=== PATIENT | female | born 1940 | race Caucasian/White ===

== ENCOUNTER → 2017-06-18 11:10 | Outpatient (CLI) | payer MEDICARE, OTHER, SELFPAY ==
[2017-06-18 11:58] LABS: Alanine Aminotransferase 50 IU/L (9-52); Albumin 4.2 g/dL (3.5-5.0); Albumin Globulin Ratio 1.4 (1.0-2.8); Alkaline Phosphatase 84 U/L (38-126); Aspartate Aminotransferase 34 IU/L (14-36); BUN Creatinine Ratio 28.6 (6-22); Bilirubin Total 0.4 mg/dL (0.2-1.3); Calcium 9.3 mg/dL (8.4-10.2); Estimated Glomerular Filt Rate > 60.0 mL/min (>60); Globulin 3.1 g/dL (1.7-4.1); Glucose 107 mg/dL (80-110); HEMOLYSIS < 15 (0-50); Potassium 4.1 mmol/L (3.4-5.1); Sodium 142 mmol/L (137-145); Total Protein 7.3 g/dL (6.3-8.2)
[2017-06-18 12:28] LABS: Carcinoembryonic Antigen 2.9 ng/mL (0.1-3.0)
[2017-06-19 15:55] LABS: Cancer Antigen 27.29 13
== END ==
PROVIDERS: Family Provider Physician Assistant Medical; PCP Physician Assistant Medical; Visit Provider Nurse Practitioner Gerontology
DX: C50.412 Malignant neoplasm of upper-outer quadrant of left female breast (principal)
CPT/HCPCS: 36415; 80053; 82378; 86300

== ENCOUNTER → 2017-07-15 10:28 | Outpatient (CLI) | payer MEDICARE, OTHER, SELFPAY ==
--- NOTE | 2017-07-15 14:24 | DIET.PN ---
Met for initial nutrition consultation Pt here for education on how to eat healthy to prevent cancer recurrance and be as healthy as possible. Had surgery to remove small malignant tumor in breast approx 2 yr ago. Opted not to have any further tx and is confident that all the cancer was removed. Usual Diet: 3 meals and 0-1 snack per day. Dines out regularly - often choosing entree salads. Does love bread and states her keeps things around that tempt her (ice cream and pastries). Activity Level: Low. Was doing pilates 2-3 times/week at her daughter's studio. Unfortunately for her, the daughter's business is taking off and she often gets bumped from her appointment. Has a stationary bike at home, but has little motivation to ride. Doesn't like to walk much, unless it's warm and calvin outside. Has a bum knee that gives her problems and feels so weight loss may help with this. Nutrition Dx: Obesity Ht 5'4 Wt: 175# (pt scale) BMI: 30 Wt goal: ~140# Assessment: Per typical day recall, pt chooses many healthful foods - salads, stir aragon vegs, berries, whole grains - but also has several high carb; sometimes high sugar foods. Physical activity is very low and would benefit from increasing Intervention: Provided education on healthy plate model for choosing balanced diet w/abundant immune boosting nutrients and portioning to facilitate wt loss. Emphasized importance of increasing physical activity to lose wt and maintain muscle mass. Encouraged to significantly decrease starchy foods Plan/Goals: Keep food and activity record Implement Healthy plate model in food choices/portioning Increase exercise - pt plans to discuss w/daughter to try to schedule regular pilates again. May consider checking pool classes F/U 2 weeks
== END ==
PROVIDERS: Family Provider Physician Assistant Medical; PCP Physician Assistant Medical; Visit Provider Internal Medicine Hematology & Oncology
DX: E66.9 Obesity, unspecified (principal); Z68.30 Body mass index [BMI] 30.0-30.9, adult
CPT/HCPCS: 97802

== ENCOUNTER → 2017-08-14 10:30 | Outpatient (CLI) | payer MEDICARE, OTHER, SELFPAY ==
--- NOTE | 2017-08-14 12:08 | DIET.PN ---
Met for first f/u Ana Luisa brought in 2 weeks of food and activity records. States tracking helped to realize how many poor food choices and how low exercise level is, but didn't think she needed to continue records after couple weeks. Did get in some walking approx 2-3X/week. Patient is very talkative; difficult to keep to task. WEIGHT: forgot to weigh at home, but states she doesn't think it has changed. DX: post breast Ca w/ surgery; no rad or chemo BMI: 30 ASSESSMENT: Per food act record, eating a lot of sugared foods and realizes this is a problem. Did increase vegetable intake and tried to model portions after healthy plate model. Spouse continues to buy or requests to purchase foods that are a temptation. Dining out continues to be a challenge INTERVENTION: Provided feedback on food record; alternate ideas/choices. Strongly encouraged to increase physical activity - suggest scheduling time. Discussed alternates for sweets GOAL: Keep food records intermittedly to help keep on track Schedule exercise. When daughter cancels pilates session, pt to have a specific alternate in mind, such as walk [place] [address]. F/U in 1 month
== END ==
PROVIDERS: PCP Family Medicine; Visit Provider Family Medicine Addiction Medicine
DX: C50.919 Malignant neoplasm of unspecified site of unspecified female breast (principal)
CPT/HCPCS: 97803

== ENCOUNTER 2017-10-16 17:43 | Emergency (ER) | payer MEDICARE, OTHER, SELFPAY ==
[2017-10-16 17:51] VITALS: BP 160/85; PULSE 80; RESP 20; TEMP 36.9; O2SAT 95
== END 2017-10-16 19:14 | disposition left against medical advice (07) ==
PROVIDERS: Emergency Provider Emergency Medicine; PCP Family Medicine
DX: M79.641 Pain in right hand (principal)
CPT/HCPCS: 99281; 99282

== ENCOUNTER → 2017-11-03 09:49 | Outpatient (CLI) | payer MEDICARE, OTHER, SELFPAY ==
--- NOTE | 2017-11-03 09:52 | DI.MRI.S_ITS ---
PROCEDURE: MR LUMBAR SPINE WO CON INDICATIONS: pain TECHNIQUE: Noncontrast sagittal T1 spin echo and T2 fast echo, coronal T2, sagittal STIR, axial T1 and T2 fast spin echo through the lumbar spine. COMPARISON: [facility], , MRI L-SPINE W/O CONTRAST, 11/25/2005, 8:51. [facility], CR, SPINE LUMB 2 OR 3VW, 11/29/2014, 11:34. FINDINGS: Image quality: Excellent. Alignment and Curvature: 5 lumbar type vertebral bodies are present by plain film. There is mild rightward curvature of the mid lumbar spine mild leftward curvature of the lower lumbar spine. There is loss of normal lumbar lordosis. There is mild grade 1 retrolisthesis of L2 on L3, L3 on L4, and L4 on L5. Bone Marrow: Marrow is of normal overall signal. No acute vertebral body compression fractures. There is increased mild reactive signal within the endplates adjacent to the L2-L3, L3-L4, L4-L5, and L5-S1 intervertebral discs. Spinal Cord: Conus medullaris terminates at the mid L2 level. Visualized cord demonstrates normal signal and size. Paraspinous Soft Tissues: No paravertebral masses. L1-L2: Mild facet hypertrophy. No canal, nor foraminal stenosis. L2-L3: Mild disc velocity desiccation. Mild diffuse disc bulge with superimposed broad-based left posterolateral and far lateral protrusion. Moderate facet and ligamentum flavum hypertrophy. Mild epidural lipomatosis. There is increased, moderate canal stenosis. There is increased, mild left greater than right foraminal stenosis. L3-L4: Moderate disc height loss and desiccation. Mild diffuse disc bulge with superimposed broad-based left posterolateral and far lateral protrusion. Moderate facet and ligamentum flavum hypertrophy. Mild epidural lipomatosis. Increased, moderate canal stenosis. Increased, mild left greater than right foraminal stenosis. L4-L5: Moderate disc height loss and desiccation. Moderate diffuse disc bulge with superimposed broad-based left for lateral protrusion. Moderate facet and ligamentum flavum hypertrophy. There is increased, moderate to severe canal stenosis. There is increased, moderate right and mild left foraminal stenosis. There is posterior deviation of the right L5 nerve root within the right lateral recess, new since the prior examination. L5-S1: Mild disc height loss and desiccation. Mild diffuse disc bulge with superimposed small broad-based right far lateral protrusion. Moderate facet hypertrophy bilaterally. Right facet joint effusion. There is increased, mild canal stenosis. There is increased, moderate to severe right foraminal stenosis with possible mild flattening deformity of the right L5 nerve root within the neural foramen. No left foraminal stenosis. IMPRESSION: 1. Multilevel degenerative disc and facet disease, as well ligamentum flavum hypertrophy and epidural lipomatosis. 2. Increased canal stenoses throughout the mid and lower lumbar spine, worst at L4-L5, where there is moderate to severe canal stenosis. 3. Increased multilevel foraminal stenoses, worst at L5-S1 on the right, where there is possible mild flattening deformity of the right L5 nerve root within the neural foramen. 4. Posterior deviation of the right L5 nerve root within the right lateral recess at the L4-L5 disc space level, new compared to the prior examination. 5. Recommend correlation with clinical symptoms to ascertain relevance of these findings. Dictated by: Minna Roberson M.D. on 11/03/2017 at 11:19 Approved by: Minna Roberson M.D. on 11/03/2017 at 11:26
[2017-11-03 12:01] LABS: Add Manual Diff / Slide Review NO; Basophils Percent Auto 1.2 % (0-2); Eosinophils Percent Auto 4.5 % (2-4); Hematocrit 41.5 % (36-46); Hemoglobin 13.8 g/dL (12.0-16.0); Lymphocytes Percent Auto 34.8 % (25-40); Mean Corpuscular HGB Conc 33.3 % (30-36); Mean Corpuscular Volume 89.9 fL (80-100); Monocytes Percent Auto 9.6 % (3-14); Neutrophils Absolute Auto 3800 /uL (3000-5900); Neutrophils Percent Auto 49.9 % (50-75); Platelet Count 310 X10^3/uL (150-400); Red Blood Cell Count 4.61 X10^6/uL (4.0-5.2); Red Cell Distribution Width 14.7 % (11.6-14.8); White Blood Cell Count 7.7 X10^3/uL (4.5-11.0)
[2017-11-03 12:22] LABS: Alanine Aminotransferase 48 IU/L (9-52); Albumin 4.3 g/dL (3.5-5.0); Albumin Globulin Ratio 1.4 (1.0-2.8); Alkaline Phosphatase 85 U/L (38-126); Aspartate Aminotransferase 30 IU/L (14-36); BUN Creatinine Ratio 28.6 (6-22); Bilirubin Total 0.4 mg/dL (0.2-1.3); Blood Urea Nitrogen 20 mg/dL (7-17); C-Reactive Protein Quant 0.7 mg/dL (<1.0); Calcium 9.9 mg/dL (8.4-10.2); Carbon Dioxide 32 mmol/L (22-32); Chloride 106 mmol/L (98-107); Estimated Glomerular Filt Rate > 60.0 mL/min (>60); Glucose 93 mg/dL (80-110); HEMOLYSIS < 15 (0-50); Potassium 4.5 mmol/L (3.4-5.1); Sodium 145 mmol/L (137-145); Total Protein 7.3 g/dL (6.3-8.2)
[2017-11-03 12:37] LABS: Vitamin D 25 Hydroxy (D3) 40.2 ng/mL (30.0-100.0)
[2017-11-03 12:50] LABS: Thyroid Stimulating Hormone 2.34 uIU/mL (0.47-4.68)
[2017-11-03 13:08] LABS: Vitamin B12 623 pg/mL (239-931)
== END ==
PROVIDERS: PCP Family Medicine; Visit Provider Family Medicine
DX: M51.36 Other intervertebral disc degeneration, lumbar region (principal); M51.37 Other intervertebral disc degeneration, lumbosacral region; M48.061 Spinal stenosis, lumbar region without neurogenic claudication; M48.07 Spinal stenosis, lumbosacral region; M54.5 Low back pain; R53.83 Other fatigue; E55.9 Vitamin D deficiency, unspecified
CPT/HCPCS: 36415; 72148; 80053; 82306; 82607; 84443; 85025; 86140

== ENCOUNTER → 2018-07-17 11:48 | Outpatient (CLI) | payer MEDICARE, OTHER, SELFPAY ==
[2018-07-17 12:31] LABS: Add Manual Diff / Slide Review NO; Basophils Absolute Auto 100 /uL (0-100); Eosinophils Absolute Auto 400 /uL (0-450); Eosinophils Percent Auto 4.4 % (2-4); Hematocrit 39.4 % (36-46); Hemoglobin 13.4 g/dL (12.0-16.0); Lymphocytes Absolute Auto 2800 /uL (1100-4500); Lymphocytes Percent Auto 30.8 % (25-40); Mean Corpuscular HGB Conc 33.9 % (30-36); Mean Corpuscular Hemoglobin 30.6 PG (26-34); Mean Corpuscular Volume 90.2 fL (80-100); Monocytes Absolute Auto 900 /uL (0-900); Monocytes Percent Auto 9.5 % (3-14); Neutrophils Absolute Auto 5000 /uL (1500-7000); Neutrophils Percent Auto 54.3 % (50-75); Platelet Count 309 X10^3/uL (150-400); Red Blood Cell Count 4.37 X10^6/uL (4.0-5.2); Red Cell Distribution Width 14.3 % (11.6-14.8); White Blood Cell Count 9.2 X10^3/uL (4.5-11.0)
[2018-07-17 12:38] LABS: Alanine Aminotransferase 37 IU/L (9-52); Albumin 4.1 g/dL (3.5-5.0); Albumin Globulin Ratio 1.3 (1.0-2.8); Alkaline Phosphatase 89 U/L (38-126); Aspartate Aminotransferase 31 IU/L (14-36); BUN Creatinine Ratio 37.1 (6-22); Bilirubin Total 0.5 mg/dL (0.2-1.3); Blood Urea Nitrogen 26 mg/dL (7-17); Calcium 9.7 mg/dL (8.4-10.2); Carbon Dioxide 31 mmol/L (22-32); Chloride 103 mmol/L (98-107); Cholesterol 219 mg/dL (140-199); Estimated Glomerular Filt Rate > 60.0 mL/min (>60); Globulin 3.2 g/dL (1.7-4.1); Glucose 104 mg/dL (80-110); HDL Cholesterol 70 mg/dL (40-60); HEMOLYSIS < 15 (0-50); LDL Cholesterol Calculated 122 mg/dL (<100); Potassium 4.3 mmol/L (3.4-5.1); Sodium 141 mmol/L (137-145); Total Protein 7.3 g/dL (6.3-8.2); Triglycerides 136 mg/dL (35-150)
[2018-07-17 13:40] LABS: Thyroid Stimulating Hormone 1.94 uIU/mL (0.47-4.68)
[2018-07-22 14:28] LABS: Estrogen 126.6 pg/mL
== END ==
PROVIDERS: Family Provider Family Medicine; PCP Family Medicine; Visit Provider Internal Medicine Hematology & Oncology
DX: C50.919 Malignant neoplasm of unspecified site of unspecified female breast (principal); R63.5 Abnormal weight gain; Z00.00 Encounter for general adult medical examination without abnormal findings; Z78.0 Asymptomatic menopausal state
CPT/HCPCS: 36415; 80053; 80061; 82672; 83001; 83002; 84443; 85025

== ENCOUNTER 2018-08-21 23:09 | Emergency (ER) | payer MEDICARE, OTHER, SELFPAY ==
[2018-08-21 23:13] VITALS: BP 141/64; PULSE 96; RESP 10; O2SAT 96; BMI 26.6
[2018-08-21 23:17] VITALS: TEMP 38
--- NOTE | 2018-08-21 23:26 | DI.RAD.S_ITS ---
PROCEDURE: XR CHEST 1V INDICATIONS: cough, fever, shortness of breath TECHNIQUE: One view of the chest was acquired. COMPARISON: , , CHEST 2 VIEW, 02/12/2017, 19:08. FINDINGS: Surgical changes and devices: None. Lungs and pleura: There is a new density identified within the right upper lobe, which was not evident on the prior study. Otherwise, no in additional areas of consolidation, effusion, or pneumothorax is evident. There may be minimal scarring versus atelectasis at the left lung base. Mediastinum: Mediastinal contours appear normal. Heart size is normal. There is aortic atherosclerosis. Bones and chest wall: No suspicious bony lesions. Overlying soft tissues appear unremarkable. IMPRESSION: 1. Small nodular right upper lobe density is new. Please consider CT of the chest for further evaluation to exclude a lung mass/nodule. Please correlate clinically to exclude atypical pneumonia. 2. No acute cardiopulmonary process is radiographically suspected. Dictated by: Archie Izquierdo M.D. on 08/21/2018 at 23:35 Approved by: Archie Izquierdo M.D. on 08/21/2018 at 23:36
[2018-08-21 23:40] LABS: Add Manual Diff / Slide Review NO; Basophils Absolute Auto 100 /uL (0-100); Basophils Percent Auto 0.7 % (0-2); Eosinophils Absolute Auto 300 /uL (0-450); Eosinophils Percent Auto 2.3 % (2-4); Hemoglobin 13.7 g/dL (12.0-16.0); Lymphocytes Absolute Auto 3300 /uL (1100-4500); Lymphocytes Percent Auto 25.9 % (25-40); Mean Corpuscular HGB Conc 33.3 % (30-36); Mean Corpuscular Hemoglobin 30.3 PG (26-34); Mean Corpuscular Volume 90.7 fL (80-100); Monocytes Absolute Auto 1700 /uL (0-900); Monocytes Percent Auto 13.2 % (3-14); Neutrophils Absolute Auto 7400 /uL (1500-7000); Neutrophils Percent Auto 57.9 % (50-75); Platelet Count 316 X10^3/uL (150-400); Red Blood Cell Count 4.52 X10^6/uL (4.0-5.2); Red Cell Distribution Width 14.5 % (11.6-14.8); White Blood Cell Count 12.9 X10^3/uL (4.5-11.0)
--- NOTE | 2018-08-21 23:40 | ED_ITS ---
HPI - URI/Sore Throat General Chief Complaint: Upper Respiratory Symptoms Stated Complaint: SOB Time Seen by Provider: 08/21/18 23:10 Source: patient and EMS Mode of arrival: EMS Limitations: no limitations History of Present Illness HPI Narrative: 77-year-old female nonsmoker presents by EMS for evaluation of generally feeling unwell for about the past week. She has had subjective fever and chills as well as some sore throat, runny nose and nasal congestion as well as a dry hacking cough. She denies nausea, vomiting but has had some diarrhea. She denies dysuria, frequency or urgency. About a week ago she had a dental procedure which she thinks has gone well. She has had a poor appetite and has been declining over the week MD Complaint: fever, cough, sore throat, rhinorrhea and nasal congestion Onset (ago): day(s) Duration: constant Severity: moderate Relieving factors: nothing Exacerbating factors: nothing Able to tolerate fluids by mouth: Yes Associated symptoms: fever, chills and myalgias Treatments prior to arrival: none Related Data Home Medications Medication Instructions Recorded Confirmed multivitamin [Multiple Vitamins] 1 tab PO QDAY #0 12/29/15 07/22/18 ibuprofen 200 mg tablet 400 mg PO BID PRN tab 09/23/17 07/22/18 beclomethasone dipropionate 80 mcg INHALATION BID 10/14/17 07/22/18 mcg/actuation aerosol inhaler Previous Rx's Medication Instructions Recorded hydrocodone 2.5 mg-acetaminophen 1 tab PO Q4-6H PRN #20 tab 11/24/17 325 mg tablet albuterol sulfate HFA 90 2 puff INHALATION Q4-6H PRN #8.5 07/22/18 mcg/actuation aerosol inhaler gram alprazolam 0.5 mg tablet 0.5 mg PO BID #60 tab 07/22/18 azithromycin 250 mg tablet See Rx Instructions PO .COMPLEX #6 07/22/18 tab lisinopril 30 mg tablet 30 mg PO DAILY #90 tab 07/22/18 doxycycline monohydrate 100 mg PO BID 10 Days #20 cap 08/22/18 Allergies Allergy/AdvReac Type Severity Reaction Status Date / Time meperidine Allergy Severe COULDN'T Verified 08/21/18 23:17 BREATHE OR TALK, EXTREME DIAPHORESIS fluoxetine Allergy Intermediate BROKE OUT Verified 08/21/18 23:17 INTO RASH levofloxacin Allergy Intermediate TENDON Verified 08/21/18 23:17 SORENESS penicillin G Allergy Intermediate RASH Verified 08/21/18 23:17 Sulfa (Sulfonamide Allergy Intermediate HIVES Verified 08/21/18 23:17 Antibiotics) nitrofurantoin Allergy Unknown Verified 08/21/18 23:17 [From MACROBID] Review of Systems Constitutional Reports chills, Reports fatigue, Reports fever(s), Denies lethargy, Reports poor appetite and Denies weakness Eyes Denies change in vision, Denies eye discharge, Denies irritation and Denies loss of vision ENT Ears, Nose, Mouth, and Throat: Denies change in voice, Reports nasal congestion, Reports nasal discharge, Denies neck pain and Reports sore throat Cardiovascular Denies chest pain, Denies irregular heart rhythm, Denies lightheadedness, Denies palpitations, Denies dyspnea, Denies dyspnea on exertion and Denies orthopnea Respiratory Reports cough, Denies dyspnea, Denies dyspnea on exertion and Denies wheezing Gastrointestinal Gastrointestinal: Denies abdominal pain, Denies change in bowel habits, Denies diarrhea, Denies nausea and Denies vomiting Genitourinary Denies hematuria, Denies flank pain, Denies urinary incontinence and Denies urinary urgency Musculoskeletal Denies neck pain Integumentary/Breasts Denies pruritus, Denies erythema, Denies rash and Denies wounds Neurologic Denies confusion, Denies loss of vision and Denies weakness Psychiatric Denies anxiety, Denies confusion, Denies depression, Denies homicidal ideation and Denies suicidal ideation Endocrine Reports fatigue and Denies palpitations Hematologic/Lymphatic Denies easy bruising Allergic/Immunologic Denies wheezing [facility] Medical History Abnormal chest x-ray (Chronic) Asthma (Chronic ~194) Breast cancer (Chronic ~2015) Hay fever (Chronic) Hearing loss (Chronic ~2016) Kidney stones (Chronic ~2005) Knee meniscus pain (Chronic ~2014) Sciatica (Chronic ~2017) Tinnitus (Chronic ~2016) Chicken pox (Resolved ~1949) Measles (Resolved ~1949) Mononucleosis (Resolved ~1960) Surgical History Anesthesia (Resolved) Branchial cleft cyst (Resolved ~1960) History of appendectomy (Resolved ~1953) History of arthroscopic knee surgery (Resolved ~2014) History of cataract surgery (Resolved) History of section (Resolved ~1975) History of section (Resolved ~1982) History of lumpectomy (Resolved ~01/2016) History of tonsillectomy (Resolved ~1944) Family History (Updated 08/08/17 @ 22:19 by Rosamaria No) Father Hypertension Heart disease Mother No problems noted. Brother No problems noted. Sister No problems noted. Grandfather No problems noted. Grandmother No problems noted. Grandfather No problems noted. Grandmother No problems noted. Social History Smoking Status: Never smoker Family History Father Hypertension Heart disease Mother No problems noted. Brother No problems noted. Sister No problems noted. Grandfather No problems noted. Grandmother No problems noted. Grandfather No problems noted. Grandmother No problems noted. Social History Smoking Status: Never smoker Exam Narrative Exam Narrative: GENERAL: 77-year-old female appears stated age, bit anxious but in no obvious or significant distress HEAD: Atraumatic. Normocephalic. No temporal or scalp tenderness. EYES: Pupils equal round and reactive. Extraocular motions intact. No scleral icterus. No injection or drainage. ENT: Dry mucous membranes Nose without bleeding, purulent drainage or septal hematoma. Throat without erythema, tonsillar hypertrophy or exudate. Uvula midline. Airway patent. NECK: Trachea midline. No JVD or lymphadenopathy. Supple, nontender, no meningeal signs. CARDIOVASCULAR: Regular rate and rhythm without murmurs, gallops, or rubs. RESPIRATORY: Clear to auscultation. Breath sounds equal bilaterally. No wheezes, rales, or rhonchi. GASTROINTESTINAL: Abdomen soft, non-tender, nondistended. No hepato- splenomegaly, or palpable masses. No guarding. EXTREMITIES: No clubbing, cyanosis, or edema. No joint tenderness, effusion, or edema noted. BACK: Nontender without deformity or crepitance. No flank tenderness. NEURO: AOx3. SKIN: No rash or erythema. Initial Vital Signs Initial Vital Signs: Vital Signs Pulse Rate 96 H 08/21/18 23:13 Respiratory Rate 10 L 08/21/18 23:13 Blood Pressure 141/64 H 08/21/18 23:13 Pulse Oximetry 96 08/21/18 23:13 Course Orders Ordered: ED Orders 08/21/18 22:18 Basic Metabolic Panel Stat Complete Blood Count AUTO DIFF Stat Lactate (Lactic Acid) Stat Procalcitonin Stat 08/21/18 23:26 XR chest 1V Stat 08/21/18 23:59 Blood Culture Stat 08/22/18 00:51 Ictotest Urine Stat Urine Microscopic Stat 08/22/18 23:47 Troponin & CK Cardiac Panel Stat Discontinued Medications Diphenhydramine HCl (Benadryl) 25 mg IV NOW ONE Stop: 08/22/18 01:37 Last Admin: 08/22/18 01:40 Dose: 25 mg Doxycycline Hyclate (Vibramycin) 100 mg PO NOW ONE Stop: 08/22/18 01:46 Last Admin: 08/22/18 01:51 Dose: 100 mg Sodium Chloride (Normal Saline 0.9%) 1,000 mls @ 1,000 mls/hr IV BOLUS ONE Stop: 08/22/18 00:24 Last Infusion: 08/22/18 01:00 Dose: 0 mls/hr Admin: 08/22/18 00:00 Dose: 1,000 mls/hr Ceftriaxone Sodium/Dextrose (Rocephin) 1 gm in 50 mls @ 100 mls/hr IV NOW ONE Stop: 08/22/18 01:32 Last Infusion: 08/22/18 01:25 Dose: 100 mls/hr Admin: 08/22/18 01:10 Dose: 100 mls/hr Famotidine (Pepcid) 20 mg in 50 mls @ 200 mls/hr IV NOW ONE Stop: 08/22/18 01:51 Last Infusion: 08/22/18 02:03 Dose: 200 mls/hr Admin: 08/22/18 01:40 Dose: 200 mls/hr Methylprednisolone (Solu-Medrol 125 Mg Vial) 125 mg IV NOW ONE Stop: 08/22/18 01:37 Last Admin: 08/22/18 01:40 Dose: 125 mg Reevaluation(s) Reevaluation #1: About 10 minutes into the administration of the Rocephin patient develops some itching a small rash on her anterior chest. Rocephin immediately stop, Benadryl, Solu-Medrol an Pepcid administered and patient demonstrates rapid improvement of symptoms. She is observed for another hour and does quite well. Vital Signs - 8 hr 08/21/18 23:13 08/21/18 23:17 08/21/18 23:45 Temperature 100.4 F H Pulse Rate 96 H 85 Respiratory Rate 10 L 14 Blood Pressure 141/64 H Blood Pressure [Right Arm] 124/96 H Pulse Oximetry 96 96 MDM - URI/Sore Throat Lab Data Result diagrams: 08/21/18 22:18 08/21/18 22:18 Lab Results 08/21/18 08/21/18 08/21/18 Range/Units 22:18 22:18 22:18 WBC 12.9 H (4.5-11.0) X10^3/uL RBC 4.52 (4.0-5.2) X10^6/uL Hgb 13.7 (12.0-16.0) g/dL Hct 41.0 (36-46) % MCV 90.7 (80-100) fL MCH 30.3 (26-34) PG MCHC 33.3 (30-36) % RDW 14.5 (11.6-14.8) % Plt Count 316 (150-400) X10^3/uL Neut % (Auto) 57.9 (50-75) % Lymph % (Auto) 25.9 (25-40) % [place] % (Auto) 13.2 (3-14) % Eos % (Auto) 2.3 (2-4) % Baso % (Auto) 0.7 (0-2) % Neut # (Auto) 7400 H (8103-8094) /uL Lymph # (Auto) 3300 (6014-5054) /uL [place] # (Auto) 1700 H (0-900) /uL Eos # (Auto) 300 (0-450) /uL Baso # (Auto) 100 (0-100) /uL Sodium 141 (137-145) mmol/L Potassium 3.9 (3.4-5.1) mmol/L Chloride 103 (98-107) mmol/L Carbon Dioxide 29 (22-32) mmol/L BUN 21 H (7-17) mg/dL Creatinine 0.70 (0.52-1.04) mg/dL Estimated GFR > 60.0 (>60) mL/min BUN/Creatinine Ratio 30.0 H (6-22) Glucose 131 H (80-110) mg/dL Lactate (0.7-2.1) mmol/L Calcium 9.6 (8.4-10.2) mg/dL Total Creatine Kinase (30-135) U/L CK-MB (CK-2) CK-MB (CK-2) Rel Index Troponin I (0.01-0.034) ng/mL Procalcitonin < 0.05 (<0.5) ng/mL Urine Ictotest (Negative) Urine RBC (0-5/HPF) Urine WBC (0-5/HPF) Ur Squamous Epith Cells (0-5/HPF) Calcium Oxalate Crystal Urine Bacteria (None) Ur Culture Indicated? 08/21/18 08/21/18 08/22/18 Range/Units 22:18 23:47 00:51 WBC (4.5-11.0) X10^3/uL RBC (4.0-5.2) X10^6/uL Hgb (12.0-16.0) g/dL Hct (36-46) % MCV (80-100) fL MCH (26-34) PG MCHC (30-36) % RDW (11.6-14.8) % Plt Count (150-400) X10^3/uL Neut % (Auto) (50-75) % Lymph % (Auto) (25-40) % [place] % (Auto) (3-14) % Eos % (Auto) (2-4) % Baso % (Auto) (0-2) % Neut # (Auto) (7917-5551) /uL Lymph # (Auto) (4593-0490) /uL [place] # (Auto) (0-900) /uL Eos # (Auto) (0-450) /uL Baso # (Auto) (0-100) /uL Sodium (137-145) mmol/L Potassium (3.4-5.1) mmol/L Chloride (98-107) mmol/L Carbon Dioxide (22-32) mmol/L BUN (7-17) mg/dL Creatinine (0.52-1.04) mg/dL Estimated GFR (>60) mL/min BUN/Creatinine Ratio (6-22) Glucose (80-110) mg/dL Lactate 1.2 (0.7-2.1) mmol/L Calcium (8.4-10.2) mg/dL Total Creatine Kinase 29 L (30-135) U/L CK-MB (CK-2) TNP CK-MB (CK-2) Rel Index TNP Troponin I < 0.012 (0.01-0.034) ng/mL Procalcitonin (<0.5) ng/mL Urine Ictotest (Negative) Urine RBC 0-1/hpf (0-5/HPF) Urine WBC 10-30/hpf H (0-5/HPF) Ur Squamous Epith Cells 5-10 /hpf H (0-5/HPF) Calcium Oxalate Crystal Many H Urine Bacteria Few (2-10) H (None) Ur Culture Indicated? Cult not indicated 08/22/18 Range/Units 00:51 WBC (4.5-11.0) X10^3/uL RBC (4.0-5.2) X10^6/uL Hgb (12.0-16.0) g/dL Hct (36-46) % MCV (80-100) fL MCH (26-34) PG MCHC (30-36) % RDW (11.6-14.8) % Plt Count (150-400) X10^3/uL Neut % (Auto) (50-75) % Lymph % (Auto) (25-40) % [place] % (Auto) (3-14) % Eos % (Auto) (2-4) % Baso % (Auto) (0-2) % Neut # (Auto) (0412-7603) /uL Lymph # (Auto) (6877-3663) /uL [place] # (Auto) (0-900) /uL Eos # (Auto) (0-450) /uL Baso # (Auto) (0-100) /uL Sodium (137-145) mmol/L Potassium (3.4-5.1) mmol/L Chloride (98-107) mmol/L Carbon Dioxide (22-32) mmol/L BUN (7-17) mg/dL Creatinine (0.52-1.04) mg/dL Estimated GFR (>60) mL/min BUN/Creatinine Ratio (6-22) Glucose (80-110) mg/dL Lactate (0.7-2.1) mmol/L Calcium (8.4-10.2) mg/dL Total Creatine Kinase (30-135) U/L CK-MB (CK-2) CK-MB (CK-2) Rel Index Troponin I (0.01-0.034) ng/mL Procalcitonin (<0.5) ng/mL Urine Ictotest Negative (Negative) Urine RBC (0-5/HPF) Urine WBC (0-5/HPF) Ur Squamous Epith Cells (0-5/HPF) Calcium Oxalate Crystal Urine Bacteria (None) Ur Culture Indicated? Urine Dip Bedside Urine Glucose Negative Bedside Urine Bilirubin + 1 Bedside Urine Ketone +/- 5 Urine Specific [place] 1.030 Bedside Urine Occult Blood +/- Bedside Urine pH 5.0 Bedside Urine Protein +/- 15 Bedside Urine Urobilinogen +/- 1mg Bedside Urine Leukocytes +++ 500 Esterase Imaging Data Chest x-ray: My impression: NAP Discharge Plan Departure Patient Disposition: Home Clinical Impression: Acute UTI, Atypical pneumonia Instructions: DI for Urinary Tract Infection (UTI), DI for Atypical Pneumonia Activity Restrictions/Additional Instructions: *You have been diagnosed with [ atypical pneumonia, UTI, weakness ] *What to do: *Take medications as directed: *Follow up with your primary care provider in 2-3 days, call for an appointment. Let them know you were seen in the Emergency Department and that we ask that you be seen in follow up *Return to ER if you should have any new, worsening or concerning symptoms Prescriptions: New doxycycline monohydrate 100 mg capsule 100 mg PO BID 10 Days Qty: 20 RF: 0 No Action multivitamin [Multiple Vitamins] 1 EACH tablet 1 tab PO QDAY Qty: 0 RF: 0 beclomethasone dipropionate 80 mcg/actuation aerosol INHALATION BID RF: 0 hydrocodone-acetaminophen 2.5-325 mg tablet 1 tab PO Q4-6H PRN (Reason: pain) Qty: 20 RF: 0 ibuprofen [Advil] 200 mg tablet 400 mg PO BID PRN (Reason: Pain (Scale Score 1-3)) RF: 0 alprazolam 0.5 mg tablet 0.5 mg PO BID Qty: 60 RF: 1 albuterol sulfate [Ventolin HFA] 90 mcg/actuation HFA aerosol inhaler 2 puff INHALATION Q4-6H PRN (Reason: asthma) Qty: 8.5 RF: 5 lisinopril 30 mg tablet 30 mg PO DAILY Qty: 90 RF: 3 azithromycin 250 mg tablet See Rx Instructions PO .COMPLEX Qty: 6 RF: 0 Referrals: Jose Manuel Wilson MD [Primary Care Provider] -
[2018-08-21 23:45] VITALS: BP 124/96; PULSE 85; RESP 14; O2SAT 96
[2018-08-21 23:45] LABS: Lactate (Lactic Acid) 1.2 mmol/L (0.7-2.1)
[2018-08-21 23:48] LABS: Blood Urea Nitrogen 21 mg/dL (7-17); Calcium 9.6 mg/dL (8.4-10.2); Carbon Dioxide 29 mmol/L (22-32); Chloride 103 mmol/L (98-107); Estimated Glomerular Filt Rate > 60.0 mL/min (>60); Glucose 131 mg/dL (80-110); HEMOLYSIS < 15 (0-50); Potassium 3.9 mmol/L (3.4-5.1); Sodium 141 mmol/L (137-145)
[2018-08-22] MEDS: SODIUM CHLORIDE 0.9% 1,000 ML 1000 ML IV
[2018-08-22 00:06] LABS: Procalcitonin < 0.05 ng/mL (<0.5)
[2018-08-22 01:05] LABS: Creatine Kinase 29 U/L (30-135)
[2018-08-22] MEDS: CEFTRIAXONE 1 GM/50 ML FROZ.PIGGY IV (01:10)
[2018-08-22 01:18] LABS: Troponin I < 0.012 ng/mL (0.01-0.034)
--- NOTE | 2018-08-22 01:30 | PC.NURSE ---
Pt states throat is itching and thinks she is having a reaction to the IV ceftriaxone being administered, IV infusion stopped and Dr. Whalen notified. PT given benadryl, solu-medrol and pepcid ordered.
[2018-08-22] MEDS: diphenhydrAMINE 50 MG/ML VIAL 25 MG IV (01:40)
[2018-08-22] MEDS: methylPREDNISolone 125 MG/2 ML VIAL IV (01:40)
[2018-08-22] MEDS: FAMOTIDINE 20 MG/50 ML PIGGYBACK 200 MG IV (01:40)
[2018-08-22 01:47] LABS: Calcium Oxalate Crystals Urine Many; RBC Urine 0-1/HPF (0-5/HPF); Squamous Epithelial Cell Urine 5-10 /HPF (0-5/HPF); WBC Urine 10-30/HPF (0-5/HPF)
[2018-08-22 01:48] LABS: Bacteria Urine Few (2-10); Culture Indicated Urine Cult Not Indicated
[2018-08-22 01:51] LABS: Ictotest Urine Negative (Negative)
[2018-08-22] MEDS: DOXYCYCLINE HYCLATE 100 MG TABLET PO (01:51)
[2018-08-22 02:30] VITALS: BP 149/64; PULSE 88; RESP 17; O2SAT 95
== END 2018-08-22 02:30 | disposition home or self-care (01) ==
PROVIDERS: Emergency Provider Emergency Medicine; Family Provider Family Medicine; PCP Family Medicine
DX: N39.0 Urinary tract infection, site not specified (principal); J18.9 Pneumonia, unspecified organism
CPT/HCPCS: 36415; 36591; 71045; 80048; 81003; 81015; 82550; 83605; 84145; 84484; 85025; 87040; 96361; 96365; 96375; 99283; 99284; J1200; J2930

== ENCOUNTER → 2018-08-25 12:46 | Outpatient (CLI) | payer MEDICARE, OTHER, SELFPAY ==
--- NOTE | 2018-08-25 12:52 | DI.CT.S_ITS ---
PROCEDURE: CT CHEST W CON INDICATIONS: mass TECHNIQUE: After the administration of intravenous contrast, 5 mm thick sections acquired from the pulmonary apices to the posterior costophrenic angles. 7 mm thick coronal and sagittal MIP reformats were acquired. For radiation dose reduction, the following was used: automated exposure control, adjustment of mA and/or kV according to patient size. COMPARISON: [facility], CR, XR CHEST 1V, 08/21/2018, 23:30. FINDINGS: Image quality: Excellent. Lungs and pleura: Focal area of nodular density measures 1.7 x 0.6 x 1.2 cm in size is seen adjacent to posterior pleura of right apex with ill-defined surrounding groundglass opacities and mildly spiculated margin. This accounts for the chest radiograph finding. Ill-defined subtle patchy groundglass opacities also seen scattered in posterior and lateral aspect of right upper lobe as well as posterior aspect of left lower lobe superior segment. Ill-defined slightly lobulated nodular density in posterior lateral aspect of right upper lobe is also seen and measures 1.3 x 1.8 x 0.8 cm in size. Scarring/atelectasis in the anterior medial aspect of bilateral lung bases are seen. No pleural effusions or pneumothorax. Central and peripheral airways are patent and normal in caliber. Mediastinum: Heart size is normal. No pericardial effusion. No mediastinal or hilar adenopathy by size criteria. Subcentimeter lymph nodes are seen scattered in mediastinum and right hilar region measures up to 7 mm in short axis diameter. Thoracic aorta and central pulmonary arteries are normal in size. Esophagus is normal in caliber. There is a small to moderate-sized hiatal hernia. Bones and chest wall: No suspicious bony lesions. No vertebral body compression fractures. No axillary or supraclavicular adenopathy by size criteria. Thyroid gland is within normal limits. Abdomen: Visualized upper abdominal solid organs appear normal. Upper abdominal bowel loops are normal in caliber. Hepatic steatosis is seen. IMPRESSION: 1. Ill-defined lobulated air space opacity measures 1.7 x 0.6 x 1.2 cm in size in posterior aspect of right apex extending to posterior pleura with surrounding ill-defined groundglass opacities. Additional nodular opacity in the posterior lateral aspect of right upper lobe measures 1.3 x 1.8 x 0.8 cm in size with ill-defined surrounding groundglass opacities. Patchy groundglass opacities also seen scattered in posterior and lateral aspect of right upper lobe and superior segment of left lower lobe. Findings are present patchy bronchopneumonia given patient's history of fever and cough. Underlying neoplastic process cannot be entirely excluded. Followup until resolution is recommended. 2. No pleural effusion or pneumothorax. Airway is patent. 3. No significant mediastinal or hilar lymphadenopathy by size criteria. 4. Small to moderate size hiatal hernia. Hepatic steatosis. Dictated by: Kevin Turk M.D. on 08/25/2018 at 16:58 Approved by: Kevin Turk M.D. on 08/25/2018 at 17:24
== END ==
PROVIDERS: Family Provider Family Medicine; PCP Family Medicine; Visit Provider Family Medicine
DX: R91.8 Other nonspecific abnormal finding of lung field (principal); J18.0 Bronchopneumonia, unspecified organism; K44.9 Diaphragmatic hernia without obstruction or gangrene; R05 Cough; R50.9 Fever, unspecified; K76.0 Fatty (change of) liver, not elsewhere classified
CPT/HCPCS: 71260; Q9967

== ENCOUNTER → 2018-09-16 11:41 | Outpatient (CLI) | payer MEDICARE, OTHER, SELFPAY ==
--- NOTE | 2018-09-16 11:45 | DI.CT.S_ITS ---
PROCEDURE: CT CHEST W CON INDICATIONS: F/U prior ct TECHNIQUE: After the administration of intravenous contrast, 5 mm thick sections acquired from the pulmonary apices to the posterior costophrenic angles. 1 mm axial lung, 5 mm thick coronal and sagittal reformats and 7 mm axial MIP were acquired. For radiation dose reduction, the following was used: automated exposure control, adjustment of mA and/or kV according to patient size. COMPARISON: [facility], CT, ABDOMEN/PELVIS WITH CONTRAST, 11/04/2014, 17:02. [facility], CT, CT CHEST W CON, 08/25/2018, 12:58. FINDINGS: Image quality: Excellent. Lungs and pleura: No acute consolidation. Multiple subcentimeter pulmonary nodules again noted within the left lung base, which appear unchanged dating back to our study from . The previously described posterior subpleural nodule involving the right apex on recent study from 08/25/18 has resolved, and there is minimal residual scarring. No pleural effusions or pneumothorax. Central and peripheral airways are patent and normal in caliber. Mediastinum: Heart size is normal. No pericardial effusion. No mediastinal or hilar adenopathy by size criteria. Thoracic aorta and central pulmonary arteries are normal in size. Esophagus is normal in caliber. No hiatal hernia. Bones and chest wall: No suspicious bony lesions. No vertebral body compression fractures. No axillary or supraclavicular adenopathy by size criteria. Thyroid gland negative. Abdomen: Small hiatal hernia. Hepatic steatosis. Hypodense lesion seen in the dome liver is unchanged. Additional sub-5 mm hyperdensities in the right lobe grossly unchanged. Sub-5 mm cholelithiasis incidentally noted IMPRESSION: Interval resolution of posterior right apical subpleural nodule since 08/25/18. Additional chronic and incidental findings as above. Dictated by: Michi Hernandez M.D. on 09/16/2018 at 14:17 Approved by: Michi Hernandez M.D. on 09/16/2018 at 14:37
[2018-09-16 12:43] LABS: BUN Creatinine Ratio 36.7 (6-22); Blood Urea Nitrogen 22 mg/dL (7-17); Estimated Glomerular Filt Rate > 60.0 mL/min (>60)
== END ==
PROVIDERS: PCP Family Medicine; Visit Provider Family Medicine
DX: Z01.812 Encounter for preprocedural laboratory examination (principal); R91.8 Other nonspecific abnormal finding of lung field; K44.9 Diaphragmatic hernia without obstruction or gangrene; K76.0 Fatty (change of) liver, not elsewhere classified; K76.9 Liver disease, unspecified; K80.20 Calculus of gallbladder without cholecystitis without obstruction
CPT/HCPCS: 71260; 82565; 84520

== ENCOUNTER → 2018-11-13 08:52 | Outpatient (CLI) | payer MEDICARE, OTHER, SELFPAY ==
--- NOTE | 2018-11-13 08:59 | DI.RAD.S_ITS ---
PROCEDURE: XR CHEST 2V INDICATIONS: Fatigue, SOB wit exertion, history of pnuemonia more that o TECHNIQUE: 2 views of the chest were acquired. COMPARISON: [facility], CR, XR CHEST 1V, 08/21/2018, 23:30. FINDINGS: Surgical changes and devices: None. Lungs and pleura: Lungs are clear. No pleural effusions or pneumothorax. Mediastinum: Mediastinal contours are normal. Heart size is normal. Bones and chest wall: No suspicious bony abnormalities. Soft tissues appear unremarkable. IMPRESSION: No acute disease Dictated by: Michi Hernandez M.D. on 11/13/2018 at 9:55 Approved by: Michi Hernandez M.D. on 11/13/2018 at 9:58
[2018-11-13 10:03] LABS: Add Manual Diff / Slide Review NO; Basophils Absolute Auto 100 /uL (0-100); Basophils Percent Auto 0.8 % (0-2); Eosinophils Absolute Auto 500 /uL (0-450); Hematocrit 40.2 % (36-46); Hemoglobin 13.4 g/dL (12.0-16.0); Lymphocytes Absolute Auto 2600 /uL (1100-4500); Lymphocytes Percent Auto 32.5 % (25-40); Mean Corpuscular HGB Conc 33.3 % (30-36); Mean Corpuscular Hemoglobin 30.4 PG (26-34); Mean Corpuscular Volume 91.3 fL (80-100); Monocytes Absolute Auto 700 /uL (0-900); Monocytes Percent Auto 8.9 % (3-14); Neutrophils Absolute Auto 4200 /uL (1500-7000); Neutrophils Percent Auto 51.8 % (50-75); Platelet Count 299 X10^3/uL (150-400); Red Cell Distribution Width 14.6 % (11.6-14.8)
[2018-11-13 10:13] LABS: Alanine Aminotransferase 39 IU/L (9-52); Albumin 4.1 g/dL (3.5-5.0); Albumin Globulin Ratio 1.5 (1.0-2.8); Alkaline Phosphatase 91 U/L (38-126); Aspartate Aminotransferase 29 IU/L (14-36); BUN Creatinine Ratio 36.7 (6-22); Bilirubin Total 0.6 mg/dL (0.2-1.3); Blood Urea Nitrogen 22 mg/dL (7-17); Calcium 9.3 mg/dL (8.4-10.2); Carbon Dioxide 30 mmol/L (22-32); Chloride 105 mmol/L (98-107); Estimated Glomerular Filt Rate > 60.0 mL/min (>60); Globulin 2.8 g/dL (1.7-4.1); Glucose 95 mg/dL (80-110); HEMOLYSIS 19 (0-50); Potassium 4.6 mmol/L (3.4-5.1); Sodium 143 mmol/L (137-145); Total Protein 6.9 g/dL (6.3-8.2)
== END ==
PROVIDERS: PCP Family Medicine; Visit Provider Family Medicine
DX: R06.02 Shortness of breath (principal); R53.83 Other fatigue; Z86.19 Personal history of other infectious and parasitic diseases
CPT/HCPCS: 36415; 71046; 80053; 85025

== ENCOUNTER → 2018-12-03 15:56 | Outpatient (CLI) | payer MEDICARE, OTHER, SELFPAY | PROVIDERS: PCP Family Medicine; Visit Provider Family Medicine ==

== ENCOUNTER → 2019-01-28 10:48 | Outpatient (CLI) | payer MEDICARE, OTHER, SELFPAY ==
[2019-01-28 12:07] LABS: Add Manual Diff / Slide Review NO; Basophils Absolute Auto 100 /uL (0-100); Basophils Percent Auto 1.1 % (0-2); Eosinophils Absolute Auto 300 /uL (0-450); Eosinophils Percent Auto 4.1 % (2-4); Hematocrit 40.3 % (36-46); Hemoglobin 13.7 g/dL (12.0-16.0); Lymphocytes Absolute Auto 2800 /uL (1100-4500); Lymphocytes Percent Auto 37.6 % (25-40); Mean Corpuscular HGB Conc 33.9 % (30-36); Mean Corpuscular Hemoglobin 30.8 PG (26-34); Mean Corpuscular Volume 90.7 fL (80-100); Monocytes Absolute Auto 600 /uL (0-900); Monocytes Percent Auto 8.3 % (3-14); Neutrophils Absolute Auto 3700 /uL (1500-7000); Neutrophils Percent Auto 48.9 % (50-75); Platelet Count 291 X10^3/uL (150-400); Red Blood Cell Count 4.44 X10^6/uL (4.0-5.2); Red Cell Distribution Width 14.7 % (11.6-14.8); White Blood Cell Count 7.5 X10^3/uL (4.5-11.0)
[2019-01-28 12:17] LABS: Alanine Aminotransferase 30 IU/L (<35); Albumin 4.1 g/dL (3.5-5.0); Albumin Globulin Ratio 1.4 (1.0-2.8); Alkaline Phosphatase 97 U/L (38-126); Aspartate Aminotransferase 33 IU/L (14-36); BUN Creatinine Ratio 24.3 (6-22); Bilirubin Total 0.8 mg/dL (0.2-1.3); Blood Urea Nitrogen 17 mg/dL (7-17); Calcium 9.5 mg/dL (8.4-10.2); Carbon Dioxide 31 mmol/L (22-32); Chloride 102 mmol/L (98-107); Cholesterol 226 mg/dL (140-199); Estimated Glomerular Filt Rate > 60.0 mL/min (>60); Globulin 2.9 g/dL (1.7-4.1); Glucose 92 mg/dL (80-110); HDL Cholesterol 64 mg/dL (40-60); HEMOLYSIS < 15 (0-50); LDL Cholesterol Calculated 142 mg/dL (<100); Potassium 4.1 mmol/L (3.4-5.1); Sodium 139 mmol/L (137-145); Triglycerides 98 mg/dL (35-150)
[2019-01-28 13:00] LABS: Thyroid Stimulating Hormone 2.53 uIU/mL (0.47-4.68)
[2019-01-31 20:15] LABS: (tTG) Ab, IgA < 1 U/mL
[2019-02-02 17:14] LABS: Anti Gliadin IgG Ab 4 Units (<20); Gliadin Gluten IgA 9 Units (<20)
== END ==
PROVIDERS: PCP Family Medicine; Visit Provider Family Medicine
DX: R53.83 Other fatigue (principal)
CPT/HCPCS: 36415; 80053; 80061; 82784; 83516; 84443; 85025; 86255

== ENCOUNTER 2019-07-27 09:32 | Emergency (ER) | payer MEDICARE, OTHER, SELFPAY ==
[2019-07-27 09:35] VITALS: BP 219/108; PULSE 83; RESP 20; TEMP 36.8; O2SAT 99
--- NOTE | 2019-07-27 09:43 | ED_ITS ---
HPI - General Adult General Chief complaint: Dizziness Stated complaint: dizzy/ nausea Time Seen by Provider: 07/27/19 09:39 Source: patient and EMS Mode of arrival: EMS Limitations: no limitations History of Present Illness HPI narrative: Patient is a 78-year-old female who came into the emergency department by EMS for evaluation of 2 days of a headache and also vertigo. Patient states that she has had headaches in the past but has never been diagnosed with migraines. She states that on Friday evening after having a argument with her she developed a headache. She describes it as behind her left eye which is normal for her but she also states that this headache is also on the entire left side of her head which is a little unusual for her. It was not a sudden onset. Has been off and on since Friday evening. Has no vision changes. She states that Friday night she did not sleep very well. And woke up on Friday morning, which was yesterday, and had which she describes as a room spinning sensation. She is unsure as to how long the symptom lasted but it did resolve on its own. She did sleep that afternoon. She states that yesterday afternoon and into the evening she had no headache. She did take a Xanax during the day. Last evening she took another Xanax to help her sleep. Woke up this morning again with the room spinning sensation. She states that that has since resolved. Again unsure exactly how long the symptoms lasted. Had no other associated symptoms. She states she has a slight headache now but is not as bad as it was a couple days ago. Related Data Home Medications Medication Instructions Recorded Confirmed multivitamin [Multiple Vitamins] 1 tab PO QDAY #0 12/29/15 03/25/19 ibuprofen 200 mg tablet 400 mg PO BID PRN tab 09/23/17 03/25/19 Previous Rx's Medication Instructions Recorded hydrocodone 2.5 mg-acetaminophen 1 tab PO Q4-6H PRN #20 tab 11/24/17 325 mg tablet albuterol sulfate 90 mcg/actuation 2 puff INHALATION Q4-6H PRN #8.5 07/22/18 aerosol inhaler gram beclomethasone dipropionate 80 1 puff INHALATION Q12H #10.6 gram 08/31/18 mcg/actuation HFA breath activated aerosol lisinopril 30 mg tablet See Rx Instructions .ROUTE 04/22/19 .COMPLEX #90 tablet chloroquine phosphate 500 mg tablet 500 mg PO BID #20 tab 05/06/19 alprazolam 0.5 mg tablet See Rx Instructions .ROUTE 06/29/19 .COMPLEX #60 tablet meclizine 25 mg PO TID PRN #14 tab 07/27/19 Allergies Allergy/AdvReac Type Severity Reaction Status Date / Time meperidine Allergy Severe COULDN'T Verified 07/27/19 09:44 BREATHE OR TALK, EXTREME DIAPHORESIS fluoxetine Allergy Intermediate BROKE OUT Verified 07/27/19 09:44 INTO RASH levofloxacin Allergy Intermediate TENDON Verified 07/27/19 09:44 SORENESS penicillin G Allergy Intermediate RASH Verified 07/27/19 09:44 Sulfa (Sulfonamide Allergy Intermediate HIVES Verified 07/27/19 09:44 Antibiotics) nitrofurantoin Allergy Unknown Verified 07/27/19 09:44 [From MACROBID] Review of Systems Constitutional Constitutional: Denies fatigue, Denies fever(s), Reports frequent falls and Reports headache(s) Eyes Eyes: Denies exophthalmos Comments: Photophobia ENT Ears, Nose, Mouth, and Throat: Reports vertigo, Denies dizziness, Denies facial pain, Reports headache(s), Denies sinus pain and Denies sinus pressure Cardiovascular Cardiovascular: Denies chest pain, Denies syncope, Denies rapid heart rate, Denies lightheadedness and Denies dyspnea Respiratory Respiratory: Denies cough and Denies dyspnea Gastrointestinal Gastrointestinal: Denies abdominal pain and Denies change in bowel habits Musculoskeletal Musculoskeletal: Denies myalgias and Denies numbness Integumentary/Breasts Skin/Breast: Denies pruritus and Denies rash Neurologic Neurologic: Denies abnormal speech, Denies behavioral changes, Denies confusion, Reports vertigo, Denies dizziness, Denies syncope, Reports frequent falls, Reports headache(s), Denies localized weakness, Denies numbness and Denies radicular pain Psychiatric Psychiatric: Reports anxiety, Denies behavioral changes and Denies confusion Endocrine Endocrine: Denies fatigue Hematologic/Lymphatic Hematologic/Lymphatic: Denies easy bleeding and Denies easy bruising Patient History Medical History Abnormal chest x-ray (Chronic) Asthma (Chronic ~1945) Breast cancer (Chronic ~2016) Chicken pox (Resolved ~1949) Hay fever (Chronic) Hearing loss (Chronic ~2017) Kidney stones (Chronic ~2005) Knee meniscus pain (Chronic ~2014) Measles (Resolved ~1949) Mononucleosis (Resolved ~1960) Sciatica (Chronic ~2017) Tinnitus (Chronic ~2016) Surgical History (Updated 09/21/18 @ 10:46 by Judy Light MD) Anesthesia (Resolved) Branchial cleft cyst (Resolved ~1960) History of appendectomy (Resolved ~1953) History of arthroscopic knee surgery (Resolved ~2014) History of cataract surgery (Resolved) History of section (Resolved ~1975) History of section (Resolved ~1982) History of lumpectomy (Resolved ~01/2016) History of tonsillectomy (Resolved ~1944) Family History Father Hypertension Heart disease Mother No problems noted. Brother No problems noted. Sister No problems noted. Grandfather No problems noted. Grandmother No problems noted. Grandfather No problems noted. Grandmother No problems noted. Social History Smoking Status: Never smoker Smoking Status: Never smoker alcohol intake frequency: holidays/special occasions only Substance Use Type: does not use Exam Initial Vital Signs Initial Vital Signs: Vital Signs Temperature 98.2 F 07/27/19 09:35 Pulse Rate 83 07/27/19 09:35 Respiratory Rate 20 07/27/19 09:35 Blood Pressure 219/108 H 07/27/19 09:35 Pulse Oximetry 99 07/27/19 09:35 Const General: cooperative, comfortable, well developed and well groomed Limitations: mental status not altered HENMT Head: normal to inspection and normocephalic Ears: TM's normal bilaterally Nose: external nose normal Mouth: oral mucosae normal Eyes Pupils: PERRL EOM: EOM intact bilaterally Resp Effort & Inspection: normal respiratory effort Auscultation: clear to auscultation bilaterally Cardio Rate: regular rate Rhythm: regular rhythm GI Inspection: non-distended Palpation: soft Skin Lesions: no lesions Rashes: no rashes Neuro General: patient alert, patient awake and patient oriented x3 Cranial Nerves: CN's II-XI intact bilaterally Cognition: normal cognition Speech: speech normal Sensory Exam: no sensory deficits noted Extrem General: normal to inspection, capillary refill normal and No edema Psych Appearance: grossly normal and well kempt Scores GCS [place] coma scale eye opening: Spontaneous Aga coma scale verbal response: Orientated [place] coma scale motor response: Obey commands [place] coma scale total score: 15 Course Orders Ordered: ED Orders 07/27/19 10:04 CT head/brain wo con Stat 07/27/19 10:20 Urine Microscopic Stat 07/27/19 10:37 Complete Blood Count AUTO DIFF Stat Comprehensive Metabolic Panel Stat Lipase Stat Vital Signs Vital signs: Vital Signs - 8 hr 07/27/19 09:35 07/27/19 09:45 07/27/19 09:56 Temperature 98.2 F Pulse Rate 83 73 69 Respiratory Rate 20 18 16 Blood Pressure 219/108 H Blood Pressure [Left Arm] 214/99 H 190/89 H Pulse Oximetry 99 99 99 07/27/19 10:23 07/27/19 11:19 Temperature Pulse Rate 73 66 Respiratory Rate 16 22 Blood Pressure Blood Pressure [Left Arm] 179/81 H 167/76 H Pulse Oximetry 98 99 Medical Decision Making Lab Data Lab results reviewed: Yes I reviewed the patient's lab results. Result diagrams: 07/27/19 10:37 07/27/19 10:37 Labs: Lab Results 07/27/19 07/27/19 07/27/19 Range/Units 10:20 10:37 10:37 WBC 7.7 (4.5-11.0) X10^3/uL RBC 4.34 (4.0-5.2) X10^6/uL Hgb 13.2 (12.0-16.0) g/dL Hct 39.8 (36-46) % MCV 91.8 (80-100) fL MCH 30.6 (26-34) PG MCHC 33.3 (30-36) % RDW 14.6 (11.6-14.8) % Plt Count 310 (150-400) X10^3/uL Neut % (Auto) 53.1 (50-75) % Lymph % (Auto) 35.2 (25-40) % [place] % (Auto) 7.7 (3-14) % Eos % (Auto) 2.7 (2-4) % Baso % (Auto) 1.3 (0-2) % Neut # (Auto) 4100 (7108-9509) /uL Lymph # (Auto) 2700 (1628-6482) /uL [place] # (Auto) 600 (0-900) /uL Eos # (Auto) 200 (0-450) /uL Baso # (Auto) 100 (0-100) /uL Sodium 140 (137-145) mmol/L Potassium 4.1 (3.4-5.1) mmol/L Chloride 107 (98-107) mmol/L Carbon Dioxide 30 (22-32) mmol/L BUN 19 H (7-17) mg/dL Creatinine 0.65 (0.52-1.04) mg/dL Estimated GFR > 60.0 (>60) mL/min BUN/Creatinine Ratio 29.2 H (6-22) Glucose 101 (80-110) mg/dL Calcium 9.3 (8.4-10.2) mg/dL Total Bilirubin 0.5 (0.2-1.3) mg/dL AST 34 (14-36) IU/L ALT 35 H (<35) IU/L Alkaline Phosphatase 82 (38-126) U/L Total Protein 7.2 (6.3-8.2) g/dL Albumin 4.1 (3.5-5.0) g/dL Globulin 3.1 (1.7-4.1) g/dL Albumin/Globulin Ratio 1.3 (1.0-2.8) Lipase 142 (23-300) U/L Urine RBC None seen (0-5/HPF) Urine WBC 5-10/hpf H (0-5/HPF) Ur Squamous Epith Cells 5-10 /hpf H (0-5/HPF) Urine Bacteria None seen (None) Ur Culture Indicated? Cult not indicated Urine Dip Bedside Urine Glucose Negative Bedside Urine Bilirubin - Negative Bedside Urine Ketone - Negative Urine Specific [place] 1.015 Bedside Urine Occult Blood - Negative Bedside Urine pH 7.5 Bedside Urine Protein - Negative Bedside Urine Urobilinogen - Negative Bedside Urine Nitrite - Negative Bedside Urine Leukocytes + 70 Esterase Point of care testing: Urine Dip Bedside Urine Glucose Negative Bedside Urine Bilirubin - Negative Bedside Urine Ketone - Negative Urine Specific [employer] [place] 1.015 Bedside Urine Occult Blood - Negative Bedside Urine pH 7.5 Bedside Urine Protein - Negative Bedside Urine Urobilinogen - Negative Bedside Urine Nitrite - Negative Bedside Urine Leukocytes + [address] scan - head: Radiologist's Impression: [address] [id number] [address] Scan Report Signed Patient: Ana Luisa Saez [facility]#: [id number] : 1940Acct:[id number] Age/Sex: 78 / FDate of Service: 07/27/19 Loc: ED Accession Number: [id number] Procedure: CT head/brain wo con Ordering Provider: Joe Pretty D.O. PROCEDURE: CT HEAD/BRAIN WO CON INDICATIONS: Vertigo and headache TECHNIQUE: Noncontrast 4.5 mm thick angled axial sections acquired from the foramen magnum to the vertex, with coronal and sagittal reformats. For radiation dose reduction, the following was used: automated exposure control, adjustment of mA and/or kV according to patient size. COMPARISON: None. FINDINGS: Image quality: Excellent. CSF spaces: Basal cisterns are patent. No extra-axial fluid collections. The ventricles are symmetric in size and shape. Brain: No intracranial bleeds or masses. There is cerebral volume loss for age, with resultant ventricular and sulcal prominence. There are periventricular and deep white matter chronic small vessel ischemic changes. There is intracranial internal carotid artery atherosclerosis. Skull and face: Calvarium and visualized facial bones appear intact, without suspicious lesions. Sinuses: Visualized sinuses and mastoids are clear. IMPRESSION: No acute intracranial disease process. Dictated by: Demetria Jimenez MD, PhD on 07/27/2019 at 10:13 Approved by: Demetria Jimenez MD, PhD on 07/27/2019 at 10:15 ECG Data Attestation: I personally reviewed and interpreted this ECG as follows: Prior ECG tracings: not available for review Interpretation: Sinus rhythm Ventricular rate is 69 Normal axis Normal QRS No ST T wave changes MDM Narrative Medical decision making narrative: Patient reports that much of her symptoms have completely resolved. She ambulated to the bathroom without problems. She has a nonfocal neurologic exam. Head CT is unremarkable. Labs are unremarkable. Her headache today does appear to be 1 of her typical headaches. Despite saying that she had headache the entire left side of her head upon further questioning she states that she has had a headache like this in the [facility]. I have low suspicion for subarachnoid hemorrhage. The dizziness symptoms she describes as fairly consistent with vertigo. It did seem to be positional. It did wake her up from sleep. This points towards a peripheral vertigo. She has had issues with tinnitus and hearing loss in the past. She has seen he your nose and throat in the past. Informed her that she should contact the Ear Nose and Throat provider again for follow-up. I feel patient can be safely discharged home. Will hold on further workup for now. Patient was given return precautions and follow-up instructions. She expressed understanding and agreement. Discharge Plan Departure Patient Disposition: Home Clinical Impression: Vertigo Headache Qualifiers: Headache type: unspecified Headache chronicity pattern: unspecified pattern Int ractability: not intractable Qualified Code(s): R51 - Headache Instructions: DI for Vertigo Activity Restrictions/Additional Instructions: Recommend that you contact your primary provider for follow-up. Continue all of your medications as directed. Also recommend you contact the [facility] at . A prescription for meclizine was electronically transmitted to [facility]. Return to the emergency department for any new or worsening symptoms Prescriptions: New meclizine 25 mg tablet 25 mg PO TID PRN (Reason: dizziness) Qty: 14 RF: 0 No Action multivitamin [Multiple Vitamins] 1 EACH tablet 1 tab PO QDAY Qty: 0 RF: 0 Qvar RediHaler 80 mcg/actuation HFA aerosol breath activated 1 puff INHALATION Q12H Qty: 10.6 RF: 2 lisinopril 30 mg tablet See Rx Instructions .ROUTE .COMPLEX Qty: 90 RF: 3 chloroquine phosphate 500 mg tablet 500 mg PO BID Qty: 20 RF: 0 alprazolam 0.5 mg tablet See Rx Instructions .ROUTE .COMPLEX Qty: 60 RF: 0 hydrocodone-acetaminophen 2.5-325 mg tablet 1 tab PO Q4-6H PRN (Reason: pain) Qty: 20 RF: 0 ibuprofen [Advil] 200 mg tablet 400 mg PO BID PRN (Reason: Pain (Scale Score 1-3)) RF: 0 albuterol sulfate [Ventolin HFA] 90 mcg/actuation HFA aerosol inhaler 2 puff INHALATION Q4-6H PRN (Reason: asthma) Qty: 8.5 RF: 5 Referrals: Jose Manuel Wilson MD [Primary Care Provider] -
[2019-07-27 09:45] VITALS: BP 214/99; PULSE 73; RESP 18; O2SAT 99
[2019-07-27 09:56] VITALS: BP 190/89; PULSE 69; RESP 16; O2SAT 99
--- NOTE | 2019-07-27 10:04 | DI.CT.S_ITS ---
PROCEDURE: CT HEAD/BRAIN WO CON INDICATIONS: Vertigo and headache TECHNIQUE: Noncontrast 4.5 mm thick angled axial sections acquired from the foramen magnum to the vertex, with coronal and sagittal reformats. For radiation dose reduction, the following was used: automated exposure control, adjustment of mA and/or kV according to patient size. COMPARISON: None. FINDINGS: Image quality: Excellent. CSF spaces: Basal cisterns are patent. No extra-axial fluid collections. The ventricles are symmetric in size and shape. Brain: No intracranial bleeds or masses. There is cerebral volume loss for age, with resultant ventricular and sulcal prominence. There are periventricular and deep white matter chronic small vessel ischemic changes. There is intracranial internal carotid artery atherosclerosis. Skull and face: Calvarium and visualized facial bones appear intact, without suspicious lesions. Sinuses: Visualized sinuses and mastoids are clear. IMPRESSION: No acute intracranial disease process. Dictated by: Demetria Jimenez MD, PhD on 07/27/2019 at 10:13 Approved by: Demetria Jimenez MD, PhD on 07/27/2019 at 10:15
[2019-07-27 10:23] VITALS: BP 179/81; PULSE 73; RESP 16; O2SAT 98
[2019-07-27 10:32] LABS: Bacteria Urine None Seen; RBC Urine None Seen (0-5/HPF)
[2019-07-27 10:37] LABS: Culture Indicated Urine Cult Not Indicated; Squamous Epithelial Cell Urine 5-10 /HPF (0-5/HPF); WBC Urine 5-10/HPF (0-5/HPF)
[2019-07-27 10:46] LABS: Add Manual Diff / Slide Review NO; Basophils Absolute Auto 100 /uL (0-100); Basophils Percent Auto 1.3 % (0-2); Eosinophils Absolute Auto 200 /uL (0-450); Eosinophils Percent Auto 2.7 % (2-4); Hematocrit 39.8 % (36-46); Hemoglobin 13.2 g/dL (12.0-16.0); Lymphocytes Absolute Auto 2700 /uL (1100-4500); Lymphocytes Percent Auto 35.2 % (25-40); Mean Corpuscular HGB Conc 33.3 % (30-36); Mean Corpuscular Hemoglobin 30.6 PG (26-34); Mean Corpuscular Volume 91.8 fL (80-100); Monocytes Absolute Auto 600 /uL (0-900); Monocytes Percent Auto 7.7 % (3-14); Neutrophils Absolute Auto 4100 /uL (1500-7000); Neutrophils Percent Auto 53.1 % (50-75); Platelet Count 310 X10^3/uL (150-400); Red Blood Cell Count 4.34 X10^6/uL (4.0-5.2); Red Cell Distribution Width 14.6 % (11.6-14.8); White Blood Cell Count 7.7 X10^3/uL (4.5-11.0)
[2019-07-27 10:56] LABS: Alanine Aminotransferase 35 IU/L (<35); Albumin 4.1 g/dL (3.5-5.0); Albumin Globulin Ratio 1.3 (1.0-2.8); Alkaline Phosphatase 82 U/L (38-126); Aspartate Aminotransferase 34 IU/L (14-36); BUN Creatinine Ratio 29.2 (6-22); Bilirubin Total 0.5 mg/dL (0.2-1.3); Blood Urea Nitrogen 19 mg/dL (7-17); Calcium 9.3 mg/dL (8.4-10.2); Carbon Dioxide 30 mmol/L (22-32); Chloride 107 mmol/L (98-107); Estimated Glomerular Filt Rate > 60.0 mL/min (>60); Globulin 3.1 g/dL (1.7-4.1); Glucose 101 mg/dL (80-110); HEMOLYSIS < 15 (0-50); Lipase 142 U/L (23-300); Potassium 4.1 mmol/L (3.4-5.1); Sodium 140 mmol/L (137-145); Total Protein 7.2 g/dL (6.3-8.2)
[2019-07-27 11:19] VITALS: BP 167/76; PULSE 66; RESP 22; O2SAT 99
== END 2019-07-27 11:47 | disposition home or self-care (01) ==
PROVIDERS: Emergency Provider Emergency Medicine; PCP Family Medicine
DX: R42 Dizziness and giddiness (principal); R51 Headache; R29.6 Repeated falls; F41.9 Anxiety disorder, unspecified
CPT/HCPCS: 36415; 70450; 80053; 81003; 81015; 83690; 85025; 93005; 99284

== ENCOUNTER 2019-07-29 14:22 | Emergency (ER) | payer MEDICARE, OTHER, SELFPAY ==
[2019-07-29 14:39] VITALS: BP 191/88; PULSE 76; RESP 20; TEMP 36.3; O2SAT 97; BMI 27.4
--- NOTE | 2019-07-29 14:41 | DI.RAD.S_ITS ---
PROCEDURE: XR CHEST 1V INDICATIONS: chest pain TECHNIQUE: One view of the chest was acquired. COMPARISON: [facility], CR, XR CHEST 2V, 11/13/2018, 9:18. FINDINGS: Surgical changes and devices: None. Lungs and pleura: Lungs are clear. No pleural effusions or pneumothorax. Mediastinum: Mediastinal contours appear normal. Heart size is normal. Bones and chest wall: No suspicious bony lesions. Overlying soft tissues appear unremarkable. IMPRESSION: No acute cardiopulmonary pathology. Dictated by: Kevin Turk M.D. on 07/29/2019 at 15:07 Approved by: Kevin Turk M.D. on 07/29/2019 at 15:12
[2019-07-29 16:08] LABS: Add Manual Diff / Slide Review NO; Basophils Absolute Auto 100 /uL (0-100); Basophils Percent Auto 1.4 % (0-2); Eosinophils Absolute Auto 200 /uL (0-450); Eosinophils Percent Auto 2.8 % (2-4); Lymphocytes Absolute Auto 2700 /uL (1100-4500); Lymphocytes Percent Auto 31.5 % (25-40); Mean Corpuscular Hemoglobin 31.7 PG (26-34); Mean Corpuscular Volume 90.4 fL (80-100); Monocytes Absolute Auto 800 /uL (0-900); Monocytes Percent Auto 9.5 % (3-14); Neutrophils Absolute Auto 4800 /uL (1500-7000); Neutrophils Percent Auto 54.8 % (50-75); Platelet Count 315 X10^3/uL (150-400); Red Blood Cell Count 4.43 X10^6/uL (4.0-5.2); Red Cell Distribution Width 14.5 % (11.6-14.8); White Blood Cell Count 8.7 X10^3/uL (4.5-11.0)
[2019-07-29 16:12] LABS: PTT Partial Thromboplastin Tim 32 SECONDS (26.4-36.2)
[2019-07-29 16:13] LABS: Alanine Aminotransferase 37 IU/L (<35); Albumin 4.3 g/dL (3.5-5.0); Albumin Globulin Ratio 1.3 (1.0-2.8); Alkaline Phosphatase 86 U/L (38-126); Aspartate Aminotransferase 34 IU/L (14-36); BUN Creatinine Ratio 30.2 (6-22); Bilirubin Total 0.4 mg/dL (0.2-1.3); Blood Urea Nitrogen 19 mg/dL (7-17); Calcium 10.1 mg/dL (8.4-10.2); Carbon Dioxide 27 mmol/L (22-32); Chloride 106 mmol/L (98-107); Creatine Kinase 34 U/L (30-135); Estimated Glomerular Filt Rate > 60.0 mL/min (>60); Globulin 3.3 g/dL (1.7-4.1); Glucose 102 mg/dL (80-110); HEMOLYSIS < 15 (0-50); Lipase 157 U/L (23-300); Potassium 4.4 mmol/L (3.4-5.1); Sodium 140 mmol/L (137-145); Total Protein 7.6 g/dL (6.3-8.2)
[2019-07-29 16:25] LABS: Troponin I < 0.012 ng/mL (0.01-0.034)
[2019-07-29 17:16] VITALS: BP 196/89; PULSE 72; RESP 16; O2SAT 99
--- NOTE | 2019-07-29 17:19 | PC.NURSE ---
requesting to leave [facility] and unsure of decision. VS taken. BP remains high 196/89. states she is no longer dizzy at this time, denies CP. advised of labs and normal CXR. Decided to wait MD assessment.
--- NOTE | 2019-07-29 17:45 | PC.NURSE ---
Pt decided to leave [facility]. Paperwork completed. made aware of risks of leaving and advised to come back if needed. pt states she has a doctors appt friday where she will follow up
--- NOTE | 2019-07-30 09:18 | PC.NURSE ---
called to check up on pt after she left [facility] on 07/28/19. no response on cell phone or home phone. invited her back to the ER to been seen anytime, asked how she was feeling and if she got treatment elsewhere. left our er number for her to call back at anytime. left 2 messages.
== END 2019-07-29 17:44 | disposition left against medical advice (07) ==
PROVIDERS: Emergency Provider Emergency Medicine; PCP Family Medicine
DX: R00.2 Palpitations (principal)
CPT/HCPCS: 36415; 71045; 80053; 82550; 83690; 84484; 85025; 85610; 85730; 93005; 99283

== ENCOUNTER → 2019-08-27 14:03 | Outpatient (CLI) | payer MEDICARE, OTHER, SELFPAY ==
[2019-08-27 16:02] LABS: BUN Creatinine Ratio 38.1 (6-22); Blood Urea Nitrogen 24 mg/dL (7-17); Calcium 9.9 mg/dL (8.4-10.2); Carbon Dioxide 29 mmol/L (22-32); Chloride 105 mmol/L (98-107); Estimated Glomerular Filt Rate > 60.0 mL/min (>60); Glucose 91 mg/dL (80-110); HEMOLYSIS < 15 (0-50); Potassium 4.9 mmol/L (3.4-5.1); Sodium 140 mmol/L (137-145)
== END ==
PROVIDERS: PCP Family Medicine; Referring Provider Family Medicine; Visit Provider Family Medicine
DX: Z01.83 Encounter for blood typing (principal); I10 Essential (primary) hypertension
CPT/HCPCS: 36415; 80048; 86900; 86901

== ENCOUNTER 2019-10-30 19:07 | Emergency (ER) | payer MEDICARE, OTHER, SELFPAY ==
[2019-10-30] VITALS (8 sets, daily range): BP systolic 141–194; BP diastolic 70–84; PULSE 81–104; RESP 14–20; TEMP 37; O2SAT 94–100; BMI 25.7
--- NOTE | 2019-10-30 19:28 | DI.RAD.S_ITS ---
PROCEDURE: XR CHEST 1V INDICATIONS: chest pain TECHNIQUE: One view of the chest was acquired. COMPARISON: [facility], CR, XR CHEST 1V, 07/29/2019, 13:53. FINDINGS: Surgical changes and devices: None. Lungs and pleura: Lungs are clear. No pleural effusions or pneumothorax. Mediastinum: Mediastinal contours appear normal. Heart size is mildly prominent. Bones and chest wall: No suspicious bony lesions. Overlying soft tissues appear unremarkable. IMPRESSION: No acute pulmonary process. Dictated by: Sophia Retana M.D. on 10/30/2019 at 20:04 Approved by: Sophia Retana M.D. on 10/30/2019 at 20:04
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
[2019-10-30 19:39] LABS: Add Manual Diff / Slide Review NO; Basophils Absolute Auto 100 /uL (0-100); Eosinophils Absolute Auto 200 /uL (0-450); Eosinophils Percent Auto 2.6 % (2-4); Hematocrit 40.1 % (36-46); Hemoglobin 13.4 g/dL (12.0-16.0); Lymphocytes Absolute Auto 3500 /uL (1100-4500); Lymphocytes Percent Auto 39.9 % (25-40); Mean Corpuscular HGB Conc 33.4 % (30-36); Mean Corpuscular Hemoglobin 30.6 PG (26-34); Mean Corpuscular Volume 91.4 fL (80-100); Monocytes Absolute Auto 900 /uL (0-900); Monocytes Percent Auto 10.6 % (3-14); Neutrophils Absolute Auto 4000 /uL (1500-7000); Neutrophils Percent Auto 45.9 % (50-75); Platelet Count 274 X10^3/uL (150-400); Red Blood Cell Count 4.39 X10^6/uL (4.0-5.2); Red Cell Distribution Width 13.9 % (11.6-14.8); White Blood Cell Count 8.8 X10^3/uL (4.5-11.0)
[2019-10-30] MEDS: ALBUTEROL HFA 200 PUFF/18 GM INH (COVID POS/VENT PTS) 8 PUFF INH (19:39)
[2019-10-30 19:45] LABS: INR 0.9 (0.9-1.3); Prothrombin Time 10.1 SECONDS (10.1-12.7)
[2019-10-30 19:48] LABS: PTT Partial Thromboplastin Tim 29 SECONDS (26.4-36.2)
[2019-10-30 19:53] LABS: Alanine Aminotransferase 32 IU/L (<35); Albumin 4.2 g/dL (3.5-5.0); Albumin Globulin Ratio 1.3 (1.0-2.8); Alkaline Phosphatase 95 U/L (38-126); Aspartate Aminotransferase 32 IU/L (14-36); BUN Creatinine Ratio 36.4 (6-22); Bilirubin Total 0.3 mg/dL (0.2-1.3); Blood Urea Nitrogen 24 mg/dL (7-17); Calcium 9.6 mg/dL (8.4-10.2); Carbon Dioxide 31 mmol/L (22-32); Chloride 105 mmol/L (98-107); Creatine Kinase 63 U/L (30-135); Estimated Glomerular Filt Rate > 60.0 mL/min (>60); Globulin 3.2 g/dL (1.7-4.1); Glucose 117 mg/dL (80-110); HEMOLYSIS < 15 (0-50); Lipase 193 U/L (23-300); Potassium 3.9 mmol/L (3.4-5.1); Sodium 142 mmol/L (137-145); Total Protein 7.4 g/dL (6.3-8.2)
[2019-10-30 19:57] LABS: D Dimer 273 ng/mL (<230)
[2019-10-30 20:04] LABS: Troponin I < 0.012 ng/mL (0.01-0.034)
== END 2019-10-30 21:40 | disposition home or self-care (01) ==
PROVIDERS: Emergency Provider Emergency Medicine; PCP Family Medicine
DX: J45.31 Mild persistent asthma with (acute) exacerbation (principal); I10 Essential (primary) hypertension; R07.9 Chest pain, unspecified
CPT/HCPCS: 36415; 71045; 80053; 82550; 83690; 84484; 85025; 85379; 85610; 85730; 93005; 94640; 99284; A9270

== ENCOUNTER → 2019-12-02 16:00 | Outpatient (CLI) | payer MEDICARE, OTHER, SELFPAY ==
[2019-12-02 17:12] LABS: Add Manual Diff / Slide Review NO; Basophils Absolute Auto 100 /uL (0-100); Basophils Percent Auto 1.2 % (0-2); Eosinophils Absolute Auto 200 /uL (0-450); Hematocrit 41.6 % (36-46); Hemoglobin 14.1 g/dL (12.0-16.0); Lymphocytes Absolute Auto 2900 /uL (1100-4500); Lymphocytes Percent Auto 38.3 % (25-40); Mean Corpuscular HGB Conc 33.8 % (30-36); Mean Corpuscular Hemoglobin 30.9 PG (26-34); Mean Corpuscular Volume 91.2 fL (80-100); Monocytes Absolute Auto 700 /uL (0-900); Neutrophils Absolute Auto 3600 /uL (1500-7000); Neutrophils Percent Auto 48.5 % (50-75); Platelet Count 306 X10^3/uL (150-400); Red Blood Cell Count 4.56 X10^6/uL (4.0-5.2); Red Cell Distribution Width 14.5 % (11.6-14.8); White Blood Cell Count 7.5 X10^3/uL (4.5-11.0)
[2019-12-02 17:48] LABS: Alanine Aminotransferase 36 IU/L (<35); Albumin 4.2 g/dL (3.5-5.0); Albumin Globulin Ratio 1.4 (1.0-2.8); Alkaline Phosphatase 96 U/L (38-126); Aspartate Aminotransferase 32 IU/L (14-36); BUN Creatinine Ratio 26.3 (6-22); Bilirubin Total 0.4 mg/dL (0.2-1.3); Blood Urea Nitrogen 20 mg/dL (7-17); Calcium 9.7 mg/dL (8.4-10.2); Carbon Dioxide 30 mmol/L (22-32); Chloride 107 mmol/L (98-107); Estimated Glomerular Filt Rate > 60.0 mL/min (>60); Globulin 3.1 g/dL (1.7-4.1); Glucose 95 mg/dL (80-110); HEMOLYSIS < 15 (0-50); Potassium 4.4 mmol/L (3.4-5.1); Sodium 142 mmol/L (137-145); Total Protein 7.3 g/dL (6.3-8.2)
[2019-12-02 18:12] LABS: Thyroid Stimulating Hormone 1.43 uIU/mL (0.47-4.68)
== END ==
PROVIDERS: PCP Family Medicine; Referring Provider Family Medicine; Visit Provider Family Medicine
DX: I10 Essential (primary) hypertension (principal)
CPT/HCPCS: 36415; 80053; 84443; 85025

== ENCOUNTER 2020-06-13 09:43 | Emergency (ER) | payer MEDICARE, OTHER, SELFPAY ==
[2020-06-13] VITALS (9 sets, daily range): BP systolic 172–200; BP diastolic 74–91; PULSE 60–85; RESP 12–21; TEMP 37.3; O2SAT 95–100
--- NOTE | 2020-06-13 09:57 | ED_ITS ---
HPI - General Adult General Chief complaint: Hypertension Stated complaint: headache and neasua Time Seen by Provider: 06/13/20 09:45 Source: patient Mode of arrival: Ambulatory Limitations: no limitations History of Present Illness HPI narrative: Patient is an 79-year-old female. She is here for evaluation of a headache and high blood pressure. She states that she has had a headache for the past couple days. She does have a history of headaches and history of migraines. She states that her current headache ?isn't that bad ?she has not taken anything for it. She states that she takes is Xanax at night and she took this last evening. She took 30 mg of her lisinopril last night. Several months ago her lisinopril was increased to 60 mg but her blood pressure improved so she dropped back down to 30 mg on her own. This morning she took her blood pressure because she was not feeling very well. Initially it was 130 use over 90s. When she looked this up on the Internet a told her that she should be seen by her doctor. She retook her blood pressure and on this repeat it was 180s over 100s. She states that her headache was not any worse at the time. Was not having chest pain or shortness of breath. She contacted her primary doctor who told her to come to the emergency department for evaluation. Related Data Home Medications Medication Instructions Recorded Confirmed multivitamin [Multiple Vitamins] 1 tab PO QDAY #0 12/29/15 04/04/20 ibuprofen 200 mg tablet 400 mg PO BID PRN tab 09/23/17 04/04/20 cholecalciferol (vitamin D3) 50 mcg DAILY 02/03/20 04/04/20 [Vitamin D3] Previous Rx's Medication Instructions Recorded inhalational spacing device #1 each 11/11/19 Ventolin HFA 90 mcg/actuation 2 puff INHALATION Q4-6H PRN #8 g NS 02/08/20 aerosol inhaler hydrocodone 5 mg-acetaminophen 325 1 tab PO BID PRN #10 tab 02/08/20 mg tablet lisinopril 30 mg tablet 30 mg .ROUTE BID #180 tab 02/08/20 cefuroxime axetil 500 mg tablet 500 mg PO Q12H #14 tab 04/04/20 alprazolam 0.5 mg tablet See Rx Instructions .ROUTE 05/01/20 .COMPLEX #60 tab Allergies Allergy/AdvReac Type Severity Reaction Status Date / Time meperidine Allergy Severe COULDN'T Verified 06/13/20 10:02 BREATHE OR TALK, EXTREME DIAPHORESIS fluoxetine Allergy Intermediate BROKE OUT Verified 06/13/20 10:02 INTO RASH levofloxacin Allergy Intermediate TENDON Verified 06/13/20 10:02 SORENESS penicillin G Allergy Intermediate RASH Verified 06/13/20 10:02 Sulfa (Sulfonamide Allergy Intermediate HIVES Verified 06/13/20 10:02 Antibiotics) nitrofurantoin Allergy Unknown Verified 06/13/20 10:02 [From MACROBID] Review of Systems Constitutional Constitutional: Denies fatigue, Denies fever(s) and Reports headache(s) Eyes Eyes: Denies change in vision ENT Ears, Nose, Mouth, and Throat: Denies vertigo, Denies dizziness, Reports headache(s) and Denies sore throat Cardiovascular Cardiovascular: Denies chest pain, Denies rapid heart rate and Denies dyspnea Respiratory Respiratory: Denies cough and Denies dyspnea Gastrointestinal Gastrointestinal: Denies abdominal pain, Denies change in bowel habits, Denies nausea and Denies vomiting Genitourinary Genitourinary: Denies dysuria Genitourinary: Denies dysuria Musculoskeletal Musculoskeletal: Denies arthralgias and Denies myalgias Integumentary/Breasts Skin/Breast: Denies rash Neurologic Neurologic: Denies behavioral changes, Denies vertigo, Denies dizziness and Reports headache(s) Psychiatric Psychiatric: Denies behavioral changes Endocrine Endocrine: Denies fatigue Hematologic/Lymphatic On Anticoagulants: No Allergic/Immunologic Allergic/Immunologic: Denies urticaria Patient History Medical History (Updated 06/13/20 @ 12:05 by Joe Pretty DO) Abnormal chest x-ray Asthma (~194) Breast cancer (~2015) Chicken pox (~1949) Essential hypertension Hay fever Hearing loss (~2016) Kidney stones (~2005) Knee meniscus pain (~2014) Measles (~1949) Mononucleosis (~1960) Sciatica (~2017) Tinnitus (~2016) Surgical History Anesthesia Branchial cleft cyst (~1960) History of appendectomy (~1953) History of arthroscopic knee surgery (~2014) History of cataract surgery History of section (~1975) History of section (~1982) History of lumpectomy (~01/2016) History of tonsillectomy (~194) Family History Father Hypertension Heart disease Mother No problems noted. Brother No problems noted. Sister No problems noted. Grandfather No problems noted. Grandmother No problems noted. Grandfather No problems noted. Grandmother No problems noted. Social History Smoking Status: Never smoker Smoking Status: Never smoker alcohol intake frequency: holidays/special occasions only Substance Use Type: does not use Exam Initial Vital Signs Initial Vital Signs: Vital Signs Temperature 99.2 F 06/13/20 09:45 Pulse Rate 85 06/13/20 09:45 Respiratory Rate 14 06/13/20 09:45 Blood Pressure 200/91 H 06/13/20 09:45 Pulse Oximetry 99 06/13/20 09:45 Const General: cooperative and comfortable Limitations: mental status not altered HENMT Head: normal to inspection and normocephalic Ears: hearing grossly normal bilaterally Eyes General: appearance normal, both eyes and all related structures Resp Effort & Inspection: normal respiratory effort Auscultation: clear to auscultation bilaterally Cardio Rate: regular rate Rhythm: regular rhythm GI Inspection: non-distended Palpation: soft Skin Lesions: no lesions Rashes: no rashes Neuro General: patient alert, patient awake and patient oriented x3 Cognition: normal cognition Speech: speech normal Extrem General: normal to inspection and capillary refill normal Psych Appearance: grossly normal and well kempt Scores GCS [place] coma scale eye opening: Spontaneous Aga coma scale verbal response: Orientated Aga coma scale motor response: Obey commands Aga coma scale total score: 15 Course Orders Ordered: ED Orders 06/13/20 09:58 EKG-12 Lead Stat 06/13/20 10:46 Urine Microscopic Stat 06/13/20 10:57 Basic Metabolic Panel Stat Complete Blood Count AUTO DIFF Stat Discontinued Medications Acetaminophen (Acetaminophen 325 Mg Tablet) 650 mg PO NOW ONE Stop: 06/13/20 10:05 Last Admin: 06/13/20 10:33 Dose: 650 mg Documented by: TONIE Sodium Chloride (Normal Saline 0.9%) 1,000 mls @ 1,000 mls/hr IV BOLUS ONE Stop: 06/13/20 11:03 Last Admin: 06/13/20 10:33 Dose: 1,000 mls/hr Documented by: TONIE Vital Signs Vital signs: Vital Signs - 8 hr 06/13/20 09:45 06/13/20 10:15 06/13/20 10:30 Temperature 99.2 F Pulse Rate 85 75 68 Respiratory Rate 14 16 13 Blood Pressure 200/91 H Pulse Oximetry 99 96 95 06/13/20 11:27 06/13/20 11:29 06/13/20 11:30 Temperature Pulse Rate 63 63 62 Respiratory Rate 21 18 Blood Pressure 197/84 H Pulse Oximetry 96 98 99 06/13/20 11:31 06/13/20 12:00 06/13/20 12:01 Temperature Pulse Rate 60 60 Respiratory Rate 21 12 Blood Pressure 188/83 H 172/74 H Pulse Oximetry 98 100 Medical Decision Making Medical Records Medical records reviewed: Yes I reviewed the patient's medical records. Lab Data Lab results reviewed: Yes I reviewed the patient's lab results. Result diagrams: 06/13/20 10:57 06/13/20 10:57 Labs: Lab Results 06/13/20 06/13/20 Range/Units 10:57 10:57 WBC 7.9 (4.5-11.0) X10^3/uL RBC 4.42 (4.0-5.2) X10^6/uL Hgb 13.4 (12.0-16.0) g/dL Hct 40.3 (36-46) % MCV 91.2 (80-100) fL MCH 30.4 (26-34) PG MCHC 33.3 (30-36) % RDW 14.8 (11.6-14.8) % Plt Count 288 (150-400) X10^3/uL Neut % (Auto) 48.6 L (50-75) % Lymph % (Auto) 38.9 (25-40) % Weber % (Auto) 8.9 (3-14) % Eos % (Auto) 2.3 (2-4) % Baso % (Auto) 1.3 (0-2) % Neut # (Auto) 3800 (8464-0113) /uL Lymph # (Auto) 3100 (6002-9993) /uL Weber # (Auto) 700 (0-900) /uL Eos # (Auto) 200 (0-450) /uL Baso # (Auto) 100 (0-100) /uL Sodium 143 (137-145) mmol/L Potassium 3.9 (3.4-5.1) mmol/L Chloride 104 (98-107) mmol/L Carbon Dioxide 33 H (22-32) mmol/L BUN 19 H (7-17) mg/dL Creatinine 0.62 (0.52-1.04) mg/dL Estimated GFR > 60.0 (>60) mL/min BUN/Creatinine Ratio 30.6 H (6-22) Glucose 82 (80-110) mg/dL Calcium 9.8 (8.4-10.2) mg/dL Urine Dip Bedside Urine Glucose Negative Bedside Urine Bilirubin - Negative Bedside Urine Ketone - Negative Urine Specific Britton 1.020 Bedside Urine Occult Blood - Negative Bedside Urine pH 6 Bedside Urine Protein - Negative Bedside Urine Urobilinogen - Negative Bedside Urine Nitrite - Negative Bedside Urine Leukocytes + 70 Esterase Point of care testing: Urine Dip Bedside Urine Glucose Negative Bedside Urine Bilirubin - Negative Bedside Urine Ketone - Negative Urine Specific Britton 1.020 Bedside Urine Occult Blood - Negative Bedside Urine pH 6 Bedside Urine Protein - Negative Bedside Urine Urobilinogen - Negative Bedside Urine Nitrite - Negative Bedside Urine Leukocytes + 70 Esterase ECG Data Attestation: I personally reviewed and interpreted this ECG as follows: Prior ECG tracings: not available for review Interpretation: Sinus rhythm Ventricular rate is 73 Normal axis Normal QRS Normal QTC No ST T wave changes MDM Narrative Medical decision making narrative: Patient's labs are unremarkable. She states that her headache improved after the medication given here. Her blood pressure also improved with time in after taking her home blood pressure medicine. I advised her that she should go back to the higher dose of the blood pressure medication prescribed by her primary doctor. Informed her to take her blood pressure at home and record it into contact her primary doctor for follow-up. I have low suspicion for ACS, CVA or TIA. I feel we can hold on further workup for now. She was given return precautions. She expressed understanding and agreement Discharge Plan Departure Patient Disposition: Home Clinical Impression: Essential hypertension, Hypertension Instructions: DI for High Blood Pressure Activity Restrictions/Additional Instructions: I recommend that you take all of your medications as directed to include the higher dose of lisinopril that you were previously taking. Take your blood pressure at home like we discussed. Contact your primary provider for follow- up. Return to the emergency department for any new or worsening symptoms Prescriptions: No Action multivitamin [Multiple Vitamins] 1 EACH tablet 1 tab PO QDAY Qty: 0 RF: 0 (DME) ProChamber Spacer See Rx Instructions .ROUTE .MEDSUPPLY Qty: 1 RF: 0 alprazolam 0.5 mg tablet See Rx Instructions .ROUTE .COMPLEX Qty: 60 RF: 0 ibuprofen [Advil] 200 mg tablet 400 mg PO BID PRN (Reason: Pain (Scale Score 1-3)) RF: 0 lisinopril 30 mg tablet 30 mg .ROUTE BID Qty: 180 RF: 3 albuterol sulfate [Ventolin HFA] 90 mcg/actuation HFA aerosol inhaler 2 puff INHALATION Q4-6H PRN (Reason: asthma) Qty: 8 RF: 5 hydrocodone-acetaminophen 5-325 mg tablet 1 tab PO BID PRN (Reason: pain) Qty: 10 RF: 0 cefuroxime axetil 500 mg tablet 500 mg PO Q12H Qty: 14 RF: 0 cholecalciferol (vitamin D3) [Vitamin D3] 50 mcg (2,000 unit) Capsule 50 mcg DAILY RF: 0 Referrals: Nikhil Ballard MD [Primary Care Provider] -
[2020-06-13] MEDS: SODIUM CHLORIDE 0.9% 1,000 ML 1000 ML IV (10:33)
[2020-06-13 11:06] LABS: Add Manual Diff / Slide Review NO; Basophils Absolute Auto 100 /uL (0-100); Basophils Percent Auto 1.3 % (0-2); Eosinophils Absolute Auto 200 /uL (0-450); Eosinophils Percent Auto 2.3 % (2-4); Hematocrit 40.3 % (36-46); Hemoglobin 13.4 g/dL (12.0-16.0); Lymphocytes Absolute Auto 3100 /uL (1100-4500); Lymphocytes Percent Auto 38.9 % (25-40); Mean Corpuscular HGB Conc 33.3 % (30-36); Mean Corpuscular Hemoglobin 30.4 PG (26-34); Mean Corpuscular Volume 91.2 fL (80-100); Monocytes Absolute Auto 700 /uL (0-900); Monocytes Percent Auto 8.9 % (3-14); Neutrophils Absolute Auto 3800 /uL (1500-7000); Neutrophils Percent Auto 48.6 % (50-75); Platelet Count 288 X10^3/uL (150-400); Red Blood Cell Count 4.42 X10^6/uL (4.0-5.2); Red Cell Distribution Width 14.8 % (11.6-14.8); White Blood Cell Count 7.9 X10^3/uL (4.5-11.0)
[2020-06-13 11:17] LABS: BUN Creatinine Ratio 30.6 (6-22); Blood Urea Nitrogen 19 mg/dL (7-17); Calcium 9.8 mg/dL (8.4-10.2); Carbon Dioxide 33 mmol/L (22-32); Chloride 104 mmol/L (98-107); Estimated Glomerular Filt Rate > 60.0 mL/min (>60); Glucose 82 mg/dL (80-110); HEMOLYSIS < 15 (0-50); Potassium 3.9 mmol/L (3.4-5.1); Sodium 143 mmol/L (137-145)
[2020-06-13 12:11] LABS: Bacteria Urine Few (2-10); RBC Urine 1-5/HPF (0-5/HPF); Renal Epithelial Cells Urine 1-5/HPF (0-1/HPF); Squamous Epithelial Cell Urine 10-30 /HPF (0-5/HPF); Transitional Epi Cells Urine 1-5/HPF (0-5/HPF); WBC Urine 5-10/HPF (0-5/HPF)
[2020-06-13 12:12] LABS: Culture Indicated Urine Cult Not Indicated
== END 2020-06-13 12:13 | disposition home or self-care (01) ==
PROVIDERS: Emergency Provider Emergency Medicine; PCP Family Medicine
DX: I10 Essential (primary) hypertension (principal)
CPT/HCPCS: 36415; 80048; 81003; 81015; 85025; 93005; 96360; 96361; 99283; 99284

== ENCOUNTER → 2020-06-19 08:02 | Outpatient (CLI) | payer MEDICARE, OTHER, SELFPAY ==
--- NOTE | 2020-06-19 08:03 | DI.ECHO.S_ITS ---
[facility] +---------+ : : [address] [place] : : : : [id number] : : : : Phone: [phone] Echocardiogram Report + + :Name: DORI PASCAL Study Date: 06/19/2020 Height: 63 in : :[facility] ReadingLocation: Weight: 150 lb : : Gender: Female BSA: 1.7 m2 : :: 1940 Age: 79 yrs BP: 170/96 mmHg: :Reason For Study: Hypertension : :Ordering Physician: SANDRO, : :POLI Performed By: Geovanni Fragoso : :Referring: POLI JO : + + Interpretation Summary Normal both left and right ventricle size and function. The ejection fraction is 60-65%. No valvular abnormality. Procedure: A two-dimensional transthoracic echocardiogram with color flow and Doppler was performed. The study quality was technically adequate. There is no prior echocardiogram noted for this patient. The patient was in sinus rhythm with heart rates between 64-80 bpm during the exam. Left Ventricle: The left ventricle is normal in size and wall thickness. The ejection fraction is estimated to be 60-65%. There are no focal wall motion abnormalities. Diastolic function could not be accurately assessed due to unobtainable data. Right Ventricle: The right ventricle is normal in size and function. Atria: Both atria are normal in size. There is no Doppler evidence for an interatrial shunt. Mitral Valve: The mitral valve is normal in structure and function. There is trace mitral regurgitation. Aortic Valve: The aortic valve is normal in structure and function. No aortic regurgitation is present. Tricuspid Valve: The tricuspid valve is normal in structure and function. There is a trace or physiologic amount of tricuspid regurgitation. Pulmonary artery pressures cannot be estimated because of the lack of a measurable TR jet velocity but the IVC suggests a CVP of around 8 mmHg. Pulmonic Valve: The pulmonic valve is not well seen, but is grossly normal. There is no pulmonic valvular regurgitation. Great Vessels: The aortic root is normal size. The dimensions of the ascending aorta are normal. The IVC is of normal diameter and collapses less than 50% with a sniff. This suggests a right atrial pressure of 8 mm Hg. Pericardium/ Pleura There is no pericardial effusion. There is no pleural effusion. MMode/2D Measurements & Calculations LVIDd: 4.4 cm LVOT diam: 2.0 cm LVIDs: 3.0 cm Ao root diam: 2.5 cm FS: 33.4 % asc Aorta Diam: 2.7 cm IVSd: 0.96 cm LVPWd: 0.71 cm LV dupree. diameter/BSA (cm/m^2): 2.6 LV sys. diameter/BSA (cm/m^2): 1.7 LA A2 area: 15.1 cm2 RA area: 12.9 cm2 LA A4 area: 14.4 cm2 IVC diam: 1.9 cm LA length (vol): 4.6 cm LA vol: 40.4 ml LA vol index: 23.6 ml/m2 RVD1 (basal): 3.0 cm TAPSE: 2.5 cm Doppler Measurements & Calculations Ao V2 max: 160.6 cm/sec LVOT Max Aj: 111.2 cm/sec Ao V2 mean: 109.4 cm/sec LV V1 max P.9 mmHg Ao max P.3 mmHg LV V1 VTI: 24.4 cm Ao mean P.4 mmHg ARLINE(I,D): 2.3 cm2 Ao V2 VTI: 35.1 cm ARLINE(V,D): 2.3 cm2 sev ratio: 0.69 ARLINE indexed to BSA (cm^2/m^2): 1.3 MV E max aj: 74.5 cm/sec PA V2 max: 103.8 cm/sec MV A max aj: 90.7 cm/sec PA V2 mean: 76.4 cm/sec MV E/A: 0.82 PA mean P.5 mmHg Med Peak E' Aj: 8.2 cm/sec PA pr(Accel): 51.0 mmHg E/E' med: 9.1 Lat Peak E' Aj: 9.2 cm/sec E/E' lat: 8.1 E/e' average: 8.6 MV dec time: 0.17 sec SV(LVOT): 79.4 ml Electronically signed by: Hortencia Mccullough on Reading Physician:06/19/2020 01:01 PM
== END ==
PROVIDERS: PCP Family Medicine; Referring Provider Family Medicine; Visit Provider Family Medicine
DX: I10 Essential (primary) hypertension (principal); C50.919 Malignant neoplasm of unspecified site of unspecified female breast; R11.0 Nausea
CPT/HCPCS: 93306

== ENCOUNTER 2020-09-04 12:44 | Emergency (ER) | payer MEDICARE, OTHER, SELFPAY ==
[2020-09-04 12:46] VITALS: BP 175/84; PULSE 85; RESP 14; TEMP 36.7; O2SAT 99
--- NOTE | 2020-09-04 13:55 | ED.DENTAL ---
HPI - Dental/Oral General Chief complaint: Dental/Oral Stated complaint: intermittent pain in jaw Time Seen by Provider: 09/04/20 13:35 Source: patient Mode of arrival: Ambulatory Limitations: no limitations History of Present Illness HPI Narrative: Patient is an 79-year-old female who presents with right-sided jaw and lip pain. She describes as a burning sensation, it comes and goes in his quite painful and sharp. She denies any fever chills redness or swelling. She actually had quite a bit of dental work done last week. She had a root canal on her left upper side last week. She then went for a cleaning. He denies any neck swelling neck pain chest pain palpitation shortness of breath no prior history of coronary artery disease. Related Data Home Medications Medication Instructions Recorded Confirmed multivitamin (Multiple Vitamins) 1 tab PO QDAY #0 12/29/15 07/21/20 ibuprofen 200 mg tablet (Advil) 400 mg PO BID PRN tab 09/23/17 07/21/20 cholecalciferol (vitamin D3) 50 50 mcg DAILY 02/03/20 07/21/20 mcg (2,000 unit) capsule (Vitamin D3) Previous Rx's Medication Instructions Recorded inhalational spacing device #1 each 11/11/19 (ProChamber) Ventolin HFA 90 mcg/actuation 2 puff INHALATION Q4-6H PRN #8 g NS 02/08/20 aerosol inhaler (albuterol sulfate) hydrocodone 5 mg-acetaminophen 325 1 tab PO BID PRN #10 tab 02/08/20 mg tablet cefuroxime axetil 500 mg tablet 500 mg PO Q12H #14 tab 04/04/20 alprazolam 0.5 mg tablet See Rx Instructions .ROUTE 08/31/20 .COMPLEX #60 tab amlodipine 2.5 mg tablet 2.5 mg PO DAILY #90 tab 08/31/20 lisinopril 30 mg tablet 30 mg .ROUTE BID #180 tab 08/31/20 hydrocodone 5 mg-acetaminophen 325 1 tab PO Q6H PRN #10 tab 09/04/20 mg tablet Allergies Allergy/AdvReac Type Severity Reaction Status Date / Time meperidine Allergy Severe COULDN'T Verified 07/21/20 14:40 BREATHE OR TALK, EXTREME DIAPHORESIS fluoxetine Allergy Intermediate BROKE OUT Verified 07/21/20 14:40 INTO RASH levofloxacin Allergy Intermediate TENDON Verified 07/21/20 14:40 SORENESS penicillin G Allergy Intermediate RASH Verified 07/21/20 14:40 Sulfa (Sulfonamide Allergy Intermediate HIVES Verified 07/21/20 14:40 Antibiotics) nitrofurantoin Allergy Unknown Verified 07/21/20 14:40 [From MACROBID] Review of Systems Review of Systems Narrative: GENERAL: Denies chills,fever HEENT: + dental pain, right-sided jaw and lip pain RESPIRATORY: Denies dyspnea, cough, wheezing CARDIOVASCULAR: Denies chest pain, palpitations GASTROINTESTINAL: Denies nausea, vomiting MUSCULOSKELETAL: Denies extremity pain, injury SKIN: No rash, no laceration, no pruritus NEUROLOGIC: Denies weakness, dizziness, headache, numbness 8 point review of systems is negative except for those stated above and HPI Patient History Medical History Abnormal chest x-ray Anxiety Asthma (~1944) Breast cancer (~2015) Chicken pox (~1949) Essential hypertension Hay fever Hearing loss (~2016) Kidney stones (~2005) Knee meniscus pain (~2014) Lumbar spinal stenosis Measles (~1949) Migraine Mononucleosis (~1960) Sciatica (~2017) Spondylosis of lumbar spine Tinnitus (~2016) Surgical History Anesthesia Branchial cleft cyst (~1960) History of appendectomy (~1953) History of arthroscopic knee surgery (~2014) History of cataract surgery History of section (~1975) History of section (~1982) History of lumpectomy (~01/2016) History of tonsillectomy (~1944) Family History Father Hypertension Heart disease Mother No problems noted. Brother No problems noted. Sister No problems noted. Grandfather No problems noted. Grandmother No problems noted. Grandfather No problems noted. Grandmother No problems noted. Social History Smoking Status: Never smoker Smoking Status: Never smoker alcohol intake frequency: holidays/special occasions only Substance Use Type: does not use Exam Initial Vital Signs Initial Vital Signs: Vital Signs Temperature 98.1 F 09/04/20 12:46 Pulse Rate 85 09/04/20 12:46 Respiratory Rate 14 09/04/20 12:46 Blood Pressure 175/84 H 09/04/20 12:46 Pulse Oximetry 99 09/04/20 12:46 GENERAL: 79-year-old female in no acute distress MOUTH: No dental abscess no facial swelling CARDIOVASCULAR: peripheral pulses in tact, cap refill <2 sec RESPIRATORY: No respiratory distress, speaks in full sentences without difficulty EXTREMITIES: Normal range of motion, no clubbing or edema. Neurovascularly intact NEUROLOGICAL: Cranial nerves II through XII grossly intact. Normal gait and speech. SKIN: Warm, dry, no petechiae, no rashes or lesions. Procedures Nerve Block Nerve Block 1: Time of procedure: 14:22 Local Anesthetic: bupivacaine 0.25% and with epi Amount of anesthesia used (mL): 2 Side: right Intraoral Nerve Block: supraperiosteal Procedure Successful: Yes Patient Tolerated Procedure: Well Complications: none Course Orders Ordered: Discontinued Medications Bupivacaine HCl/Epinephrine Bitart (Bupivacaine 0.25% W/ Epi (Pf) 10 Ml Vial) 5 ml SUBCUT NOW ONE Stop: 09/04/20 13:57 Last Admin: 09/04/20 14:12 Dose: Not Given Documented by: GIAN Vital Signs Vital signs: Vital Signs - 8 hr 09/04/20 12:46 Temperature 98.1 F Pulse Rate 85 Respiratory Rate 14 Blood Pressure 175/84 H Pulse Oximetry 99 MDM - Dental/Oral MDM Narrative Medical decision making narrative: Patient's pain improved with bupivacaine. I really do not see any abscess or infection. She described as burning pain possibly nerve pain. At this time I do not see any need for antibiotics she really is not having dental pain it seems to be more is all lip pain. She was previously taking Keflex I told her to stop taking Keflex. She is not having pain where her root canal was. I do not think abscess and that area. At this time I recommend pain control and follow-up with both dentist and PCP. Discharge Plan Departure Patient Disposition: Home Clinical Impression: Neuropathy Instructions: DI for Dental Pain, DI for Peripheral Neuropathy Activity Restrictions/Additional Instructions: *You have been diagnosed with dental pain/neuropathy *What to do: Think the pain you are experiencing is nerve pain. This can be very difficult to control. At this time I see no indication for you to be on antibiotics. Please stop the Keflex that he started on yourself. *Continue to take medications as directed-->SENT TO [facility] 1 tablet every 6 hours if needed for severe pain *Follow up with your primary care provider in 2-3 days *Return to ER if you should have increasing pain, facial swelling, redness, fever or any new, worsening or concerning symptoms CONTROLLED SUBSTANCE DISCHARGE (Narcotoic/benzodiazepine/Flexeril/Phenergan) 1. You have been prescribed narcotic medications, it does have acetaminophen/Tylenol/paracetamol in it, DO NOT TAKE MORE THAN 4,00mg in 24 hours of Tylenol. TRAMADOL DOES NOT CONTAIN TYLENOL 2. Please understand that we cannot provide further refills of narcotics, benzodiazepines or controlled substances through the ED and her pain management will need to be through your provider. 3. While on these medications you cannot drive or operate heavy machinery. 4. You cannot sign legal documents or perform any duties such as this. 5. As long as you're taking opiate pain medications he should also be taking a stool softener such as Colace, Dulcolax, MiraLAX or prune juice, to help avoid constipation. Prescriptions: New hydrocodone-acetaminophen 5-325 mg tablet 1 tab PO Q6H PRN (Reason: pain) Qty: 10 RF: 0 No Action multivitamin [Multiple Vitamins] 1 EACH tablet 1 tab PO QDAY Qty: 0 RF: 0 (DME) ProChamber Spacer See Rx Instructions .ROUTE .MEDSUPPLY Qty: 1 RF: 0 lisinopril 30 mg tablet 30 mg .ROUTE BID Qty: 180 RF: 3 amlodipine 2.5 mg tablet 2.5 mg PO DAILY Qty: 90 RF: 3 alprazolam 0.5 mg tablet See Rx Instructions .ROUTE .COMPLEX Qty: 60 RF: 0 ibuprofen [Advil] 200 mg tablet 400 mg PO BID PRN (Reason: Pain (Scale Score 1-3)) RF: 0 albuterol sulfate [Ventolin HFA] 90 mcg/actuation HFA aerosol inhaler 2 puff INHALATION Q4-6H PRN (Reason: asthma) Qty: 8 RF: 5 hydrocodone-acetaminophen 5-325 mg tablet 1 tab PO BID PRN (Reason: pain) Qty: 10 RF: 0 cefuroxime axetil 500 mg tablet 500 mg PO Q12H Qty: 14 RF: 0 cholecalciferol (vitamin D3) [Vitamin D3] 50 mcg (2,000 unit) Capsule 50 mcg DAILY RF: 0 Referrals: Nikhil Ballard MD [Primary Care Provider] -
[2020-09-04] MEDS: BUPIVACAINE 0.5% W/ EPI (PF) 30 ML VIAL (14:13)
--- NOTE | 2020-09-04 14:16 | PC.NURSE ---
Provider at bedside numbing right lower gum line for pain control. Patient tolerating well
== END 2020-09-04 14:50 | disposition home or self-care (01) ==
PROVIDERS: Emergency Provider Emergency Medicine; PCP Family Medicine
DX: G62.9 Polyneuropathy, unspecified (principal); R07.9 Chest pain, unspecified
CPT/HCPCS: 64450; 93005; 93010; 99282; 99283

== ENCOUNTER → 2020-10-30 11:14 | Outpatient (CLI) | payer MEDICARE, OTHER, SELFPAY ==
[2020-10-30 12:41] LABS: Add Manual Diff / Slide Review NO; Basophils Absolute Auto 100 /uL (0-100); Basophils Percent Auto 0.7 % (0-2); Eosinophils Absolute Auto 200 /uL (0-450); Eosinophils Percent Auto 2.1 % (2-4); Hematocrit 40.1 % (36-46); Hemoglobin 13.3 g/dL (12.0-16.0); Lymphocytes Absolute Auto 2800 /uL (1100-4500); Lymphocytes Percent Auto 38.2 % (25-40); Mean Corpuscular HGB Conc 33.1 % (30-36); Mean Corpuscular Hemoglobin 30.6 PG (26-34); Mean Corpuscular Volume 92.4 fL (80-100); Monocytes Absolute Auto 500 /uL (0-900); Monocytes Percent Auto 7.1 % (3-14); Neutrophils Absolute Auto 3800 /uL (1500-7000); Neutrophils Percent Auto 51.9 % (50-75); Platelet Count 302 X10^3/uL (150-400); Red Blood Cell Count 4.33 X10^6/uL (4.0-5.2); Red Cell Distribution Width 14.3 % (11.6-14.8); White Blood Cell Count 7.3 X10^3/uL (4.5-11.0)
[2020-10-30 12:58] LABS: Alanine Aminotransferase 29 IU/L (<35); Albumin 4.1 g/dL (3.5-5.0); Albumin Globulin Ratio 1.5 (1.0-2.8); Alkaline Phosphatase 77 U/L (38-126); Aspartate Aminotransferase 30 IU/L (14-36); BUN Creatinine Ratio 36.4 (6-22); Bilirubin Total 0.3 mg/dL (0.2-1.3); Blood Urea Nitrogen 24 mg/dL (7-17); Calcium 9.7 mg/dL (8.4-10.2); Carbon Dioxide 30 mmol/L (22-32); Chloride 106 mmol/L (98-107); Estimated Glomerular Filt Rate > 60.0 mL/min (>60); Globulin 2.7 g/dL (1.7-4.1); Glucose 111 mg/dL (80-110); HEMOLYSIS < 15 (0-50); Potassium 4.3 mmol/L (3.4-5.1); Sodium 142 mmol/L (137-145); Total Protein 6.8 g/dL (6.3-8.2)
== END ==
PROVIDERS: PCP Family Medicine; Referring Provider Family Medicine; Visit Provider Family Medicine
DX: R17 Unspecified jaundice (principal)
CPT/HCPCS: 36415; 80053; 82248; 85025

== ENCOUNTER → 2020-11-23 11:22 | Outpatient (CLI) | payer MEDICARE, OTHER, SELFPAY ==
[2020-11-23 12:16] LABS: COVID19 -Nasal RAPID Negative (Negative)
== END ==
PROVIDERS: PCP Family Medicine; Visit Provider Nurse Practitioner
DX: Z20.822 Contact with and (suspected) exposure to COVID-19 (principal)
CPT/HCPCS: 87635

== ENCOUNTER → 2020-12-14 10:39 | Outpatient (CLI) | payer MEDICARE, OTHER, SELFPAY ==
--- NOTE | 2020-12-14 10:40 | DI.RAD.S_ITS ---
PROCEDURE: XR CHEST 2V INDICATIONS: bronchitis, left lateral chest wall pain TECHNIQUE: 2 views of the chest were acquired. COMPARISON: [facility], CR, XR CHEST 1V, 10/30/2019, 19:37. FINDINGS: Surgical changes and devices: None. Lungs and pleura: Lungs are clear. No pleural effusions or pneumothorax. Mediastinum: Mediastinal contours are normal. Heart size is normal. Bones and chest wall: No suspicious bony abnormalities. Soft tissues appear unremarkable. IMPRESSION: No acute cardiopulmonary disease. Dictated by: Gregg Traylor RR Interpreted: Kevin Turk MD on 12/14/2020 at 11:23 Transcribed by: ALLYSSA on 12/14/2020 at 11:24 Approved by: Kevin Turk M.D. on 12/14/2020 at 11:50
== END ==
PROVIDERS: PCP Family Medicine; Referring Provider Family Medicine; Visit Provider Family Medicine
DX: R07.89 Other chest pain (principal); J40 Bronchitis, not specified as acute or chronic
CPT/HCPCS: 71046

== ENCOUNTER 2020-12-22 19:24 | Emergency (ER) | payer MEDICARE, OTHER, SELFPAY ==
[2020-12-22] VITALS (10 sets, daily range): BP systolic 116–171; BP diastolic 57–80; PULSE 56–86; RESP 12–24; TEMP 36.7; O2SAT 92–98; BMI 29.2
--- NOTE | 2020-12-22 19:40 | DI.RAD.S_ITS ---
PROCEDURE: XR CHEST 1V INDICATIONS: chest pain TECHNIQUE: One view of the chest was acquired. COMPARISON: [facility], CR, XR CHEST 2V, 12/14/2020, 10:34. FINDINGS: Surgical changes and devices: None. Lungs and pleura: Lungs are clear. No pleural effusions or pneumothorax. Mediastinum: Mediastinal contours appear unchanged. Heart size is normal. Bones and chest wall: No suspicious bony lesions. Overlying soft tissues appear unremarkable. IMPRESSION: 1. No acute cardiopulmonary disease. Dictated by: Robby Matos M.D. on 12/22/2020 at 20:55 Approved by: Robby Matos M.D. on 12/22/2020 at 20:56
[2020-12-22 20:24] LABS: COVID19 -Nasal RAPID Negative (Negative)
[2020-12-22 20:45] LABS: Add Manual Diff / Slide Review NO; Basophils Absolute Auto 100 /uL (0-100); Basophils Percent Auto 1.3 % (0-2); Eosinophils Absolute Auto 200 /uL (0-450); Eosinophils Percent Auto 2.2 % (2-4); Hematocrit 39.9 % (36-46); Hemoglobin 13.5 g/dL (12.0-16.0); Lymphocytes Absolute Auto 3200 /uL (1100-4500); Lymphocytes Percent Auto 36.8 % (25-40); Mean Corpuscular HGB Conc 33.8 % (30-36); Mean Corpuscular Hemoglobin 30.3 PG (26-34); Mean Corpuscular Volume 89.7 fL (80-100); Monocytes Absolute Auto 900 /uL (0-900); Monocytes Percent Auto 10.7 % (3-14); Neutrophils Absolute Auto 4200 /uL (1500-7000); Platelet Count 289 X10^3/uL (150-400); Red Blood Cell Count 4.45 X10^6/uL (4.0-5.2); Red Cell Distribution Width 14.5 % (11.6-14.8); White Blood Cell Count 8.6 X10^3/uL (4.5-11.0)
[2020-12-22] MEDS: ONDANSETRON 4 MG/2 ML INJ IV (20:58)
[2020-12-22 21:17] LABS: Alanine Aminotransferase 28 IU/L (<35); Albumin 4.4 g/dL (3.5-5.0); Albumin Globulin Ratio 1.5 (1.0-2.8); Alkaline Phosphatase 69 U/L (38-126); Aspartate Aminotransferase 36 IU/L (14-36); BUN Creatinine Ratio 31.3 (6-22); Bilirubin Total 0.4 mg/dL (0.2-1.3); Blood Urea Nitrogen 21 mg/dL (7-17); Calcium 10.5 mg/dL (8.4-10.2); Carbon Dioxide 31 mmol/L (22-32); Chloride 106 mmol/L (98-107); Creatine Kinase 73 U/L (30-135); Estimated Glomerular Filt Rate > 60.0 mL/min (>60); Globulin 2.9 g/dL (1.7-4.1); Glucose 106 mg/dL (80-110); HEMOLYSIS 35 (0-50); Lipase 172 U/L (23-300); Potassium 4.1 mmol/L (3.4-5.1); Sodium 144 mmol/L (137-145); Total Protein 7.3 g/dL (6.3-8.2)
--- NOTE | 2020-12-22 21:19 | ED_ITS ---
HPI - Chest Pain General Chief Complaint: Chest Pain Stated Complaint: CHEST PAIN PAIN IN THE BACK Time Seen by Provider: 12/22/20 19:46 Source: patient Mode of arrival: Ambulatory Limitations: no limitations History of Present Illness HPI narrative: This is an 80-year-old female who comes emergency department with complaint of body aches. Recently increased stress, nausea and feeling generally unwell. She does describe some left chest discomfort but also describes it as increased with movement and palpation. Patient states she has not been sleeping much lately she was preparing to leave for a trip, there ride head showed up and she canceled at the last minute. 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 Patient denies fevers she has felt chilled. She thinks she may have be dehydrated she has not been drinking fluids regularly. Patient describes some chest discomfort particularly on the left Um but she states worse when she presses on her chest or moves her body. She does not have any new shortness of breath. No cough, cold or congestion. No vomiting but she has had some nausea intermittently. She has had some suprapubic discomfort and noticed that she has had a slight decrease in her urine output and maybe some sense of urgency but no frequency or dysuria. Had she alternates between diarrhea and constipation but did take some Colace and had a normal bowel movement recently. She has not had any new swelling in her lower extremities. She is on medication for hypertension including 60 mg total of lisinopril daily, amlodipine q.h.s. and 0.5 mg Xanax q.h.s.. No anticoagulants, no diabetes or dyslipidemia. 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 Patient has prior x2, lumpectomy without any chemo or radiation. She was supposed to be on anti hormonal medication but stopped it secondary to side effects, append ectomy, brachial cyst and tonsillectomy. No prior cardiac stents or interventions. Blanca Ballard is her primary care physician. Related Data Home Medications Medication Instructions Recorded Confirmed multivitamin (Multiple Vitamins) 1 tab PO QDAY #0 12/29/15 12/14/20 ibuprofen 200 mg tablet (Advil) 400 mg PO BID PRN tab 09/23/17 12/14/20 cholecalciferol (vitamin D3) 50 50 mcg DAILY 02/03/20 12/14/20 mcg (2,000 unit) capsule (Vitamin D3) Previous Rx's Medication Instructions Recorded inhalational spacing device #1 each 11/11/19 (ProChamber) Ventolin HFA 90 mcg/actuation 2 puff INHALATION Q4-6H PRN #8 g NS 02/08/20 aerosol inhaler (albuterol sulfate) alprazolam 0.5 mg tablet See Rx Instructions .ROUTE 11/13/20 .COMPLEX #60 tab amlodipine 2.5 mg tablet 2.5 mg PO DAILY #90 tab 11/13/20 lisinopril 30 mg tablet 30 mg .ROUTE BID #180 tab 11/13/20 azithromycin 250 mg tablet See Rx Instructions PO .COMPLEX #6 11/23/20 tab azithromycin 250 mg tablet See Rx Instructions PO .COMPLEX #6 12/14/20 tab cephalexin 500 mg capsule 500 mg PO BID 3 Days #6 cap 12/22/20 Allergies Allergy/AdvReac Type Severity Reaction Status Date / Time meperidine Allergy Severe COULDN'T Verified 10/06/20 15:28 BREATHE OR TALK, EXTREME DIAPHORESIS fluoxetine Allergy Intermediate BROKE OUT Verified 10/06/20 15:28 INTO RASH levofloxacin Allergy Intermediate TENDON Verified 10/06/20 15:28 SORENESS penicillin G Allergy Intermediate RASH Verified 10/06/20 15:28 Sulfa (Sulfonamide Allergy Intermediate HIVES Verified 10/06/20 15:28 Antibiotics) nitrofurantoin Allergy Unknown Verified 10/06/20 15:28 [From MACROBID] Review of Systems Review of Systems ROS Unobtainable: All systems reviewed & are unremarkable except as noted in HPI and below Patient History Medical History Abnormal chest x-ray Anxiety Asthma (~1945) Breast cancer (~2015) Chicken pox (~1949) Essential hypertension Hay fever Hearing loss (~2016) Kidney stones (~2005) Knee meniscus pain (~2014) Lumbar spinal stenosis Measles (~1949) Migraine Mononucleosis (~1960) Sciatica (~2017) Scleral icterus Spondylosis of lumbar spine Tinnitus (~2016) Surgical History Anesthesia Branchial cleft cyst (~1960) History of appendectomy (~1953) History of arthroscopic knee surgery (~2014) History of cataract surgery History of section (~1975) History of section (~1982) History of lumpectomy (~01/2016) History of tonsillectomy (~1944) Family History Father Hypertension Heart disease Mother No problems noted. Brother No problems noted. Sister No problems noted. Grandfather No problems noted. Grandmother No problems noted. Grandfather No problems noted. Grandmother No problems noted. Social History Smoking Status: Smoker, status unknown Smoking Status: Smoker, status unknown alcohol intake frequency: holidays/special occasions only Substance Use Type: does not use Exam Narrative Exam Narrative: GENERAL: Alert and oriented x three, elderly female in mild distress. HEENT: Head normocephalic, atraumatic, EOMI, pupils reactive, face symmetric, moist mucous membranes NECK: Supple, full range of motion CARDIOVASCULAR: Regular rate and rhythm without murmurs, rubs or gallops. Patient has increased pain with palpation of her left anterior chest. No rash, erythema, ecchymosis or other skin changes noted. RESPIRATORY: Breath sounds equal bilaterally, no wheezes rales or rhonchi. ABDOMEN: Soft, nontender. Normoactive bowel sounds all 4 quadrants. No guarding or rebound, rigidity, no mass : No CVA tenderness EXTREMITIES: Normal range of motion, no clubbing or edema. Neurovascularly intact NEUROLOGICAL: Cranial nerves II through XII grossly intact. Moving all extremities SKIN: Warm, dry, no petechiae, no rashes or lesions. Initial Vital Signs Initial Vital Signs: Vital Signs Temperature 98.0 F 12/22/20 19:33 Pulse Rate 86 12/22/20 19:33 Respiratory Rate 12 12/22/20 19:33 Blood Pressure 171/80 H 12/22/20 19:33 Pulse Oximetry 98 12/22/20 19:33 Scores HEART Score Heart Score history: Slightly Suspicious Heart Score EKG: Normal Heart Score Age: > or = 65 years old Heart Score risk factors: 1-2 risk factors Heart Score troponin: < or = to normal limit Heart Score Total: 3 Course Orders Ordered: ED Orders 12/22/20 19:40 XR chest 1V Stat COVID19 -Nasal swab/Pre-Proc Stat EKG-12 Lead Stat 12/22/20 20:20 Complete Blood Count AUTO DIFF Stat Comprehensive Metabolic Panel Stat Lipase Stat NT-proBNP (BNP-Adult 18+) Stat Troponin & CK Cardiac Panel Stat 12/22/20 21:55 Urine Culture Stat Urine Microscopic Stat 12/22/20 22:20 EKG-12 Lead Stat 12/22/20 22:37 Troponin I Stat Discontinued Medications Cephalexin HCl (Cephalexin 250 Mg Capsule) 500 mg PO NOW ONE Stop: 12/22/20 23:21 Last Admin: 12/22/20 23:23 Dose: 500 mg Documented by: EMMA Ondansetron HCl (Ondansetron 4 Mg/2 Ml Inj) 4 mg IV NOW ONE Stop: 12/22/20 20:51 Last Admin: 12/22/20 20:58 Dose: 4 mg Documented by: EMMA Reevaluation(s) Reevaluation #1: Patient feels much better after fluids and zofran. Vital Signs Vital signs: Vital Signs - 8 hr 12/22/20 20:48 12/22/20 21:00 12/22/20 21:30 Pulse Rate 66 60 63 Respiratory Rate 20 18 18 Blood Pressure 161/71 H Pulse Oximetry 92 96 94 12/22/20 22:13 12/22/20 22:15 12/22/20 22:30 Pulse Rate 56 L 57 L 58 L Respiratory Rate 21 24 Blood Pressure 137/63 Pulse Oximetry 94 94 96 12/22/20 22:31 12/22/20 23:00 12/22/20 23:27 Pulse Rate 58 L 59 L 59 L Respiratory Rate 22 24 17 Blood Pressure 116/57 L 137/63 Pulse Oximetry 92 94 97 MDM - Chest Pain Lab Data Result diagrams: 12/22/20 20:20 12/22/20 20:20 Labs: Lab Results 12/22/20 12/22/20 12/22/20 Range/Units 19:40 20:20 20:20 WBC 8.6 (4.5-11.0) X10^3/uL RBC 4.45 (4.0-5.2) X10^6/uL Hgb 13.5 (12.0-16.0) g/dL Hct 39.9 (36-46) % MCV 89.7 (80-100) fL MCH 30.3 (26-34) PG MCHC 33.8 (30-36) % RDW 14.5 (11.6-14.8) % Plt Count 289 (150-400) X10^3/uL Neut % (Auto) 49.0 L (50-75) % Lymph % (Auto) 36.8 (25-40) % [place] % (Auto) 10.7 (3-14) % Eos % (Auto) 2.2 (2-4) % Baso % (Auto) 1.3 (0-2) % Neut # (Auto) 4200 (1484-2569) /uL Lymph # (Auto) 3200 (7282-3719) /uL [place] # (Auto) 900 (0-900) /uL Eos # (Auto) 200 (0-450) /uL Baso # (Auto) 100 (0-100) /uL Sodium 144 (137-145) mmol/L Potassium 4.1 (3.4-5.1) mmol/L Chloride 106 (98-107) mmol/L Carbon Dioxide 31 (22-32) mmol/L BUN 21 H (7-17) mg/dL Creatinine 0.67 (0.52-1.04) mg/dL Estimated GFR > 60.0 (>60) mL/min BUN/Creatinine Ratio 31.3 H (6-22) Glucose 106 (80-110) mg/dL Calcium 10.5 H (8.4-10.2) mg/dL Total Bilirubin 0.4 (0.2-1.3) mg/dL AST 36 (14-36) IU/L ALT 28 (<35) IU/L Alkaline Phosphatase 69 (38-126) U/L Total Creatine Kinase 73 (30-135) U/L CK-MB (CK-2) TNP CK-MB (CK-2) Rel Index TNP Troponin I < 0.012 (0.01-0.034) ng/mL NT-Pro-B Natriuret Pep (<450) pg/mL Total Protein 7.3 (6.3-8.2) g/dL Albumin 4.4 (3.5-5.0) g/dL Globulin 2.9 (1.7-4.1) g/dL Albumin/Globulin Ratio 1.5 (1.0-2.8) Lipase 172 (23-300) U/L Urine RBC (0-5/HPF) Urine WBC (0-5/HPF) Ur Squamous Epith Cells (0-5/HPF) Urine Bacteria (None) Ur Culture Indicated? SARS-CoV-2 (PCR) Negative (Negative) 12/22/20 12/22/20 12/22/20 Range/Units 20:20 21:55 22:37 WBC (4.5-11.0) X10^3/uL RBC (4.0-5.2) X10^6/uL Hgb (12.0-16.0) g/dL Hct (36-46) % MCV (80-100) fL MCH (26-34) PG MCHC (30-36) % RDW (11.6-14.8) % Plt Count (150-400) X10^3/uL Neut % (Auto) (50-75) % Lymph % (Auto) (25-40) % [place] % (Auto) (3-14) % Eos % (Auto) (2-4) % Baso % (Auto) (0-2) % Neut # (Auto) (3907-1990) /uL Lymph # (Auto) (3145-5071) /uL [place]vert # (Auto) (0-900) /uL Eos # (Auto) (0-450) /uL Baso # (Auto) (0-100) /uL Sodium (137-145) mmol/L Potassium (3.4-5.1) mmol/L Chloride (98-107) mmol/L Carbon Dioxide (22-32) mmol/L BUN (7-17) mg/dL Creatinine (0.52-1.04) mg/dL Estimated GFR (>60) mL/min BUN/Creatinine Ratio (6-22) Glucose (80-110) mg/dL Calcium (8.4-10.2) mg/dL Total Bilirubin (0.2-1.3) mg/dL AST (14-36) IU/L ALT (<35) IU/L Alkaline Phosphatase (38-126) U/L Total Creatine Kinase (30-135) U/L CK-MB (CK-2) CK-MB (CK-2) Rel Index Troponin I < 0.012 (0.01-0.034) ng/mL NT-Pro-B Natriuret Pep 71 (<450) pg/mL Total Protein (6.3-8.2) g/dL Albumin (3.5-5.0) g/dL Globulin (1.7-4.1) g/dL Albumin/Globulin Ratio (1.0-2.8) Lipase (23-300) U/L Urine RBC 0-1/hpf (0-5/HPF) Urine WBC 1-5/hpf (0-5/HPF) Ur Squamous Epith Cells 0-1 /hpf D (0-5/HPF) Urine Bacteria Occasional (0-1) (None) Ur Culture Indicated? Specimen cultured SARS-CoV-2 (PCR) (Negative) Urine Dip Bedside Urine Glucose Negative Bedside Urine Bilirubin - Negative Bedside Urine Ketone - Negative Urine Specific [place] 1.025 Bedside Urine Occult Blood - Negative Bedside Urine pH 6 Bedside Urine Protein - Negative Bedside Urine Urobilinogen - Negative Bedside Urine Nitrite - Negative Bedside Urine Leukocytes + 70 Esterase Imaging Data Chest x-ray: Radiologist's Impression: [address] [address] XRay Report Signed Patient: Ana Luisa Saez MR#: [id number] : 1940 Acct:[id number] Age/Sex: 80 / F Date of Service: 12/22/20 Loc: ED Accession Number: [id number] ?? Procedure: XR chest 1V Ordering Provider: Bev Layne D.O. PROCEDURE:? XR CHEST 1V ? INDICATIONS:? chest pain ? TECHNIQUE:? One view of the chest was acquired.? ? COMPARISON:? [facility], CR, XR CHEST 2V, 12/14/2020, 10:34. ? FINDINGS:? ? Surgical changes and devices:? None.? ? Lungs and pleura:? Lungs are clear.? No pleural effusions or pneumothorax.? ? Mediastinum:? Mediastinal contours appear unchanged.? Heart size is normal.? ? Bones and chest wall:? No suspicious bony lesions.? Overlying soft tissues appear unremarkable.? ? IMPRESSION:? ? 1.? No acute cardiopulmonary disease. ? ? ? Dictated by: Robby Matos M.D. on 12/22/2020 at 20:55 ? ? Approved by: Robby Matos M.D. on 12/22/2020 at 20:56?? ECG Data Attestation: I personally reviewed and interpreted this ECG as follows: Prior ECG tracings: available for review Interpretation: NSR, rqte of 70, pr 188, qrs of 82, qtc 406. No acute ST changes. Q waves, no depression. No acute changed from 09/04/20. EKG2. Sinus bradycardia rate of 56 CO 194 QRS is 78 QTC of 401. No acute ST elevation or depression noted. MDM Narrative Medical decision making narrative: Patient states she has take cephalexin without issue in the past. She does have multiple antibiotic allergies. Urine shows possible infection she has had some symptoms that may be consistent with this and with her nausea probably treat. Patient is okay with treating rather than deferring for urine culture. Patient has had some chest discomfort but it is reproducible with negative EKG and troponin x2 making cardiac cause less likely. Chest x-ray is negative. All questions answered. Discharge Plan Departure Patient Disposition: Home Clinical Impression: Acute UTI, Nausea Instructions: DI for Urinary Tract Infection (UTI) Activity Restrictions/Additional Instructions: Your calcium level was mildly elevated. Talk with your physician about having this rechecked. Your labs and findings today otherwise were reassuring. Your urine shows a possible infection. Take antibiotics until completely gone. Prescription for Keflex was sent to [facility] in [place]. I suspect he may have some sleep apnea, when you fall asleep your oxygen level drops. Talked to her physician about getting a sleep study to evaluate for a CPAP machine. Please return for fevers, new chest pain or shortness of breath, lightheadedness or passing out, persistent vomiting, black or bloody stools, difficulty or inability urinate or other new or concerning symptoms. Prescriptions: New cephalexin 500 mg capsule 500 mg PO BID 3 Days Qty: 6 RF: 0 No Action multivitamin [Multiple Vitamins] 1 EACH tablet 1 tab PO QDAY Qty: 0 RF: 0 (DME) ProChamber Spacer See Rx Instructions .ROUTE .MEDSUPPLY Qty: 1 RF: 0 azithromycin 250 mg tablet See Rx Instructions PO .COMPLEX Qty: 6 RF: 0 ibuprofen [Advil] 200 mg tablet 400 mg PO BID PRN (Reason: Pain (Scale Score 1-3)) RF: 0 albuterol sulfate [Ventolin HFA] 90 mcg/actuation HFA aerosol inhaler 2 puff INHALATION Q4-6H PRN (Reason: asthma) Qty: 8 RF: 5 alprazolam 0.5 mg tablet See Rx Instructions .ROUTE .COMPLEX Qty: 60 RF: 0 amlodipine 2.5 mg tablet 2.5 mg PO DAILY Qty: 90 RF: 3 lisinopril 30 mg tablet 30 mg .ROUTE BID Qty: 180 RF: 3 azithromycin 250 mg tablet See Rx Instructions PO .COMPLEX Qty: 6 RF: 0 cholecalciferol (vitamin D3) [Vitamin D3] 50 mcg (2,000 unit) Capsule 50 mcg DAILY RF: 0 Referrals: Nikhil Ballard MD [Primary Care Provider] -
[2020-12-22 21:26] LABS: NT-proBNP (BNP-Adult 18+) 71 pg/mL (<450)
[2020-12-22 21:28] LABS: Troponin I < 0.012 ng/mL (0.01-0.034)
[2020-12-22 22:47] LABS: RBC Urine 0-1/HPF (0-5/HPF); Squamous Epithelial Cell Urine 0-1 /HPF (0-5/HPF); WBC Urine 1-5/HPF (0-5/HPF)
[2020-12-22 22:48] LABS: Bacteria Urine Occasional (0-1); Culture Indicated Urine Specimen Cultured
[2020-12-22 23:09] LABS: Troponin I < 0.012 ng/mL (0.01-0.034)
[2020-12-22] MEDS: cephALEXin 250 MG CAPSULE 500 MG PO (23:23)
== END 2020-12-22 23:34 | disposition home or self-care (01) ==
PROVIDERS: Emergency Provider Emergency Medicine; PCP Family Medicine
DX: N39.0 Urinary tract infection, site not specified (principal); R07.9 Chest pain, unspecified; R11.0 Nausea; Z20.822 Contact with and (suspected) exposure to COVID-19
CPT/HCPCS: 36415; 71045; 80053; 81003; 81015; 82550; 83690; 83880; 84484; 85025; 87086; 87635; 93005; 93010; 96374; 99284; C9803; J2405

== ENCOUNTER 2021-02-09 09:39 | Emergency (ER) | payer MEDICARE, OTHER, SELFPAY ==
[2021-02-09 09:42] VITALS: BP 158/78; PULSE 85; RESP 15; TEMP 37; O2SAT 99; BMI 30.1
--- NOTE | 2021-02-09 09:46 | DI.RAD.S_ITS ---
PROCEDURE: XR CHEST 1V INDICATIONS: chest pain TECHNIQUE: One view of the chest was acquired. COMPARISON: [facility], CR, XR CHEST 1V, 12/22/2020, 20:03. FINDINGS: Surgical changes and devices: None. Lungs and pleura: Lungs are clear. No pleural effusions or pneumothorax. Mediastinum: Mediastinal contours appear normal. Heart size is normal. Bones and chest wall: No suspicious bony lesions. Overlying soft tissues appear unremarkable. IMPRESSION: No acute cardiopulmonary abnormality. Dictated by: Raji Ayala M.D. on 02/09/2021 at 9:30 Approved by: Raji Ayala M.D. on 02/09/2021 at 9:30
--- NOTE | 2021-02-09 09:56 | ED_ITS ---
HPI - General Adult General Chief complaint: Chest Pain Stated complaint: Fatigue Time Seen by Provider: 02/09/21 09:40 Source: patient Mode of arrival: EMS Limitations: no limitations History of Present Illness HPI narrative: This is an 80-year-old female comes in with complaint of feeling fatigued and concern for dehydration. Patient states over the past week she felt like she was having some asthma flares. She has just felt generally unwell the past week. She has been using her inhalers which have been mildly helpful but not resolved her symptoms. She denies fevers but has had some chills. She has not had any cold, cough or congestion. She occasionally has some chest discomfort but nothing in the last 24 hours. She has felt a little short of breath but also she states this is not atypical but thought her inhalers to be more helpful. She has had nausea particularly today, no vomiting. She had 2 episodes of diarrhea last night which she states were quite extensive. She denies any bright red blood or melena. She has had some abdominal discomfort on the right flank. She states that has resolved. She denies any dysuria, urgency or frequency but feels like her urine output has dropped off. She has felt lightheaded but had no syncope. She does have a history of hypertension but does on lisinopril 30 mg b.i.d., amlodipine 2.5 mg q.day, Xanax 0.5 mg q.h.s. as needed. She has had tonsillectomy, appendectomy, brachial plexus surgery, C- section arthroscopic knee surgery. She is allergic to penicillin, sulfa carbamazepine. She does states she has a lot of anxiety about her who had which she describes as a accidental overdose about a year ago and that he was quite upset with her today for coming to the emergency department. Related Data Home Medications Medication Instructions Recorded Confirmed multivitamin (Multiple Vitamins) 1 tab PO QDAY #0 12/29/15 02/01/21 ibuprofen 200 mg tablet (Advil) 400 mg PO BID PRN tab 09/23/17 02/01/21 cholecalciferol (vitamin D3) 50 50 mcg DAILY 02/03/20 02/01/21 mcg (2,000 unit) capsule (Vitamin D3) Previous Rx's Medication Instructions Recorded inhalational spacing device #1 each 11/11/19 (ProChamber) Ventolin HFA 90 mcg/actuation 2 puff INHALATION Q4-6H PRN #8 g NS 02/08/20 aerosol inhaler (albuterol sulfate) amlodipine 2.5 mg tablet 2.5 mg PO DAILY #90 tab 11/13/20 lisinopril 30 mg tablet 30 mg .ROUTE BID #180 tab 11/13/20 azithromycin 250 mg tablet See Rx Instructions PO .COMPLEX #6 11/23/20 tab azithromycin 250 mg tablet See Rx Instructions PO .COMPLEX #6 12/14/20 tab alprazolam 0.5 mg tablet See Rx Instructions .ROUTE 02/05/21 .COMPLEX #60 tab Allergies Allergy/AdvReac Type Severity Reaction Status Date / Time meperidine Allergy Severe COULDN'T Verified 02/09/21 09:46 BREATHE OR TALK, EXTREME DIAPHORESIS fluoxetine Allergy Intermediate BROKE OUT Verified 02/09/21 09:46 INTO RASH levofloxacin Allergy Intermediate TENDON Verified 02/09/21 09:46 SORENESS penicillin G Allergy Intermediate RASH Verified 02/09/21 09:46 Sulfa (Sulfonamide Allergy Intermediate HIVES Verified 02/09/21 09:46 Antibiotics) isosulfan blue Allergy Unknown Verified 02/09/21 09:46 nitrofurantoin Allergy Unknown Verified 02/09/21 09:46 [From MACROBID] Review of Systems Review of Systems ROS Unobtainable: All systems reviewed & are unremarkable except as noted in HPI and below Patient History Medical History Abnormal chest x-ray Anxiety Asthma (~1944) Breast cancer (~2015) Chicken pox (~1949) Essential hypertension Hay fever Hearing loss (~2016) Kidney stones (~2005) Knee meniscus pain (~2014) Lumbar spinal stenosis Measles (~1949) Migraine Mononucleosis (~1960) Sciatica (~2018) Scleral icterus Spondylosis of lumbar spine Tinnitus (~2016) Surgical History Anesthesia Branchial cleft cyst (~1960) History of appendectomy (~1953) History of arthroscopic knee surgery (~2014) History of cataract surgery History of section (~1975) History of section (~1982) History of lumpectomy (~01/2016) History of tonsillectomy (~1945) Family History Father Hypertension Heart disease Mother No problems noted. Brother No problems noted. Sister No problems noted. Grandfather No problems noted. Grandmother No problems noted. Grandfather No problems noted. Grandmother No problems noted. Social History Smoking Status: Smoker, status unknown Smoking Status: Smoker, status unknown alcohol intake frequency: holidays/special occasions only Substance Use Type: does not use Exam Narrative Exam Narrative: GENERAL: Alert and oriented x three, elderly female in mild distress. HEENT: Head normocephalic, atraumatic, EOMI, pupils reactive, face symmetric, moist mucous membranes NECK: Supple, full range of motion CARDIOVASCULAR: Regular rate and rhythm without murmurs, rubs or gallops. RESPIRATORY: Breath sounds equal bilaterally, no wheezes rales or rhonchi. ABDOMEN: Soft, nontender. Normoactive bowel sounds all 4 quadrants. No guarding or rebound, rigidity, no mass : No CVA tenderness EXTREMITIES: Normal range of motion, no clubbing or edema. Neurovascularly intact NEUROLOGICAL: Cranial nerves II through XII grossly intact. Moving all extremities SKIN: Warm, dry, no petechiae, no rashes or lesions. Initial Vital Signs Initial Vital Signs: Vital Signs Temperature 98.6 F 02/09/21 09:42 Pulse Rate 85 02/09/21 09:42 Respiratory Rate 15 02/09/21 09:42 Blood Pressure 158/78 H 02/09/21 09:42 Pulse Oximetry 99 02/09/21 09:42 Course Orders Ordered: ED Orders 02/09/21 09:46 XR chest 1V Stat EKG-12 Lead Stat 02/09/21 10:22 Consult to LAYDOWN MACHINE OPERATOR - [employer] Library Clerk Stat 02/09/21 10:40 BNP [NT-proBNP (BNP-Adult 18+)] Stat COVID19 -Nasal swab/Pre-Proc Stat Complete Blood Count AUTO DIFF Stat Comprehensive Metabolic Panel Stat Lipase Stat Magnesium Stat Troponin & CK Cardiac Panel Stat 02/09/21 11:31 Urine Culture Stat Urine Microscopic Stat Discontinued Medications Sodium Chloride (Normal Saline 0.9%) 1,000 mls @ 1,000 mls/hr IV BOLUS ONE Stop: 02/09/21 11:17 Last Infusion: 02/09/21 11:45 Dose: 0 mls/hr Documented by: Admin: 02/09/21 10:40 Dose: 1,000 mls/hr Documented by: NOEL Ondansetron HCl (Ondansetron 4 Mg/2 Ml Inj) 4 mg IV NOW ONE Stop: 02/09/21 10:19 Last Admin: 02/09/21 10:30 Dose: 4 mg Documented by: NOEL Reevaluation(s) Reevaluation #1: Patient feels much better. She does not wish to chat with social work. She feels like she has used her resources appropriately. We discussed she may have a UTI she does not wish to start antibiotics and would rather wait for the culture. Time: 13:01 Reevaluation #2: Patient did later changed her mind and did wish to talk with social Work. They had long discussion with resources given. Vital Signs Vital signs: Vital Signs - 8 hr 02/09/21 12:00 02/09/21 13:37 02/09/21 14:52 Pulse Rate 63 68 72 Respiratory Rate 20 18 Blood Pressure 176/82 H 185/91 H 199/83 H Pulse Oximetry 98 98 97 Medical Decision Making Lab Data Result diagrams: 02/09/21 10:40 02/09/21 10:40 Labs: Lab Results 02/09/21 02/09/21 02/09/21 Range/Units 10:40 10:40 10:40 WBC 7.1 (4.5-11.0) X10^3/uL RBC 4.23 (4.0-5.2) X10^6/uL Hgb 12.8 (12.0-16.0) g/dL Hct 38.0 (36-46) % MCV 89.7 (80-100) fL MCH 30.2 (26-34) PG MCHC 33.6 (30-36) % RDW 14.6 (11.6-14.8) % Plt Count 304 (150-400) X10^3/uL Neut % (Auto) 45.9 L (50-75) % Lymph % (Auto) 41.1 H (25-40) % [place] % (Auto) 8.8 (3-14) % Eos % (Auto) 3.1 (2-4) % Baso % (Auto) 1.1 (0-2) % Neut # (Auto) 3300 (7046-9839) /uL Lymph # (Auto) 2900 (4245-9671) /uL [place] # (Auto) 600 (0-900) /uL Eos # (Auto) 200 (0-450) /uL Baso # (Auto) 100 (0-100) /uL Sodium 142 (137-145) mmol/L Potassium 4.0 (3.4-5.1) mmol/L Chloride 109 H (98-107) mmol/L Carbon Dioxide 28 (22-32) mmol/L BUN 22 H (7-17) mg/dL Creatinine 0.70 (0.52-1.04) mg/dL Estimated GFR > 60.0 (>60) mL/min BUN/Creatinine Ratio 31.4 H (6-22) Glucose 96 (80-110) mg/dL Calcium 9.8 (8.4-10.2) mg/dL Magnesium 2.2 (1.6-2.3) mg/dL Total Bilirubin 0.5 (0.2-1.3) mg/dL AST 31 (14-36) IU/L ALT 26 (<35) IU/L Alkaline Phosphatase 73 (38-126) U/L Total Creatine Kinase 55 (30-135) U/L CK-MB (CK-2) TNP CK-MB (CK-2) Rel Index TNP Troponin I < 0.012 (0.01-0.034) ng/mL NT-Pro-B Natriuret Pep 43 (<450) pg/mL Total Protein 7.1 (6.3-8.2) g/dL Albumin 4.2 (3.5-5.0) g/dL Globulin 2.9 (1.7-4.1) g/dL Albumin/Globulin Ratio 1.4 (1.0-2.8) Lipase 156 (23-300) U/L Urine RBC (0-5/HPF) Urine WBC (0-5/HPF) Ur Squamous Epith Cells (0-5/HPF) Ur Transition Epith Cell (0-5/HPF) Urine Bacteria (None) Ur Culture Indicated? SARS-CoV-2 (PCR) (Negative) 12/24/21 12/24/21 Range/Units 10:40 11:31 WBC (4.5-11.0) X10^3/uL RBC (4.0-5.2) X10^6/uL Hgb (12.0-16.0) g/dL Hct (36-46) % MCV (80-100) fL MCH (26-34) PG MCHC (30-36) % RDW (11.6-14.8) % Plt Count (150-400) X10^3/uL Neut % (Auto) (50-75) % Lymph % (Auto) (25-40) % [place] % (Auto) (3-14) % Eos % (Auto) (2-4) % Baso % (Auto) (0-2) % Neut # (Auto) (3900-8284) /uL Lymph # (Auto) (4105-3102) /uL [place] # (Auto) (0-900) /uL Eos # (Auto) (0-450) /uL Baso # (Auto) (0-100) /uL Sodium (137-145) mmol/L Potassium (3.4-5.1) mmol/L Chloride (98-107) mmol/L Carbon Dioxide (22-32) mmol/L BUN (7-17) mg/dL Creatinine (0.52-1.04) mg/dL Estimated GFR (>60) mL/min BUN/Creatinine Ratio (6-22) Glucose (80-110) mg/dL Calcium (8.4-10.2) mg/dL Magnesium (1.6-2.3) mg/dL Total Bilirubin (0.2-1.3) mg/dL AST (14-36) IU/L ALT (<35) IU/L Alkaline Phosphatase (38-126) U/L Total Creatine Kinase (30-135) U/L CK-MB (CK-2) CK-MB (CK-2) Rel Index Troponin I (0.01-0.034) ng/mL NT-Pro-B Natriuret Pep (<450) pg/mL Total Protein (6.3-8.2) g/dL Albumin (3.5-5.0) g/dL Globulin (1.7-4.1) g/dL Albumin/Globulin Ratio (1.0-2.8) Lipase (23-300) U/L Urine RBC None seen (0-5/HPF) Urine WBC 1-5/hpf (0-5/HPF) Ur Squamous Epith Cells 1-5 /hpf (0-5/HPF) Ur Transition Epith Cell 0-1/hpf (0-5/HPF) Urine Bacteria Few (2-10) H (None) Ur Culture Indicated? Specimen cultured SARS-CoV-2 (PCR) Negative (Negative) Urine Dip Bedside Urine Glucose Negative Bedside Urine Bilirubin - Negative Bedside Urine Ketone - Negative Urine Specific [place] 1.020 Bedside Urine Occult Blood - Negative Bedside Urine Protein - Negative Bedside Urine Urobilinogen - Negative Bedside Urine Nitrite - Negative Bedside Urine Leukocytes + 70 Esterase Point of care testing: Urine Dip Bedside Urine Glucose Negative Bedside Urine Bilirubin - Negative Bedside Urine Ketone - Negative Urine Specific [place] 1.020 Bedside Urine Occult Blood - Negative Bedside Urine Protein - Negative Bedside Urine Urobilinogen - Negative Bedside Urine Nitrite - Negative Bedside Urine Leukocytes + 70 Esterase Imaging Data Chest x-ray: Radiologist's Impression: [address] [id number] ReportSigned Patient: Ana Luisa Saez [facility]#: [id number]: 1940Acct:[id number]/Sex: 80 / FDate of Service: 02/09/21Loc: EDAccession Number: [id number]? ? Procedure: XR chest 1V Ordering Provider: Bev Layne D.O. PROCEDURE:? XR CHEST 1V ? INDICATIONS:? chest pain ? TECHNIQUE:? One view of the chest was acquired.? ? COMPARISON:? [facility], , XR CHEST 1V, 12/22/2020, 20:03. ? FINDINGS:? ? Surgical changes and devices:? None.? ? Lungs and pleura:? Lungs are clear.? No pleural effusions or pneumothorax.? ? Mediastinum:? Mediastinal contours appear normal.? Heart size is normal.? ? Bones and chest wall:? No suspicious bony lesions.? Overlying soft tissues appear unremarkable.? ? IMPRESSION:? No acute cardiopulmonary abnormality. ? ? Dictated by: Raji Ayala M.D. on 02/09/2021 at 9:30? ?? Approved by: Raji Ayala M.D. on 02/09/2021 at 9:30?? ECG Data Attestation: I personally reviewed and interpreted this ECG as follows: Prior ECG tracings: not available for review Interpretation: Sinus rhythm rate of 69 WA 180 QRS is 78 QTC of 424. No acute ST elevation or depression noted. MDM Narrative Medical decision making narrative: This is an 80-year-old female comes in with complaint of fatigue, multiple concerns but also diarrhea and some nausea. Patient was found have bacteria. She has not had urinary symptoms and was elected to start antibiotics we discussed urine culture is pending and if positive can be contacted to start oral antibiotics. Patient is more agreeable to this. She has been in the department for several hours and has not had her antihypertensive and blood pressure was elevated prior to discharge. Her EKG, chest x-ray and other labs are negative. She has not had any vomiting in the department. She has not had any additional diarrhea in the department. Her labs are otherwise reassuring. COVID swab was included as she had low neutrophil count. Patient does not have any other cold cough congestive type symptoms. She did speak with LAYDOWN MACHINE OPERATOR eventually although she was reluctant at 1st as she has had multiple issues provoking psi 80 at home concerning her in her own personal health care. Resources were given. Patient discharged home to take her home blood pressure medications. With return precautions discussed. Discharge Plan Departure Patient Disposition: Home Clinical Impression: Diarrhea, Bacteriuria Instructions: Diarrhea Activity Restrictions/Additional Instructions: Follow-up with your physician for recheck. Your urine does show bacteria today, urine culture is pending and has discussed if positive you will be contacted to start antibiotics. Please return for fevers, new or worsening abdominal pain, chest pain or shortness of breath, persistent vomiting, black or bloody stools, lightheadedness or passing out or other new or concerning symptoms. Prescriptions: No Action multivitamin [Multiple Vitamins] 1 EACH tablet 1 tab PO QDAY Qty: 0 0RF (DME) ProChamber Spacer See Rx Instructions .ROUTE .MEDSUPPLY Qty: 1 0RF Rx Instructions: As directed azithromycin 250 mg tablet See Rx Instructions PO .COMPLEX Qty: 6 0RF Rx Instructions: take 500 mg today (day 1), then 250 mg for 4 days (days 2-5) PO alprazolam 0.5 mg tablet See Rx Instructions .ROUTE .COMPLEX Qty: 60 0RF Dose Instruction: TAKE 1 TABLET BY MOUTH TWICE DAILY NEEDED FOR ANXIETY Rx Instructions: TAKE 1 TABLET BY MOUTH TWICE DAILY NEEDED FOR ANXIETY ibuprofen [Advil] 200 mg tablet 400 mg PO BID PRN (Reason: Pain (Scale Score 1-3)) 0RF albuterol sulfate [Ventolin HFA] 90 mcg/actuation HFA aerosol inhaler 2 puff INHALATION Q4-6H PRN (Reason: asthma) Qty: 8 5RF Rx Instructions: with spacer amlodipine 2.5 mg tablet 2.5 mg PO DAILY Qty: 90 3RF lisinopril 30 mg tablet 30 mg .ROUTE BID Qty: 180 3RF Rx Instructions: 30 mg twice a day; azithromycin 250 mg tablet See Rx Instructions PO .COMPLEX Qty: 6 0RF Rx Instructions: take 500 mg today (day 1), then 250 mg for 4 days (days 2-5) PO cholecalciferol (vitamin D3) [Vitamin D3] 50 mcg (2,000 unit) Capsule 50 mcg DAILY 0RF Referrals: Nikhil Ballard MD [Primary Care Provider] -
[2021-02-09 10:25] VITALS: BP 152/71; PULSE 70; O2SAT 95
[2021-02-09] MEDS: ONDANSETRON 4 MG/2 ML INJ IV (10:30)
[2021-02-09] MEDS: SODIUM CHLORIDE 0.9% 1,000 ML 1000 ML IV (10:40)
[2021-02-09 10:49] LABS: Add Manual Diff / Slide Review NO; Basophils Absolute Auto 100 /uL (0-100); Basophils Percent Auto 1.1 % (0-2); Eosinophils Absolute Auto 200 /uL (0-450); Eosinophils Percent Auto 3.1 % (2-4); Hemoglobin 12.8 g/dL (12.0-16.0); Lymphocytes Absolute Auto 2900 /uL (1100-4500); Lymphocytes Percent Auto 41.1 % (25-40); Mean Corpuscular HGB Conc 33.6 % (30-36); Mean Corpuscular Hemoglobin 30.2 PG (26-34); Mean Corpuscular Volume 89.7 fL (80-100); Monocytes Absolute Auto 600 /uL (0-900); Monocytes Percent Auto 8.8 % (3-14); Neutrophils Absolute Auto 3300 /uL (1500-7000); Neutrophils Percent Auto 45.9 % (50-75); Platelet Count 304 X10^3/uL (150-400); Red Blood Cell Count 4.23 X10^6/uL (4.0-5.2); Red Cell Distribution Width 14.6 % (11.6-14.8); White Blood Cell Count 7.1 X10^3/uL (4.5-11.0)
[2021-02-09 11:47] LABS: COVID19 -Nasal RAPID Negative (Negative)
[2021-02-09 12:00] VITALS: BP 176/82; PULSE 63; RESP 20; O2SAT 98
[2021-02-09 12:17] LABS: Alanine Aminotransferase 26 IU/L (<35); Albumin 4.2 g/dL (3.5-5.0); Albumin Globulin Ratio 1.4 (1.0-2.8); Alkaline Phosphatase 73 U/L (38-126); Aspartate Aminotransferase 31 IU/L (14-36); BUN Creatinine Ratio 31.4 (6-22); Bilirubin Total 0.5 mg/dL (0.2-1.3); Blood Urea Nitrogen 22 mg/dL (7-17); Calcium 9.8 mg/dL (8.4-10.2); Carbon Dioxide 28 mmol/L (22-32); Chloride 109 mmol/L (98-107); Creatine Kinase 55 U/L (30-135); Estimated Glomerular Filt Rate > 60.0 mL/min (>60); Globulin 2.9 g/dL (1.7-4.1); Glucose 96 mg/dL (80-110); HEMOLYSIS < 15 (0-50); Lipase 156 U/L (23-300); Magnesium 2.2 mg/dL (1.6-2.3); Sodium 142 mmol/L (137-145); Total Protein 7.1 g/dL (6.3-8.2)
[2021-02-09 12:26] LABS: NT-proBNP (BNP-Adult 18+) 43 pg/mL (<450)
[2021-02-09 12:29] LABS: Troponin I < 0.012 ng/mL (0.01-0.034)
[2021-02-09 12:45] LABS: Bacteria Urine Few (2-10); Culture Indicated Urine Specimen Cultured; RBC Urine None Seen (0-5/HPF); Squamous Epithelial Cell Urine 1-5 /HPF (0-5/HPF); Transitional Epi Cells Urine 0-1/HPF (0-5/HPF); WBC Urine 1-5/HPF (0-5/HPF)
[2021-02-09 13:37] VITALS: BP 185/91; PULSE 68; O2SAT 98
--- NOTE | 2021-02-09 14:50 | CM.SWNOTE ---
Patient is 80yo female who came to ED with physical complaints; physician requested social work consult due to patient's reports of concern in her home with spouse. harm reduction worker met with patient at bedside. Patient is A/O x4. Patient reported her spouse is beginning to have short term memory concerns which has increased her need to be in caretaking role; this is a novel role for patient who has typically been cared for and by her spouse. Patient also reported the pandemic has been particularly tough for her due to limited social contacts, not travelling (which patient indicated has been her coping mechanism for life stressors), familial frustrations regarding vax status, and inability to have in-home caregiving/greensman due to covid concerns. Patient reported she has been experiencing increasing stress and anxiety since her spouse overdosed on medications approximately 1 year ago; patient was not certain if this was an intentional overdose or just him continuing to take the pills until he managed to get to sleep. Patient reported having some friends in similar situations to whom she could but has not yet reached out for advice. Patient reported some willingness to consider getting into mh counseling, resources provided. Patient provided with alternative suggestions to enhance her coping through taking time for her self and own healing process. Patient reported she felt safe going home and did not have concerns for her safety in the home. Patient has good insight into her stressors and triggers, ways she used to manage them that have not been available to her during pandemic closures/restrictions, and steps to move forward with. Social work consult did not include mh assessment; resource provision consult. Patient discharging home with spouse providing transportation. Patricio JACOB
[2021-02-09 14:52] VITALS: BP 199/83; PULSE 72; RESP 18; O2SAT 97
== END 2021-02-09 14:53 | disposition home or self-care (01) ==
PROVIDERS: Emergency Provider Emergency Medicine; PCP Family Medicine
DX: R19.7 Diarrhea, unspecified (principal); R82.71 Bacteriuria; R07.9 Chest pain, unspecified; Z20.822 Contact with and (suspected) exposure to COVID-19
CPT/HCPCS: 36415; 71045; 80053; 81003; 81015; 82550; 83690; 83735; 83880; 84484; 85025; 87086; 87635; 93005; 96361; 96374; 99284; C9803; J2405

== ENCOUNTER → 2021-06-04 09:48 | Outpatient (CLI) | payer MEDICARE, OTHER, SELFPAY ==
[2021-06-04 11:58] LABS: Add Manual Diff / Slide Review NO; Basophils Absolute Auto 100 /uL (0-100); Basophils Percent Auto 0.9 % (0-2); Eosinophils Absolute Auto 200 /uL (0-450); Eosinophils Percent Auto 2.3 % (2-4); Hematocrit 39.9 % (36-46); Hemoglobin 13.7 g/dL (12.0-16.0); Lymphocytes Absolute Auto 2900 /uL (1100-4500); Lymphocytes Percent Auto 37.6 % (25-40); Mean Corpuscular HGB Conc 34.2 % (30-36); Mean Corpuscular Volume 90.6 fL (80-100); Monocytes Absolute Auto 600 /uL (0-900); Monocytes Percent Auto 8.3 % (3-14); Neutrophils Absolute Auto 3900 /uL (1500-7000); Neutrophils Percent Auto 50.9 % (50-75); Platelet Count 313 X10^3/uL (150-400); Red Blood Cell Count 4.41 X10^6/uL (4.0-5.2); Red Cell Distribution Width 14.3 % (11.6-14.8); White Blood Cell Count 7.7 X10^3/uL (4.5-11.0)
[2021-06-04 12:13] LABS: Alanine Aminotransferase 27 IU/L (<35); Albumin 4.2 g/dL (3.5-5.0); Albumin Globulin Ratio 1.6 (1.0-2.8); Alkaline Phosphatase 74 U/L (38-126); Aspartate Aminotransferase 28 IU/L (14-36); BUN Creatinine Ratio 33.3 (6-22); Bilirubin Total 0.5 mg/dL (0.2-1.3); Blood Urea Nitrogen 25 mg/dL (7-17); Calcium 9.4 mg/dL (8.4-10.2); Carbon Dioxide 29 mmol/L (22-32); Chloride 107 mmol/L (98-107); Estimated Glomerular Filt Rate > 60 mL/min (>60); Globulin 2.7 g/dL (1.7-4.1); Glucose 92 mg/dL (80-110); HEMOLYSIS < 15 (0-50); Potassium 4.2 mmol/L (3.4-5.1); Sodium 142 mmol/L (137-145); Total Protein 6.9 g/dL (6.3-8.2)
[2021-06-05 12:23] LABS: Lipase 168 U/L (23-300)
[2021-06-05 12:53] LABS: TSH w/ Reflex to FT4 1.36 uIU/mL (0.47-4.68)
== END ==
PROVIDERS: PCP Family Medicine; Referring Provider Family Medicine; Visit Provider Family Medicine
DX: R73.9 Hyperglycemia, unspecified (principal); I10 Essential (primary) hypertension; D72.829 Elevated white blood cell count, unspecified; R10.11 Right upper quadrant pain; R19.7 Diarrhea, unspecified
CPT/HCPCS: 36415; 80053; 83690; 84443; 85025

== ENCOUNTER → 2021-06-07 09:06 | Outpatient (CLI) | payer MEDICARE, OTHER, SELFPAY ==
--- NOTE | 2021-06-07 09:08 | DI.CT.S_ITS ---
PROCEDURE: CT ABDOMEN PELVIS W CON INDICATIONS: abdominal pain, epigastrium and RUQ TECHNIQUE: After the administration of oral and intravenous contrast, axial sections were acquired from the lung bases to the pubic symphysis. Coronal and sagittal reformats were performed. For radiation dose reduction, the following was used: automated exposure control, adjustment of mA and/or kV according to patient size. COMPARISON:[facility], CT, ABDOMEN/PELVIS WITH CONTRAST, 11/04/2014, 17:02. FINDINGS: Image quality: Excellent. Lung bases: Multiple 4 mm pulmonary nodules are redemonstrated at the left lung base, all of which are unchanged from November 04, 2014. The lung bases are otherwise clear. Heart: No significant findings. ABDOMEN: Liver: The liver is diffusely hypodense suggesting fatty infiltration. Low-density cystic lesions are present within the liver. Gallbladder: Mildly distended. Radiodense sludge is layered in the fundus. No gallbladder wall thickening. Biliary ducts: Unremarkable. Pancreas: Unremarkable. Spleen: Unremarkable. Adrenal Glands: Unremarkable. Kidneys and Ureters: Unremarkable. Stomach and Bowel: There is a small hiatal hernia. Stomach, small bowel loops, and colon are unremarkable. There are scattered sigmoid diverticula. No evidence for diverticulitis. The appendix is thin walled and contrast filled. Peritoneum: No abnormal intraperitoneal fluid. No free air. Ventral Wall: No hernia. Abdominal Nodes: No retroperitoneal or mesenteric adenopathy by size criteria. Vessels: Aorta and inferior vena cava are normal in size. PELVIS: Pelvic Organs: Unremarkable. Bladder: Unremarkable. Pelvic Nodes: No enlarged lymph nodes. Miscellaneous: No inguinal hernias are seen. Bones: Unremarkable. IMPRESSION: 1. Small hiatal hernia. 2. Diffusely hypodense hepatic parenchyma noted likely related to fatty infiltration of the liver but other sources of hepatocellular disease cannot be excluded. 3. No acute intra-abdominal findings. Diverticulosis. No acute diverticulitis. Normal appendix. Dictated by: Breanne Cervantes M.D. on 06/07/2021 at 15:12 Approved by: Breanne Cervantes M.D. on 06/07/2021 at 15:18
== END ==
PROVIDERS: PCP Family Medicine; Referring Provider Family Medicine; Visit Provider Family Medicine
DX: R19.7 Diarrhea, unspecified (principal); R10.11 Right upper quadrant pain; R11.0 Nausea; K44.9 Diaphragmatic hernia without obstruction or gangrene; K57.30 Diverticulosis of large intestine without perforation or abscess without bleeding
CPT/HCPCS: 74177; Q9967

== ENCOUNTER 2021-06-09 22:44 | Emergency (ER) | payer MEDICARE, OTHER, SELFPAY ==
[2021-06-09 22:54] VITALS: BP 160/87; PULSE 98; RESP 17; TEMP 36.9; O2SAT 98; BMI 28.3
--- NOTE | 2021-06-09 23:05 | DI.US.S_ITS ---
PROCEDURE: US ABDOMEN LIMITED INDICATIONS: RUQ PAIN TECHNIQUE: Real-time focused scanning was performed of the abdomen, with image documentation. COMPARISON: None. FINDINGS: The liver appears diffusely hyperechoic consistent with fatty infiltration. The gallbladder wall is normal in thickness but there are gallstones small in size measuring approximately 4 mm layering dependently within the gallbladder lumen, nonobstructive. The common duct measures up to 5 mm, normal. The pancreas seen also appears normal. IMPRESSION: Small gallstones are present within the gallbladder lumen but there is no sign of biliary obstruction or acute cholecystitis. Generalized fatty infiltration throughout the liver. Dictated by: Carlos Todd M.D. on 06/10/2021 at 0:22 Approved by: Carlos Todd M.D. on 06/10/2021 at 0:24
--- NOTE | 2021-06-09 23:06 | PC.NURSE ---
pt c/o mild upper abd pain states she was told she would need to follow up with a surgeon d/t gallbladder issues but she thinks she needs to be on antibiotics to get rid of the inflammation, pt rambles on about other issues, and has trouble focusing on the topic that is the issue
--- NOTE | 2021-06-09 23:17 | ED_ITS ---
HPI - General Adult General Chief complaint: Abdominal Pain Stated complaint: Gall Bladder attack Time Seen by Provider: 06/09/21 22:57 Source: patient Mode of arrival: Ambulatory History of Present Illness HPI narrative: Patient is a 80-year-old female who is here for evaluation of right upper quadrant abdominal discomfort. It has been going on for couple weeks now. She has seen her primary doctor. Had labs drawn. Sure unremarkable. She also on an outpatient CT scan which is unremarkable except for gallbladder sludge. She has an appointment to see general surgery the end of next week. She states she has had some difficulty eating because of discomfort after eating. Related Data Home Medications Medication Instructions Recorded Confirmed multivitamin (Multiple Vitamins) 1 tab PO QDAY #0 12/29/15 06/05/21 ibuprofen 200 mg tablet (Advil) 400 mg PO BID PRN tab 09/23/17 06/05/21 cholecalciferol (vitamin D3) 50 50 mcg DAILY 02/03/20 06/05/21 mcg (2,000 unit) capsule (Vitamin D3) Previous Rx's Medication Instructions Recorded inhalational spacing device #1 each 11/11/19 (ProChamber) amlodipine 2.5 mg tablet 2.5 mg PO DAILY #90 tab 11/13/20 lisinopril 30 mg tablet 30 mg .ROUTE BID #180 tab 11/13/20 Ventolin HFA 90 mcg/actuation See Rx Instructions .ROUTE 03/02/21 aerosol inhaler (albuterol sulfate) .COMPLEX #18 g NS alprazolam 0.5 mg tablet See Rx Instructions .ROUTE 04/16/21 .COMPLEX #60 tab Allergies Allergy/AdvReac Type Severity Reaction Status Date / Time meperidine Allergy Severe COULDN'T Verified 02/09/21 09:46 BREATHE OR TALK, EXTREME DIAPHORESIS fluoxetine Allergy Intermediate BROKE OUT Verified 02/09/21 09:46 INTO RASH levofloxacin Allergy Intermediate TENDON Verified 02/09/21 09:46 SORENESS penicillin G Allergy Intermediate RASH Verified 02/09/21 09:46 Sulfa (Sulfonamide Allergy Intermediate HIVES Verified 02/09/21 09:46 Antibiotics) isosulfan blue Allergy Unknown Verified 02/09/21 09:46 nitrofurantoin Allergy Unknown Verified 02/09/21 09:46 [From MACROBID] Review of Systems Constitutional Constitutional: Denies fever(s) Gastrointestinal Gastrointestinal: Reports as per HPI and Reports system reviewed and no additional complaints, except as documented Genitourinary Genitourinary: Denies dysuria Integumentary/Breasts Skin/Breast: Denies rash Hematologic/Lymphatic On Anticoagulants: No Patient History Medical History Abnormal chest x-ray Anxiety Asthma (~1945) Breast cancer (~2015) Chicken pox (~1949) Essential hypertension Hay fever Hearing loss (~2016) Kidney stones (~2005) Knee meniscus pain (~2014) Lumbar spinal stenosis Measles (~1949) Migraine Mononucleosis (~1960) Sciatica (~2017) Scleral icterus Spondylosis of lumbar spine Tinnitus (~2016) Surgical History Anesthesia Branchial cleft cyst (~1960) History of appendectomy (~1953) History of arthroscopic knee surgery (~2014) History of cataract surgery History of section (~1975) History of section (~1982) History of lumpectomy (~01/2016) History of tonsillectomy (~1944) Family History Father Hypertension Heart disease Mother No problems noted. Brother No problems noted. Sister No problems noted. Grandfather No problems noted. Grandmother No problems noted. Grandfather No problems noted. Grandmother No problems noted. Social History Smoking Status: Former smoker Smoking Status: Former smoker alcohol intake frequency: holidays/special occasions only Substance Use Type: does not use Exam Initial Vital Signs Initial Vital Signs: Vital Signs Temperature 98.4 F 06/09/21 22:54 Pulse Rate 98 H 06/09/21 22:54 Respiratory Rate 17 06/09/21 22:54 Blood Pressure 160/87 H 06/09/21 22:54 Pulse Oximetry 98 06/09/21 22:54 Const General: cooperative and comfortable HENMT Head: normal to inspection and normocephalic Resp Effort & Inspection: normal respiratory effort Auscultation: clear to auscultation bilaterally Cardio Rate: regular rate Rhythm: regular rhythm GI Inspection: normal to inspection Palpation: soft and No firm Percussion: normal to percussion Back/Spine/Pelvis Back: No CVA tenderness Skin General: no rashes or lesions noted Extrem General: normal to inspection Psych Appearance: grossly normal and well kempt Course Orders Ordered: ED Orders 06/09/21 23:00 Complete Blood Count AUTO DIFF Stat Comprehensive Metabolic Panel Stat Lactate (Lactic Acid) Stat Lipase Stat 06/09/21 23:05 US abdomen limited Stat Vital Signs Vital signs: Vital Signs - 8 hr 06/09/21 22:54 Temperature 98.4 F Pulse Rate 98 H Respiratory Rate 17 Blood Pressure 160/87 H Pulse Oximetry 98 Medical Decision Making Medical Records Medical records reviewed: Yes I reviewed the patient's medical records. Lab Data Lab results reviewed: Yes I reviewed the patient's lab results. Result diagrams: 06/09/21 23:00 06/09/21 23:00 Labs: Lab Results 06/09/21 06/09/21 06/09/21 Range/Units 23:00 23:00 23:00 WBC 11.2 H (4.5-11.0) X10^3/uL RBC 4.48 (4.0-5.2) X10^6/uL Hgb 13.8 (12.0-16.0) g/dL Hct 40.9 (36-46) % MCV 91.1 (80-100) fL MCH 30.7 (26-34) PG MCHC 33.7 (30-36) % RDW 14.2 (11.6-14.8) % Plt Count 335 (150-400) X10^3/uL Neut % (Auto) 52.4 (50-75) % Lymph % (Auto) 34.9 (25-40) % [place] % (Auto) 9.6 (3-14) % Eos % (Auto) 2.0 (2-4) % Baso % (Auto) 1.1 (0-2) % Neut # (Auto) 5900 (6333-3427) /uL Lymph # (Auto) 3900 (0604-4326) /uL [place] # (Auto) 1100 H (0-900) /uL Eos # (Auto) 200 (0-450) /uL Baso # (Auto) 100 (0-100) /uL Sodium 142 (137-145) mmol/L Potassium 4.0 (3.4-5.1) mmol/L Chloride 106 (98-107) mmol/L Carbon Dioxide 28 (22-32) mmol/L BUN 27 H (7-17) mg/dL Creatinine 0.81 (0.52-1.04) mg/dL Estimated GFR > 60 (>60) mL/min BUN/Creatinine Ratio 33.3 H (6-22) Glucose 103 (80-110) mg/dL Lactate 1.2 (0.7-2.1) mmol/L Calcium 9.6 (8.4-10.2) mg/dL Total Bilirubin 0.5 (0.2-1.3) mg/dL AST 30 (14-36) IU/L ALT 27 (<35) IU/L Alkaline Phosphatase 76 (38-126) U/L Total Protein 7.8 (6.3-8.2) g/dL Albumin 4.5 (3.5-5.0) g/dL Globulin 3.3 (1.7-4.1) g/dL Albumin/Globulin Ratio 1.4 (1.0-2.8) Lipase 255 D (23-300) U/L Imaging Data US - abdomen: Radiologist's Impression: [place] [address] Ultrasound Report Signed Patient: Ana Luisa Saez MR#: [id number] : 1940 Acct:[id number] Age/Sex: 80 / F Date of Service: 06/09/21 Loc: ED Accession Number: [id number] ?? Procedure: US abdomen limited Ordering Provider: Joe Pretty D.O. PROCEDURE: US ABDOMEN LIMITED ? INDICATIONS:? RUQ PAIN ? TECHNIQUE:? Real-time focused scanning was performed of the abdomen, with image documentation.? ? COMPARISON:? None. ? FINDINGS:? The liver appears diffusely hyperechoic consistent with fatty infiltration.? The gallbladder wall is normal in thickness but there are gallstones small in size measuring approximately 4 mm layering dependently within the gallbladder lumen, nonobstructive.? The common duct measures up to 5 mm, normal.? The pancreas seen also appears normal. ? IMPRESSION:? Small gallstones are present within the gallbladder lumen but there is no sign of biliary obstruction or acute cholecystitis.? Generalized fatty infiltration throughout the liver. ? ? Dictated by: Carlos Todd M.D. on 06/10/2021 at 0:22 ? ? Approved by: Carlos Todd M.D. on 06/10/2021 at 0:24? MDM Narrative Medical decision making narrative: Patient does have a benign exam. Labs unremarkable. CT scan recently shows no acute surgical pathology but does show potential gallbladder sludge. Right upper quadrant ultrasound shows sludge and stones but no signs of acute cholecystitis. Patient wondering she would benefit from antibiotics and advised her that there is no indication for antibiotics today. She has an appointment General surgery already scheduled. No further workup needed here in the emergency department. She was given return precautions. They expressed understanding and agreement. Discharge Plan Departure Patient Disposition: Home Clinical Impression: Cholelithiasis Instructions: DI for Gallstones Activity Restrictions/Additional Instructions: Recommend that you continue to keep all of your scheduled medical appointments and to discuss with the surgeons whether not you would benefit from a surgery. Return to the emergency department for any new or worsening symptoms Prescriptions: No Action multivitamin [Multiple Vitamins] 1 EACH tablet 1 tab PO QDAY Qty: 0 0RF (DME) ProChamber Spacer See Rx Instructions .ROUTE .MEDSUPPLY Qty: 1 0RF Rx Instructions: As directed albuterol sulfate [Ventolin HFA] 90 mcg/actuation HFA aerosol inhaler See Rx Instructions .ROUTE .COMPLEX Qty: 18 0RF Dose Instruction: INHALE 2 PUFFS INTO THE LUNGS EVERY 4 TO 6 HOURS NEEDED FOR ASTHMA; USE WITH SPACER Rx Instructions: INHALE 2 PUFFS INTO THE LUNGS EVERY 4 TO 6 HOURS NEEDED FOR ASTHMA; USE WITH SPACER alprazolam 0.5 mg tablet See Rx Instructions .ROUTE .COMPLEX Qty: 60 0RF Dose Instruction: TAKE 1 TABLET BY MOUTH TWICE DAILY NEEDED FOR ANXIETY Rx Instructions: TAKE 1 TABLET BY MOUTH TWICE DAILY NEEDED FOR ANXIETY ibuprofen [Advil] 200 mg tablet 400 mg PO BID PRN (Reason: Pain (Scale Score 1-3)) 0RF amlodipine 2.5 mg tablet 2.5 mg PO DAILY Qty: 90 3RF lisinopril 30 mg tablet 30 mg .ROUTE BID Qty: 180 3RF Rx Instructions: 30 mg twice a day; cholecalciferol (vitamin D3) [Vitamin D3] 50 mcg (2,000 unit) Capsule 50 mcg DAILY 0RF Referrals: Nikhil Ballard MD [Primary Care Provider] -
[2021-06-09 23:19] LABS: Add Manual Diff / Slide Review NO; Basophils Absolute Auto 100 /uL (0-100); Basophils Percent Auto 1.1 % (0-2); Eosinophils Absolute Auto 200 /uL (0-450); Hematocrit 40.9 % (36-46); Hemoglobin 13.8 g/dL (12.0-16.0); Lactate (Lactic Acid) 1.2 mmol/L (0.7-2.1); Lymphocytes Absolute Auto 3900 /uL (1100-4500); Lymphocytes Percent Auto 34.9 % (25-40); Mean Corpuscular HGB Conc 33.7 % (30-36); Mean Corpuscular Hemoglobin 30.7 PG (26-34); Mean Corpuscular Volume 91.1 fL (80-100); Monocytes Absolute Auto 1100 /uL (0-900); Monocytes Percent Auto 9.6 % (3-14); Neutrophils Absolute Auto 5900 /uL (1500-7000); Neutrophils Percent Auto 52.4 % (50-75); Platelet Count 335 X10^3/uL (150-400); Red Blood Cell Count 4.48 X10^6/uL (4.0-5.2); Red Cell Distribution Width 14.2 % (11.6-14.8); White Blood Cell Count 11.2 X10^3/uL (4.5-11.0)
[2021-06-09 23:20] LABS: Alanine Aminotransferase 27 IU/L (<35); Albumin 4.5 g/dL (3.5-5.0); Albumin Globulin Ratio 1.4 (1.0-2.8); Alkaline Phosphatase 76 U/L (38-126); Aspartate Aminotransferase 30 IU/L (14-36); BUN Creatinine Ratio 33.3 (6-22); Bilirubin Total 0.5 mg/dL (0.2-1.3); Blood Urea Nitrogen 27 mg/dL (7-17); Calcium 9.6 mg/dL (8.4-10.2); Carbon Dioxide 28 mmol/L (22-32); Chloride 106 mmol/L (98-107); Estimated Glomerular Filt Rate > 60 mL/min (>60); Globulin 3.3 g/dL (1.7-4.1); Glucose 103 mg/dL (80-110); HEMOLYSIS 16 (0-50); Lipase 255 U/L (23-300); Sodium 142 mmol/L (137-145); Total Protein 7.8 g/dL (6.3-8.2)
== END 2021-06-10 00:47 | disposition home or self-care (01) ==
PROVIDERS: Emergency Provider Emergency Medicine; PCP Family Medicine
DX: K80.20 Calculus of gallbladder without cholecystitis without obstruction (principal); Z87.891 Personal history of nicotine dependence
CPT/HCPCS: 36415; 76705; 80053; 83605; 83690; 85025; 99283; 99284

== ENCOUNTER → 2021-06-13 18:43 | Outpatient (CLI) | payer MEDICARE, OTHER, SELFPAY | PROVIDERS: PCP Family Medicine; Visit Provider Nurse Practitioner Family | DX: R10.9 Unspecified abdominal pain (principal) | CPT/HCPCS: 87086 ==

== ENCOUNTER → 2021-08-11 13:16 | Outpatient (CLI) | payer MEDICARE, OTHER, SELFPAY ==
--- NOTE | 2021-08-11 13:17 | DI.RAD.S_ITS ---
PROCEDURE: XR LUMBAR SPINE MIN 4V INDICATIONS: BACK PAIN TECHNIQUE: 5 views of the lumbar spine were acquired, including bilateral oblique views. COMPARISON: [facility], CT, CT ABDOMEN PELVIS W CON, 06/07/2021, 9:51. [facility], CR, L-SPINE 2-3 VIEWS, 08/13/2013, 18:58. FINDINGS: Bones: 5 nonrib-bearing vertebrae are present. Dextroscoliotic curvature is again noted of the lumbar spine with rotation. Minimal anterolisthesis of L5 on S1. This centered at L2-L3. Vertebral body heights are maintained. There is multiple levels of intervertebral disc space loss which is moderate to severe from L2-L3 through the lumbosacral junction. There are endplate degenerative changes and facet arthropathy. Soft tissues: Overlying bowel gas pattern is normal. No suspicious soft tissue calcifications. Oblique images: No pars defects. IMPRESSION: Moderate to severe multilevel lumbar spondylosis with near complete intervertebral disc space loss of L2-L3 inferiorly. Dictated by: Kaiden Wyatt D.O. on 08/11/2021 at 15:48 Approved by: Kaiden Wyatt D.O. on 08/11/2021 at 15:51
== END ==
PROVIDERS: PCP Family Medicine; Referring Provider Physical Medicine & Rehabilitation; Visit Provider Physical Medicine & Rehabilitation
DX: M47.816 Spondylosis without myelopathy or radiculopathy, lumbar region (principal); M54.9 Dorsalgia, unspecified
CPT/HCPCS: 72110

== ENCOUNTER → 2021-09-28 15:04 | Outpatient (CLI) | payer MEDICARE, OTHER, SELFPAY ==
--- NOTE | 2021-09-28 15:06 | DI.RAD.S_ITS ---
PROCEDURE: XR CERVICAL SPINE 2V OR 3V INDICATIONS: chronic neck and mid back pain TECHNIQUE: 3 view(s) of the cervical spine were acquired. COMPARISON: None. FINDINGS: Bones: No fractures or dislocations to the T1 level. The lateral masses of C1 appear intact on the odontoid view. No suspicious bony lesions. Severe cervical spondylitic change with extensive multifocal cervical facet arthropathy. Soft tissues: No prevertebral soft tissue swelling. IMPRESSION: Severe cervical spondylitic change with extensive multifocal cervical facet arthropathy. Dictated by: Kleber Stoddard M.D. on 09/28/2021 at 16:36 Approved by: Kleber Stoddard M.D. on 09/28/2021 at 16:43
--- NOTE | 2021-09-28 15:06 | DI.RAD.S_ITS ---
PROCEDURE: XR THORACIC SPINE 3V INDICATIONS: chronic neck and mid back pain TECHNIQUE: 3 views of the thoracic spine were acquired. COMPARISON: None. FINDINGS: Bones: No fractures or dislocations. No suspicious bony lesions. 12 pairs of ribs are noted, and appear intact where visualized. Mild thoracolumbar rotatory dextrocurvature. Soft tissues: No paravertebral stripe thickening. IMPRESSION: No evidence acute bony abnormality of the thoracic spine. If clinical suspicion and/or symptoms persist, further assessment with repeat plain films, or advanced imaging (e.g., CT, MRI, or bone scan) may be helpful for further assessment. Dictated by: Kleber Stoddard M.D. on 09/28/2021 at 16:43 Approved by: Kleber Stoddard M.D. on 09/28/2021 at 16:44
== END ==
PROVIDERS: PCP Family Medicine; Referring Provider Family Medicine; Visit Provider Family Medicine
DX: M47.812 Spondylosis without myelopathy or radiculopathy, cervical region (principal); M54.9 Dorsalgia, unspecified; M54.2 Cervicalgia; G89.29 Other chronic pain
CPT/HCPCS: 72040; 72072

== ENCOUNTER → 2021-10-01 14:40 | Outpatient (CLI) | payer MEDICARE, OTHER, SELFPAY ==
--- NOTE | 2021-10-01 14:42 | DI.RAD.S_ITS ---
PROCEDURE: XR CHEST 2V INDICATIONS: cough congestion, decreased o2 sats TECHNIQUE: 2 views of the chest were acquired. COMPARISON: [facility], CR, XR CHEST 1V, 02/09/2021, 9:56. [facility], CR, XR CHEST 1V, 12/22/2020, 20:03. FINDINGS: Surgical changes and devices: Left breast clips. Lungs and pleura: Lungs are clear. No pleural effusions or pneumothorax. Mediastinum: Mediastinal contours are normal. Heart size is normal. Bones and chest wall: No suspicious bony abnormalities. Soft tissues appear unremarkable. IMPRESSION: No acute cardiopulmonary abnormality. Dictated by: Bob Pagan M.D. on 10/01/2021 at 15:19 Approved by: Bob Pagan M.D. on 10/01/2021 at 15:20
== END ==
PROVIDERS: PCP Family Medicine; Referring Provider Family Medicine; Visit Provider Family Medicine
DX: J44.9 Chronic obstructive pulmonary disease, unspecified (principal)
CPT/HCPCS: 71046

== ENCOUNTER → 2021-10-12 11:55 | Outpatient (CLI) | payer MEDICARE, OTHER, SELFPAY ==
[2021-10-12 12:33] LABS: Appearance Urine UA CLEAR; Bilirubin Urine UA NEGATIVE (NEGATIVE); Color Urine UA YELLOW; Glucose Urine UA NEGATIVE (Negative); Ketones Urine UA NEGATIVE (NEGATIVE); Leukocyte Esterase Urine UA TRACE (NEGATIVE); Nitrite Urine UA NEGATIVE (Negative); Occult Blood Urine UA NEGATIVE (Negative); Protein Urine UA TRACE (Negative); Specific Gravity Urine UA 1.025 (1.000-1.035); Urobilinogen Urine UA 0.2 E.U./dL (0.2)
[2021-10-12 12:53] LABS: Bacteria Urine Occasional (0-1); Culture Indicated Urine Specimen Cultured; RBC Urine None Seen (0-5/HPF); Renal Epithelial Cells Urine 1-5/HPF (0-1/HPF); WBC Urine 1-5/HPF (0-5/HPF)
== END ==
PROVIDERS: PCP Family Medicine; Referring Provider Family Medicine; Visit Provider Family Medicine
DX: R10.9 Unspecified abdominal pain (principal)
CPT/HCPCS: 81001; 87086

== ENCOUNTER → 2021-11-26 15:31 | Outpatient (CLI) | payer MEDICARE, OTHER, SELFPAY ==
[2021-11-26 16:32] LABS: Alanine Aminotransferase 22 IU/L (<35); Albumin 4.1 g/dL (3.5-5.0); Albumin Globulin Ratio 1.4 (1.0-2.8); Alkaline Phosphatase 75 U/L (38-126); Aspartate Aminotransferase 27 IU/L (14-36); BUN Creatinine Ratio 32.4 (6-22); Bilirubin Total 0.3 mg/dL (0.2-1.3); Blood Urea Nitrogen 23 mg/dL (7-17); Calcium 9.5 mg/dL (8.4-10.2); Carbon Dioxide 32 mmol/L (22-32); Chloride 102 mmol/L (98-107); Estimated Glomerular Filt Rate > 60 mL/min (>60); Glucose 80 mg/dL (80-110); HEMOLYSIS < 15 (0-50); Potassium 4.3 mmol/L (3.4-5.1); Sodium 140 mmol/L (137-145); Total Protein 7.1 g/dL (6.3-8.2)
[2021-11-28 17:49] LABS: Free Kappa Lt Chains, Serum 14.4 mg/L (3.3-19.4); Free Lambda Lt Chains,Serum 11.1 mg/L (5.7-26.3)
[2021-11-29 17:17] LABS: Albumin 3.8 g/dL (2.9-4.4); Alpha 1 Globulin 0.2 g/dL (0.0-0.4); Alpha 2 Globulin 0.8 g/dL (0.4-1.0); Gamma Globulin 0.8 g/dL (0.4-1.8); Protein, Total 6.6 g/dL (6.0-8.5)
== END ==
PROVIDERS: PCP Family Medicine; Referring Provider Psychiatry & Neurology Neurology; Visit Provider Psychiatry & Neurology Neurology
DX: G50.0 Trigeminal neuralgia (principal); Z91.89 Other specified personal risk factors, not elsewhere classified; G62.9 Polyneuropathy, unspecified
CPT/HCPCS: 36415; 80053; 83883; 84155; 84165; 86235

== ENCOUNTER 2022-01-04 10:47 | Emergency (ER) | payer MEDICARE, OTHER, SELFPAY ==
--- NOTE | 2022-01-04 10:58 | DI.RAD.S_ITS ---
PROCEDURE: XR CHEST 1V INDICATIONS: chest pain TECHNIQUE: One view of the chest was acquired. COMPARISON: [facility], CR, XR CHEST 2V, 10/01/2021, 14:48. [facility], CR, XR CHEST 1V, 02/09/2021, 9:56. FINDINGS: Surgical changes and devices: Left breast clips. Lungs and pleura: Lungs are clear. No pleural effusions or pneumothorax. Mediastinum: Mediastinal contours appear normal. Heart size is normal. Bones and chest wall: No suspicious bony lesions. Overlying soft tissues appear unremarkable. IMPRESSION: No acute cardiopulmonary abnormality. Dictated by: Bob Pagan M.D. on 01/04/2022 at 12:55 Approved by: Bob Pagan M.D. on 01/04/2022 at 12:55
[2022-01-04 11:16] VITALS: BP 174/79; PULSE 65; RESP 19; TEMP 37; O2SAT 99; BMI 26.6
[2022-01-04] MEDS: ASPIRIN 81 MG CHEW TAB 324 MG PO (11:38)
[2022-01-04 11:54] LABS: Add Manual Diff / Slide Review NO; Basophils Absolute Auto 100 /uL (0-100); Basophils Percent Auto 0.8 % (0-2); Eosinophils Absolute Auto 100 /uL (0-450); Eosinophils Percent Auto 1.5 % (2-4); Hematocrit 37.7 % (36-46); Hemoglobin 12.4 g/dL (12.0-16.0); Lymphocytes Absolute Auto 2500 /uL (1100-4500); Lymphocytes Percent Auto 32.4 % (25-40); Mean Corpuscular Hemoglobin 30.2 PG (26-34); Mean Corpuscular Volume 91.6 fL (80-100); Monocytes Absolute Auto 600 /uL (0-900); Monocytes Percent Auto 8.1 % (3-14); Neutrophils Absolute Auto 4400 /uL (1500-7000); Neutrophils Percent Auto 57.2 % (50-75); Platelet Count 302 X10^3/uL (150-400); Prothrombin Time 11.3 SECONDS (10.1-12.7); Red Blood Cell Count 4.12 X10^6/uL (4.0-5.2); Red Cell Distribution Width 13.9 % (11.6-14.8); White Blood Cell Count 7.6 X10^3/uL (4.5-11.0)
[2022-01-04 11:56] LABS: PTT Partial Thromboplastin Tim 30 SECONDS (26-36)
[2022-01-04 12:03] LABS: Amorphous Sediment Urine 1+; Bacteria Urine Moderate (10-30); Culture Indicated Urine Specimen Cultured; Mucus Urine 2+ (Negative); RBC Urine 0-1/HPF (0-5/HPF); Renal Epithelial Cells Urine 1-5/HPF (0-1/HPF); Squamous Epithelial Cell Urine 5-10 /HPF (0-5/HPF); Transitional Epi Cells Urine 0-1/HPF (0-5/HPF); WBC Urine 5-10/HPF (0-5/HPF)
[2022-01-04 12:08] LABS: Alanine Aminotransferase 21 IU/L (<35); Albumin 4.1 g/dL (3.5-5.0); Albumin Globulin Ratio 1.4 (1.0-2.8); Alkaline Phosphatase 85 U/L (38-126); Aspartate Aminotransferase 25 IU/L (14-36); BUN Creatinine Ratio 29.3 (6-22); Bilirubin Total 0.4 mg/dL (0.2-1.3); Blood Urea Nitrogen 22 mg/dL (7-17); Calcium 9.8 mg/dL (8.4-10.2); Carbon Dioxide 32 mmol/L (22-32); Chloride 104 mmol/L (98-107); Creatine Kinase 57 U/L (30-135); Estimated Glomerular Filt Rate > 60 mL/min (>60); Glucose 93 mg/dL (80-110); HEMOLYSIS < 15 (0-50); Lipase 140 U/L (23-300); Magnesium 2.2 mg/dL (1.6-2.3); Sodium 141 mmol/L (137-145); Total Protein 7.1 g/dL (6.3-8.2)
[2022-01-04 12:19] LABS: Troponin I < 0.012 ng/mL (0.01-0.034)
[2022-01-04 12:20] VITALS: BP 170/77; PULSE 64
[2022-01-04] MEDS: NITROGLYCERIN 0.4 MG SL TAB SL (12:20)
[2022-01-04 12:25] VITALS: BP 138/80; PULSE 66; RESP 20; O2SAT 96
[2022-01-04 12:30] VITALS: BP 134/62; PULSE 70; RESP 18; O2SAT 96
[2022-01-04 12:31] LABS: Influenza A - CEPHEID Flu A NEGATIVE (NEGATIVE); Influenza B - CEPHEID Flu B NEGATIVE (NEGATIVE); Respiratory Syncytial Virus Negative (Negative)
[2022-01-04 12:35] LABS: COVID-19 CEPHEID 4-PLEX PCR Negative (Negative)
--- NOTE | 2022-01-04 12:40 | PC.NURSE ---
Pt reports feels like the back of my throat is swollen. After being given one dose nitro. Provider informed and IV benadryl given. Pt reports relief.
[2022-01-04] MEDS: diphenhydrAMINE 50 MG/ML VIAL 25 MG IV (12:42)
--- NOTE | 2022-01-04 12:54 | ED_ITS ---
HPI - Chest Pain General Chief Complaint: Chest Pain Stated Complaint: chest tight, SOB, back pain and up into mouth Time Seen by Provider: 01/04/22 12:03 Source: patient Mode of arrival: Ambulatory Limitations: no limitations History of Present Illness HPI narrative: This is an 81-year-old female presents with multiple complaints over a long period of time patient s states tates she has had thoracic back pain for some time, she has had MRIs of her entire spine and been found to have spondylolisthesis, myelopathy and arthritis particularly at C5-6 she was told by a neurosurgeon no surgery but different consultation Dr. bedolla with Orthopedic surgery has states that he would perform. She is set up to have PT starting this month and then is to follow back up with him regarding surgery. She states pain starts in her spine thoracic and wraps around towards the front. There is pinpoint spots in her chest. It comes and goes. Sometimes she feels short of breath sometimes she has nausea but not always. She has not had any new swelling. She states movement seems to help it. Patient was given a presc ription for [place] and sometimes takes it has not today. She is concerned she may have a recurrence of cancer, she had breast cancer in 2015 and did not have radiation and chemotherapy but did have lumpectomy. Patient states she had a cholecystectomy in June and her gallbladder was punctured but she has improved since. She is supposed to go to PT for her back. Related Data Home Medications Medication Instructions Recorded Confirmed cholecalciferol (vitamin D3) 50 50 mcg DAILY 02/03/20 11/26/21 mcg (2,000 unit) capsule (Vitamin D3) carbamazepine 100 mg 50 mg PO PRN PRN Trygenamal Nerve 06/28/21 11/26/21 tablet,extended release,12 hr vitamin B complex 1 cap PO DAILY 06/28/21 11/26/21 beclomethasone dipropionate 40 40 mcg inhalation BID 09/18/21 11/15/21 mcg/actuation aerosol inhaler ibuprofen 125 mg-acetaminophen 250 1 tab PO Q8H PRN Pain (Scale Score 09/18/21 11/26/21 mg tablet (Advil Dual Action) 4-6) vit C 500 uk-fswnvswb-hry-calcium 1 ea PO DAILY 09/18/21 11/26/21 500 mg-D3 1,000 unit powd efferv pkt Previous Rx's Medication Instructions Recorded Ventolin HFA 90 mcg/actuation See Rx Instructions .Route 03/02/21 aerosol inhaler (albuterol sulfate) .COMPLEX #18 grams lisinopril 30 mg tablet 30 mg .Route BID #180 tabs 09/18/21 alprazolam 0.5 mg tablet See Rx Instructions .Route 11/15/21 .COMPLEX #60 tabs hydrocodone 5 mg-acetaminophen 325 1 tab PO BID PRN pain #14 tabs 12/11/21 mg tablet cefuroxime axetil 500 mg tablet 500 mg PO Q12H #14 tabs 01/04/22 Allergies Allergy/AdvReac Type Severity Reaction Status Date / Time meperidine Allergy Severe COULDN'T Verified 11/15/21 09:14 BREATHE OR TALK, EXTREME DIAPHORESIS fluoxetine Allergy Intermediate BROKE OUT Verified 11/15/21 09:14 INTO RASH levofloxacin Allergy Intermediate TENDON Verified 11/15/21 09:14 SORENESS penicillin G Allergy Intermediate RASH Verified 11/15/21 09:14 Sulfa (Sulfonamide Allergy Intermediate HIVES Verified 11/15/21 09:14 Antibiotics) isosulfan blue Allergy Unknown Verified 11/15/21 09:14 nitrofurantoin Allergy Unknown Verified 11/15/21 09:14 [From MACROBID] Review of Systems Review of Systems ROS Unobtainable: All systems reviewed & are unremarkable except as noted in HPI and below Patient History Medical History Abnormal chest x-ray Asthma (~1945) Breast cancer (~2015) Chicken pox (~1949) Essential hypertension Facet arthropathy, lumbar Hay fever Hearing loss (~2016) Kidney stones (~2005) Knee meniscus pain (~2014) Lumbar spinal stenosis Measles (~1949) Migraine Mononucleosis (~1960) Sciatica (~2018) Scleral icterus Scoliosis Spinal stenosis of cervical region Spondylosis of lumbar spine Tinnitus (~2016) Surgical History Anesthesia Branchial cleft cyst (~1960) History of appendectomy (~1953) History of arthroscopic knee surgery (~2014) History of cataract surgery History of section (~1975) History of section (~1982) History of lumpectomy (~01/2016) History of tonsillectomy (~1945) Family History Father Hypertension Heart disease Mother No problems noted. Brother No problems noted. Sister No problems noted. Grandfather No problems noted. Grandmother No problems noted. Grandfather No problems noted. Grandmother No problems noted. Social History Smoking Status: Former smoker Smoking Status: Former smoker alcohol intake frequency: holidays/special occasions only Substance Use Type: does not use Exam Narrative Exam Narrative: GENERAL: Alert and oriented x three, elderly female in mild distress HEENT: Head normocephalic, atraumatic, EOMI, pupils reactive, face symmetric, moist mucous membranes NECK: Supple, full range of motion CARDIOVASCULAR: Regular rate and rhythm without murmurs, rubs or gallops. RESPIRATORY: Breath sounds equal bilaterally, no wheezes rales or rhonchi. ABDOMEN: Soft, nontender. Normoactive bowel sounds all 4 quadrants. No guarding or rebound, rigidity, no mass : No CVA tenderness BACK: No cervical, thoracic or lumbar vertebral point tenderness. Patient has normal range of motion. Patient's gait is [antalgic/normal]. Muscle strength is 5/5 in lower extremities, DTRs are 2/4 and lower extremities. Dorsalis pedis and tibialis pulses are 2+ and lower extremities. Sensation is intact in the lower extremities. EXTREMITIES: Normal range of motion, no clubbing or edema. Neurovascularly intact NEUROLOGICAL: Cranial nerves II through XII grossly intact. Moving all extremities SKIN: Warm, dry, no petechiae, no rashes or lesions, no blisters or erythema back. Initial Vital Signs Initial Vital Signs: Vital Signs Temperature 98.6 F 01/04/22 11:16 Pulse Rate 65 01/04/22 11:16 Respiratory Rate 19 01/04/22 11:16 Blood Pressure 174/79 H 01/04/22 11:16 Pulse Oximetry 99 01/04/22 11:16 Oxygen Delivery Method 01/04/22 11:16 Course Orders Ordered: ED Orders 01/04/22 10:58 XR chest 1V Stat 01/04/22 11:00 Urine Culture Stat Urine Microscopic Stat 01/04/22 11:17 EKG-12 Lead Stat 01/04/22 11:30 Complete Blood Count AUTO DIFF Stat Comprehensive Metabolic Panel Stat Covid-19 + FLU A/B + RSV - PCR Stat Lipase Stat Magnesium Stat Partial Thromboplastin Time Stat Prothrombin Time INR Stat Troponin & CK Cardiac Panel Stat 01/04/22 13:25 Trop I [Troponin I] Stat 01/04/22 13:49 EKG-12 Lead Stat Discontinued Medications Hydrocodone Bitart/Acetaminophen (Hydrocodone/Acet 5/325 Tablet) 1 tab PO NOW ONE Stop: 01/04/22 14:43 Last Admin: 01/04/22 15:40 Dose: Not Given Documented By: KARLA Aspirin (Aspirin 81 Mg Chew Tab) 324 mg PO NOW ONE Stop: 01/04/22 10:59 Last Admin: 01/04/22 11:38 Dose: 324 mg Documented By: VICKY Diphenhydramine HCl (Diphenhydramine 50 Mg/Ml Vial) 25 mg IV NOW ONE Stop: 01/04/22 12:38 Last Admin: 01/04/22 12:42 Dose: 25 mg Documented By: VICKY Nitroglycerin (Nitroglycerin 0.4 Mg Sl Tab) 0.4 mg SL [id number] PRN PRN Reason: Chest Pain Last Admin: 01/04/22 12:20 Dose: 0.4 mg Documented By: VICKY Vital Signs Vital signs: Vital Signs - 8 hr 01/04/22 12:20 01/04/22 12:25 01/04/22 12:30 Temperature Pulse Rate 64 66 70 Respiratory Rate 20 18 Blood Pressure 170/77 H 138/80 134/62 Pulse Oximetry 96 96 Oxygen Delivery Method Room Air 01/04/22 15:56 Temperature 97.9 F Pulse Rate 61 Respiratory Rate 20 Blood Pressure 121/65 Pulse Oximetry 97 Oxygen Delivery Method MDM - Chest Pain Lab Data Result diagrams: 01/04/22 11:30 01/04/22 11:30 Labs: Lab Results 01/04/22 01/04/22 01/04/22 Range/Units 11:00 11:30 11:30 WBC 7.6 (4.5-11.0) X10^3/uL RBC 4.12 (4.0-5.2) X10^6/uL Hgb 12.4 (12.0-16.0) g/dL Hct 37.7 (36-46) % MCV 91.6 (80-100) fL MCH 30.2 (26-34) PG MCHC 33.0 (30-36) % RDW 13.9 (11.6-14.8) % Plt Count 302 (150-400) X10^3/uL Neut % (Auto) 57.2 (50-75) % Lymph % (Auto) 32.4 (25-40) % Morton % (Auto) 8.1 (3-14) % Eos % (Auto) 1.5 L (2-4) % Baso % (Auto) 0.8 (0-2) % Neut # (Auto) 4400 (0222-9624) /uL Lymph # (Auto) 2500 (9067-6719) /uL Morton # (Auto) 600 (0-900) /uL Eos # (Auto) 100 (0-450) /uL Baso # (Auto) 100 (0-100) /uL PT 11.3 (10.1-12.7) SECONDS INR 1.0 (0.9-1.3) APTT 30 (26-36) SECONDS Sodium (137-145) mmol/L Potassium (3.4-5.1) mmol/L Chloride (98-107) mmol/L Carbon Dioxide (22-32) mmol/L BUN (7-17) mg/dL Creatinine (0.52-1.04) mg/dL Estimated GFR (>60) mL/min BUN/Creatinine Ratio (6-22) Glucose (80-110) mg/dL Calcium (8.4-10.2) mg/dL Magnesium (1.6-2.3) mg/dL Total Bilirubin (0.2-1.3) mg/dL AST (14-36) IU/L ALT (<35) IU/L Alkaline Phosphatase (38-126) U/L Total Creatine Kinase (30-135) U/L CK-MB (CK-2) CK-MB (CK-2) Rel Index Troponin I (0.01-0.034) ng/mL Total Protein (6.3-8.2) g/dL Albumin (3.5-5.0) g/dL Globulin (1.7-4.1) g/dL Albumin/Globulin Ratio (1.0-2.8) Lipase (23-300) U/L Urine RBC 0-1/hpf (0-5/HPF) Urine WBC 5-10/hpf H (0-5/HPF) Ur Squamous Epith Cells 5-10 /hpf H (0-5/HPF) Ur Transition Epith Cell 0-1/hpf (0-5/HPF) Ur Renal Epithelial Cell 1-5/hpf H (0-1/HPF) Amorphous Sediment 1+ Urine Bacteria Moderate (10-30) H (None) Urine Mucus 2+ H (Negative) Ur Culture Indicated? Specimen cultured SARS-CoV-2 (PCR) (Negative) Influenza A (RT-PCR) (NEGATIVE) Influenza B (RT-PCR) (NEGATIVE) RSV (PCR) (Negative) 01/04/22 01/04/22 01/04/22 Range/Units 11:30 11:30 13:25 WBC (4.5-11.0) X10^3/uL RBC (4.0-5.2) X10^6/uL Hgb (12.0-16.0) g/dL Hct (36-46) % MCV (80-100) fL MCH (26-34) PG MCHC (30-36) % RDW (11.6-14.8) % Plt Count (150-400) X10^3/uL Neut % (Auto) (50-75) % Lymph % (Auto) (25-40) % Morton % (Auto) (3-14) % Eos % (Auto) (2-4) % Baso % (Auto) (0-2) % Neut # (Auto) (1339-3343) /uL Lymph # (Auto) (8558-3873) /uL Morton # (Auto) (0-900) /uL Eos # (Auto) (0-450) /uL Baso # (Auto) (0-100) /uL PT (10.1-12.7) SECONDS INR (0.9-1.3) APTT (26-36) SECONDS Sodium 141 (137-145) mmol/L Potassium 4.0 (3.4-5.1) mmol/L Chloride 104 (98-107) mmol/L Carbon Dioxide 32 (22-32) mmol/L BUN 22 H (7-17) mg/dL Creatinine 0.75 (0.52-1.04) mg/dL Estimated GFR > 60 (>60) mL/min BUN/Creatinine Ratio 29.3 H (6-22) Glucose 93 (80-110) mg/dL Calcium 9.8 (8.4-10.2) mg/dL Magnesium 2.2 (1.6-2.3) mg/dL Total Bilirubin 0.4 (0.2-1.3) mg/dL AST 25 (14-36) IU/L ALT 21 (<35) IU/L Alkaline Phosphatase 85 (38-126) U/L Total Creatine Kinase 57 (30-135) U/L CK-MB (CK-2) TNP CK-MB (CK-2) Rel Index TNP Troponin I < 0.012 < 0.012 (0.01-0.034) ng/mL Total Protein 7.1 (6.3-8.2) g/dL Albumin 4.1 (3.5-5.0) g/dL Globulin 3.0 (1.7-4.1) g/dL Albumin/Globulin Ratio 1.4 (1.0-2.8) Lipase 140 (23-300) U/L Urine RBC (0-5/HPF) Urine WBC (0-5/HPF) Ur Squamous Epith Cells (0-5/HPF) Ur Transition Epith Cell (0-5/HPF) Ur Renal Epithelial Cell (0-1/HPF) Amorphous Sediment Urine Bacteria (None) Urine Mucus (Negative) Ur Culture Indicated? SARS-CoV-2 (PCR) Negative (Negative) Influenza A (RT-PCR) Flu a negative (NEGATIVE) Influenza B (RT-PCR) Flu b negative (NEGATIVE) RSV (PCR) Negative (Negative) Urine Dip Bedside Urine Glucose Negative Bedside Urine Bilirubin - Negative Bedside Urine Ketone - Negative Urine Specific [place] 1.030 Bedside Urine Occult Blood - Negative Bedside Urine pH 6.0 Bedside Urine Protein - Negative Bedside Urine Urobilinogen - Negative Bedside Urine Nitrite - Negative Bedside Urine Leukocytes ++ 125 Esterase Imaging Data Chest x-ray: Radiologist's Impression: ?blue, nitrofurantoin (More??) Close Chest X-Ray (Signed) Call,Bob - 01/04/22 DI Result 10/23/21 DI Result 10/23/21 Outside DI 10/23/21 Chest X-Ray (Signed) Call,Bob - 10/01/21 Thoracic Spine X-Ray (Signed) Vin Stoddardderic - 09/28/21 Cervical Spine X-Ray (Signed) Kleber Stoddard - 09/28/21 Lumbar Spine X-Ray (Signed) Kaiden Wyatt - 08/11/21 Abdomen Ultrasound (Signed) Carlos Todd - 06/09/21 Abdomen/Pelvis CT (Signed) Breanne Cervantes - 06/07/21 Chest X-Ray (Signed) Raji Ayala - 02/09/21 EKG Rpt. 02/09/21 Mammogram Result 01/26/21 Chest X-Ray (Signed) Robby Matos - 12/22/20 EKG Rpt. 12/22/20 Chest X-Ray (Signed) Kevin Turk - 12/14/20 Echocardiogram Ultrasound (Signed) Hortencia Pedroza - 06/19/20 Outside DI 01/18/20 Outside DI 01/18/20 Chest X-Ray (Signed) Sophia Retana - 10/30/19 Chest X-Ray (Signed) Kevin Turk - 07/29/[address] (Signed) Demetria Jimenez - 07/27/19 Mammogram Result 02/11/19 Chest X-Ray (Signed) Michi Hernandez - 11/13/[address] (Signed) Michi Hernandez - 09/16/[address] (Signed) Kevin Turk - 08/25/18 Chest X-Ray (Signed) Archie Izquierdo - 08/21/18 DI Result 08/06/18 Oncology Outside DI 08/06/18 DI Result 03/06/18 Launch?[address] [address] XRay Report Signed Patient: Ana Luisa Saez MR#: [id number] : 1940 Acct:[id number] Age/Sex: 81 / F Date of Service: 01/04/22 Loc: ED Accession Number: [id number] ?? Procedure: XR chest 1V Ordering Provider: Bev Layne D.O. PROCEDURE:? XR CHEST 1V ? INDICATIONS:? chest pain ? TECHNIQUE:? One view of the chest was acquired.? ? COMPARISON:? [facility], CR, XR CHEST 2V, 10/01/2021, 14:48.? [facility], CR, XR CHEST 1V, 02/09/2021, 9:56. ? FINDINGS:? ? Surgical changes and devices:? Left breast clips. ? Lungs and pleura:? Lungs are clear.? No pleural effusions or pneumothorax.? ? Mediastinum:? Mediastinal contours appear normal.? Heart size is normal.? ? Bones and chest wall:? No suspicious bony lesions.? Overlying soft tissues appear unremarkable.? ? IMPRESSION:? No acute cardiopulmonary abnormality. ? ? ? Dictated by: Bob Pagan M.D. on 01/04/2022 at 12:55 ? ? Approved by: Bob Pagan M.D. on 01/04/2022 at 12:55?? ECG Data Attestation: I personally reviewed and interpreted this ECG as follows: Prior ECG tracings: available for review Interpretation: Sinus rhythm rate of 61 MA 172 QRS [address] QTC [address] No acute ST changes. Patient has prior from 02/09/2021 with no acute changes. EKG 2., rate of 56 MA 176 QRS is 76 and QTC 399. No acute ST changes appreciated. MDM Narrative Medical decision making narrative: This is an 81-year-old female who presents with complaint thoracic back pain radiates to the front. Back pain has been longstanding she has some known cervical issues but has had her entire spine MRI to according to her. I do not have direct access to those. I did appreciate the could potentially be a component of cardiac cause, no acute EKG changes, labs overall or reassuring troponin x2 shows negative. Patient has not taken her normal medications for her pain. Her main concern is that she might have a recurrence of cancer but after discussion my suspicion is low with her prior workups and current workup so far today but encouraged her to follow up with primary care. During discussion patient notes that she thinks she is not articulate but she is very much so, she is concerned about brain cancer, cancer in her chest, pain sore in her neck or back, we discussed that so far on her exam and findings I am not finding anything concerning. We did discuss need for stress testing as an outpatient which she states she would not pursue. Patient does not want to take her [place] anymore for her. We discussed other options. She has felt a little dizzy her urine shows questionable infection although may be contaminated, was sent for culture but patient would like to start an antibiotic. She does have quite a bit of anxiety we discussed addressing this although we also reviewed that she can have medical issues and anxiety at the same time. She was given return precautions. Discharge Plan Departure Patient Disposition: Home Clinical Impression: Atypical chest pain Instructions: DI for Atypical Chest Pain Activity Restrictions/Additional Instructions: Please follow-up with your physician for recheck this week, call to set up an appointment. I cannot address all of your concerns today hope you have some additional answer s by following up with Dr. Ballard. I do recommend you continue with PT and follow up with Dr. Gonzalez regarding your back/neck. You may take your home medications as prescribed. Your urine does show possible infection please take antibiotics until completely gone. Prescription was sent to [facility] in [place]. Please return for new or worsening chest pain, shortness of breath, fevers, passing, new swelling in your extremities or other new or concerning Prescriptions: New cefuroxime axetil 500 mg tablet 500 mg PO Q12H Qty: 14 0RF No Action albuterol sulfate [Ventolin HFA] 90 mcg/actuation HFA aerosol inhaler See Rx Instructions .ROUTE .COMPLEX Qty: 18 0RF Dose Instruction: INHALE 2 PUFFS INTO THE LUNGS EVERY 4 TO 6 HOURS NEEDED FOR ASTHMA; USE WITH SPACER Rx Instructions: INHALE 2 PUFFS INTO THE LUNGS EVERY 4 TO 6 HOURS NEEDED FOR ASTHMA; USE WITH SPACER hydrocodone-acetaminophen 5-325 mg tablet 1 tab PO BID PRN (Reason: pain) Qty: 14 0RF alprazolam 0.5 mg tablet See Rx Instructions .ROUTE .COMPLEX Qty: 60 0RF Dose Instruction: TAKE 1 TABLET BY MOUTH TWICE DAILY NEEDED FOR ANXIETY Rx Instructions: TAKE 1 TABLET BY MOUTH TWICE DAILY NEEDED FOR ANXIETY Advil Dual Action 125-250 mg tablet 1 tab PO Q8H PRN (Reason: Pain (Scale Score 4-6)) vit Q-uebcqeuh-qxx-calcium-D3 500 mg-500 mg -1,000 unit powder effervescent in packet 1 ea PO DAILY beclomethasone dipropionate 40 mcg/actuation aerosol 40 mcg inhalation BID lisinopril 30 mg tablet 30 mg .ROUTE BID Qty: 180 3RF Rx Instructions: 30 mg twice a day; cholecalciferol (vitamin D3) [Vitamin D3] 50 mcg (2,000 unit) Capsule 50 mcg DAILY carbamazepine 100 mg Tablet Extended Release 12 Hr 50 mg PO PRN PRN (Reason: Trygenamal Nerve) vitamin B complex Capsule 1 cap PO DAILY Referrals: Nikhil Ballard MD [Primary Care Provider] - Visit Report Forms: Patient Portal/API
[2022-01-04 14:12] LABS: Troponin I < 0.012 ng/mL (0.01-0.034)
[2022-01-04 15:56] VITALS: BP 121/65; PULSE 61; RESP 20; TEMP 36.6; O2SAT 97
== END 2022-01-04 16:10 | disposition home or self-care (01) ==
PROVIDERS: Emergency Provider Emergency Medicine; PCP Family Medicine
DX: R07.89 Other chest pain (principal); M54.6 Pain in thoracic spine; Z79.899 Other long term (current) drug therapy; Z20.822 Contact with and (suspected) exposure to COVID-19
CPT/HCPCS: 0241U; 36415; 71045; 80053; 81003; 81015; 82550; 83690; 83735; 84484; 85025; 85610; 85730; 87086; 93005; 93010; 96374; 99284; J1200

== ENCOUNTER → 2022-03-01 07:23 | Outpatient (CLI) | payer MEDICARE, OTHER, SELFPAY ==
--- NOTE | 2022-03-01 07:26 | DI.RAD.S_ITS ---
PROCEDURE: XR KNEE RT 3V INDICATIONS: right knee pain after fall TECHNIQUE: 3 views of the knee were acquired. COMPARISON: [facility], , KNEE 3V RIGHT, 06/24/2013, 14:48. FINDINGS: Bones: Moderate medial and lateral compartment joint space loss and moderate medial marginal spurring. Mild patellofemoral compartment spurring. No visible fractures or dislocation. Soft tissues: Small joint effusion. Moderate atherosclerotic arterial calcification. IMPRESSION: 1. No visible fractures 2. Mild to moderate tricompartment osteoarthritis. 3. Moderate-sized joint effusion of uncertain chronicity. Dictated by: Aimee Haider M.D. on 03/01/2022 at 12:13 Approved by: Aimee Haider M.D. on 03/01/2022 at 12:17
== END ==
PROVIDERS: PCP Family Medicine; Referring Provider Family Medicine; Visit Provider Family Medicine
DX: M17.11 Unilateral primary osteoarthritis, right knee (principal); M25.461 Effusion, right knee; M25.561 Pain in right knee
CPT/HCPCS: 73562

== ENCOUNTER 2022-04-02 15:15 | Outpatient (RCR) | payer MEDICARE, OTHER, SELFPAY ==
--- NOTE | 2022-01-08 17:57 | PT.OIE ---
Current Diagnoses Dorsalgia, unspecified (01/08/22) Myalgia, unspecified site (01/08/22) Past Medical History (Last Reviewed 01/04/22 @ 13:21 by Bev Layne DO) Abnormal chest x-ray Asthma (~1945) Breast cancer (~2015) Chicken pox (~1949) Essential hypertension Facet arthropathy, lumbar Hay fever Hearing loss (~2017) Kidney stones (~2005) Knee meniscus pain (~2014) Lumbar spinal stenosis Measles (~1949) Migraine Mononucleosis (~1960) Sciatica (~2017) Scleral icterus Scoliosis Spinal stenosis of cervical region Spondylosis of lumbar spine Tinnitus (~2017) Past Surgical History (Last Reviewed 01/04/22 @ 13:21 by Bev Layne DO) Anesthesia Branchial cleft cyst (~1960) History of appendectomy (~1953) History of arthroscopic knee surgery (~2014) History of cataract surgery History of section (~1975) History of section (~1982) History of lumpectomy (~01/2016) History of tonsillectomy (~1944) Visit Care Team Role Provider Type Nikhil Ballard MD Primary Care Provider Physician Specialty: Family Practice Address: [address] [place] [address], [facility] Email: [email or web address] Lisbeth Liu MD Attending Provider Non-Staff Referring Provider Specialty: Neurology Address: [address] [place] [address], [id number] Email: Physical Therapy Initial Evaluation PT-OP-A Visit Information Start: 01/07/22 18:18 Freq: Status: Active Protocol: Document 01/08/22 09:16 LRN (Rec: 01/08/22 12:22 LRN [id number]) Out-Patient Physical Therapy Visit Information Visit Information Visit Type Initial Evaluation Visit Start Time 09:16 Visit Stop Time 09:12 Total Visit Minutes 56 Visit Number 1 Evaluation Information Evaluation Date 01/08/22 Precautions Precautions Falls x 2, Jaw pain-trigeminal nerve, Breast cancer - lumpectomy 2015, gall bladder removed 2021, controlled HBP, myelopathy - neuropathy. PT-OP-B Current Condition Start: 01/07/22 18:18 Freq: Status: Active Protocol: Document 01/08/22 09:16 LRN (Rec: 01/08/22 12:22 LRN [id number]) Current Condition History of Current Condition Onset Date 09/19/21 Current Complaints Onset of neck and back pain. 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 Pain at neck is chronic, sore and dull. Pain between shoulder blades is intense and was present 1 yr ago (cancer survivor); not due to cancer and not due to gall blader because the pain came back after gall bladder removal. Takes hydrocodone for neck and mid back pain that causes chest pain. ED Records indicate 01/04/22 that she stated she has spondylolisthesis, myelopathy and arthritis particularly at C5-6. Other records indicate pt had MRIs showing spondylosis of cervical spine as well as lumbar spine. There is severe stenosis of her cervical spine. Thoracic spine appears to be unremarkable. Prior Treatments and Tests No pior treatments for midback pain. X-rays: Thoracic Spine (09/28/21): No acute bony abnormality. 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 Future Testing and Treatments Planned Was told candidate for neck surgery at C5-C6 by one physician and a candidate by another. 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 Treatment Goals Patient/Caregiver Goals Pt goals walk a couple blocks without feeling exhausted. Able to go outside of the house for errancs and avoid long times on the sofa > 3x/ week. Able to reach top shelf kitchen cabinet. Prior Functional Status Baseline Function- ADL's Independent Baseline Function- Mobility Independent Baseline Function- Other Sleeps at most 6 hrs, at worst 1.5-2 hrs over 6 hrs. Good sleep 4x/week. Current Functional Impairments (Reported) Functional Limitations- ADL's Not able to get in/out of jacuzzi. Spends most of days on sofa with heating pad, 4-5 days a week. (off sofa 2-3x/week). Pain limits her ability to food prep and cook. 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 Sometimes sleep is disturbed. Sometimes chest pain 1.5-2 hrs over 6 hrs, ~ 4 days. Personal Factors Other Personal Factors That May Effect Has spouse 10 yrs older than Therapy/Recovery her. Pt gall bladder removed . PT-OP-C Subjective Start: 01/07/22 18:18 Freq: Status: Active Protocol: Document 01/08/22 09:16 LRN (Rec: 01/08/22 12:22 LRN [id number]) Patient Questionnaires ABC- Activity Specific Balance Confidence Scale ABC Score 46.25 ABC Functional Impairment 40 to <60% Impaired (Score 41- 60) Neck Disability Index NDI Score 29 Neck Disability Index Impairment 40 to 59% Impaired (Score 20- 29) Quick Dash- Upper Extremity Quick Dash UE Score 54 Quick Dash UE Impairment 40 to 59% Impaired (Score 40- 59) OP-PT Pain Assessment Pain Assessment Grid Paper Pain Assessment Grid Completed Yes Location Back Intensity 8 Scale Used Numeric (0 - 10) Description- Other Neck-Dull, Jaw-Sharp, Midback -sharp Frequency Frequent PT-OP-E Functional Tests Start: 01/07/22 18:18 Freq: Status: Active Protocol: Document 01/08/22 09:16 LRN (Rec: 01/08/22 12:22 LRN [id number]) Functional Tests Apley's Scratch Test Action 1- Left Superomedial angle of scapula Action 1- Right Superomedial angle of scapula Action 2- Left T2 Action 2- Right T2 Action 3- Left T10 Action 3- Right T10 PT-OP-J Posture/Palpation/Skin Start: 01/07/22 18:18 Freq: Status: Active Protocol: Document 01/08/22 09:16 LRN (Rec: 01/08/22 12:22 LRN [id number]) Posture Evaluation Position Standing Head/C-Spine Posture Forward Head T-Spine Posture Increased Kyphosis L-Spine Posture Decreased Lordosis Scapula Posture (L) Protracted,(R) Protracted, (L) Rotated Down,(R) Rotated Down Arm Posture (L) Internally Rotated,(R) Internally Rotated Pelvis Posture Anteriorly Tilted Knee Posture (L) Genu Valgus,(R) Genu Valgus Foot Arch (R) Medium Arch,(L) Low Arch Comments Posture Comments Level shoulders, R knee bent. Palpation Assessment Location Midback Palpation Location L paraspinals Palpation Findings Soft Tissue Tightness Palpation Details Andrew Paraspinals: Tenderness. R anterior chest Palpation Location R Pecs and anterior scalenes. Palpation Findings Soft Tissue Tightness PT-OP-K Range of Motion Start: 01/07/22 18:18 Freq: Status: Active Protocol: Document 01/08/22 09:16 LRN (Rec: 01/08/22 12:22 LRN [id number]) Cervical Spine Range of Motion Cervical Spine Active Degrees Testing Position Sitting Flexion 42 Extension 25 Rotation Left 44 Rotation Right 45 Lateral Flexion Left 10 Lateral Flexion Right 10 ROM Limitations Soft Tissue Tightness,Pain Shoulder Goniometric Range of Motion Shoulder Right Active Testing Position Sitting Flexion 128 Extension 170 Comments Shoulder AB is within the scapular plane. Left Active Testing Position Sitting Flexion 142 Abduction 170 Comments Shoulder AB is within the scapular plane. PT-OP-M Strength Start: 01/07/22 18:18 Freq: Status: Active Protocol: Document 01/08/22 09:16 LRN (Rec: 01/08/22 12:22 LRN [id number]) Cervical Spine Strength Cervical Spine Manual Muscle Testing Lateral Flexion Left (C3) 3 Fair Comments Generally 4/5 except as indicated above. Shoulder Strength Shoulder Manual Muscle Testing Right Internal Rotation 5 Normal Comments Generally 3+/5 except as indicated above. Left Comments Generally 3+/5 except as indicated above. PT-OP-Q Treatments Start: 01/07/22 18:18 Freq: Status: Active Protocol: Document 01/08/22 09:16 LRN (Rec: 01/08/22 12:22 LRN [id number]) Self-Care/Home Management Treatment Education Other Education Discussed results of evaluation, extra discussion on goals, and discussion of plan of care (POC). Pt agreeable to goals and POC. PT-OP-T Assessment and Plan Start: 01/07/22 18:18 Freq: Status: Active Protocol: Document 01/08/22 09:16 LRN (Rec: 01/08/22 12:22 LRN [id number]) Physical Therapy Assessment Rehab Potential Rehabilitation Potential Good Evaluation Complexity Number of Personal Factors/Comorbidities 1-2 Number of Body Systems Impaired 4 or More Clinical Presentation at Evaluation Evolving Impairments Impairments Activity Tolerance,Pain, Posture,ROM,Soft Tissue Mobility,Strength Goals Four Impairment Low endurance Impairment Spends most of days on sofa with heating pad, 4-5 days a week. (Pt is off sofa 2-3x/ week). Short Term Goal (STG) Improve endurance with ability to ex (UBE 10'), with pt able to go outside of the house for errands and avoid long times on the sofa, being off sofa > 3x/week. STG Duration 02/15/22 Alf Goal (LTG) UBE/Recumbant bike - 15' total , with pt able to walk a couple blocks without feeling exhausted. LTG Duration 03/19/22 Three Impairment Decreased shoulder/neck AROM STG Duration 02/15/22 Alf Goal (LTG) Improve shoulder AROM with pt able to reach top shelf of kitchen cabinet. LTG Duration 03/19/22 Two Impairment Neck and Upper back Pain causing general fatigue and weakness. Impairment Neck and intrascapular pain rated 4-8/10. L & R arm pain rated 0-6/10. UE QuickDASH 54.54 (40-59% impaired, score 40-59) Short Term Goal (STG) Improve shoulder strength 1/2 grade to 4-/5 with improved function (per UE QuickDASH). STG Duration 02/15/22 B2B Sales Consultant Goal (LTG) Improve bilateral shoulder strength to 4/5 to reduce feelings of overall exhaustion with pt able to walk a couple blocks without feeling exhausted. LTG Duration 03/19/22 One Impairment Lacks appropropriate HEP Short Term Goal (STG) Pt will be educated in proper posturing for sitting and standing. STG Duration 01/18/22 Alf Goal (LTG) Pt will be educated in a self care HEP of shoulder and thoracic ROM and strengthening ex's to minimize recurrence of pain. LTG Duration 03/19/22 Assessment Summary Assessment Pt present with postural/ mechanical (thoracic kyphosis and severe forward head), soft tissue dysfunction (Thoracic paraspinal tightness L>R and R anterior chest), and weakness of the shoulders bilaterally. The pt will benefit from skilled physical therapy to acheive the above stated goals . Physical Therapy Plan Frequency and Duration Frequency of Treatment 2x/Week Plan of Care Start Date 01/08/22 Plan of Care End Date 03/19/22 Therapeutic Interventions Therapeutic Interventions Home Exercise Program,Joint Mobilizations,Manual Therapy, Patient/Caregiver Education, Self-Care/Home Management,Soft Tissue Mobilization, Therapeutic Activities, Therapeutic Exercises Modalities Cold Pack/Ice Massage Next Visit Focus/Plan Next Note Type Treatment Note Next Visit Plan Pt to complete POLO. Pt education in proper posturing for sitting and standing. Ex's: Stretches to open chest and reposition head on shoulders, correcting kyphosis . Manual: R anterior chest, gentle neck stm with mostly pt respositioning ex's. Modalities: Ice.
--- NOTE | 2022-01-08 17:58 | PT.OPPOC ---
Physical, Occupational & Speech Therapy At [facility] Current Diagnoses Dorsalgia, unspecified (01/08/22) Myalgia, unspecified site (01/08/22) Visit Care Team Role Provider Type Nikhil Ballard MD Primary Care Provider Physician Specialty: Family Practice Address: [address] [place] [address], [id number] Email: [email or web address] Lisbeth Liu MD Attending Provider Non-Staff Referring Provider Specialty: Neurology Address: [address] [place] [address], [id number] Email: Plan Of Care PT-OP-T Assessment and Plan Start: 01/07/22 18:18 Freq: Status: Active Protocol: Document 01/08/22 09:16 LRN (Rec: 01/08/22 12:22 LRN [id number]) Physical Therapy Assessment Rehab Potential Rehabilitation Potential Good Evaluation Complexity Number of Personal Factors/Comorbidities 1-2 Number of Body Systems Impaired 4 or More Clinical Presentation at Evaluation Evolving Impairments Impairments Activity Tolerance,Pain, Posture,ROM,Soft Tissue Mobility,Strength Goals Four Impairment Low endurance Impairment Spends most of days on sofa with heating pad, 4-5 days a week. (Pt is off sofa 2-3x/ week). Short Term Goal (STG) Improve endurance with ability to ex (UBE 10'), with pt able to go outside of the house for errands and avoid long times on the sofa, being off sofa > 3x/week. STG Duration 02/15/22 Educational Administration Teacher Goal (LTG) UBE/Recumbant bike - 15' total , with pt able to walk a couple blocks without feeling exhausted. LTG Duration 03/19/22 Three Impairment Decreased shoulder/neck AROM STG Duration 02/15/22 Educational Administration Teacher Goal (LTG) Improve shoulder AROM with pt able to reach top shelf of kitchen cabinet. LTG Duration 03/19/22 Two Impairment Neck and Upper back Pain causing general fatigue and weakness. Impairment Neck and intrascapular pain rated 4-8/10. L & R arm pain rated 0-6/10. UE QuickDASH 54.54 (40-59% impaired, score 40-59) Short Term Goal (STG) Improve shoulder strength 1/2 grade to 4-/5 with improved function (per UE QuickDASH). STG Duration 02/15/22 Educational Administration Teacher Goal (LTG) Improve bilateral shoulder strength to 4/5 to reduce feelings of overall exhaustion with pt able to walk a couple blocks without feeling exhausted. LTG Duration 03/19/22 One Impairment Lacks appropropriate HEP Short Term Goal (STG) Pt will be educated in proper posturing for sitting and standing. STG Duration 01/18/22 Shelter Goal (LTG) Pt will be educated in a self care HEP of shoulder and thoracic ROM and strengthening ex's to minimize recurrence of pain. LTG Duration 03/19/22 Assessment Summary Assessment Pt present with postural/ mechanical (thoracic kyphosis and severe forward head), soft tissue dysfunction (Thoracic paraspinal tightness L>R and R anterior chest), and weakness of the shoulders bilaterally. The pt will benefit from skilled physical therapy to acheive the above stated goals . Physical Therapy Plan Frequency and Duration Frequency of Treatment 2x/Week Plan of Care Start Date 01/08/22 Plan of Care End Date 03/19/22 Therapeutic Interventions Therapeutic Interventions Home Exercise Program,Joint Mobilizations,Manual Therapy, Patient/Caregiver Education, Self-Care/Home Management,Soft Tissue Mobilization, Therapeutic Activities, Therapeutic Exercises Modalities Cold Pack/Ice Massage Next Visit Focus/Plan Next Note Type Treatment Note Next Visit Plan Pt to complete POLO. Pt education in proper posturing for sitting and standing. Ex's: Stretches to open chest and reposition head on shoulders, correcting kyphosis . Manual: R anterior chest, gentle neck stm with mostly pt respositioning ex's. Modalities: Ice. Plan of Care Dates Plan of Care Start Date 01/08/22 Plan of Care End Date 03/19/22 Electronically Signed by: Breanne Laughlin, PT 01/08/22 1417 If you are in agreement with this Plan of Care, please return a signed and dated copy. I have reviewed this Plan of Care and certify that the skilled therapy services above are required to meet the patient?s needs. Physician Signature Date Printed Name and Credentials Clinical Instructor Signature Printed Name and Credentials
--- NOTE | 2022-01-18 16:28 | PT.OTN ---
Current Diagnoses Dorsalgia, unspecified (01/18/22) Myalgia, unspecified site (01/18/22) Physical Therapy Treatment Note PT-OP-A Visit Information Start: 01/07/22 18:18 Freq: Status: Active Protocol: Document 01/18/22 10:46 LRN (Rec: 01/18/22 11:28 LRN [id number]) Out-Patient Physical Therapy Visit Information Visit Information Visit Type Treatment Note Visit Start Time 10:46 Visit Stop Time 11:24 Total Visit Minutes 38 Visit Number 2 Evaluation Information Evaluation Date 01/08/22 Precautions Precautions Falls x 2, Jaw pain-trigeminal nerve, Breast cancer - lumpectomy 2015, gall bladder removed 2021, controlled HBP, myelopathy - neuropathy. PT-OP-B Current Condition Start: 01/07/22 18:18 Freq: Status: Active Protocol: Document 01/08/22 09:16 LRN (Rec: 01/08/22 12:22 LRN [id number]) Current Condition History of Current Condition Onset Date 09/19/21 Current Complaints Onset of neck and back pain. 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 Pain at neck is chronic, sore and dull. Pain between shoulder blades is intense and was present 1 yr ago (cancer survivor); not due to cancer and not due to gall blader because the pain came back after gall bladder removal. Takes hydrocodone for neck and mid back pain that causes chest pain. ED Records indicate 01/04/22 that she stated she has spondylolisthesis, myelopathy and arthritis particularly at C5-6. Other records indicate pt had MRIs showing spondylosis of cervical spine as well as lumbar spine. There is severe stenosis of her cervical spine. Thoracic spine appears to be unremarkable. Prior Treatments and Tests No pior treatments for midback pain. X-rays: Thoracic Spine (09/28/21): No acute bony abnormality. 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 Future Testing and Treatments Planned Was told candidate for neck surgery at C5-C6 by one physician and a candidate by another. 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 Treatment Goals Patient/Caregiver Goals Pt goals walk a couple blocks without feeling exhausted. Able to go outside of the house for errancs and avoid long times on the sofa > 3x/ week. Able to reach top shelf kitchen cabinet. Prior Functional Status Baseline Function- ADL's Independent Baseline Function- Mobility Independent Baseline Function- Other Sleeps at most 6 hrs, at worst 1.5-2 hrs over 6 hrs. Good sleep 4x/week. Current Functional Impairments (Reported) Functional Limitations- ADL's Not able to get in/out of jacuzzi. Spends most of days on sofa with heating pad, 4-5 days a week. (off sofa 2-3x/week). Pain limits her ability to food prep and cook. 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 Sometimes sleep is disturbed. Sometimes chest pain 1.5-2 hrs over 6 hrs, ~ 4 days. Personal Factors Other Personal Factors That May Effect Has spouse 10 yrs older than Therapy/Recovery her. Pt gall bladder removed . PT-OP-C Subjective Start: 01/07/22 18:18 Freq: Status: Active Protocol: Document 01/18/22 10:46 LRN (Rec: 01/18/22 11:28 LRN [id number]) OP-PT Subjective Patient Comments Patient Comments Saw Dr. Hart 3 days ago and was told ms over Carotid arteries is tight and to be careful with massages. Feeling more hopeful and is going most evenings without pain medications. States her DA's keep on her about her posture. Patient Questionnaires Oswestry Low Back Index Oswestry Score 27 Oswestry Impairment 20 to 39% Impaired (Score 20- 39) PT-OP-E Functional Tests Start: 01/07/22 18:18 Freq: Status: Active Protocol: Document 01/08/22 09:16 LRN (Rec: 01/08/22 12:22 LRN [id number]) Functional Tests Allaey's Scratch Test Action 1- Left Superomedial angle of scapula Action 1- Right Superomedial angle of scapula Action 2- Left T2 Action 2- Right T2 Action 3- Left T10 Action 3- Right T10 PT-OP-J Posture/Palpation/Skin Start: 01/07/22 18:18 Freq: Status: Active Protocol: Document 01/08/22 09:16 LRN (Rec: 01/08/22 12:22 LRN [id number]) Posture Evaluation Position Standing Head/C-Spine Posture Forward Head T-Spine Posture Increased Kyphosis L-Spine Posture Decreased Lordosis Scapula Posture (L) Protracted,(R) Protracted, (L) Rotated Down,(R) Rotated Down Arm Posture (L) Internally Rotated,(R) Internally Rotated Pelvis Posture Anteriorly Tilted Knee Posture (L) Genu Valgus,(R) Genu Valgus Foot Arch (R) Medium Arch,(L) Low Arch Comments Posture Comments Level shoulders, R knee bent. Palpation Assessment Location Midback Palpation Location L paraspinals Palpation Findings Soft Tissue Tightness Palpation Details Andrew Paraspinals: Tenderness. R anterior chest Palpation Location R Pecs and anterior scalenes. Palpation Findings Soft Tissue Tightness PT-OP-K Range of Motion Start: 01/07/22 18:18 Freq: Status: Active Protocol: Document 01/08/22 09:16 LRN (Rec: 01/08/22 12:22 LRN [id number]) Cervical Spine Range of Motion Cervical Spine Active Degrees Testing Position Sitting Flexion 42 Extension 25 Rotation Left 44 Rotation Right 45 Lateral Flexion Left 10 Lateral Flexion Right 10 ROM Limitations Soft Tissue Tightness,Pain Shoulder Goniometric Range of Motion Shoulder Right Active Testing Position Sitting Flexion 128 Extension 170 Comments Shoulder AB is within the scapular plane. Left Active Testing Position Sitting Flexion 142 Abduction 170 Comments Shoulder AB is within the scapular plane. PT-OP-M Strength Start: 01/07/22 18:18 Freq: Status: Active Protocol: Document 01/08/22 09:16 LRN (Rec: 01/08/22 12:22 LRN [id number]) Cervical Spine Strength Cervical Spine Manual Muscle Testing Lateral Flexion Left (C3) 3 Fair Comments Generally 4/5 except as indicated above. Shoulder Strength Shoulder Manual Muscle Testing Right Internal Rotation 5 Normal Comments Generally 3+/5 except as indicated above. Left Comments Generally 3+/5 except as indicated above. PT-OP-Q Treatments Start: 01/07/22 18:18 Freq: Status: Active Protocol: Document 01/18/22 10:46 LRN (Rec: 01/18/22 11:28 LRN [id number]) Therapeutic Exercises Sitting Exercises Scap pinches/Chin tuck Sitting Exercise Name Scap pinches/Chin tuc Reps/Minutes 5 SH x 10 Comments Extra time needed for training to keep chin tucked and not collapse on rest C/S SB stretch Sitting Exercise Name Pulling head sideways for SB stretch. Side bilateral Reps/Minutes 6' Standing Exercises Posture training against wall Standing Exercise Name Standing against wall for posture trainining Comments Much phys cuing for chin tuck and shoulders back. Neg Heel effect Standing Exercise Name Standing on DAYANA-for posture training Comments Cuing for chin tuck and shoulders back. Self-Care/Home Management Treatment Education Other Education Education and discussion of proper posturing for sitting and standing. Discussed effects of neg heel positioning and discussion of shoes that might help. Activities Self-Care/Home Management Activities Discussion of result of pt's visit with Dr. Owen at pt's request. Discussed what pt is supposed to be doing (SB stretch and careful with masseuse). Handouts issued for proper posturing sitting and standing . PT-OP-T Assessment and Plan Start: 01/07/22 18:18 Freq: Status: Active Protocol: Document 01/18/22 10:46 LRN (Rec: 01/18/22 11:28 LRN [id number]) Physical Therapy Assessment Goals Four Impairment Low endurance Impairment Spends most of days on sofa with heating pad, 4-5 days a week. (Pt is off sofa 2-3x/ week). Short Term Goal (STG) Improve endurance with ability to ex (UBE 10'), with pt able to go outside of the house for errands and avoid long times on the sofa, being off sofa > 3x/week. STG Duration 02/15/22 Group Home Goal (LTG) UBE/Recumbant bike - 15' total , with pt able to walk a couple blocks without feeling exhausted. LTG Duration 03/19/22 Three Impairment Decreased shoulder/neck AROM STG Duration 02/15/22 Tunnel Man Goal (LTG) Improve shoulder AROM with pt able to reach top shelf of kitchen cabinet. LTG Duration 03/19/22 Two Impairment Neck and Upper back Pain causing general fatigue and weakness. Impairment Neck and intrascapular pain rated 4-8/10. L & R arm pain rated 0-6/10. UE QuickDASH 54.54 (40-59% impaired, score 40-59) Short Term Goal (STG) Improve shoulder strength 1/2 grade to 4-/5 with improved function (per UE QuickDASH). STG Duration 02/15/22 Tunnel Man Goal (LTG) Improve bilateral shoulder strength to 4/5 to reduce feelings of overall exhaustion with pt able to walk a couple blocks without feeling exhausted. LTG Duration 03/19/22 One Impairment Lacks appropropriate HEP Short Term Goal (STG) Pt will be educated in proper posturing for sitting and standing. STG Duration 01/18/22 (01/18/22: MET GOAL ) Group Home Goal (LTG) Pt will be educated in a self care HEP of shoulder and thoracic ROM and strengthening ex's to minimize recurrence of pain. LTG Duration 03/19/22 Assessment Summary Assessment Pt has postural/mechanical dysfunction (thoracic kyphosis and severe forward head) and soft tissue dysfunction ( Thoracic paraspinal tightness L>R and R anterior chest and weak shoulders). POLO is 27/50 (20-39% impaired) . Posture is poor and very stiff in thoracic region. Physical Therapy Plan Frequency and Duration Frequency of Treatment 2x/Week Plan of Care Start Date 01/08/22 Plan of Care End Date 03/19/22 Next Visit Focus/Plan Next Note Type Treatment Note Next Visit Plan Ex's: Start UBE or recumbent bike (for endurance, Goal #4) & Add to HEP scap pinches, stretches to open chest, repositioning head on shoulders, (correcting head/ shoulder posturing and kyphosis). Manual: R anterior chest, gentle neck STM with mostly pt respositioning ex's. Modalities: Ice.
--- NOTE | 2022-01-22 12:00 | PT.OTN ---
Current Diagnoses Dorsalgia, unspecified (01/22/22) Myalgia, unspecified site (01/22/22) Physical Therapy Treatment Note PT-OP-A Visit Information Start: 01/07/22 18:18 Freq: Status: Active Protocol: Document 01/22/22 10:35 LRN (Rec: 01/22/22 11:20 LRN [id number]) Out-Patient Physical Therapy Visit Information Visit Information Visit Type Treatment Note Visit Start Time 10:35 Visit Stop Time 11:18 Total Visit Minutes 43 Visit Number 3 Evaluation Information Evaluation Date 01/08/22 Precautions Precautions Falls x 2, Jaw pain-trigeminal nerve, Breast cancer - lumpectomy 2015, gall bladder removed 2021, controlled HBP, myelopathy - neuropathy. PT-OP-B Current Condition Start: 01/07/22 18:18 Freq: Status: Active Protocol: Document 01/08/22 09:16 LRN (Rec: 01/08/22 12:22 LRN [id number]) Current Condition History of Current Condition Onset Date 09/19/21 Current Complaints Onset of neck and back pain. 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 Pain at neck is chronic, sore and dull. Pain between shoulder blades is intense and was present 1 yr ago (cancer survivor); not due to cancer and not due to gall blader because the pain came back after gall bladder removal. Takes hydrocodone for neck and mid back pain that causes chest pain. ED Records indicate 01/04/22 that she stated she has spondylolisthesis, myelopathy and arthritis particularly at C5-6. Other records indicate pt had MRIs showing spondylosis of cervical spine as well as lumbar spine. There is severe stenosis of her cervical spine. Thoracic spine appears to be unremarkable. Prior Treatments and Tests No pior treatments for midback pain. X-rays: Thoracic Spine (09/28/21): No acute bony abnormality. 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 Future Testing and Treatments Planned Was told candidate for neck surgery at C5-C6 by one physician and a candidate by another. 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 Treatment Goals Patient/Caregiver Goals Pt goals walk a couple blocks without feeling exhausted. Able to go outside of the house for errancs and avoid long times on the sofa > 3x/ week. Able to reach top shelf kitchen cabinet. Prior Functional Status Baseline Function- ADL's Independent Baseline Function- Mobility Independent Baseline Function- Other Sleeps at most 6 hrs, at worst 1.5-2 hrs over 6 hrs. Good sleep 4x/week. Current Functional Impairments (Reported) Functional Limitations- ADL's Not able to get in/out of jacuzzi. Spends most of days on sofa with heating pad, 4-5 days a week. (off sofa 2-3x/week). Pain limits her ability to food prep and cook. 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 Sometimes sleep is disturbed. Sometimes chest pain 1.5-2 hrs over 6 hrs, ~ 4 days. Personal Factors Other Personal Factors That May Effect Has spouse 10 yrs older than Therapy/Recovery her. Pt gall bladder removed . PT-OP-C Subjective Start: 01/07/22 18:18 Freq: Status: Active Protocol: Document 01/22/22 10:35 LRN (Rec: 01/22/22 11:20 LRN [id number]) OP-PT Subjective Patient Comments Patient Comments States not disciplined to do ex's. Thinks she can turn her head to L better. Feels she can go up stairs sometimes normal, so may have more strength in legs. Pt reports getting neg heel shoes. PT-OP-E Functional Tests Start: 01/07/22 18:18 Freq: Status: Active Protocol: Document 01/08/22 09:16 LRN (Rec: 01/08/22 12:22 LRN [id number]) Functional Tests Apley's Scratch Test Action 1- Left Superomedial angle of scapula Action 1- Right Superomedial angle of scapula Action 2- Left T2 Action 2- Right T2 Action 3- Left T10 Action 3- Right T10 PT-OP-J Posture/Palpation/Skin Start: 01/07/22 18:18 Freq: Status: Active Protocol: Document 01/08/22 09:16 LRN (Rec: 01/08/22 12:22 LRN [id number]) Posture Evaluation Position Standing Head/C-Spine Posture Forward Head T-Spine Posture Increased Kyphosis L-Spine Posture Decreased Lordosis Scapula Posture (L) Protracted,(R) Protracted, (L) Rotated Down,(R) Rotated Down Arm Posture (L) Internally Rotated,(R) Internally Rotated Pelvis Posture Anteriorly Tilted Knee Posture (L) Genu Valgus,(R) Genu Valgus Foot Arch (R) Medium Arch,(L) Low Arch Comments Posture Comments Level shoulders, R knee bent. Palpation Assessment Location Midback Palpation Location L paraspinals Palpation Findings Soft Tissue Tightness Palpation Details Andrew Paraspinals: Tenderness. R anterior chest Palpation Location R Pecs and anterior scalenes. Palpation Findings Soft Tissue Tightness PT-OP-K Range of Motion Start: 01/07/22 18:18 Freq: Status: Active Protocol: Document 01/22/22 10:35 LRN (Rec: 01/22/22 11:20 LRN [id number]) Cervical Spine Range of Motion Cervical Spine Active Degrees Testing Position Sitting Rotation Left 46 Rotation Right 45 PT-OP-M Strength Start: 01/07/22 18:18 Freq: Status: Active Protocol: Document 01/08/22 09:16 LRN (Rec: 01/08/22 12:22 LRN [id number]) Cervical Spine Strength Cervical Spine Manual Muscle Testing Lateral Flexion Left (C3) 3 Fair Comments Generally 4/5 except as indicated above. Shoulder Strength Shoulder Manual Muscle Testing Right Internal Rotation 5 Normal Comments Generally 3+/5 except as indicated above. Left Comments Generally 3+/5 except as indicated above. PT-OP-Q Treatments Start: 01/07/22 18:18 Freq: Status: Active Protocol: Document 01/22/22 10:35 LRN (Rec: 01/22/22 11:20 LRN [id number]) Cardio Equipment Upper Body Ergometer (UBE) Duration (Minutes) 5 RPM 80 Seat Position 10 Height 2.5 Other 4' Fwd/Bkwd/1'rest.Cuing for upright posturing (chin tuck, neck elongation) Therapeutic Exercises Sitting Exercises Thoracic Ext Sitting Exercise Name Thoracic upper ext Reps/Minutes 3 SH x 10 Comments Much cuing for thoracic ext, cues at back, neck, chest, top of head Sitting posturing Sitting Exercise Name Sitting posturing training Reps/Minutes 10 Horiz AB/scap squeeze Sitting Exercise Name Horiz AB/scap squeeze (Arms at 150, 90 and 0 deg's AB) Side bilateral Reps/Minutes 3 SH x 8 each Comments Cuing at back needed. Scap pinches/Chin tuck Sitting Exercise Name Chin Tuck/Scap pinches Reps/Minutes 5 SH x 10 Comments Extra time needed for training to keep chin tucked and not collapse on rest C/S SB stretch Sitting Exercise Name Pulling head sideways for SB stretch. Side bilateral Reps/Minutes 6' Self-Care/Home Management Treatment Education Patient Education Home Exercise Program Other Education Educated pt in proper sitting and standing posture with training (see ex's). Activities Self-Care/Home Management Activities Issued and reviewed HEP: Sitting posturing, Sitting: Thoracic ext, scapular pinches (arms at 90 and 0 deg's AB), Arms in full flexion for scapular pinch and shoulder retraction holding hands. PT-OP-T Assessment and Plan Start: 01/07/22 18:18 Freq: Status: Active Protocol: Document 01/22/22 10:35 LRN (Rec: 01/22/22 11:20 LRN [id number]) Physical Therapy Assessment Goals Four Impairment Low endurance Impairment Spends most of days on sofa with heating pad, 4-5 days a week. (Pt is off sofa 2-3x/ week). Short Term Goal (STG) Improve endurance with ability to ex (UBE 10'), with pt able to go outside of the house for errands and avoid long times on the sofa, being off sofa > 3x/week. 01/22/22: UBE x 4' STG Duration 02/15/22 progressed 01/22/22 Correction Goal (LTG) UBE/Recumbant bike - 15' total , with pt able to walk a couple blocks without feeling exhausted. 01/22/22: UBE x 4' LTG Duration 03/19/22 progressed 01/22/22 Three Impairment Decreased shoulder/neck AROM STG Duration 02/15/22 Correction Goal (LTG) Improve shoulder AROM with pt able to reach top shelf of kitchen cabinet. LTG Duration 03/19/22 Two Impairment Neck and Upper back Pain causing general fatigue and weakness. Impairment Neck and intrascapular pain rated 4-8/10. L & R arm pain rated 0-6/10. UE QuickDASH 54.54 (40-59% impaired, score 40-59) Short Term Goal (STG) Improve shoulder strength 1/2 grade to 4-/5 with improved function (per UE QuickDASH). STG Duration 02/15/22 Shift Commander Goal (LTG) Improve bilateral shoulder strength to 4/5 to reduce feelings of overall exhaustion with pt able to walk a couple blocks without feeling exhausted. LTG Duration 03/19/22 One Impairment Lacks appropropriate HEP Short Term Goal (STG) Pt will be educated in proper posturing for sitting and standing. 01/22/22: Sitting postural ex. STG Duration 01/18/22 (01/18/22: MET GOAL ) Correction Goal (LTG) Pt will be educated in a self care HEP of shoulder and thoracic ROM and strengthening ex's to minimize recurrence of pain. 01/22/22: HEP: Thoracic ext, scap pinches (150, 90 & 0 deg' s AB), Shoulder ext w/scap retract. LTG Duration 03/19/22 progressing 01/22/22 Assessment Summary Assessment As expected, pt takes extra time with all ex's to get proper contraction with exercises, requiring physical and v cuing. Pt sometimes needs direction to stay on task. She is not yet consistent with her home program, but is very receptive to exercises. Physical Therapy Plan Frequency and Duration Frequency of Treatment 2x/Week Plan of Care Start Date 01/08/22 Plan of Care End Date 03/19/22 Next Visit Focus/Plan Next Note Type Treatment Note Next Visit Plan Review scap/UB exercises. Progress UBE or recumbent bike (for endurance, Goal #4). Add to HEP: stretches to open chest, repositioning head on shoulders, (correcting head/ shoulder posturing and kyphosis). Manual: R anterior chest, gentle neck STM with mostly pt respositioning ex's and STM to upper back for pain. Modalities: Ice.
--- NOTE | 2022-02-01 11:45 | PT.OTN ---
Current Diagnoses Dorsalgia, unspecified (02/01/22) Myalgia, unspecified site (02/01/22) Physical Therapy Treatment Note PT-OP-A Visit Information Start: 01/07/22 18:18 Freq: Status: Active Protocol: Document 02/01/22 10:49 LRN (Rec: 02/01/22 11:44 LRN [id number]) Out-Patient Physical Therapy Visit Information Visit Information Visit Type Treatment Note Visit Start Time 10:49 Visit Stop Time 11:34 Total Visit Minutes 45 Visit Number 4 Evaluation Information Evaluation Date 01/08/22 Precautions Precautions Falls x 2, Jaw pain-trigeminal nerve, Breast cancer - lumpectomy 2015, gall bladder removed 2021, controlled HBP, myelopathy - neuropathy. PT-OP-B Current Condition Start: 01/07/22 18:18 Freq: Status: Active Protocol: Document 01/08/22 09:16 LRN (Rec: 01/08/22 12:22 LRN [id number]) Current Condition History of Current Condition Onset Date 09/19/21 Current Complaints Onset of neck and back pain. 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 Pain at neck is chronic, sore and dull. Pain between shoulder blades is intense and was present 1 yr ago (cancer survivor); not due to cancer and not due to gall blader because the pain came back after gall bladder removal. Takes hydrocodone for neck and mid back pain that causes chest pain. ED Records indicate 01/04/22 that she stated she has spondylolisthesis, myelopathy and arthritis particularly at C5-6. Other records indicate pt had MRIs showing spondylosis of cervical spine as well as lumbar spine. There is severe stenosis of her cervical spine. Thoracic spine appears to be unremarkable. Prior Treatments and Tests No pior treatments for midback pain. X-rays: Thoracic Spine (09/28/21): No acute bony abnormality. 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 Future Testing and Treatments Planned Was told candidate for neck surgery at C5-C6 by one physician and a candidate by another. 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 Treatment Goals Patient/Caregiver Goals Pt goals walk a couple blocks without feeling exhausted. Able to go outside of the house for errancs and avoid long times on the sofa > 3x/ week. Able to reach top shelf kitchen cabinet. Prior Functional Status Baseline Function- ADL's Independent Baseline Function- Mobility Independent Baseline Function- Other Sleeps at most 6 hrs, at worst 1.5-2 hrs over 6 hrs. Good sleep 4x/week. Current Functional Impairments (Reported) Functional Limitations- ADL's Not able to get in/out of jacuzzi. Spends most of days on sofa with heating pad, 4-5 days a week. (off sofa 2-3x/week). Pain limits her ability to food prep and cook. 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 Sometimes sleep is disturbed. Sometimes chest pain 1.5-2 hrs over 6 hrs, ~ 4 days. Personal Factors Other Personal Factors That May Effect Has spouse 10 yrs older than Therapy/Recovery her. Pt gall bladder removed . PT-OP-C Subjective Start: 01/07/22 18:18 Freq: Status: Active Protocol: Document 02/01/22 10:49 LRN (Rec: 02/01/22 11:44 LRN [id number]) OP-PT Subjective Patient Comments Patient Comments States she was sick after the last session, felt pressure in the chest. Spinal surgeon states he said chest pain and pressure she felt in Nov in the absence of heart disease indicates she has cervical angina. HAsn't been too much of a problem except 2x since being seen in PT. She feels she is good with gentle ex's but knows stress triggers her to feel aweful. She states she has muscle memory for good posture now and she sits better. Her pain is mostly in the mid-thoracic spine. PT-OP-E Functional Tests Start: 01/07/22 18:18 Freq: Status: Active Protocol: Document 01/08/22 09:16 LRN (Rec: 01/08/22 12:22 LRN [id number]) Functional Tests Apley's Scratch Test Action 1- Left Superomedial angle of scapula Action 1- Right Superomedial angle of scapula Action 2- Left T2 Action 2- Right T2 Action 3- Left T10 Action 3- Right T10 PT-OP-J Posture/Palpation/Skin Start: 01/07/22 18:18 Freq: Status: Active Protocol: Document 01/08/22 09:16 LRN (Rec: 01/08/22 12:22 LRN [id number]) Posture Evaluation Position Standing Head/C-Spine Posture Forward Head T-Spine Posture Increased Kyphosis L-Spine Posture Decreased Lordosis Scapula Posture (L) Protracted,(R) Protracted, (L) Rotated Down,(R) Rotated Down Arm Posture (L) Internally Rotated,(R) Internally Rotated Pelvis Posture Anteriorly Tilted Knee Posture (L) Genu Valgus,(R) Genu Valgus Foot Arch (R) Medium Arch,(L) Low Arch Comments Posture Comments Level shoulders, R knee bent. Palpation Assessment Location Midback Palpation Location L paraspinals Palpation Findings Soft Tissue Tightness Palpation Details Andrew Paraspinals: Tenderness. R anterior chest Palpation Location R Pecs and anterior scalenes. Palpation Findings Soft Tissue Tightness PT-OP-K Range of Motion Start: 01/07/22 18:18 Freq: Status: Active Protocol: Document 01/22/22 10:35 LRN (Rec: 01/22/22 11:20 LRN [id number]) Cervical Spine Range of Motion Cervical Spine Active Degrees Testing Position Sitting Rotation Left 46 Rotation Right 45 PT-OP-M Strength Start: 01/07/22 18:18 Freq: Status: Active Protocol: Document 01/08/22 09:16 LRN (Rec: 01/08/22 12:22 LRN [id number]) Cervical Spine Strength Cervical Spine Manual Muscle Testing Lateral Flexion Left (C3) 3 Fair Comments Generally 4/5 except as indicated above. Shoulder Strength Shoulder Manual Muscle Testing Right Internal Rotation 5 Normal Comments Generally 3+/5 except as indicated above. Left Comments Generally 3+/5 except as indicated above. PT-OP-Q Treatments Start: 01/07/22 18:18 Freq: Status: Active Protocol: Document 02/01/22 10:49 LRN (Rec: 02/01/22 11:44 LRN [id number]) Cardio Equipment Upper Body Ergometer (UBE) Duration (Minutes) 6 RPM 80 Seat Position 10 Height 2.5 Other Fwd/Bkwd. Cuing for upright posturing (chin tuck, neck elongation) Recumbent Elliptical (Biodex) Duration (Minutes) 4 Resistance 3 Seat Position 5 Other Cue neck elongation, Postural strengthening, use of legs only. Therapeutic Exercises Sitting Exercises Thoracic Ext Sitting Exercise Name Thoracic upper ext Reps/Minutes 3 SH x 10 Comments Much cuing for thoracic ext, cues at back, neck, chest, top of head Sitting posturing Sitting Exercise Name Sitting posturing Reps/Minutes 10' Comments Cuing for lumbar ext and Horiz AB/scap squeeze Sitting Exercise Name Horiz AB/scap squeeze (Arms at 120, 80 and 0 deg's AB) Side bilateral Reps/Minutes 31SH x 8 each Comments Cuing at back needed. Scap pinches/Chin tuck Sitting Exercise Name Chin Tuck/Scap pinches Reps/Minutes 5 SH x 10 Comments Extra time needed for training to keep chin tucked and not collapse on rest C/S SB stretch Sitting Exercise Name Pulling head sideways for SB stretch. Side bilateral Reps/Minutes 6' Other Exercises Fwd lean over elevated plinth Other Exercise Name Thoracic ext Reps/Minutes 1 sec hold x 10 Manual Therapy Treatment Manual Techniques Stretch to R Pecs Type Supine: Manual stretchj to R Pecs. Body Location R Pec Body Position Hooklying Reps/Duration 10' Comments Stretch f/b active scapular retraction. PT-OP-T Assessment and Plan Start: 01/07/22 18:18 Freq: Status: Active Protocol: Document 02/01/22 10:49 LRN (Rec: 02/01/22 11:44 LRN [id number]) Physical Therapy Assessment Goals Four Impairment Low endurance Impairment Spends most of days on sofa with heating pad, 4-5 days a week. (Pt is off sofa 2-3x/ week). Short Term Goal (STG) Improve endurance with ability to ex (UBE 10'), with pt able to go outside of the house for errands and avoid long times on the sofa, being off sofa > 3x/week. 01/22/22: UBE x 4' STG Duration 02/15/22 progressed 01/22/22 Rag Willow Operator Goal (LTG) UBE/Recumbant bike - 15' total , with pt able to walk a couple blocks without feeling exhausted. 01/22/22: UBE x 4' LTG Duration 03/19/22 progressed 01/22/22 Three Impairment Decreased shoulder/neck AROM STG Duration 02/15/22 Half-Way Goal (LTG) Improve shoulder AROM with pt able to reach top shelf of kitchen cabinet. LTG Duration 03/19/22 Two Impairment Neck and Upper back Pain causing general fatigue and weakness. Impairment Neck and intrascapular pain rated 4-8/10. L & R arm pain rated 0-6/10. UE QuickDASH 54.54 (40-59% impaired, score 40-59) Short Term Goal (STG) Improve shoulder strength 1/2 grade to 4-/5 with improved function (per UE QuickDASH). STG Duration 02/15/22 Rag Willow Operator Goal (LTG) Improve bilateral shoulder strength to 4/5 to reduce feelings of overall exhaustion with pt able to walk a couple blocks without feeling exhausted. LTG Duration 03/19/22 One Impairment Lacks appropropriate HEP Short Term Goal (STG) Pt will be educated in proper posturing for sitting and standing. 01/22/22: Sitting postural ex. STG Duration 01/18/22 (01/18/22: MET GOAL ) Half-Way Goal (LTG) Pt will be educated in a self care HEP of shoulder and thoracic ROM and strengthening ex's to minimize recurrence of pain. 01/22/22: HEP: Thoracic ext, scap pinches (150, 90 & 0 deg' s AB), Shoulder ext w/scap retract. LTG Duration 03/19/22 progressing 01/22/22 Progress Towards Goals Progress Comments Increase in tolerance to exercise. Assessment Summary Assessment Pt has low tolerance to seated exercise and reported chest pain that surgeon reported was cervical angina, possible with start of scap/UB exercises. Physical Therapy Plan Frequency and Duration Frequency of Treatment 2x/Week Plan of Care Start Date 01/08/22 Plan of Care End Date 03/19/22 Next Visit Focus/Plan Next Note Type Treatment Note Next Visit Plan Progress UBE and/or recumbent bike (for endurance, Goal #4). Add to HEP: stretches to open chest, repositioning head on shoulders, (correcting head/ shoulder posturing and kyphosis). Manual: R anterior chest, gentle neck STM with mostly pt respositioning ex's and STM to upper back for pain. Modalities: Ice.
--- NOTE | 2022-02-19 14:30 | PT.OTN ---
Current Diagnoses Dorsalgia, unspecified (02/19/22) Myalgia, unspecified site (02/19/22) Physical Therapy Treatment Note PT-OP-A Visit Information Start: 01/07/22 18:18 Freq: Status: Active Protocol: Document 02/19/22 13:50 SP (Rec: 02/19/22 14:32 SP [id number]) Out-Patient Physical Therapy Visit Information Visit Information Visit Type Treatment Note Visit Start Time 13:50 Visit Stop Time 14:30 Total Visit Minutes 40 Visit Number 5 Number of INSIDE OUTSIDE SALES REPRESENTATIVE Visits 1 Precautions Precautions Falls x 2, Jaw pain-trigeminal nerve, Breast cancer - lumpectomy 2015, gall bladder removed 2021, controlled HBP, myelopathy - neuropathy. PT-OP-B Current Condition Start: 01/07/22 18:18 Freq: Status: Active Protocol: Document 01/08/22 09:16 LRN (Rec: 01/08/22 12:22 LRN [id number]) Current Condition History of Current Condition Onset Date 09/19/21 Current Complaints Onset of neck and back pain. 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 Pain at neck is chronic, sore and dull. Pain between shoulder blades is intense and was present 1 yr ago (cancer survivor); not due to cancer and not due to gall blader because the pain came back after gall bladder removal. Takes hydrocodone for neck and mid back pain that causes chest pain. ED Records indicate 01/04/22 that she stated she has spondylolisthesis, myelopathy and arthritis particularly at C5-6. Other records indicate pt had MRIs showing spondylosis of cervical spine as well as lumbar spine. There is severe stenosis of her cervical spine. Thoracic spine appears to be unremarkable. Prior Treatments and Tests No pior treatments for midback pain. X-rays: Thoracic Spine (09/28/21): No acute bony abnormality. 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 Future Testing and Treatments Planned Was told candidate for neck surgery at C5-C6 by one physician and a candidate by another. 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 Treatment Goals Patient/Caregiver Goals Pt goals walk a couple blocks without feeling exhausted. Able to go outside of the house for errancs and avoid long times on the sofa > 3x/ week. Able to reach top shelf kitchen cabinet. Prior Functional Status Baseline Function- ADL's Independent Baseline Function- Mobility Independent Baseline Function- Other Sleeps at most 6 hrs, at worst 1.5-2 hrs over 6 hrs. Good sleep 4x/week. Current Functional Impairments (Reported) Functional Limitations- ADL's Not able to get in/out of jacuzzi. Spends most of days on sofa with heating pad, 4-5 days a week. (off sofa 2-3x/week). Pain limits her ability to food prep and cook. 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 Sometimes sleep is disturbed. Sometimes chest pain 1.5-2 hrs over 6 hrs, ~ 4 days. Personal Factors Other Personal Factors That May Effect Has spouse 10 yrs older than Therapy/Recovery her. Pt gall bladder removed . PT-OP-C Subjective Start: 01/07/22 18:18 Freq: Status: Active Protocol: Document 02/19/22 13:50 SP (Rec: 02/19/22 14:32 SP [id number]) OP-PT Subjective Patient Comments Patient Comments Pt reports hasn't really done exercises over holidays and snow bad weather. PT-OP-E Functional Tests Start: 01/07/22 18:18 Freq: Status: Active Protocol: Document 01/08/22 09:16 LRN (Rec: 01/08/22 12:22 LRN [id number]) Functional Tests Apley's Scratch Test Action 1- Left Superomedial angle of scapula Action 1- Right Superomedial angle of scapula Action 2- Left T2 Action 2- Right T2 Action 3- Left T10 Action 3- Right T10 PT-OP-J Posture/Palpation/Skin Start: 01/07/22 18:18 Freq: Status: Active Protocol: Document 01/08/22 09:16 LRN (Rec: 01/08/22 12:22 LRN [id number]) Posture Evaluation Position Standing Head/C-Spine Posture Forward Head T-Spine Posture Increased Kyphosis L-Spine Posture Decreased Lordosis Scapula Posture (L) Protracted,(R) Protracted, (L) Rotated Down,(R) Rotated Down Arm Posture (L) Internally Rotated,(R) Internally Rotated Pelvis Posture Anteriorly Tilted Knee Posture (L) Genu Valgus,(R) Genu Valgus Foot Arch (R) Medium Arch,(L) Low Arch Comments Posture Comments Level shoulders, R knee bent. Palpation Assessment Location Midback Palpation Location L paraspinals Palpation Findings Soft Tissue Tightness Palpation Details Andrew Paraspinals: Tenderness. R anterior chest Palpation Location R Pecs and anterior scalenes. Palpation Findings Soft Tissue Tightness PT-OP-K Range of Motion Start: 01/07/22 18:18 Freq: Status: Active Protocol: Document 01/22/22 10:35 LRN (Rec: 01/22/22 11:20 LRN [id number]) Cervical Spine Range of Motion Cervical Spine Active Degrees Testing Position Sitting Rotation Left 46 Rotation Right 45 PT-OP-M Strength Start: 01/07/22 18:18 Freq: Status: Active Protocol: Document 01/08/22 09:16 LRN (Rec: 01/08/22 12:22 LRN [id number]) Cervical Spine Strength Cervical Spine Manual Muscle Testing Lateral Flexion Left (C3) 3 Fair Comments Generally 4/5 except as indicated above. Shoulder Strength Shoulder Manual Muscle Testing Right Internal Rotation 5 Normal Comments Generally 3+/5 except as indicated above. Left Comments Generally 3+/5 except as indicated above. PT-OP-Q Treatments Start: 01/07/22 18:18 Freq: Status: Active Protocol: Document 02/19/22 13:50 SP (Rec: 02/19/22 14:32 SP [id number]) Therapeutic Exercises Sitting Exercises Thoracic Ext Sitting Exercise Name Thoracic upper ext Reps/Minutes 3 SH x 10 Comments Much cuing for thoracic ext, cues at back, neck, chest, top of head Sitting posturing Sitting Exercise Name Sitting posturing Equipment Used hands on lap Reps/Minutes 10' Comments Cuing for lumbar ext and Horiz AB/scap squeeze Sitting Exercise Name Horiz AB/scap squeeze (Arms at 120, 80 and 0 deg's AB) Side bilateral Reps/Minutes 3SH x 8 each Comments Cuing chest lift at midback needed. Scap pinches/Chin tuck Sitting Exercise Name Chin Tuck/Scap pinches Reps/Minutes 5 SH x 10 Comments Extra time needed for training to keep chin tucked and not collapse on rest Standing Exercises Posture training against wall Standing Exercise Name Standing facing wall for posture trainining Comments Much phys cuing for chin tuck and shoulders back. PT-OP-T Assessment and Plan Start: 01/07/22 18:18 Freq: Status: Active Protocol: Document 02/19/22 13:50 SP (Rec: 02/19/22 14:32 SP [id number]) Physical Therapy Assessment Goals Four Impairment Low endurance Impairment Spends most of days on sofa with heating pad, 4-5 days a week. (Pt is off sofa 2-3x/ week). Short Term Goal (STG) Improve endurance with ability to ex (UBE 10'), with pt able to go outside of the house for errands and avoid long times on the sofa, being off sofa > 3x/week. 01/22/22: UBE x 4' STG Duration 02/15/22 progressed 01/22/22 Pilot Boat Deckhand Goal (LTG) UBE/Recumbant bike - 15' total , with pt able to walk a couple blocks without feeling exhausted. 01/22/22: UBE x 4' LTG Duration 03/19/22 progressed 01/22/22 Three Impairment Decreased shoulder/neck AROM STG Duration 02/15/22 Pilot Boat Deckhand Goal (LTG) Improve shoulder AROM with pt able to reach top shelf of kitchen cabinet. LTG Duration 03/19/22 Two Impairment Neck and Upper back Pain causing general fatigue and weakness. Impairment Neck and intrascapular pain rated 4-8/10. L & R arm pain rated 0-6/10. UE QuickDASH 54.54 (40-59% impaired, score 40-59) Short Term Goal (STG) Improve shoulder strength 1/2 grade to 4-/5 with improved function (per UE QuickDASH). STG Duration 02/15/22 Pilot Boat Deckhand Goal (LTG) Improve bilateral shoulder strength to 4/5 to reduce feelings of overall exhaustion with pt able to walk a couple blocks without feeling exhausted. LTG Duration 03/19/22 One Impairment Lacks appropropriate HEP Short Term Goal (STG) Pt will be educated in proper posturing for sitting and standing. 01/22/22: Sitting postural ex. STG Duration 01/18/22 (01/18/22: MET GOAL ) Intermediate Goal (LTG) Pt will be educated in a self care HEP of shoulder and thoracic ROM and strengthening ex's to minimize recurrence of pain. 01/22/22: HEP: Thoracic ext, scap pinches (150, 90 & 0 deg' s AB), Shoulder ext w/scap retract. LTG Duration 03/19/22 progressing 01/22/22 Assessment Summary Assessment Much of treatment time spent working on seated posture, applying HEP and good feedback Rhomboid engagement felt end tx not pain. Cued neutral LS and elevate, CS ext/ chin nod flexion to allow improvement in posture. INSIDE OUTSIDE SALES REPRESENTATIVE used pt's phone to take self pic of posture relaxed and improved posture that helped pt realize her body positioning. Physical Therapy Plan Frequency and Duration Frequency of Treatment 2x/Week Plan of Care Start Date 01/08/22 Plan of Care End Date 03/19/22 Therapeutic Interventions Therapeutic Interventions Home Exercise Program,Joint Mobilizations,Manual Therapy, Patient/Caregiver Education, Self-Care/Home Management,Soft Tissue Mobilization, Therapeutic Activities, Therapeutic Exercises Modalities Cold Pack/Ice Massage Next Visit Focus/Plan Next Note Type Treatment Note Next Visit Plan Progress UBE and/or recumbent bike (for endurance, Goal #4). Add to HEP: stretches to open chest, repositioning head on shoulders, (correcting head/ shoulder posturing and kyphosis). Manual: R anterior chest, gentle neck STM with mostly pt respositioning ex's and STM to upper back for pain. Modalities: Ice.
--- NOTE | 2022-02-25 14:13 | PT-OP ANOTE ---
Pt DNS for today's appt, SPOT WASHER called her and she appologized for missing appt due to busy with calls to get someone out to fix plumbing and heating issues. She reported felt pretty good after last appt and more self aware of posture and what a difference has made. Pt agreeable to opening on SPOT WASHER schedule 02/27 at 1215 and still has 2 more SPOT WASHER appts (last 03/12/22) but no follow up with PT. SPOT WASHER will send pt message to schedulers for scheduling appt with PT Esther to update POC, expires 03/19. SPOT WASHER will update how progressing with her goals over the next 3 appts.
--- NOTE | 2022-02-27 13:00 | PT.OTN ---
Current Diagnoses Dorsalgia, unspecified (02/27/22) Myalgia, unspecified site (02/27/22) Physical Therapy Treatment Note PT-OP-A Visit Information Start: 01/07/22 18:18 Freq: Status: Active Protocol: Document 02/27/22 12:21 SP (Rec: 02/27/22 13:05 SP [id number]) Out-Patient Physical Therapy Visit Information Visit Information Visit Type Treatment Note Visit Start Time 12:21 Visit Stop Time 13:00 Total Visit Minutes 39 Visit Number 6 Number of DIRECTOR [employer]IGENCE Visits 2 Evaluation Information Evaluation Date 01/08/22 Precautions Precautions Falls x 2, Jaw pain-trigeminal nerve, Breast cancer - lumpectomy 2015, gall bladder removed 2021, controlled HBP, myelopathy - neuropathy. PT-OP-B Current Condition Start: 01/07/22 18:18 Freq: Status: Active Protocol: Document 01/08/22 09:16 LRN (Rec: 01/08/22 12:22 LRN [id number]) Current Condition History of Current Condition Onset Date 09/19/21 Current Complaints Onset of neck and back pain. 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 Pain at neck is chronic, sore and dull. Pain between shoulder blades is intense and was present 1 yr ago (cancer survivor); not due to cancer and not due to gall blader because the pain came back after gall bladder removal. Takes hydrocodone for neck and mid back pain that causes chest pain. ED Records indicate 01/04/22 that she stated she has spondylolisthesis, myelopathy and arthritis particularly at C5-6. Other records indicate pt had MRIs showing spondylosis of cervical spine as well as lumbar spine. There is severe stenosis of her cervical spine. Thoracic spine appears to be unremarkable. Prior Treatments and Tests No pior treatments for midback pain. X-rays: Thoracic Spine (09/28/21): No acute bony abnormality. 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 Future Testing and Treatments Planned Was told candidate for neck surgery at C5-C6 by one physician and a candidate by another. 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 Treatment Goals Patient/Caregiver Goals Pt goals walk a couple blocks without feeling exhausted. Able to go outside of the house for errancs and avoid long times on the sofa > 3x/ week. Able to reach top shelf kitchen cabinet. Prior Functional Status Baseline Function- ADL's Independent Baseline Function- Mobility Independent Baseline Function- Other Sleeps at most 6 hrs, at worst 1.5-2 hrs over 6 hrs. Good sleep 4x/week. Current Functional Impairments (Reported) Functional Limitations- ADL's Not able to get in/out of jacuzzi. Spends most of days on sofa with heating pad, 4-5 days a week. (off sofa 2-3x/week). Pain limits her ability to food prep and cook. 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 Sometimes sleep is disturbed. Sometimes chest pain 1.5-2 hrs over 6 hrs, ~ 4 days. Personal Factors Other Personal Factors That May Effect Has spouse 10 yrs older than Therapy/Recovery her. Pt gall bladder removed . PT-OP-C Subjective Start: 01/07/22 18:18 Freq: Status: Active Protocol: Document 02/27/22 12:21 SP (Rec: 02/27/22 13:05 SP [id number]) OP-PT Subjective Patient Comments Patient Comments Pt reported felt really good after last tx and didn't need take any medication for pain. PT-OP-E Functional Tests Start: 01/07/22 18:18 Freq: Status: Active Protocol: Document 01/08/22 09:16 LRN (Rec: 01/08/22 12:22 LRN [id number]) Functional Tests Apley's Scratch Test Action 1- Left Superomedial angle of scapula Action 1- Right Superomedial angle of scapula Action 2- Left T2 Action 2- Right T2 Action 3- Left T10 Action 3- Right T10 PT-OP-J Posture/Palpation/Skin Start: 01/07/22 18:18 Freq: Status: Active Protocol: Document 01/08/22 09:16 LRN (Rec: 01/08/22 12:22 LRN [id number]) Posture Evaluation Position Standing Head/C-Spine Posture Forward Head T-Spine Posture Increased Kyphosis L-Spine Posture Decreased Lordosis Scapula Posture (L) Protracted,(R) Protracted, (L) Rotated Down,(R) Rotated Down Arm Posture (L) Internally Rotated,(R) Internally Rotated Pelvis Posture Anteriorly Tilted Knee Posture (L) Genu Valgus,(R) Genu Valgus Foot Arch (R) Medium Arch,(L) Low Arch Comments Posture Comments Level shoulders, R knee bent. Palpation Assessment Location Midback Palpation Location L paraspinals Palpation Findings Soft Tissue Tightness Palpation Details Andrew Paraspinals: Tenderness. R anterior chest Palpation Location R Pecs and anterior scalenes. Palpation Findings Soft Tissue Tightness PT-OP-K Range of Motion Start: 01/07/22 18:18 Freq: Status: Active Protocol: Document 01/22/22 10:35 LRN (Rec: 01/22/22 11:20 LRN [id number]) Cervical Spine Range of Motion Cervical Spine Active Degrees Testing Position Sitting Rotation Left 46 Rotation Right 45 PT-OP-M Strength Start: 01/07/22 18:18 Freq: Status: Active Protocol: Document 01/08/22 09:16 LRN (Rec: 01/08/22 12:22 LRN [id number]) Cervical Spine Strength Cervical Spine Manual Muscle Testing Lateral Flexion Left (C3) 3 Fair Comments Generally 4/5 except as indicated above. Shoulder Strength Shoulder Manual Muscle Testing Right Internal Rotation 5 Normal Comments Generally 3+/5 except as indicated above. Left Comments Generally 3+/5 except as indicated above. PT-OP-Q Treatments Start: 01/07/22 18:18 Freq: Status: Active Protocol: Document 02/27/22 12:21 SP (Rec: 02/27/22 13:05 SP [id number]) Therapeutic Exercises Sidelying Exercises open book Sidelying Exercise Name added to HEP Side bilateral Reps/Minutes x8 reps Comments cued head turn with arm, slow controlled painfree motion Sitting Exercises Thoracic Ext Sitting Exercise Name Thoracic upper ext Reps/Minutes 3 SH x 10 Comments Much cuing for thoracic ext, cues at back, neck, chest, top of head Sitting posturing Sitting Exercise Name Sitting posturing: HEP reviewed Equipment Used hands on lap Reps/Minutes 3SH x10 Comments Cuing for TS and lumbar ext facilitation noted Horiz AB/scap squeeze Sitting Exercise Name Horiz AB/scap squeeze (Arms at 120, 80 and 0 deg's AB) Side bilateral Reps/Minutes 3SH x 8 each Comments Cuing chest lift at midback needed. Scap pinches/Chin tuck Sitting Exercise Name Chin Tuck/Scap pinches Reps/Minutes 5 SH x 10 Comments Extra time needed for training to keep chin tucked and not collapse on rest Standing Exercises self STMs Standing Exercise Name added ball on wall: paraspinal , rhomboids Reps/Minutes 2 min total Comments good feedback massage Posture training against wall Standing Exercise Name Standing facing wall for posture trainining Comments Min cuing for TA, head chin tuck CS ext neutral- good feedback response. Manual Therapy Treatment Soft Tissue Mobilization TS, LS Body Location B paraspinals, rhomboids Mobilization Type Strumming Intensity/Depth Moderate Body Position Prone Comments pillows under pelvis Self-Care/Home Management Treatment Education Patient Education Body Mechanics,Home Exercise Program,Posture Other Education TIme spent reviewing use pillows and trunk alignment for sidesleeping to decrease back and shoulder discomfort with good feedback understanding. Added open book. PT-OP-T Assessment and Plan Start: 01/07/22 18:18 Freq: Status: Active Protocol: Document 02/27/22 12:21 SP (Rec: 02/27/22 13:05 SP [id number]) Physical Therapy Assessment Goals Four Impairment Low endurance Impairment Spends most of days on sofa with heating pad, 4-5 days a week. (Pt is off sofa 2-3x/ week). Short Term Goal (STG) Improve endurance with ability to ex (UBE 10'), with pt able to go outside of the house for errands and avoid long times on the sofa, being off sofa > 3x/week. 01/22/22: UBE x 4' STG Duration 02/15/22 progressed 01/22/22 Penitentiary Goal (LTG) UBE/Recumbant bike - 15' total , with pt able to walk a couple blocks without feeling exhausted. 01/22/22: UBE x 4' LTG Duration 03/19/22 progressed 01/22/22 Three Impairment Decreased shoulder/neck AROM STG Duration 02/15/22 Penitentiary Goal (LTG) Improve shoulder AROM with pt able to reach top shelf of kitchen cabinet. LTG Duration 03/19/22 Two Impairment Neck and Upper back Pain causing general fatigue and weakness. Impairment Neck and intrascapular pain rated 4-8/10. L & R arm pain rated 0-6/10. UE QuickDASH 54.54 (40-59% impaired, score 40-59) Short Term Goal (STG) Improve shoulder strength 1/2 grade to 4-/5 with improved function (per UE QuickDASH). STG Duration 02/15/22 Penitentiary Goal (LTG) Improve bilateral shoulder strength to 4/5 to reduce feelings of overall exhaustion with pt able to walk a couple blocks without feeling exhausted. LTG Duration 03/19/22 One Impairment Lacks appropropriate HEP Short Term Goal (STG) Pt will be educated in proper posturing for sitting and standing. 01/22/22: Sitting postural ex. 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 01/22/22: HEP: Thoracic ext, scap pinches (150, 90 & 0 deg' s AB), Shoulder ext w/scap retract. 02/27/22: open book, wall posture, ball wall self STMs. LTG Duration 03/19/22 progressing 02/27/22 Assessment Summary Assessment Pt good response to manual and understanding to self apply with ball on wall and can see her massage therapist if needed. Pt improves posture HEP review improving in more upright positioning and rhomboid fac response to ex. She reports not needing to take meds lately for pain. Physical Therapy Plan Frequency and Duration Frequency of Treatment 2x/Week Plan of Care Start Date 01/08/22 Plan of Care End Date 03/19/22 Therapeutic Interventions Therapeutic Interventions Home Exercise Program,Joint Mobilizations,Manual Therapy, Patient/Caregiver Education, Self-Care/Home Management,Soft Tissue Mobilization, Therapeutic Activities, Therapeutic Exercises Modalities Cold Pack/Ice Massage Next Visit Focus/Plan Next Note Type Treatment Note Next Visit Plan REcheck wall posture. Add Progress UBE and/or recumbent bike (for endurance, Goal #4). Add to HEP: stretches to open chest, repositioning head on shoulders, (correcting head/ shoulder posturing and kyphosis). Manual: R anterior chest, gentle neck STM with mostly pt respositioning ex's and STM to upper back for pain. Modalities: Ice.
--- NOTE | 2022-03-05 18:40 | PT.OTN ---
Current Diagnoses Dorsalgia, unspecified (03/05/22) Myalgia, unspecified site (03/05/22) Physical Therapy Treatment Note PT-OP-A Visit Information Start: 01/07/22 18:18 Freq: Status: Active Protocol: Document 03/05/22 10:01 LRN (Rec: 03/05/22 10:43 LRN [id number]) Out-Patient Physical Therapy Visit Information Visit Information Visit Type Treatment Note Visit Start Time 10:01 Visit Stop Time 10:43 Total Visit Minutes 43 Visit Number 7 Evaluation Information Evaluation Date 01/08/22 Precautions Precautions Falls x 2, Jaw pain-trigeminal nerve, Breast cancer - lumpectomy 2015, gall bladder removed 2021, controlled HBP, myelopathy - neuropathy. PT-OP-B Current Condition Start: 01/07/22 18:18 Freq: Status: Active Protocol: Document 01/08/22 09:16 LRN (Rec: 01/08/22 12:22 LRN [id number]) Current Condition History of Current Condition Onset Date 09/19/21 Current Complaints Onset of neck and back pain. 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 Pain at neck is chronic, sore and dull. Pain between shoulder blades is intense and was present 1 yr ago (cancer survivor); not due to cancer and not due to gall blader because the pain came back after gall bladder removal. Takes hydrocodone for neck and mid back pain that causes chest pain. ED Records indicate 01/04/22 that she stated she has spondylolisthesis, myelopathy and arthritis particularly at C5-6. Other records indicate pt had MRIs showing spondylosis of cervical spine as well as lumbar spine. There is severe stenosis of her cervical spine. Thoracic spine appears to be unremarkable. Prior Treatments and Tests No pior treatments for midback pain. X-rays: Thoracic Spine (09/28/21): No acute bony abnormality. 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 Future Testing and Treatments Planned Was told candidate for neck surgery at C5-C6 by one physician and a candidate by another. 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 Treatment Goals Patient/Caregiver Goals Pt goals walk a couple blocks without feeling exhausted. Able to go outside of the house for errancs and avoid long times on the sofa > 3x/ week. Able to reach top shelf kitchen cabinet. Prior Functional Status Baseline Function- ADL's Independent Baseline Function- Mobility Independent Baseline Function- Other Sleeps at most 6 hrs, at worst 1.5-2 hrs over 6 hrs. Good sleep 4x/week. Current Functional Impairments (Reported) Functional Limitations- ADL's Not able to get in/out of jacuzzi. Spends most of days on sofa with heating pad, 4-5 days a week. (off sofa 2-3x/week). Pain limits her ability to food prep and cook. 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 Sometimes sleep is disturbed. Sometimes chest pain 1.5-2 hrs over 6 hrs, ~ 4 days. Personal Factors Other Personal Factors That May Effect Has spouse 10 yrs older than Therapy/Recovery her. Pt gall bladder removed . PT-OP-C Subjective Start: 01/07/22 18:18 Freq: Status: Active Protocol: Document 03/05/22 10:01 LRN (Rec: 03/05/22 10:43 LRN [id number]) OP-PT Subjective Patient Comments Patient Comments States life has been super stressful and has been able to do much exercise. States she is not sitting on sofa as much, due to much going on, going to bed and getting up earlier and feeling more active. States she is using meds less and didn't have to use pain med for 3 days last week. Patient Questionnaires Quick Dash- Upper Extremity Quick Dash UE Score 47.72 Quick Dash UE Impairment 40 to 59% Impaired (Score 40- 59) PT-OP-E Functional Tests Start: 01/07/22 18:18 Freq: Status: Active Protocol: Document 01/08/22 09:16 LRN (Rec: 01/08/22 12:22 LRN [id number]) Functional Tests Apley's Scratch Test Action 1- Left Superomedial angle of scapula Action 1- Right Superomedial angle of scapula Action 2- Left T2 Action 2- Right T2 Action 3- Left T10 Action 3- Right T10 PT-OP-J Posture/Palpation/Skin Start: 01/07/22 18:18 Freq: Status: Active Protocol: Document 01/08/22 09:16 LRN (Rec: 01/08/22 12:22 LRN [id number]) Posture Evaluation Position Standing Head/C-Spine Posture Forward Head T-Spine Posture Increased Kyphosis L-Spine Posture Decreased Lordosis Scapula Posture (L) Protracted,(R) Protracted, (L) Rotated Down,(R) Rotated Down Arm Posture (L) Internally Rotated,(R) Internally Rotated Pelvis Posture Anteriorly Tilted Knee Posture (L) Genu Valgus,(R) Genu Valgus Foot Arch (R) Medium Arch,(L) Low Arch Comments Posture Comments Level shoulders, R knee bent. Palpation Assessment Location Midback Palpation Location L paraspinals Palpation Findings Soft Tissue Tightness Palpation Details Andrew Paraspinals: Tenderness. R anterior chest Palpation Location R Pecs and anterior scalenes. Palpation Findings Soft Tissue Tightness PT-OP-K Range of Motion Start: 01/07/22 18:18 Freq: Status: Active Protocol: Document 03/05/22 10:01 LRN (Rec: 03/05/22 10:43 LRN [id number]) Cervical Spine Range of Motion Cervical Spine Active Degrees Testing Position Sitting Flexion 30 Extension 27 Rotation Left 45 Rotation Right 39 Lateral Flexion Left 18 Lateral Flexion Right 20 ROM Limitations Soft Tissue Tightness,Pain Comments Pain in neck with flexion. Shoulder Goniometric Range of Motion Shoulder Right Active Testing Position Sitting Flexion 141 Extension 68 Abduction 130 Comments Shoulder AB is within the scapular plane. Left Active Testing Position Sitting Flexion 131 Extension 60 Abduction 130 Comments L neck is achy. Shoulder AB is within the scapular plane. PT-OP-M Strength Start: 01/07/22 18:18 Freq: Status: Active Protocol: Document 03/05/22 10:01 LRN (Rec: 03/05/22 10:43 LRN [id number]) Shoulder Strength Shoulder Manual Muscle Testing Right Flexion 5 Normal Extension 5 Normal Abduction (C5) 5 Normal Adduction 4+ Good+ External Rotation 3+ Fair+ Internal Rotation 3+ Fair+ Left Flexion 3 Fair Extension 5 Normal Abduction (C5) 4+ Good+ Adduction 4+ Good+ External Rotation 3+ Fair+ Internal Rotation 3+ Fair+ PT-OP-Q Treatments Start: 01/07/22 18:18 Freq: Status: Active Protocol: Document 03/05/22 10:01 LRN (Rec: 03/05/22 10:43 N [id number]) Cardio Equipment Upper Body Ergometer (UBE) Duration (Minutes) 6 RPM 80 Seat Position 10 Height 2.5 Other Fwd/Bkwd. Cuing for upright posturing (chin tuck, neck elongation) Therapeutic Exercises Sitting Exercises C. AROM Sitting Exercise Name C. AROM Comments ROM taken Shoulder AROM Sitting Exercise Name Shoulder AROM Side bilateral Comments ROM and MMT taken Thoracic Ext Sitting Exercise Name Thoracic upper ext Reps/Minutes 3 SH x 10 Sitting posturing Sitting Exercise Name Sitting posturing Equipment Used hands on lap Reps/Minutes 3 SH x10 Comments Cuing for TS and lumbar ext facilitation and neck elongation C/S SB stretch Sitting Exercise Name Pulling head sideways for SB stretch. Side bilateral Reps/Minutes 6' Self-Care/Home Management Treatment Education Other Education Educated pt in functional shoulder range and strength with discussion of plan of care and goals for therapy. Discussed pt wanting to add balance to her therapy goals but understands she will need a new referral from her referring physician to add to her program. Discussed other options of completing current therapy, then returning for balance. Pt plans to check with referring physician. PT-OP-T Assessment and Plan Start: 01/07/22 18:18 Freq: Status: Active Protocol: Document 03/05/22 10:01 LRN (Rec: 03/05/22 10:43 [facility] [id number]) Physical Therapy Assessment Rehab Potential Rehabilitation Potential Good Evaluation Complexity Number of Personal Factors/Comorbidities 1-2 Number of Body Systems Impaired 4 or More Clinical Presentation at Evaluation Evolving Impairments Impairments Activity Tolerance,Pain, Posture,ROM,Soft Tissue Mobility,Strength Goals Four Impairment Low endurance Impairment Spends most of days on sofa with heating pad, 4-5 days a week, several hours. (Pt is off sofa 2-3x/week). Short Term Goal (STG) Improve endurance with ability to ex (UBE 10'), with pt able to go outside of the house for errands and avoid long times on the sofa, being off sofa > 3x/week. 01/22/22: UBE x 4' 03/05/22: UBE x 6' 70 rpm, on sofa 4x/week. STG Duration 04/04/22 progressed 03/05/22 Sheep Shearer Goal (LTG) UBE/Recumbant bike - 15' total , with pt able to walk a couple blocks without feeling exhausted. 01/22/22: UBE x 4' 03/05/22: UBE x 6' 70 rpm, has been walking for errands a couple blocks with discomfort. Limited w/walking due to R knee pain. LTG Duration 05/04/22 progressed 03/05/21 Three Impairment Decreased shoulder/neck AROM Impairment Initial Shldr AROM (deg's): Right flex 128, AB 170; Left flex 142, AB 170 (AB is within the scapular plane) Sheep Shearer Goal (LTG) Improve shoulder AROM with pt able to reach above and hang things on top casing runner closet. 03/05/22: Not able to reach cabinet shelves because would need a step stool; so changing the goal is better. Variable improvement in shldr AROM ( deg's): Right flex 141, ext 68, AB 130; Left flex 131, ext 60, AB 130 (AB is within the scapular plane) LTG Duration 05/04/22 Minimal progress Two Impairment Neck and Upper back Pain causing general fatigue and weakness. Impairment Neck and intrascapular pain rated 4-8/10. L & R arm pain rated 0-6/10. UE QuickDASH 54.54 (40-59% impaired, score 40-59) Initial Shldr Strength: Left generally 3+/5; Right 3+/5 except IR 5/5. Short Term Goal (STG) Improve shoulder strength 1/2 grade to 4-/5 with improved function (per UE QuickDASH). 03/05/22: Pain typically 3-4/ 10 to 6-7/10. UE QuickDASH score less at 47 (40-59% impaired, score 40-59), was initially 54. Shldr strength: 4+/5 strength or greater except: Right IR/ER is 3+/5; Left flex 3/5, ER/IR 3+/5. STG Duration 04/04/22 progressing shldr strength 03/05/22 & improved QuickDASH score Sheep Shearer Goal (LTG) Improve bilateral shoulder strength to 4/5 to reduce feelings of overall exhaustion with pt able to walk a couple blocks without feeling exhausted. 03/05/22: Variable improvement in shoulder strength (4+/5 strength or greater except: Right IR/ER is 3+/5; Left flex 3/5, ER/IR 3+/5). Pt has not been able to walk due to events at home. LTG Duration 05/04/22 progressing 03/05/22 One Impairment Lacks appropropriate HEP Short Term Goal (STG) Pt will be educated in proper posturing for sitting and standing. 01/22/22: Sitting postural ex. STG Duration 01/18/22 (01/18/22: MET GOAL ) Sheep Shearer Goal (LTG) Pt will be educated in a self care HEP of shoulder and thoracic ROM and strengthening ex's to minimize recurrence of pain. 01/22/22: HEP: Thoracic ext, scap pinches (150, 90 & 0 deg' s AB), Shoulder ext w/scap retract. 02/27/22: open book, wall posture, ball wall self STMs. LTG Duration 05/04/22 progressing Assessment Summary Assessment Pt rehabilitation for postural /mechanical and soft tissue dysfunction (thoracic kyphosis , forward head, paraspinal tightness L>R and tightness of R anterior chest) and weakness of thoracic core and shoulders bilaterally. She shows some improvement in shoulder strength bilaterally, minmal change with shoulder ROM, except with R shoulder flexion, and variable improvement in neck ROM ( improved SB/ext, worse R Rot, flex). The pt has attended 6 visits in ~2 months with some improvement noted. The pt would like to be more consistent with therapy and continue to work towards achieving her goals. As expected the pt is making slow progress and I feel she would benefit from further skilled physical therapy to work towards achieving the above stated goals. Physical Therapy Plan Frequency and Duration Frequency of Treatment 2x/Week Plan of Care Start Date 03/05/22 Plan of Care End Date 05/04/22 Therapeutic Interventions Therapeutic Interventions Home Exercise Program,Joint Mobilizations,Manual Therapy, Patient/Caregiver Education, Self-Care/Home Management,Soft Tissue Mobilization, Therapeutic Activities, Therapeutic Exercises Modalities Cold Pack/Ice Massage Next Visit Focus/Plan Next Note Type Treatment Note Next Visit Plan Recheck wall posture. Progress UBE for goal #4, and/ or recumbent bike if knee not limited by pain (for endurance , Goal #4). Add to HEP: stretches to open chest, repositioning head on shoulders, (correcting head/ shoulder posturing and kyphosis). Manual: R anterior chest, gentle neck STM with mostly pt respositioning ex's and STM to upper back for pain. Strengthen shoulders and improve shoulder ROM.
--- NOTE | 2022-03-05 18:41 | PT.OPPOC ---
Physical, Occupational & Speech Therapy At [facility] Current Diagnoses Dorsalgia, unspecified (03/05/22) Myalgia, unspecified site (03/05/22) Visit Care Team Role Provider Type Nikhil Ballard MD Primary Care Provider Physician Specialty: Family Practice Address: [address] [place] [address], [id number] Email: [email or web address] Lisbeth Liu MD Attending Provider Non-Staff Referring Provider Specialty: Neurology Address: [address] [place] [address], [id number] Email: Plan Of Care PT-OP-T Assessment and Plan Start: 01/07/22 18:18 Freq: Status: Active Protocol: Document 03/05/22 10:01 LRN (Rec: 03/05/22 10:43 LRN [id number]) Physical Therapy Assessment Rehab Potential Rehabilitation Potential Good Evaluation Complexity Number of Personal Factors/Comorbidities 1-2 Number of Body Systems Impaired 4 or More Clinical Presentation at Evaluation Evolving Impairments Impairments Activity Tolerance,Pain, Posture,ROM,Soft Tissue Mobility,Strength Goals Four Impairment Low endurance Impairment Spends most of days on sofa with heating pad, 4-5 days a week, several hours. (Pt is off sofa 2-3x/week). Short Term Goal (STG) Improve endurance with ability to ex (UBE 10'), with pt able to go outside of the house for errands and avoid long times on the sofa, being off sofa > 3x/week. 01/22/22: UBE x 4' 03/05/22: UBE x 6' 70 rpm, on sofa 4x/week. STG Duration 04/04/22 progressed 03/05/22 Jail Goal (LTG) UBE/Recumbant bike - 15' total , with pt able to walk a couple blocks without feeling exhausted. 01/22/22: UBE x 4' 03/05/22: UBE x 6' 70 rpm, has been walking for errands a couple blocks with discomfort. Limited w/walking due to R knee pain. LTG Duration 05/04/22 progressed 03/05/21 Three Impairment Decreased shoulder/neck AROM Impairment Initial Shldr AROM (deg's): Right flex 128, AB 170; Left flex 142, AB 170 (AB is within the scapular plane) Rubber Goods Inspector Goal (LTG) Improve shoulder AROM with pt able to reach above and hang things on top spring tier closet. 03/05/22: Not able to reach cabinet shelves because would need a step stool; so changing the goal is better. Variable improvement in shldr AROM ( deg's): Right flex 141, ext 68, AB 130; Left flex 131, ext 60, AB 130 (AB is within the scapular plane) LTG Duration 05/04/22 Minimal progress Two Impairment Neck and Upper back Pain causing general fatigue and weakness. Impairment Neck and intrascapular pain rated 4-8/10. L & R arm pain rated 0-6/10. UE QuickDASH 54.54 (40-59% impaired, score 40-59) Initial Shldr Strength: Left generally 3+/5; Right 3+/5 except IR 5/5. Short Term Goal (STG) Improve shoulder strength 1/2 grade to 4-/5 with improved function (per UE QuickDASH). 03/05/22: Pain typically 3-4/ 10 to 6-7/10. UE QuickDASH score less at 47 (40-59% impaired, score 40-59), was initially 54. Shldr strength: 4+/5 strength or greater except: Right IR/ER is 3+/5; Left flex 3/5, ER/IR 3+/5. STG Duration 04/04/22 progressing shldr strength 03/05/22 & improved QuickDASH score Jail Goal (LTG) Improve bilateral shoulder strength to 4/5 to reduce feelings of overall exhaustion with pt able to walk a couple blocks without feeling exhausted. 03/05/22: Variable improvement in shoulder strength (4+/5 strength or greater except: Right IR/ER is 3+/5; Left flex 3/5, ER/IR 3+/5). Pt has not been able to walk due to events at home. LTG Duration 05/04/22 progressing 03/05/22 One Impairment Lacks appropropriate HEP Short Term Goal (STG) Pt will be educated in proper posturing for sitting and standing. 01/22/22: Sitting postural ex. STG Duration 01/18/22 (01/18/22: MET GOAL ) Jail Goal (LTG) Pt will be educated in a self care HEP of shoulder and thoracic ROM and strengthening ex's to minimize recurrence of pain. 01/22/22: HEP: Thoracic ext, scap pinches (150, 90 & 0 deg' s AB), Shoulder ext w/scap retract. 02/27/22: open book, wall posture, ball wall self STMs. LTG Duration 05/04/22 progressing Assessment Summary Assessment Pt rehabilitation for postural /mechanical and soft tissue dysfunction (thoracic kyphosis , forward head, paraspinal tightness L>R and tightness of R anterior chest) and weakness of thoracic core and shoulders bilaterally. She shows some improvement in shoulder strength bilaterally, minmal change with shoulder ROM, except with R shoulder flexion, and variable improvement in neck ROM ( improved SB/ext, worse R Rot, flex). The pt has attended 6 visits in ~2 months with some improvement noted. The pt would like to be more consistent with therapy and continue to work towards achieving her goals. As expected the pt is making slow progress and I feel she would benefit from further skilled physical therapy to work towards achieving the above stated goals. Physical Therapy Plan Frequency and Duration Frequency of Treatment 2x/Week Plan of Care Start Date 03/05/22 Plan of Care End Date 05/04/22 Therapeutic Interventions Therapeutic Interventions Home Exercise Program,Joint Mobilizations,Manual Therapy, Patient/Caregiver Education, Self-Care/Home Management,Soft Tissue Mobilization, Therapeutic Activities, Therapeutic Exercises Modalities Cold Pack/Ice Massage Next Visit Focus/Plan Next Note Type Treatment Note Next Visit Plan Recheck wall posture. Progress UBE for goal #4, and/ or recumbent bike if knee not limited by pain (for endurance , Goal #4). Add to HEP: stretches to open chest, repositioning head on shoulders, (correcting head/ shoulder posturing and kyphosis). Manual: R anterior chest, gentle neck STM with mostly pt respositioning ex's and STM to upper back for pain. Strengthen shoulders and improve shoulder ROM. Plan of Care Dates Plan of Care Start Date 03/05/22 Plan of Care End Date 05/04/22 Electronically Signed by: Breanne Laughlin, PT 03/05/22 1841 If you are in agreement with this Plan of Care, please return a signed and dated copy. I have reviewed this Plan of Care and certify that the skilled therapy services above are required to meet the patient?s needs. Physician Signature Date Printed Name and Credentials Clinical Instructor Signature Printed Name and Credentials
--- NOTE | 2022-03-12 11:20 | PT.OTN ---
Current Diagnoses Dorsalgia, unspecified (03/12/22) Myalgia, unspecified site (03/12/22) Physical Therapy Treatment Note PT-OP-A Visit Information Start: 01/07/22 18:18 Freq: Status: Active Protocol: Document 03/12/22 10:34 SP (Rec: 03/12/22 11:48 SP [id number]) Out-Patient Physical Therapy Visit Information Visit Information Visit Type Treatment Note Visit Note Pt 4 min late for appt. Visit Start Time 10:36 Visit Stop Time 11:20 Total Visit Minutes 44 Visit Number 8 Number of FORESTRY FIRE AID Visits 1 Evaluation Information Evaluation Date 01/08/22 Precautions Precautions Falls x 2, Jaw pain-trigeminal nerve, Breast cancer - lumpectomy 2015, gall bladder removed 2021, controlled HBP, myelopathy - neuropathy. PT-OP-B Current Condition Start: 01/07/22 18:18 Freq: Status: Active Protocol: Document 01/08/22 09:16 LRN (Rec: 01/08/22 12:22 LRN [id number]) Current Condition History of Current Condition Onset Date 09/19/21 Current Complaints Onset of neck and back pain. 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 Pain at neck is chronic, sore and dull. Pain between shoulder blades is intense and was present 1 yr ago (cancer survivor); not due to cancer and not due to gall blader because the pain came back after gall bladder removal. Takes hydrocodone for neck and mid back pain that causes chest pain. ED Records indicate 01/04/22 that she stated she has spondylolisthesis, myelopathy and arthritis particularly at C5-6. Other records indicate pt had MRIs showing spondylosis of cervical spine as well as lumbar spine. There is severe stenosis of her cervical spine. Thoracic spine appears to be unremarkable. Prior Treatments and Tests No pior treatments for midback pain. X-rays: Thoracic Spine (09/28/21): No acute bony abnormality. 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 Future Testing and Treatments Planned Was told candidate for neck surgery at C5-C6 by one physician and a candidate by another. 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 Treatment Goals Patient/Caregiver Goals Pt goals walk a couple blocks without feeling exhausted. Able to go outside of the house for errancs and avoid long times on the sofa > 3x/ week. Able to reach top shelf kitchen cabinet. Prior Functional Status Baseline Function- ADL's Independent Baseline Function- Mobility Independent Baseline Function- Other Sleeps at most 6 hrs, at worst 1.5-2 hrs over 6 hrs. Good sleep 4x/week. Current Functional Impairments (Reported) Functional Limitations- ADL's Not able to get in/out of jacuzzi. Spends most of days on sofa with heating pad, 4-5 days a week. (off sofa 2-3x/week). Pain limits her ability to food prep and cook. 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 Sometimes sleep is disturbed. Sometimes chest pain 1.5-2 hrs over 6 hrs, ~ 4 days. Personal Factors Other Personal Factors That May Effect Has spouse 10 yrs older than Therapy/Recovery her. Pt gall bladder removed . PT-OP-C Subjective Start: 01/07/22 18:18 Freq: Status: Active Protocol: Document 03/12/22 10:34 SP (Rec: 03/12/22 11:48 SP [id number]) OP-PT Subjective Patient Comments Patient Comments Pt reports sometimes mid afternoon mid back sore, neck. not having to take Tylenol now. PT-OP-E Functional Tests Start: 01/07/22 18:18 Freq: Status: Active Protocol: Document 01/08/22 09:16 LRN (Rec: 01/08/22 12:22 LRN [id number]) Functional Tests Apley's Scratch Test Action 1- Left Superomedial angle of scapula Action 1- Right Superomedial angle of scapula Action 2- Left T2 Action 2- Right T2 Action 3- Left T10 Action 3- Right T10 PT-OP-J Posture/Palpation/Skin Start: 01/07/22 18:18 Freq: Status: Active Protocol: Document 01/08/22 09:16 LRN (Rec: 01/08/22 12:22 LRN [id number]) Posture Evaluation Position Standing Head/C-Spine Posture Forward Head T-Spine Posture Increased Kyphosis L-Spine Posture Decreased Lordosis Scapula Posture (L) Protracted,(R) Protracted, (L) Rotated Down,(R) Rotated Down Arm Posture (L) Internally Rotated,(R) Internally Rotated Pelvis Posture Anteriorly Tilted Knee Posture (L) Genu Valgus,(R) Genu Valgus Foot Arch (R) Medium Arch,(L) Low Arch Comments Posture Comments Level shoulders, R knee bent. Palpation Assessment Location Midback Palpation Location L paraspinals Palpation Findings Soft Tissue Tightness Palpation Details Andrew Paraspinals: Tenderness. R anterior chest Palpation Location R Pecs and anterior scalenes. Palpation Findings Soft Tissue Tightness PT-OP-K Range of Motion Start: 01/07/22 18:18 Freq: Status: Active Protocol: Document 03/05/22 10:01 LRN (Rec: 03/05/22 10:43 LRN [id number]) Cervical Spine Range of Motion Cervical Spine Active Degrees Testing Position Sitting Flexion 30 Extension 27 Rotation Left 45 Rotation Right 39 Lateral Flexion Left 18 Lateral Flexion Right 20 ROM Limitations Soft Tissue Tightness,Pain Comments Pain in neck with flexion. Shoulder Goniometric Range of Motion Shoulder Right Active Testing Position Sitting Flexion 141 Extension 68 Abduction 130 Comments Shoulder AB is within the scapular plane. Left Active Testing Position Sitting Flexion 131 Extension 60 Abduction 130 Comments L neck is achy. Shoulder AB is within the scapular plane. PT-OP-M Strength Start: 01/07/22 18:18 Freq: Status: Active Protocol: Document 03/05/22 10:01 LRN (Rec: 03/05/22 10:43 LRN [id number]) Shoulder Strength Shoulder Manual Muscle Testing Right Flexion 5 Normal Extension 5 Normal Abduction (C5) 5 Normal Adduction 4+ Good+ External Rotation 3+ Fair+ Internal Rotation 3+ Fair+ Left Flexion 3 Fair Extension 5 Normal Abduction (C5) 4+ Good+ Adduction 4+ Good+ External Rotation 3+ Fair+ Internal Rotation 3+ Fair+ PT-OP-Q Treatments Start: 01/07/22 18:18 Freq: Status: Active Protocol: Document 03/12/22 10:34 SP (Rec: 03/12/22 11:48 SP [id number]) Cardio Equipment Upper Body Ergometer (UBE) Duration (Minutes) 6 RPM 70 Seat Position 10 Height 2.5 (progress 7 min, 65 RPM next tx) Other Fwd/Bkwd. improved for upright posturing (chin tuck, neck elongation) Therapeutic Exercises Sitting Exercises shld ext, rows Sitting Exercise Name added to HEP Resistance TB #1 ext, #2 rows Reps/Minutes x10 each Comments cued chest lift, scap retraction Horiz AB/scap squeeze Sitting Exercise Name Horiz AB/scap squeeze (Arms at 120, 80, ) deg's AB) Side bilateral Reps/Minutes 3SH x 8 each Comments Cuing chest lift at midback needed. Scap pinches/Chin tuck Sitting Exercise Name Chin Tuck/Scap pinches Reps/Minutes 5 SH x 10 Comments good form Standing Exercises rows Standing Exercise Name initiated in PT- revisit for HEP standing Side bilateral Resistance TB #1 Reps/Minutes x15 reps Comments cued chest lift, neutral LS, TA, ft/knee alignment L>R shld ext Standing Exercise Name initiated in PT- revisit for HEP standing Side bilateral Resistance TB #1 Reps/Minutes x15 reps Comments cued chest lift, neutral LS, TA, ft/knee alignment L>R self STMs Standing Exercise Name 03/12 discussed on wall: paraspinal, rhomboids Equipment Used check next tx Comments good feedback massage Posture training against wall Standing Exercise Name Standing facing wall for posture trainining Comments Min cuing for TA, head chin tuck CS ext neutral- good feedback response. Self-Care/Home Management Treatment Education Patient Education Body Mechanics,Home Exercise Program,Posture Other Education Pt requires cues for refocus on postural effort/form to allow benefits. Added resisted shld ext/rows seated, check if can transition to standing w/out LB recruitment. PT-OP-T Assessment and Plan Start: 01/07/22 18:18 Freq: Status: Active Protocol: Document 03/12/22 10:34 SP (Rec: 03/12/22 11:48 SP [id number]) Physical Therapy Assessment Goals Four Impairment Low endurance Impairment Spends most of days on sofa with heating pad, 4-5 days a week, several hours. (Pt is off sofa 2-3x/week). Short Term Goal (STG) Improve endurance with ability to ex (UBE 10'), with pt able to go outside of the house for errands and avoid long times on the sofa, being off sofa > 3x/week. 01/22/22: UBE x 4' 03/05/22: UBE x 6' 70 rpm, on sofa 4x/week. 03/12/22 UBE 6.5 min 70 RPMs STG Duration 04/04/22 progressed 03/12/22 Snf Goal (LTG) UBE/Recumbant bike - 15' total , with pt able to walk a couple blocks without feeling exhausted. 01/22/22: UBE x 4' 03/05/22: UBE x 6' 70 rpm, has been walking for errands a couple blocks with discomfort. Limited w/walking due to R knee pain. 03/12/22: UBE 6.5 min 65 RPMs LTG Duration 05/04/22 progressed 03/12/21 Three Impairment Decreased shoulder/neck AROM Impairment Initial Shldr AROM (deg's): Right flex 128, AB 170; Left flex 142, AB 170 (AB is within the scapular plane) Snf Goal (LTG) Improve shoulder AROM with pt able to reach above and hang things on top coutierier closet. 03/05/22: Not able to reach cabinet shelves because would need a step stool; so changing the goal is better. Variable improvement in shldr AROM ( deg's): Right flex 141, ext 68, AB 130; Left flex 131, ext 60, AB 130 (AB is within the scapular plane) LTG Duration 05/04/22 Minimal progress Two Impairment Neck and Upper back Pain causing general fatigue and weakness. Impairment Neck and intrascapular pain rated 4-8/10. L & R arm pain rated 0-6/10. UE QuickDASH 54.54 (40-59% impaired, score 40-59) Initial Shldr Strength: Left generally 3+/5; Right 3+/5 except IR 5/5. Short Term Goal (STG) Improve shoulder strength 1/2 grade to 4-/5 with improved function (per UE QuickDASH). 03/05/22: Pain typically 3-4/ 10 to 6-7/10. UE QuickDASH score less at 47 (40-59% impaired, score 40-59), was initially 54. Shldr strength: 4+/5 strength or greater except: Right IR/ER is 3+/5; Left flex 3/5, ER/IR 3+/5. STG Duration 04/04/22 progressing shldr strength 03/05/22 & improved QuickDASH score Twitchell Operator Goal (LTG) Improve bilateral shoulder strength to 4/5 to reduce feelings of overall exhaustion with pt able to walk a couple blocks without feeling exhausted. 03/05/22: Variable improvement in shoulder strength (4+/5 strength or greater except: Right IR/ER is 3+/5; Left flex 3/5, ER/IR 3+/5). Pt has not been able to walk due to events at home. LTG Duration 05/04/22 progressing 03/05/22 One Impairment Lacks appropropriate HEP Short Term Goal (STG) Pt will be educated in proper posturing for sitting and standing. 01/22/22: Sitting postural ex. STG Duration 01/18/22 (01/18/22: MET GOAL ) Snf Goal (LTG) Pt will be educated in a self care HEP of shoulder and thoracic ROM and strengthening ex's to minimize recurrence of pain. 01/22/22: HEP: Thoracic ext, scap pinches (150, 90 & 0 deg' s AB), Shoulder ext w/scap retract. 02/27/22: open book, wall posture, ball wall self STMs. LTG Duration 05/04/22 progressing Assessment Summary Assessment Pt requires frequent redirection cues secondary to verbose conversationing to ther ex for feedback and proper form. Pt report improved core/posterior scapular muscle engagement seated shld ext/rows seated vs standing this tx, challenged maintaining PPT/TA thus experiencing LB recruitment best seated this tx for carryover home. Pt improved self postural corrections chest lift and CS chin tuck at times. Physical Therapy Plan Frequency and Duration Frequency of Treatment 2x/Week Plan of Care Start Date 03/05/22 Plan of Care End Date 05/04/22 Therapeutic Interventions Therapeutic Interventions Home Exercise Program,Joint Mobilizations,Manual Therapy, Patient/Caregiver Education, Self-Care/Home Management,Soft Tissue Mobilization, Therapeutic Activities, Therapeutic Exercises Modalities Cold Pack/Ice Massage Next Visit Focus/Plan Next Note Type Treatment Note Next Visit Plan Recheck wall posture, shld ext /rows sit/stand. Progress UBE for goal #4, and/or recumbent bike if knee not limited by pain (for endurance, Goal #4). Add to HEP: stretches to open chest, repositioning head on shoulders, (correcting head/ shoulder posturing and kyphosis). Manual: R anterior chest, gentle neck STM with mostly pt respositioning ex's and STM to upper back for pain. Strengthen shoulders and improve shoulder ROM.
--- NOTE | 2022-03-20 13:45 | PT.OTN ---
Current Diagnoses Dorsalgia, unspecified (03/20/22) Myalgia, unspecified site (03/20/22) Physical Therapy Treatment Note PT-OP-A Visit Information Start: 01/07/22 18:18 Freq: Status: Active Protocol: Document 03/20/22 13:06 SP (Rec: 03/20/22 13:50 SP [id number]) Out-Patient Physical Therapy Visit Information Visit Information Visit Type Treatment Note Visit Note Pt 8 min late for appt. 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 PT-OP-B Current Condition Start: 01/07/22 18:18 Freq: Status: Active Protocol: Document 01/08/22 09:16 LRN (Rec: 01/08/22 12:22 LRN [id number]) Current Condition History of Current Condition Onset Date 09/19/21 Current Complaints Onset of neck and back pain. 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 Pain at neck is chronic, sore and dull. Pain between shoulder blades is intense and was present 1 yr ago (cancer survivor); not due to cancer and not due to gall blader because the pain came back after gall bladder removal. Takes hydrocodone for neck and mid back pain that causes chest pain. ED Records indicate 01/04/22 that she stated she has spondylolisthesis, myelopathy and arthritis particularly at C5-6. Other records indicate pt had MRIs showing spondylosis of cervical spine as well as lumbar spine. There is severe stenosis of her cervical spine. Thoracic spine appears to be unremarkable. Prior Treatments and Tests No pior treatments for midback pain. X-rays: Thoracic Spine (09/28/21): No acute bony abnormality. 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 Future Testing and Treatments Planned Was told candidate for neck surgery at C5-C6 by one physician and a candidate by another. 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 Treatment Goals Patient/Caregiver Goals Pt goals walk a couple blocks without feeling exhausted. Able to go outside of the house for errancs and avoid long times on the sofa > 3x/ week. Able to reach top shelf kitchen cabinet. Prior Functional Status Baseline Function- ADL's Independent Baseline Function- Mobility Independent Baseline Function- Other Sleeps at most 6 hrs, at worst 1.5-2 hrs over 6 hrs. Good sleep 4x/week. Current Functional Impairments (Reported) Functional Limitations- ADL's Not able to get in/out of jacuzzi. Spends most of days on sofa with heating pad, 4-5 days a week. (off sofa 2-3x/week). Pain limits her ability to food prep and cook. 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 Sometimes sleep is disturbed. Sometimes chest pain 1.5-2 hrs over 6 hrs, ~ 4 days. Personal Factors Other Personal Factors That May Effect Has spouse 10 yrs older than Therapy/Recovery her. Pt gall bladder removed . PT-OP-C Subjective Start: 01/07/22 18:18 Freq: Status: Active Protocol: Document 03/20/22 13:06 SP (Rec: 03/20/22 13:50 SP [id number]) OP-PT Subjective Patient Comments Patient Comments Pt reports is more aware of posture and neck alignment and thinks helps her decrease arthritis pain and taking less Tylenol. She sleeps 6-7 hrs a night now with med support for assistance: kidraudel colby and Alpracalan 0.5 mg. PT-OP-E Functional Tests Start: 01/07/22 18:18 Freq: Status: Active Protocol: Document 01/08/22 09:16 LRN (Rec: 01/08/22 12:22 LRN [id number]) Functional Tests Apley's Scratch Test Action 1- Left Superomedial angle of scapula Action 1- Right Superomedial angle of scapula Action 2- Left T2 Action 2- Right T2 Action 3- Left T10 Action 3- Right T10 PT-OP-J Posture/Palpation/Skin Start: 01/07/22 18:18 Freq: Status: Active Protocol: Document 01/08/22 09:16 LRN (Rec: 01/08/22 12:22 LRN [id number]) Posture Evaluation Position Standing Head/C-Spine Posture Forward Head T-Spine Posture Increased Kyphosis L-Spine Posture Decreased Lordosis Scapula Posture (L) Protracted,(R) Protracted, (L) Rotated Down,(R) Rotated Down Arm Posture (L) Internally Rotated,(R) Internally Rotated Pelvis Posture Anteriorly Tilted Knee Posture (L) Genu Valgus,(R) Genu Valgus Foot Arch (R) Medium Arch,(L) Low Arch Comments Posture Comments Level shoulders, R knee bent. Palpation Assessment Location Midback Palpation Location L paraspinals Palpation Findings Soft Tissue Tightness Palpation Details Andrew Paraspinals: Tenderness. R anterior chest Palpation Location R Pecs and anterior scalenes. Palpation Findings Soft Tissue Tightness PT-OP-K Range of Motion Start: 01/07/22 18:18 Freq: Status: Active Protocol: Document 03/05/22 10:01 LRN (Rec: 03/05/22 10:43 LRN [id number]) Cervical Spine Range of Motion Cervical Spine Active Degrees Testing Position Sitting Flexion 30 Extension 27 Rotation Left 45 Rotation Right 39 Lateral Flexion Left 18 Lateral Flexion Right 20 ROM Limitations Soft Tissue Tightness,Pain Comments Pain in neck with flexion. Shoulder Goniometric Range of Motion Shoulder Right Active Testing Position Sitting Flexion 141 Extension 68 Abduction 130 Comments Shoulder AB is within the scapular plane. Left Active Testing Position Sitting Flexion 131 Extension 60 Abduction 130 Comments L neck is achy. Shoulder AB is within the scapular plane. PT-OP-M Strength Start: 01/07/22 18:18 Freq: Status: Active Protocol: Document 03/05/22 10:01 LRN (Rec: 03/05/22 10:43 LRN [id number]) Shoulder Strength Shoulder Manual Muscle Testing Right Flexion 5 Normal Extension 5 Normal Abduction (C5) 5 Normal Adduction 4+ Good+ External Rotation 3+ Fair+ Internal Rotation 3+ Fair+ Left Flexion 3 Fair Extension 5 Normal Abduction (C5) 4+ Good+ Adduction 4+ Good+ External Rotation 3+ Fair+ Internal Rotation 3+ Fair+ PT-OP-Q Treatments Start: 01/07/22 18:18 Freq: Status: Active Protocol: Document 03/20/22 13:06 SP (Rec: 03/20/22 13:50 SP [id number]) Cardio Equipment Upper Body Ergometer (UBE) Duration (Minutes) 7 RPM 70 Seat Position 10 Height 2.5 (65 resistance, cued 30 RPMs) Other Fwd/Bkwd. improved for upright posturing (chin tuck, neck elongation) Therapeutic Exercises Supine Exercises FF, HABD Supine Exercise Name added to HEP Side bilateral Resistance AROM> 1# DB Equipment Used knees bent Reps/Minutes 2x10 Comments cued TA/ PPT tolerant ROM- good feedback response, no LB recruitment Sitting Exercises shld ext, rows Sitting Exercise Name added to HEP Side bilateral Resistance TB #2 rows, 1# ext Reps/Minutes x10 each Comments cued chest lift, scap retraction con/ecc Scap pinches/Chin tuck Sitting Exercise Name Chin Tuck/Scap pinches Reps/Minutes 5 SH x 10 Comments cued chest lift scap set back for improve sit posture Standing Exercises Posture training against wall Standing Exercise Name back to wall, UE ER at side Reps/Minutes 30 hold x3 Comments Min cuing for TA, head chin tuck CS ext neutral, TA Self-Care/Home Management Treatment Education Patient Education Body Mechanics,Home Exercise Program,Posture,Safety Other Education added supine FF/ ABD 1# DB hooklying. PT-OP-T Assessment and Plan Start: 01/07/22 18:18 Freq: Status: Active Protocol: Document 03/20/22 13:06 SP (Rec: 03/20/22 13:50 SP [id number]) Physical Therapy Assessment Goals Four Impairment Low endurance Impairment Spends most of days on sofa with heating pad, 4-5 days a week, several hours. (Pt is off sofa 2-3x/week). Short Term Goal (STG) Improve endurance with ability to ex (UBE 10'), with pt able to go outside of the house for errands and avoid long times on the sofa, being off sofa > 3x/week. 01/22/22: UBE x 4' 03/05/22: UBE x 6' 70 rpm, on sofa 4x/week. 03/12/22 UBE 6.5 min 70 RPMs 03/20/22: UBE progression 7 min with 70 RPMs, improved focus post education of cycles perminute 30-31. STG Duration 04/04/22 progressed 03/20/22 Retirement Goal (LTG) UBE/Recumbant bike - 15' total , with pt able to walk a couple blocks without feeling exhausted. 01/22/22: UBE x 4' 03/05/22: UBE x 6' 70 rpm, has been walking for errands a couple blocks with discomfort. Limited w/walking due to R knee pain. 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 03/05/22: Not able to reach cabinet shelves because would need a step stool; so changing the goal is better. Variable improvement in shldr AROM ( deg's): Right flex 141, ext 68, AB 130; Left flex 131, ext 60, AB 130 (AB is within the scapular plane) LTG Duration 05/04/22 Minimal progress Two Impairment Neck and Upper back Pain causing general fatigue and weakness. Impairment Neck and intrascapular pain rated 4-8/10. L & R arm pain rated 0-6/10. UE QuickDASH 54.54 (40-59% impaired, score 40-59) Initial Shldr Strength: Left generally 3+/5; Right 3+/5 except IR 5/5. Short Term Goal (STG) Improve shoulder strength 1/2 grade to 4-/5 with improved function (per UE QuickDASH). 03/05/22: Pain typically 3-4/ 10 to 6-7/10. UE QuickDASH score less at 47 (40-59% impaired, score 40-59), was initially 54. Shldr strength: 4+/5 strength or greater except: Right IR/ER is 3+/5; Left flex 3/5, ER/IR 3+/5. STG Duration 04/04/22 progressing shldr strength 03/05/22 & improved QuickDASH score Retirement Goal (LTG) Improve bilateral shoulder strength to 4/5 to reduce feelings of overall exhaustion with pt able to walk a couple blocks without feeling exhausted. 03/05/22: Variable improvement in shoulder strength (4+/5 strength or greater except: Right IR/ER is 3+/5; Left flex 3/5, ER/IR 3+/5). Pt has not been able to walk due to events at home. LTG Duration 05/04/22 progressing 03/05/22 One Impairment Lacks appropropriate HEP Short Term Goal (STG) Pt will be educated in proper posturing for sitting and standing. 01/22/22: Sitting postural ex. STG Duration 01/18/22 (01/18/22: MET GOAL ) School Bus Driver Goal (LTG) Pt will be educated in a self care HEP of shoulder and thoracic ROM and strengthening ex's to minimize recurrence of pain. 01/22/22: HEP: Thoracic ext, scap pinches (150, 90 & 0 deg' s AB), Shoulder ext w/scap retract. 02/27/22: open book, wall posture, ball wall self STMs. 03/20/22: added supine FF, HABD 1# DB. LTG Duration 05/04/22 progressing 03/20/22 Assessment Summary Assessment Pt hyperverbal and requires mod cue redirection to ther ex effort and form during her conversations for PT benefits of progression. Pt improved TA , and TS ext wall posture with tactile cues at LS. But poor carryover once walks away from the wall and further conversations. Good feedback response use light wts FF/ HABD this tx for open chain UEs and scapular/TS mobility. Pt would benefit from adding gait endurance, HTs, TS rotation w/ arm swings to her POC to progress ability to walk blocks, her personal goal at [facility]. Physical Therapy Plan Frequency and Duration Frequency of Treatment 2x/Week Plan of Care Start Date 03/05/22 Plan of Care End Date 05/04/22 Therapeutic Interventions Therapeutic Interventions Home Exercise Program,Joint Mobilizations,Manual Therapy, Patient/Caregiver Education, Self-Care/Home Management,Soft Tissue Mobilization, Therapeutic Activities, Therapeutic Exercises Modalities Cold Pack/Ice Massage Next Visit Focus/Plan Next Note Type Treatment Note Next Visit Plan Recheck wall posture, supine FF/ ABD TB, add walking in POC with postural awareness toward her personal goal at [facility]. Progress UBE for goal # 4, and/or recumbent bike if knee not limited by pain (for endurance, Goal #4). Add to HEP: stretches to open chest, repositioning head on shoulders, (correcting head/ shoulder posturing and kyphosis). Manual: R anterior chest, gentle neck STM with mostly pt respositioning ex's and STM to upper back for pain. Strengthen shoulders and improve shoulder ROM.
--- NOTE | 2022-03-26 13:45 | PT.OTN ---
Current Diagnoses Dorsalgia, unspecified (03/26/22) Myalgia, unspecified site (03/26/22) Physical Therapy Treatment Note PT-OP-A Visit Information Start: 01/07/22 18:18 Freq: Status: Active Protocol: Document 03/26/22 09:04 SP (Rec: 03/26/22 09:50 SP [id number]) Out-Patient Physical Therapy Visit Information Visit Information Visit Type Treatment Note Visit Note Pt 11 min late for appt. Visit Start Time 13:11 Visit Stop Time 13:45 Total Visit Minutes 34 Visit Number 10 Number of CROZER Visits 2 Evaluation Information Evaluation Date 01/08/22 Precautions Precautions Falls x 2, Jaw pain-trigeminal nerve, Breast cancer - lumpectomy 2015, gall bladder removed 2021, controlled HBP, myelopathy - neuropathy. PT-OP-B Current Condition Start: 01/07/22 18:18 Freq: Status: Active Protocol: Document 01/08/22 09:16 LRN (Rec: 01/08/22 12:22 LRN [id number]) Current Condition History of Current Condition Onset Date 09/19/21 Current Complaints Onset of neck and back pain. 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 Pain at neck is chronic, sore and dull. Pain between shoulder blades is intense and was present 1 yr ago (cancer survivor); not due to cancer and not due to gall blader because the pain came back after gall bladder removal. Takes hydrocodone for neck and mid back pain that causes chest pain. ED Records indicate 01/04/22 that she stated she has spondylolisthesis, myelopathy and arthritis particularly at C5-6. Other records indicate pt had MRIs showing spondylosis of cervical spine as well as lumbar spine. There is severe stenosis of her cervical spine. Thoracic spine appears to be unremarkable. Prior Treatments and Tests No pior treatments for midback pain. X-rays: Thoracic Spine (09/28/21): No acute bony abnormality. 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 Future Testing and Treatments Planned Was told candidate for neck surgery at C5-C6 by one physician and a candidate by another. 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 Treatment Goals Patient/Caregiver Goals Pt goals walk a couple blocks without feeling exhausted. Able to go outside of the house for errancs and avoid long times on the sofa > 3x/ week. Able to reach top shelf kitchen cabinet. Prior Functional Status Baseline Function- ADL's Independent Baseline Function- Mobility Independent Baseline Function- Other Sleeps at most 6 hrs, at worst 1.5-2 hrs over 6 hrs. Good sleep 4x/week. Current Functional Impairments (Reported) Functional Limitations- ADL's Not able to get in/out of jacuzzi. Spends most of days on sofa with heating pad, 4-5 days a week. (off sofa 2-3x/week). Pain limits her ability to food prep and cook. 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 Sometimes sleep is disturbed. Sometimes chest pain 1.5-2 hrs over 6 hrs, ~ 4 days. Personal Factors Other Personal Factors That May Effect Has spouse 10 yrs older than Therapy/Recovery her. Pt gall bladder removed . PT-OP-C Subjective Start: 01/07/22 18:18 Freq: Status: Active Protocol: Document 03/26/22 09:04 SP (Rec: 03/26/22 09:50 SP [id number]) OP-PT Subjective Patient Comments Patient Comments Pt reports has been busy with appts in [place], family visiting and booking a trip with spouse. She states does some HEP at [employer] hoping helps her sleep better at night. PT-OP-E Functional Tests Start: 01/07/22 18:18 Freq: Status: Active Protocol: Document 01/08/22 09:16 LRN (Rec: 01/08/22 12:22 LRN [id number]) Functional Tests Apley's Scratch Test Action 1- Left Superomedial angle of scapula Action 1- Right Superomedial angle of scapula Action 2- Left T2 Action 2- Right T2 Action 3- Left T10 Action 3- Right T10 PT-OP-J Posture/Palpation/Skin Start: 01/07/22 18:18 Freq: Status: Active Protocol: Document 01/08/22 09:16 LRN (Rec: 01/08/22 12:22 LRN [id number]) Posture Evaluation Position Standing Head/C-Spine Posture Forward Head T-Spine Posture Increased Kyphosis L-Spine Posture Decreased Lordosis Scapula Posture (L) Protracted,(R) Protracted, (L) Rotated Down,(R) Rotated Down Arm Posture (L) Internally Rotated,(R) Internally Rotated Pelvis Posture Anteriorly Tilted Knee Posture (L) Genu Valgus,(R) Genu Valgus Foot Arch (R) Medium Arch,(L) Low Arch Comments Posture Comments Level shoulders, R knee bent. Palpation Assessment Location Midback Palpation Location L paraspinals Palpation Findings Soft Tissue Tightness Palpation Details Andrew Paraspinals: Tenderness. R anterior chest Palpation Location R Pecs and anterior scalenes. Palpation Findings Soft Tissue Tightness PT-OP-K Range of Motion Start: 01/07/22 18:18 Freq: Status: Active Protocol: Document 03/26/22 09:04 SP (Rec: 03/26/22 09:50 SP [id number]) Shoulder Goniometric Range of Motion Shoulder Right Active Testing Position Sitting Flexion 118 Extension 78 Abduction 112 Comments Shoulder AB is within the scapular plane. AROM: FF less 23 deg ABD less 18 deg Ext gained 10 deg Left Active Testing Position Sitting Flexion 118 Extension 68 Abduction 115 Comments 03/26/22 AROM seated: LUE: FF less 13 deg ABD less 15 deg Extension: gained 8 deg PT-OP-M Strength Start: 01/07/22 18:18 Freq: Status: Active Protocol: Document 03/05/22 10:01 LRN (Rec: 03/05/22 10:43 LRN [id number]) Shoulder Strength Shoulder Manual Muscle Testing Right Flexion 5 Normal Extension 5 Normal Abduction (C5) 5 Normal Adduction 4+ Good+ External Rotation 3+ Fair+ Internal Rotation 3+ Fair+ Left Flexion 3 Fair Extension 5 Normal Abduction (C5) 4+ Good+ Adduction 4+ Good+ External Rotation 3+ Fair+ Internal Rotation 3+ Fair+ PT-OP-Q Treatments Start: 01/07/22 18:18 Freq: Status: Active Protocol: Document 03/26/22 09:04 SP (Rec: 03/26/22 09:50 SP [id number]) Therapeutic Exercises Supine Exercises FF, HABD Supine Exercise Name added to HEP Side bilateral Resistance AROM> 1# DB Equipment Used knees bent Reps/Minutes 2x10 Comments cued TA/ PPT tolerant ROM- good feedback response, no LB recruitment Sidelying Exercises open book Sidelying Exercise Name reviewed HEP Side bilateral Reps/Minutes x8 reps Comments cued head turn with arm, slow controlled painfree motion Self-Care/Home Management Treatment Education Patient Education Body Mechanics,Home Exercise Program,Posture,Safety Other Education ed posture, ex and moving into [place], time spent updating goals . PT-OP-T Assessment and Plan Start: 01/07/22 18:18 Freq: Status: Active Protocol: Document 03/26/22 09:04 SP (Rec: 03/26/22 09:50 SP [id number]) Physical Therapy Assessment Goals Four Impairment Low endurance Impairment Spends most of days on sofa with heating pad, 4-5 days a week, several hours. (Pt is off sofa 2-3x/week). Short Term Goal (STG) Improve endurance with ability to ex (UBE 10'), with pt able to go outside of the house for errands and avoid long times on the sofa, being off sofa > 3x/week. 01/22/22: UBE x 4' 03/05/22: UBE x 6' 70 rpm, on sofa 4x/week. 03/12/22 UBE 6.5 min 70 RPMs 03/20/22: UBE progression 7 min with 70 RPMs, improved focus post education of cycles perminute 30-31. STG Duration 04/04/22 progressed 03/20/22 Snf Goal (LTG) UBE/Recumbant bike - 15' total , with pt able to walk a couple blocks without feeling exhausted. 01/22/22: UBE x 4' 03/05/22: UBE x 6' 70 rpm, has been walking for errands a couple blocks with discomfort. Limited w/walking due to R knee pain. 03/12/22: UBE 6.5 min 65 RPMs LTG Duration 05/04/22 progressed 03/12/21 Three Impairment Decreased shoulder/neck AROM Impairment Initial Shldr AROM (deg's): Right flex 128, AB 170; Left flex 142, AB 170 (AB is within the scapular plane) Snf Goal (LTG) Improve shoulder AROM with pt able to reach above and hang things on top vegetable tier closet. 03/05/22: Not able to reach cabinet shelves because would need a step stool; so changing the goal is better. Variable improvement in shldr AROM ( deg's): Right flex 141, ext 68, AB 130; Left flex 131, ext 60, AB 130 (AB is within the scapular plane), see measurements taken 03/26/22 : pt states usually gets items to vertically challenged but is ableto reach what usually needs to. Is ableto reach to 2nd shelf clinic painfree. LTG Duration 05/04/22 regressed FF, ABD B UE AROM 03/26/22 Two Impairment Neck and Upper back Pain causing general fatigue and weakness. Impairment Neck and intrascapular pain rated 4-8/10. L & R arm pain rated 0-6/10. UE QuickDASH 54.54 (40-59% impaired, score 40-59) Initial Shldr Strength: Left generally 3+/5; Right 3+/5 except IR 5/5. Short Term Goal (STG) Improve shoulder strength 1/2 grade to 4-/5 with improved function (per UE QuickDASH). 03/05/22: Pain typically 3-4/ 10 to 6-7/10. UE QuickDASH score less at 47 (40-59% impaired, score 40-59), was initially 54. Shldr strength: 4+/5 strength or greater except: Right IR/ER is 3+/5; Left flex 3/5, ER/IR 3+/5. STG Duration 04/04/22 progressing shldr strength 03/05/22 & improved QuickDASH score Commercial Title Examiner Goal (LTG) Improve bilateral shoulder strength to 4/5 to reduce feelings of overall exhaustion with pt able to walk a couple blocks without feeling exhausted. 03/05/22: Variable improvement in shoulder strength (4+/5 strength or greater except: Right IR/ER is 3+/5; Left flex 3/5, ER/IR 3+/5). Pt has not been able to walk due to events at home. 03/26/22: states only walking errands around grocery store and arms good use, states usually her back and balance that limits her. LTG Duration 05/04/22 progressing 03/26/22 One Impairment Lacks appropropriate HEP Short Term Goal (STG) Pt will be educated in proper posturing for sitting and standing. 01/22/22: Sitting postural ex. STG Duration 01/18/22 (01/18/22: MET GOAL ) Snf Goal (LTG) Pt will be educated in a self care HEP of shoulder and thoracic ROM and strengthening ex's to minimize recurrence of pain. 01/22/22: HEP: Thoracic ext, scap pinches (150, 90 & 0 deg' s AB), Shoulder ext w/scap retract. 02/27/22: open book, wall posture, ball wall self STMs. 03/20/22: added supine FF, HABD 1# DB, seated rows/ext Tb #1. LTG Duration 05/04/22 progressing 03/20/22 Progress Towards Goals Progress Comments 03/26/22 AROM seated: LUE: FF less 13 deg ABD less 15 deg Extension: gained 8 deg Shoulder AB is within the scapular plane. RUE AROM: FF less 23 deg ABD less 18 deg Ext gained 10 deg Assessment Summary Assessment Pt hyperverbal, requires redirection to tasks at hand ther ex and inquires to goal progression carryover at home. Pt demonstrated decreased B FF, aBD measured since last measured 03/05/22. REviewed importance of HEP at home. She stated and demonstrates can reach into cupboard is tall enough for now without assist. Trying to get up and walk around more and not sit long periods time. Pt consistantly is late for appt so limits time able to spend progress tx. Physical Therapy Plan Frequency and Duration Frequency of Treatment 2x/Week Plan of Care Start Date 03/05/22 Plan of Care End Date 05/04/22 Therapeutic Interventions Therapeutic Interventions Home Exercise Program,Joint Mobilizations,Manual Therapy, Patient/Caregiver Education, Self-Care/Home Management,Soft Tissue Mobilization, Therapeutic Activities, Therapeutic Exercises Modalities Cold Pack/Ice Massage Next Visit Focus/Plan Next Note Type Treatment Note Next Visit Plan Recheck wall posture, supine FF/ ABD TB, add walking in POC with postural awareness toward her personal goal at eval. Progress UBE for goal # 4, and/or recumbent bike if knee not limited by pain (for endurance, Goal #4). Add to HEP: stretches to open chest, repositioning head on shoulders, (correcting head/ shoulder posturing and kyphosis). Manual: R anterior chest, gentle neck STM with mostly pt respositioning ex's and STM to upper back for pain. Strengthen shoulders and improve shoulder ROM.
--- NOTE | 2022-04-01 14:53 | PT-OP ANOTE ---
Pt DNS but called to cancel at ~appt time.
--- NOTE | 2022-04-02 16:12 | PT.OTN ---
Current Diagnoses Dorsalgia, unspecified (04/02/22) Myalgia, unspecified site (04/02/22) Physical Therapy Treatment Note PT-OP-A Visit Information Start: 01/07/22 18:18 Freq: Status: Active Protocol: Document 04/02/22 15:21 LRN (Rec: 04/02/22 16:11 LRN [id number]) Out-Patient Physical Therapy Visit Information Visit Information Visit Type Treatment Note Visit Note 4 after PN Visit Start Time 15:21 Visit Stop Time 16:02 Total Visit Minutes 41 Visit Number 11 Evaluation Information Evaluation Date 01/08/22 Precautions Precautions Falls x 2, Jaw pain-trigeminal nerve, Breast cancer - lumpectomy 2015, gall bladder removed 2021, controlled HBP, myelopathy - neuropathy. PT-OP-B Current Condition Start: 01/07/22 18:18 Freq: Status: Active Protocol: Document 01/08/22 09:16 LRN (Rec: 01/08/22 12:22 LRN [id number]) Current Condition History of Current Condition Onset Date 09/19/21 Current Complaints Onset of neck and back pain. 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 Pain at neck is chronic, sore and dull. Pain between shoulder blades is intense and was present 1 yr ago (cancer survivor); not due to cancer and not due to gall blader because the pain came back after gall bladder removal. Takes hydrocodone for neck and mid back pain that causes chest pain. ED Records indicate 01/04/22 that she stated she has spondylolisthesis, myelopathy and arthritis particularly at C5-6. Other records indicate pt had MRIs showing spondylosis of cervical spine as well as lumbar spine. There is severe stenosis of her cervical spine. Thoracic spine appears to be unremarkable. Prior Treatments and Tests No pior treatments for midback pain. X-rays: Thoracic Spine (09/28/21): No acute bony abnormality. 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 Future Testing and Treatments Planned Was told candidate for neck surgery at C5-C6 by one physician and a candidate by another. 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 Treatment Goals Patient/Caregiver Goals Pt goals walk a couple blocks without feeling exhausted. Able to go outside of the house for errancs and avoid long times on the sofa > 3x/ week. Able to reach top shelf kitchen cabinet. Prior Functional Status Baseline Function- ADL's Independent Baseline Function- Mobility Independent Baseline Function- Other Sleeps at most 6 hrs, at worst 1.5-2 hrs over 6 hrs. Good sleep 4x/week. Current Functional Impairments (Reported) Functional Limitations- ADL's Not able to get in/out of jacuzzi. Spends most of days on sofa with heating pad, 4-5 days a week. (off sofa 2-3x/week). Pain limits her ability to food prep and cook. 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 Sometimes sleep is disturbed. Sometimes chest pain 1.5-2 hrs over 6 hrs, ~ 4 days. Personal Factors Other Personal Factors That May Effect Has spouse 10 yrs older than Therapy/Recovery her. Pt gall bladder removed . PT-OP-C Subjective Start: 01/07/22 18:18 Freq: Status: Active Protocol: Document 04/02/22 15:21 LRN (Rec: 04/02/22 16:11 LRN [id number]) OP-PT Subjective Patient Comments Patient Comments Good days and bad days. [place] bad an hour ago. Able to drive to [facility] without neck hurting more. Was able to drive to [facility] with granddaughter without increased neck pain. PT-OP-E Functional Tests Start: 01/07/22 18:18 Freq: Status: Active Protocol: Document 01/08/22 09:16 LRN (Rec: 01/08/22 12:22 LRN [id number]) Functional Tests Apley's Scratch Test Action 1- Left Superomedial angle of scapula Action 1- Right Superomedial angle of scapula Action 2- Left T2 Action 2- Right T2 Action 3- Left T10 Action 3- Right T10 PT-OP-J Posture/Palpation/Skin Start: 01/07/22 18:18 Freq: Status: Active Protocol: Document 01/08/22 09:16 LRN (Rec: 01/08/22 12:22 LRN [id number]) Posture Evaluation Position Standing Head/C-Spine Posture Forward Head T-Spine Posture Increased Kyphosis L-Spine Posture Decreased Lordosis Scapula Posture (L) Protracted,(R) Protracted, (L) Rotated Down,(R) Rotated Down Arm Posture (L) Internally Rotated,(R) Internally Rotated Pelvis Posture Anteriorly Tilted Knee Posture (L) Genu Valgus,(R) Genu Valgus Foot Arch (R) Medium Arch,(L) Low Arch Comments Posture Comments Level shoulders, R knee bent. Palpation Assessment Location Midback Palpation Location L paraspinals Palpation Findings Soft Tissue Tightness Palpation Details Andrew Paraspinals: Tenderness. R anterior chest Palpation Location R Pecs and anterior scalenes. Palpation Findings Soft Tissue Tightness PT-OP-K Range of Motion Start: 01/07/22 18:18 Freq: Status: Active Protocol: Document 03/26/22 09:04 SP (Rec: 03/26/22 09:50 SP [id number]) Shoulder Goniometric Range of Motion Shoulder Right Active Testing Position Sitting Flexion 118 Extension 78 Abduction 112 Comments Shoulder AB is within the scapular plane. AROM: FF less 23 deg ABD less 18 deg Ext gained 10 deg Left Active Testing Position Sitting Flexion 118 Extension 68 Abduction 115 Comments 03/26/22 AROM seated: LUE: FF less 13 deg ABD less 15 deg Extension: gained 8 deg PT-OP-M Strength Start: 01/07/22 18:18 Freq: Status: Active Protocol: Document 03/05/22 10:01 LRN (Rec: 03/05/22 10:43 LRN [id number]) Shoulder Strength Shoulder Manual Muscle Testing Right Flexion 5 Normal Extension 5 Normal Abduction (C5) 5 Normal Adduction 4+ Good+ External Rotation 3+ Fair+ Internal Rotation 3+ Fair+ Left Flexion 3 Fair Extension 5 Normal Abduction (C5) 4+ Good+ Adduction 4+ Good+ External Rotation 3+ Fair+ Internal Rotation 3+ Fair+ PT-OP-Q Treatments Start: 01/07/22 18:18 Freq: Status: Active Protocol: Document 04/02/22 15:21 LRN (Rec: 04/02/22 16:11 LRN [id number]) Cardio Equipment Upper Body Ergometer (UBE) Duration (Minutes) 8 RPM 70 Seat Position 11 Height 2.5 (65 resistance, cued 30 RPMs) Other Fwd/Bkwd. improved for upright posturing (chin tuck, neck elongation) Therapeutic Exercises Supine Exercises FF, HABD Supine Exercise Name FF Side bilateral Resistance AROM> 0# & 1# for FF Equipment Used knees bent Reps/Minutes 15x each Comments cued TA/ PPT tolerant ROM- good feedback response, no LB recruitment Sidelying Exercises open book Sidelying Exercise Name reviewed HEP Side bilateral Equipment Used 0#, 1# DB Reps/Minutes 2 x15 reps Comments cued head turn with arm, slow controlled painfree motion PT-OP-T Assessment and Plan Start: 01/07/22 18:18 Freq: Status: Active Protocol: Document 04/02/22 15:21 LRN (Rec: 04/02/22 16:11 LRN [id number]) Physical Therapy Assessment Goals Four Impairment Low endurance Impairment Spends most of days on sofa with heating pad, 4-5 days a week, several hours. (Pt is off sofa 2-3x/week). Short Term Goal (STG) Improve endurance with ability to ex (UBE 10'), with pt able to go outside of the house for errands and avoid long times on the sofa, being off sofa > 3x/week. 01/22/22: UBE x 4' 03/05/22: UBE x 6' 70 rpm, on sofa 4x/week. 03/12/22 UBE 6.5 min 70 RPMs 03/20/22: UBE progression 7 min with 70 RPMs, improved focus post education of cycles perminute 30-31. 04/02/22: On sofa-bad days 2x/ week. STG Duration 04/04/22 (04/05/22 MET GOAL ) Forensic Document Examiner Goal (LTG) UBE/Recumbant bike - 15' total , with pt able to walk a couple blocks without feeling exhausted. 01/22/22: UBE x 4' 03/05/22: UBE x 6' 70 rpm, has been walking for errands a couple blocks with discomfort. Limited w/walking due to R knee pain. 03/12/22: UBE 6.5 min 65 RPMs LTG Duration 05/04/22 progressed 03/12/21 Three Impairment Decreased shoulder/neck AROM Impairment Initial Shldr AROM (deg's): Right flex 128, AB 170; Left flex 142, AB 170 (AB is within the scapular plane) Forensic Document Examiner Goal (LTG) Improve shoulder AROM with pt able to reach above and hang things on top bundle tier and labeler closet. 03/05/22: Not able to reach cabinet shelves because would need a step stool; so changing the goal is better. Variable improvement in shldr AROM ( deg's): Right flex 141, ext 68, AB 130; Left flex 131, ext 60, AB 130 (AB is within the scapular plane), see measurements taken 03/26/22 : pt states usually gets items to vertically challenged but is ableto reach what usually needs to. Is ableto reach to 2nd shelf clinic painfree. 04/02/22: Has not tried recently. LTG Duration 05/04/22 regressed FF, ABD B UE AROM 03/26/22 Two Impairment Neck and Upper back Pain causing general fatigue and weakness. Impairment Neck and intrascapular pain rated 4-8/10. L & R arm pain rated 0-6/10. UE QuickDASH 54.54 (40-59% impaired, score 40-59) Initial Shldr Strength: Left generally 3+/5; Right 3+/5 except IR 5/5. Short Term Goal (STG) Improve shoulder strength 1/2 grade to 4-/5 with improved function (per UE QuickDASH). 03/05/22: Pain typically 3-4/ 10 to 6-7/10. UE QuickDASH score less at 47 (40-59% impaired, score 40-59), was initially 54. Shldr strength: 4+/5 strength or greater except: Right IR/ER is 3+/5; Left flex 3/5, ER/IR 3+/5. STG Duration 04/04/22 progressing shldr strength 03/05/22 & improved QuickDASH score Prison Goal (LTG) Improve bilateral shoulder strength to 4/5 to reduce feelings of overall exhaustion with pt able to walk a couple blocks without feeling exhausted. 03/05/22: Variable improvement in shoulder strength (4+/5 strength or greater except: Right IR/ER is 3+/5; Left flex 3/5, ER/IR 3+/5). Pt has not been able to walk due to events at home. 03/26/22: states only walking errands around grocery store and arms good use, states usually her back and balance that limits her. LTG Duration 05/04/22 progressing 03/26/22 One Impairment Lacks appropropriate HEP Short Term Goal (STG) Pt will be educated in proper posturing for sitting and standing. 01/22/22: Sitting postural ex. STG Duration 01/18/22 (01/18/22: MET GOAL ) Forensic Document Examiner Goal (LTG) Pt will be educated in a self care HEP of shoulder and thoracic ROM and strengthening ex's to minimize recurrence of pain. 01/22/22: HEP: Thoracic ext, scap pinches (150, 90 & 0 deg' s AB), Shoulder ext w/scap retract. 02/27/22: open book, wall posture, ball wall self STMs. 03/20/22: added supine FF, HABD 1# DB, seated rows/ext Tb #1. LTG Duration 05/04/22 progressing 03/20/22 Assessment Summary Assessment Pt slowly improving in being more active and has lessend her time sitting on her sofa ( for prolonged periods) to only ~2x/week (STG #4 met). Pt moves slowly through her exercises. Pt agreeable to trying to achieve walking 1 block by 04/16/22 assessment. Physical Therapy Plan Frequency and Duration Frequency of Treatment 2x/Week Plan of Care Start Date 03/05/22 Plan of Care End Date 05/04/22 Next Visit Focus/Plan Next Note Type Treatment Note Next Visit Plan PN on 04/16/22. Recheck wall posture, progress supine HABD, recheck pt reaching above and hang things on top bundle tier and labeler closet. Add walking in POC with postural awareness toward her personal goal at eval. Progress UBE to 10', and/or recumbent bike if knee not limited by pain (for endurance , Goal #4). Add to HEP: stretches to open chest, repositioning head on shoulders, (correcting head/ shoulder posturing and kyphosis). Manual: R anterior chest, gentle neck STM with mostly pt respositioning ex's and STM to upper back for pain. Strengthen shoulders and improve shoulder ROM.
--- NOTE | 2022-06-01 15:51 | PT.OPDS ---
Current Diagnoses Dorsalgia, unspecified (04/02/22) Myalgia, unspecified site (04/02/22) Visit Care Team Role Provider Type Nikhil Ballard MD Primary Care Provider Physician Specialty: Family Practice Address: [address] [place] [address], [id number] Email: [email or web address] Lisbeth Liu MD Attending Provider Non-Staff Referring Provider Specialty: Neurology Address: [address] [place] [address], [id number] Email: Visit Number Visit Number 11 Discharge Summary PT-OP-B Current Condition Start: 01/07/22 18:18 Freq: Status: Active Protocol: Document 01/08/22 09:16 LRN (Rec: 01/08/22 12:22 LRN [id number]) Current Condition History of Current Condition Onset Date 09/19/21 Current Complaints Onset of neck and back pain. 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 Pain at neck is chronic, sore and dull. Pain between shoulder blades is intense and was present 1 yr ago (cancer survivor); not due to cancer and not due to gall blader because the pain came back after gall bladder removal. Takes hydrocodone for neck and mid back pain that causes chest pain. ED Records indicate 01/04/22 that she stated she has spondylolisthesis, myelopathy and arthritis particularly at C5-6. Other records indicate pt had MRIs showing spondylosis of cervical spine as well as lumbar spine. There is severe stenosis of her cervical spine. Thoracic spine appears to be unremarkable. Prior Treatments and Tests No pior treatments for midback pain. X-rays: Thoracic Spine (09/28/21): No acute bony abnormality. 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 Future Testing and Treatments Planned Was told candidate for neck surgery at C5-C6 by one physician and a candidate by another. 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 Treatment Goals Patient/Caregiver Goals Pt goals walk a couple blocks without feeling exhausted. Able to go outside of the house for errancs and avoid long times on the sofa > 3x/ week. Able to reach top shelf kitchen cabinet. Prior Functional Status Baseline Function- ADL's Independent Baseline Function- Mobility Independent Baseline Function- Other Sleeps at most 6 hrs, at worst 1.5-2 hrs over 6 hrs. Good sleep 4x/week. Current Functional Impairments (Reported) Functional Limitations- ADL's Not able to get in/out of jacuzzi. Spends most of days on sofa with heating pad, 4-5 days a week. (off sofa 2-3x/week). Pain limits her ability to food prep and cook. 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 Sometimes sleep is disturbed. Sometimes chest pain 1.5-2 hrs over 6 hrs, ~ 4 days. Personal Factors Other Personal Factors That May Effect Has spouse 10 yrs older than Therapy/Recovery her. Pt gall bladder removed . PT-OP-C Subjective Start: 01/07/22 18:18 Freq: Status: Active Protocol: Document 04/02/22 15:21 LRN (Rec: 04/02/22 16:11 LRN [id number]) OP-PT Subjective Patient Comments Patient Comments Good days and bad days. [place] bad an hour ago. Able to drive to [facility] without neck hurting more. Was able to drive to [facility] with granddaughter without increased neck pain. PT-OP-E Functional Tests Start: 01/07/22 18:18 Freq: Status: Active Protocol: Document 01/08/22 09:16 LRN (Rec: 01/08/22 12:22 LRN [id number]) Functional Tests Apley's Scratch Test Action 1- Left Superomedial angle of scapula Action 1- Right Superomedial angle of scapula Action 2- Left T2 Action 2- Right T2 Action 3- Left T10 Action 3- Right T10 PT-OP-J Posture/Palpation/Skin Start: 01/07/22 18:18 Freq: Status: Active Protocol: Document 01/08/22 09:16 LRN (Rec: 01/08/22 12:22 LRN [id number]) Posture Evaluation Position Standing Head/C-Spine Posture Forward Head T-Spine Posture Increased Kyphosis L-Spine Posture Decreased Lordosis Scapula Posture (L) Protracted,(R) Protracted, (L) Rotated Down,(R) Rotated Down Arm Posture (L) Internally Rotated,(R) Internally Rotated Pelvis Posture Anteriorly Tilted Knee Posture (L) Genu Valgus,(R) Genu Valgus Foot Arch (R) Medium Arch,(L) Low Arch Comments Posture Comments Level shoulders, R knee bent. Palpation Assessment Location Midback Palpation Location L paraspinals Palpation Findings Soft Tissue Tightness Palpation Details Andrew Paraspinals: Tenderness. R anterior chest Palpation Location R Pecs and anterior scalenes. Palpation Findings Soft Tissue Tightness PT-OP-K Range of Motion Start: 01/07/22 18:18 Freq: Status: Active Protocol: Document 03/26/22 09:04 SP (Rec: 03/26/22 09:50 SP [id number]) Shoulder Goniometric Range of Motion Shoulder Right Active Testing Position Sitting Flexion 118 Extension 78 Abduction 112 Comments Shoulder AB is within the scapular plane. AROM: FF less 23 deg ABD less 18 deg Ext gained 10 deg Left Active Testing Position Sitting Flexion 118 Extension 68 Abduction 115 Comments 03/26/22 AROM seated: LUE: FF less 13 deg ABD less 15 deg Extension: gained 8 deg PT-OP-M Strength Start: 01/07/22 18:18 Freq: Status: Active Protocol: Document 03/05/22 10:01 LRN (Rec: 03/05/22 10:43 LRN [id number]) Shoulder Strength Shoulder Manual Muscle Testing Right Flexion 5 Normal Extension 5 Normal Abduction (C5) 5 Normal Adduction 4+ Good+ External Rotation 3+ Fair+ Internal Rotation 3+ Fair+ Left Flexion 3 Fair Extension 5 Normal Abduction (C5) 4+ Good+ Adduction 4+ Good+ External Rotation 3+ Fair+ Internal Rotation 3+ Fair+ PT-OP-T Assessment and Plan Start: 01/07/22 18:18 Freq: Status: Active Protocol: Document 05/28/22 13:41 LRN (Rec: 05/28/22 13:46 LRN [id number]) Physical Therapy Assessment Goals Four Impairment Low endurance Impairment Spends most of days on sofa with heating pad, 4-5 days a week, several hours. (Pt is off sofa 2-3x/week). Short Term Goal (STG) Improve endurance with ability to ex (UBE 10'), with pt able to go outside of the house for errands and avoid long times on the sofa, being off sofa > 3x/week. 01/22/22: UBE x 4' 03/05/22: UBE x 6' 70 rpm, on sofa 4x/week. 03/12/22 UBE 6.5 min 70 RPMs 03/20/22: UBE progression 7 min with 70 RPMs, improved focus post education of cycles perminute 30-31. 04/02/22: On sofa-bad days 2x/ week. STG Duration 04/04/22 (04/05/22 MET GOAL ) Mcc Goal (LTG) UBE/Recumbant bike - 15' total , with pt able to walk a couple blocks without feeling exhausted. 01/22/22: UBE x 4' 03/05/22: UBE x 6' 70 rpm, has been walking for errands a couple blocks with discomfort. Limited w/walking due to R knee pain. 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 03/05/22: Not able to reach cabinet shelves because would need a step stool; so changing the goal is better. Variable improvement in shldr AROM ( deg's): Right flex 141, ext 68, AB 130; Left flex 131, ext 60, AB 130 (AB is within the scapular plane), see measurements taken 03/26/22 : pt states usually gets items to vertically challenged but is ableto reach what usually needs to. Is ableto reach to 2nd shelf clinic painfree. 04/02/22: Has not tried recently. LTG Duration 05/04/22 regressed FF, ABD B UE AROM 03/26/22 Two Impairment Neck and Upper back Pain causing general fatigue and weakness. Impairment Neck and intrascapular pain rated 4-8/10. L & R arm pain rated 0-6/10. UE QuickDASH 54.54 (40-59% impaired, score 40-59) Initial Shldr Strength: Left generally 3+/5; Right 3+/5 except IR 5/5. Short Term Goal (STG) Improve shoulder strength 1/2 grade to 4-/5 with improved function (per UE QuickDASH). 03/05/22: Pain typically 3-4/ 10 to 6-7/10. UE QuickDASH score less at 47 (40-59% impaired, score 40-59), was initially 54. Shldr strength: 4+/5 strength or greater except: Right IR/ER is 3+/5; Left flex 3/5, ER/IR 3+/5. STG Duration 04/04/22 (05/28/22: Partially met goal, Improved QuickDASH score) Mcc Goal (LTG) Improve bilateral shoulder strength to 4/5 to reduce feelings of overall exhaustion with pt able to walk a couple blocks without feeling exhausted. 03/05/22: Variable improvement in shoulder strength (4+/5 strength or greater except: Right IR/ER is 3+/5; Left flex 3/5, ER/IR 3+/5). Pt has not been able to walk due to events at home. 03/26/22: states only walking errands around grocery store and arms good use, states usually her back and balance that limits her. LTG Duration 05/04/22 (05/28/22: Pt unavailable for final assessment) One Impairment Lacks appropropriate HEP Short Term Goal (STG) Pt will be educated in proper posturing for sitting and standing. 01/22/22: Sitting postural ex. STG Duration 01/18/22 (01/18/22: MET GOAL ) Mcc Goal (LTG) Pt will be educated in a self care HEP of shoulder and thoracic ROM and strengthening ex's to minimize recurrence of pain. 01/22/22: HEP: Thoracic ext, scap pinches (150, 90 & 0 deg' s AB), Shoulder ext w/scap retract. 02/27/22: open book, wall posture, ball wall self STMs. 03/20/22: added supine FF, HABD 1# DB, seated rows/ext Tb #1. LTG Duration 05/04/22 (05/28/22: Partially met goal, not completed due to early DC) Assessment Summary Assessment Message was left 05/19/22 by pt saying she was doing better and didn't feel she needed therapy. Pt requested all visits cancelled and to discharge her account. Pt had reported at time of call that she was Covid +. The pt had been seen for 11 visits with the last visit on 04/02/22. The pt was seen 3 times since the last progress note. Not all goals met. Physical Therapy Plan Discharge Physical Therapy Discharge Reasons Patient Request Discharge Comments Thank you for your referral.
== END 2022-06-05 08:54 | disposition home or self-care (01) ==
LOC: PHYS 15:15
PROVIDERS: Absent Provider Family Medicine; PCP Family Medicine; Referring Provider Psychiatry & Neurology Neurology; Visit Provider Psychiatry & Neurology Neurology
DX: M79.10 Myalgia, unspecified site (principal); M54.9 Dorsalgia, unspecified
CPT/HCPCS: 97110; 97140; 97162; 97535

== ENCOUNTER 2022-05-20 16:50 | Emergency (ER) | payer MEDICARE, OTHER, SELFPAY ==
[2022-05-20] VITALS (15 sets, daily range): BP systolic 151–201; BP diastolic 67–91; PULSE 67–88; RESP 15–23; TEMP 37.2; O2SAT 92–99; BMI 25.7
--- NOTE | 2022-05-20 17:07 | DI.RAD.S_ITS ---
PROCEDURE: XR CHEST 1V INDICATIONS: chest pain TECHNIQUE: One view of the chest was acquired. COMPARISON: [facility], CR, XR CHEST 2V, 10/01/2021, 14:48. [facility], CR, XR CHEST 1V, 01/04/2022, 11:38. FINDINGS: Surgical changes and devices: Left breast clips are seen. Lungs and pleura: On this semiupright portable chest examination, no large pneumothorax or large pleural effusions are seen. No focal infiltrates are seen. Mediastinum: Mediastinal contours appear normal. Heart size is normal. Bones and chest wall: No suspicious bony lesions. Age-appropriate bony degenerative changes are seen. Overlying soft tissues appear unremarkable. IMPRESSION: No acute portable chest abnormality is seen for age. Dictated by: Luis Felipe Lee M.D. on 05/20/2022 at 17:40 Approved by: Luis Felipe Lee M.D. on 05/20/2022 at 17:40
[2022-05-20 18:10] LABS: COVID19 -Nasal RAPID POSITIVE (Negative)
[2022-05-20 18:12] LABS: INR 0.9 (0.9-1.3); Prothrombin Time 10.6 SECONDS (10.1-12.7)
[2022-05-20 18:15] LABS: PTT Partial Thromboplastin Tim 26 SECONDS (26-36)
[2022-05-20 18:16] LABS: Alanine Aminotransferase 37 IU/L (<35); Albumin Globulin Ratio 1.3 (1.0-2.8); Alkaline Phosphatase 91 U/L (38-126); Aspartate Aminotransferase 29 IU/L (14-36); BUN Creatinine Ratio 34.9 (6-22); Bilirubin Total 0.4 mg/dL (0.2-1.3); Blood Urea Nitrogen 22 mg/dL (7-17); Calcium 9.2 mg/dL (8.4-10.2); Carbon Dioxide 34 mmol/L (22-32); Chloride 102 mmol/L (98-107); Creatine Kinase 34 U/L (30-135); Estimated Glomerular Filt Rate > 60 mL/min (>60); Glucose 95 mg/dL (80-110); HEMOLYSIS < 15 (0-50); Lipase 204 U/L (23-300); Magnesium 2.1 mg/dL (1.6-2.3); Potassium 3.9 mmol/L (3.4-5.1); Sodium 141 mmol/L (137-145)
[2022-05-20 18:20] LABS: Add Manual Diff / Slide Review NO; Basophils Absolute Auto 100 /uL (0-100); Basophils Percent Auto 0.6 % (0-2); Eosinophils Absolute Auto 300 /uL (0-450); Hematocrit 39.5 % (36-46); Lymphocytes Absolute Auto 4600 /uL (1100-4500); Lymphocytes Percent Auto 34.5 % (25-40); Mean Corpuscular Hemoglobin 30.2 PG (26-34); Mean Corpuscular Volume 91.6 fL (80-100); Monocytes Absolute Auto 1100 /uL (0-900); Monocytes Percent Auto 7.9 % (3-14); Neutrophils Absolute Auto 7400 /uL (1500-7000); Platelet Count 335 X10^3/uL (150-400); Red Blood Cell Count 4.31 X10^6/uL (4.0-5.2); Red Cell Distribution Width 14.2 % (11.6-14.8); White Blood Cell Count 13.4 X10^3/uL (4.5-11.0)
[2022-05-20 18:27] LABS: Troponin I < 0.012 ng/mL (0.01-0.034)
--- NOTE | 2022-05-20 18:27 | ED_ITS ---
HPI - Chest Pain General Chief Complaint: Chest Pain Stated Complaint: COVID pnemonia Time Seen by Provider: 05/20/22 18:27 Source: patient Mode of arrival: Ambulatory Limitations: no limitations History of Present Illness HPI narrative: 81-year-old female former smoker with history of breast cancer, hypertension, lumbar stenosis, scoliosis with recent known COVID diagnosis having been on Paxlovid and prednisone presents with chief complaint of shortness of breath and sore throat. She states that her oxygen levels have always been over 95%, she denies fever. Her diagnosis was made 8 days ago. She states that she is concerned that she is feeling a bit more under the weather today than she had been. She has had no chest pain or significant cough. She denies GI complaints such as nausea, vomiting or diarrhea Related Data Home Medications Medication Instructions Recorded Confirmed carbamazepine 100 mg 50 mg PO PRN PRN Trygenamal Nerve 06/28/21 04/10/22 tablet,extended release,12 hr vitamin B complex 1 cap PO DAILY 06/28/21 04/10/22 ibuprofen 125 mg-acetaminophen 250 1 tab PO Q8H PRN Pain (Scale Score 09/18/21 04/10/22 mg tablet (Advil Dual Action) 4-6) multivitamin 1 tab PO DAILY 02/28/22 04/10/22 beclomethasone dipropionate 40 40 mcg inhalation BID PRN 03/04/22 04/10/22 mcg/actuation aerosol inhaler Previous Rx's Medication Instructions Recorded Ventolin HFA 90 mcg/actuation See Rx Instructions .Route 03/15/22 aerosol inhaler (albuterol sulfate) .COMPLEX #18 grams beclomethasone dipropionate 40 1 inh inhalation BID #10.6 grams 03/15/22 mcg/actuation HFA breath activated aerosol (Qvar RediHaler) alprazolam 0.5 mg tablet See Rx Instructions .Route 04/11/22 .COMPLEX #60 tabs hydrocodone 5 mg-acetaminophen 325 1 tab PO BID PRN pain #14 tabs 04/11/22 mg tablet lisinopril 30 mg tablet 30 mg .Route BID #180 tabs 04/11/22 benzonatate 200 mg capsule 200 mg PO BID PRN cough #20 caps 05/20/22 Allergies Allergy/AdvReac Type Severity Reaction Status Date / Time meperidine Allergy Severe COULDN'T Verified 04/10/22 10:11 BREATHE OR TALK, EXTREME DIAPHORESIS fluoxetine Allergy Intermediate BROKE OUT Verified 04/10/22 10:11 INTO RASH levofloxacin Allergy Intermediate TENDON Verified 04/10/22 10:11 SORENESS penicillin G Allergy Intermediate RASH Verified 04/10/22 10:11 Sulfa (Sulfonamide Allergy Intermediate HIVES Verified 04/10/22 10:11 Antibiotics) isosulfan blue Allergy Unknown Verified 04/10/22 10:11 nitrofurantoin Allergy Unknown Verified 04/10/22 10:11 [From MACROBID] Review of Systems Review of Systems Narrative: GENERAL: See HPI HEENT: Denies sinus pain, ear pain, sore throat, difficulty swallowing, dizziness. RESPIRATORY: see HPI CARDIOVASCULAR: Denies chest pain, palpitations, orthopnea, edema, GASTROINTESTINAL: Denies nausea, vomiting, abdominal pain, diarrhea, constipation, melena. : Denies dysuria, frequency, incontinence, hematuria, urinary retention. MUSCULOSKELETAL: denies weakness, joint pain, or bony pain SKIN: Denies rash, skin lesions, or other NEUROLOGIC: Denies weakness, headache, numbness, change in speech, confusion, seizures, incoordination. PSYCHIATRIC: No concerning psychosocial issues. 12 point review of systems is negative except for those stated above Patient History Medical History Abnormal chest x-ray Asthma (~194) Breast cancer (~2015) Chicken pox (~1949) Essential hypertension Facet arthropathy, lumbar Hay fever Hearing loss (~2016) Kidney stones (~2005) Knee meniscus pain (~2014) Lumbar spinal stenosis Measles (~1950) Migraine Mononucleosis (~1960) Sciatica (~2017) Scleral icterus Scoliosis Spinal stenosis of cervical region Spondylosis of lumbar spine Tinnitus (~2016) Surgical History Anesthesia Branchial cleft cyst (~1960) History of appendectomy (~1953) History of arthroscopic knee surgery (~2014) History of cataract surgery History of section (~1975) History of section (~1982) History of lumpectomy (~01/2016) History of tonsillectomy (~1944) Family History Father Hypertension Heart disease Mother No problems noted. Brother No problems noted. Sister No problems noted. Grandfather No problems noted. Grandmother No problems noted. Grandfather No problems noted. Grandmother No problems noted. Social History Smoking Status: Former smoker Smoking Status: Former smoker alcohol intake frequency: holidays/special occasions only Substance Use Type: does not use Exam Narrative Exam Narrative: GENERAL: [81] year old patient appears stated age. Well-developed patient, in mild distress. HEAD: Atraumatic. Normocephalic. EYES: Pupils equal round and reactive. Extraocular motions intact. No scleral icterus. No injection or drainage. ENT: Nose without bleeding, purulent drainage. Throat without erythema, tonsillar hypertrophy or exudate. Airway patent. NECK: Trachea midline. Non tender CARDIOVASCULAR: Regular rate and rhythm without murmurs, gallops, or rubs. RESPIRATORY: Clear to auscultation. Breath sounds equal bilaterally. No wheezes, rales, or rhonchi. GASTROINTESTINAL: Abdomen soft, non-tender, nondistended. EXTREMITIES: No edema or joint tenderness. BACK: Nontender without deformity or crepitance. No flank tenderness. NEURO: AOx3. SKIN: No rash or erythema of visible areas Initial Vital Signs Initial Vital Signs: Vital Signs Temperature 98.9 F 05/20/22 17:01 Pulse Rate 88 05/20/22 17:01 Respiratory Rate 22 05/20/22 17:01 Blood Pressure 188/88 H 05/20/22 17:01 Pulse Oximetry 96 05/20/22 17:01 Oxygen Delivery Method Room Air 05/20/22 17:01 Course Orders Ordered: Discontinued Medications Aspirin (Aspirin 81 Mg Chew Tab) 324 mg PO NOW ONE Stop: 05/20/22 17:08 Last Admin: 05/20/22 19:08 Dose: 324 mg Documented By: SB Vital Signs Vital signs: Vital Signs - 8 hr 05/20/22 22:00 05/20/22 22:14 05/20/22 22:14 Pulse Rate 67 75 Respiratory Rate 16 23 Blood Pressure 194/87 H Pulse Oximetry 96 97 05/20/22 22:15 05/20/22 22:15 Pulse Rate 77 Respiratory Rate 21 Blood Pressure 193/89 H Pulse Oximetry MDM - Chest Pain Lab Data 05/20/22 17:50 05/20/22 17:50 Labs: Lab Results 05/20/22 05/20/22 05/20/22 Range/Units 17:50 17:50 17:50 WBC 13.4 H (4.5-11.0) X10^3/uL RBC 4.31 (4.0-5.2) X10^6/uL Hgb 13.0 (12.0-16.0) g/dL Hct 39.5 (36-46) % MCV 91.6 (80-100) fL MCH 30.2 (26-34) PG MCHC 33.0 (30-36) % RDW 14.2 (11.6-14.8) % Plt Count 335 (150-400) X10^3/uL Neut % (Auto) 55.0 (50-75) % Lymph % (Auto) 34.5 (25-40) % [place] % (Auto) 7.9 (3-14) % Eos % (Auto) 2.0 (2-4) % Baso % (Auto) 0.6 (0-2) % Neut # (Auto) 7400 H (8743-0900) /uL Lymph # (Auto) 4600 H (9258-6452) /uL [place] # (Auto) 1100 H (0-900) /uL Eos # (Auto) 300 (0-450) /uL Baso # (Auto) 100 (0-100) /uL PT 10.6 (10.1-12.7) SECONDS INR 0.9 (0.9-1.3) APTT 26 (26-36) SECONDS D-Dimer (<500) ng/ml Sodium 141 (137-145) mmol/L Potassium 3.9 (3.4-5.1) mmol/L Chloride 102 (98-107) mmol/L Carbon Dioxide 34 H (22-32) mmol/L BUN 22 H (7-17) mg/dL Creatinine 0.63 (0.52-1.04) mg/dL Estimated GFR > 60 (>60) mL/min BUN/Creatinine Ratio 34.9 H (6-22) Glucose 95 (80-110) mg/dL Calcium 9.2 (8.4-10.2) mg/dL Magnesium 2.1 (1.6-2.3) mg/dL Total Bilirubin 0.4 (0.2-1.3) mg/dL AST 29 (14-36) IU/L ALT 37 H (<35) IU/L Alkaline Phosphatase 91 (38-126) U/L Total Creatine Kinase 34 (30-135) U/L CK-MB (CK-2) TNP CK-MB (CK-2) Rel Index TNP Troponin I < 0.012 (0.01-0.034) ng/mL Total Protein 7.0 (6.3-8.2) g/dL Albumin 4.0 (3.5-5.0) g/dL Globulin 3.0 (1.7-4.1) g/dL Albumin/Globulin Ratio 1.3 (1.0-2.8) Lipase 204 (23-300) U/L SARS-CoV-2 (PCR) (Negative) 05/20/22 05/20/22 Range/Units 17:50 17:50 WBC (4.5-11.0) X10^3/uL RBC (4.0-5.2) X10^6/uL Hgb (12.0-16.0) g/dL Hct (36-46) % MCV (80-100) fL MCH (26-34) PG MCHC (30-36) % RDW (11.6-14.8) % Plt Count (150-400) X10^3/uL Neut % (Auto) (50-75) % Lymph % (Auto) (25-40) % [place] % (Auto) (3-14) % Eos % (Auto) (2-4) % Baso % (Auto) (0-2) % Neut # (Auto) (3665-3653) /uL Lymph # (Auto) (8102-4119) /uL [place] # (Auto) (0-900) /uL Eos # (Auto) (0-450) /uL Baso # (Auto) (0-100) /uL PT (10.1-12.7) SECONDS INR (0.9-1.3) APTT (26-36) SECONDS D-Dimer 1398 H (<500) ng/ml Sodium (137-145) mmol/L Potassium (3.4-5.1) mmol/L Chloride (98-107) mmol/L Carbon Dioxide (22-32) mmol/L BUN (7-17) mg/dL Creatinine (0.52-1.04) mg/dL Estimated GFR (>60) mL/min BUN/Creatinine Ratio (6-22) Glucose (80-110) mg/dL Calcium (8.4-10.2) mg/dL Magnesium (1.6-2.3) mg/dL Total Bilirubin (0.2-1.3) mg/dL AST (14-36) IU/L ALT (<35) IU/L Alkaline Phosphatase (38-126) U/L Total Creatine Kinase (30-135) U/L CK-MB (CK-2) CK-MB (CK-2) Rel Index Troponin I (0.01-0.034) ng/mL Total Protein (6.3-8.2) g/dL Albumin (3.5-5.0) g/dL Globulin (1.7-4.1) g/dL Albumin/Globulin Ratio (1.0-2.8) Lipase (23-300) U/L SARS-CoV-2 (PCR) Positive H (Negative) Urine Dip Bedside Urine Glucose Negative Bedside Urine Bilirubin - Negative Bedside Urine Ketone - Negative Urine Specific [place] 1.015 Bedside Urine Occult Blood - Negative Bedside Urine pH 6.0 Bedside Urine Protein - Negative Bedside Urine Urobilinogen - Negative Bedside Urine Nitrite - Negative Bedside Urine Leukocytes - Negative Esterase MDM Narrative Medical decision making narrative: [81] year old patient presents with some episodes of increased shortness of breath and fatigue Multiple etiologies for patient's symptoms considered including, but not limited to: [Rebound COVID, pulmonary embolism, pneumonia versus other] Prior Charts reviewed in our EMR Primary Historian: patient Labs reviewed and interpreted by myself: minimal leukocytosis Imaging reviewed: CTA - no PE Patient's symptoms improved over duration of stay with above-stated therapies. Findings and discharge diagnosis discussed with patient/family followed by verbalization of understanding Return precautions discussed with patient/family whom verbalize understanding of diagnosis and plan Discharge Plan Departure Patient Disposition: Home Clinical Impression: COVID-19 Instructions: COVID-19 Activity Restrictions/Additional Instructions: *You have been diagnosed with [ COVID-19] *What to do: ?* per recommendations from the CDC and the [facility] Department of Health ?* stay home except to get medical care. ?Restrict activities outside your home, except for getting medical care. ?Do not go to work, school, or public areas. ?Avoid using public transportation, ride sharing, or taxis. ?* separate yourself from other people in your home. ?* call ahead before visiting your doctor ?* Wear a facemask ?* Cover your coughs and sneezes ?* Clean your hands often ?* Avoid sharing household items ?* Clean all high-touch services every day ?* Monitor your symptoms and seek prompt medical attention if your illness is worsening, particularly with difficulty in breathing. You may discontinue your isolation when: ?1. You have been fever-free for at least 24 hours without the use of fever reducing medication, AND ?2. Your symptoms are getting better, AND ?3. At least 5 days have passed since symptoms first appeared ?4. If you have fever, continue to stay home until fever resolves Individuals with laboratory confirmed COVID-19 who have not had any symptoms may discontinue home isolation when at least 5 days have passed since the date of their first COVID-19 diagnostic test and have had no subsequent illness You should notifiy any friends and family that have been in close contact *If up to date on COVID Vaccines, then they do not need to quarantine unless symptoms develop. Get tested on day 5 (or sooner if symptoms develop). Take precautions and watch for symptoms until day 10 *If NOT up to date on COVID Vaccines, then CDC recommends quarantine for at least 5 full days. Wear a well fitted mask at home if you must be around others. If they ?develop symptoms they should get tested. If they remain asymptomatic they should get tested on day 5. They should take precautions and monitor for symptoms until day 10. Prescriptions: New benzonatate 200 mg capsule 200 mg PO BID PRN (Reason: cough) Qty: 20 0RF No Action beclomethasone dipropionate 40 mcg/actuation aerosol 40 mcg inhalation BID PRN albuterol sulfate [Ventolin HFA] 90 mcg/actuation HFA aerosol inhaler See Rx Instructions .ROUTE .COMPLEX Qty: 18 3RF Dose Instruction: INHALE 2 PUFFS INTO THE LUNGS EVERY 4 TO 6 HOURS NEEDED FOR ASTHMA; USE WITH SPACER Rx Instructions: INHALE 2 PUFFS INTO THE LUNGS EVERY 4 TO 6 HOURS NEEDED FOR ASTHMA; USE WITH SPACER Qvar RediHaler 40 mcg/actuation HFA aerosol breath activated 1 inh inhalation BID Qty: 10.6 3RF Rx Instructions: administer with spacer multivitamin Tablet 1 tab PO DAILY Advil Dual Action 125-250 mg tablet 1 tab PO Q8H PRN (Reason: Pain (Scale Score 4-6)) alprazolam 0.5 mg tablet See Rx Instructions .ROUTE .COMPLEX Qty: 60 0RF Dose Instruction: TAKE 1 TABLET BY MOUTH TWICE DAILY NEEDED FOR ANXIETY Rx Instructions: TAKE 1 TABLET BY MOUTH TWICE DAILY NEEDED FOR ANXIETY hydrocodone-acetaminophen 5-325 mg tablet 1 tab PO BID PRN (Reason: pain) Qty: 14 0RF lisinopril 30 mg tablet 30 mg .ROUTE BID Qty: 180 3RF Rx Instructions: 30 mg twice a day; carbamazepine 100 mg Tablet Extended Release 12 Hr 50 mg PO PRN PRN (Reason: Trygenamal Nerve) vitamin B complex Capsule 1 cap PO DAILY Referrals: Nikhil Ballard MD [Primary Care Provider] - Stand Alone Forms: Patient Portal/API
[2022-05-20] MEDS: ASPIRIN 81 MG CHEW TAB 324 MG PO (19:08)
--- NOTE | 2022-05-20 19:12 | PC.NURSE ---
EKG at 1720
--- NOTE | 2022-05-20 19:16 | PC.NURSE ---
Pt began having some chest pain that she states is now resolved during a stressful event earlier today. Pt recently traveled from [place] and is COVID +. Pt reports decreased appetite and intake. Encouraged to use call light. Call light within reach.
[2022-05-20 19:55] LABS: D Dimer 1398 ng/ml (<500)
--- NOTE | 2022-05-20 20:15 | DI.CT.S_ITS ---
PROCEDURE: CT ANGIO CHEST PE PROTOCOL INDICATIONS: SOB, travel, recent COVID, critical Dimer TECHNIQUE: After the administration of intravenous contrast, 2 mm thick sections acquired from the pulmonary apices to the posterior costophrenic angles. 3-dimensional maximum intensity projection (MIP) coronal and sagittal reformats were then acquired through the thorax. For radiation dose reduction, the following was used: automated exposure control, adjustment of mA and/or kV according to patient size. COMPARISON: [facility], CT, CT CHEST W CON, 09/16/2018, 12:49. FINDINGS: Image quality: Excellent. Pulmonary arteries: Pulmonary arteries are normal in size, and demonstrate no intraluminal filling defects to suggest central pulmonary embolism. Lower Neck: No lymphadenopathy by size criteria. Thyroid: Visualized thyroid demonstrates no discrete nodules. Axillae: No lymphadenopathy by size criteria. Chest Wall: Unremarkable. Bones: Visualized osseous structures demonstrate no suspicious lesions. Lungs and Airways: No acute consolidation. There is mild dependent atelectasis. Within the left lower lobe, there are few pulmonary nodules including a 0.4 cm nodule on series 5, image 162. These appear unchanged compared to the prior study. The trachea and central airways are patent. Pleura: No pneumothorax or pleural effusions. Heart: Heart size is normal. No pericardial effusion. Thoracic Vessels: The thoracic aorta is normal in size. Mediastinum and Negrita: No lymphadenopathy by size criteria. Esophagus: No wall thickening. There is a small hiatal hernia. Abdomen: Visualized upper abdomen demonstrates a few cysts within the visualized liver including a probable slightly hyperdense cyst in segment 4A of the left hepatic lobe. IMPRESSION: 1. No evidence of pulmonary embolism. 2. No acute airspace consolidation. 3. Scattered left lower lobe pulmonary nodules appear unchanged compared to the prior study. Dictated by: Robby Matos M.D. on 05/20/2022 at 21:17 Approved by: Robby Matos M.D. on 05/20/2022 at 21:37
== END 2022-05-20 22:25 | disposition home or self-care (01) ==
PROVIDERS: Emergency Medicine; Emergency Provider Emergency Medicine; PCP Family Medicine
DX: U07.1 COVID-19 (principal); Z79.01 Long term (current) use of anticoagulants; Z79.899 Other long term (current) drug therapy
CPT/HCPCS: 36415; 71045; 71275; 80053; 81003; 82550; 83690; 83735; 84484; 85025; 85379; 85610; 85730; 87635; 93005; 99284; C9803; Q9967

== ENCOUNTER 2022-09-04 21:15 | Emergency (ER) | payer MEDICARE, OTHER, SELFPAY ==
[2022-09-04 21:22] VITALS: BP 166/74; PULSE 104; RESP 18; TEMP 36.3; O2SAT 100; BMI 26.9
--- NOTE | 2022-09-04 21:34 | ED.EXTPRO ---
HPI - Extremity Problem General Chief complaint: Extremity Problem,Nontraumatic Stated complaint: cellulitis, just not feeling well Time Seen by Provider: 09/04/22 21:19 Source: patient Mode of arrival: Ambulatory History of Present Illness HPI Narrative: Patient is an 81-year-old female who is here for evaluation of potential cellulitis on her right leg and just generally not feeling very well. Within the past couple weeks she was seen for redness on her face. Was started on doxycycline. Was only on doxycycline for a couple days and then was switched to a cephalosporin. She states that the redness on her face has improved but she actually stopped taking the antibiotics a couple days ago. He has a proximally 2 days left of the antibiotics. Yesterday she started to notice some redness on the front of her right leg. It is warm and somewhat tender the touch in his also itching. She did put some topical cream over the area because of the itching but was reluctant to do more because she did not know if it was going to make things worse. She denies any fevers. Is having generalized malaise. Related Data Home Medications Medication Instructions Recorded Confirmed vitamin B complex 1 cap PO DAILY 06/28/21 09/03/22 ibuprofen 125 mg-acetaminophen 250 1 tab PO Q8H PRN Pain (Scale Score 09/18/21 09/03/22 mg tablet (Advil Dual Action) 4-6) multivitamin 1 tab PO DAILY 02/28/22 09/03/22 Previous Rx's Medication Instructions Recorded Ventolin HFA 90 mcg/actuation See Rx Instructions .Route 03/15/22 aerosol inhaler (albuterol sulfate) .COMPLEX #18 grams beclomethasone dipropionate 40 1 inh inhalation BID #10.6 grams 03/15/22 mcg/actuation HFA breath activated aerosol (Qvar RediHaler) ondansetron 4 mg disintegrating 4 mg PO Q8H PRN nausea and 05/28/22 tablet vomiting #30 tabs carbamazepine 100 mg 50 mg PO Q12H PRN Trygenamal Nerve 07/01/22 tablet,extended release,12 hr #60 tabs lisinopril 30 mg tablet 30 mg .Route BID #180 tabs 07/01/22 alprazolam 0.5 mg tablet See Rx Instructions .Route 07/02/22 .COMPLEX #60 tabs hydrocodone 5 mg-acetaminophen 325 1 tab PO BID PRN pain #14 tabs 07/02/22 mg tablet cefuroxime axetil 500 mg tablet 500 mg PO BID 5 days #10 tabs 09/04/22 Allergies Allergy/AdvReac Type Severity Reaction Status Date / Time meperidine Allergy Severe COULDN'T Verified 09/03/22 14:24 BREATHE OR TALK, EXTREME DIAPHORESIS fluoxetine Allergy Intermediate BROKE OUT Verified 09/03/22 14:24 INTO RASH levofloxacin Allergy Intermediate TENDON Verified 09/03/22 14:24 SORENESS penicillin G Allergy Intermediate RASH Verified 09/03/22 14:24 Sulfa (Sulfonamide Allergy Intermediate HIVES Verified 09/03/22 14:24 Antibiotics) isosulfan blue Allergy Unknown Verified 09/03/22 14:24 nitrofurantoin Allergy Unknown Verified 09/03/22 14:24 [From MACROBID] Review of Systems Constitutional Constitutional: Reports system reviewed and no additional complaints, except as documented Musculoskeletal Musculoskeletal: Reports system reviewed and no additional complaints, except as documented Integumentary/Breasts Skin/Breast: Reports system reviewed and no additional complaints, except as documented Neurologic Neurologic: Reports system reviewed and no additional complaints, except as documented Patient History Medical History Abnormal chest x-ray Asthma (~1944) Breast cancer (~2015) Chicken pox (~1949) Essential hypertension Facet arthropathy, lumbar Hay fever Hearing loss (~2016) Kidney stones (~2005) Knee meniscus pain (~2014) Lumbar spinal stenosis Measles (~1949) Migraine Mononucleosis (~1960) Sciatica (~2017) Scleral icterus Scoliosis Spinal stenosis of cervical region Spondylosis of lumbar spine Tinnitus (~2016) Surgical History Anesthesia Branchial cleft cyst (~1960) History of appendectomy (~1953) History of arthroscopic knee surgery (~2014) History of cataract surgery History of section (~1975) History of section (~1982) History of lumpectomy (~01/2016) History of tonsillectomy (~1944) Family History Father Hypertension Heart disease Mother No problems noted. Brother No problems noted. Sister No problems noted. Grandfather No problems noted. Grandmother No problems noted. Grandfather No problems noted. Grandmother No problems noted. Social History Smoking Status: Former smoker Smoking Status: Former smoker alcohol intake frequency: holidays/special occasions only Substance Use Type: does not use Exam Initial Vital Signs Initial Vital Signs: Vital Signs Temperature 97.3 F L 09/04/22 21:22 Pulse Rate 104 H 09/04/22 21:22 Respiratory Rate 18 09/04/22 21:22 Blood Pressure 166/74 H 09/04/22 21:22 Pulse Oximetry 100 09/04/22 21:22 Oxygen Delivery Method Room Air 09/04/22 21:22 HENNY Head: normal to inspection and normocephalic Skin Other: Patient does have a hand size area of redness on the anterior portion of the right chiu. It is warm to the touch. There are no vesicles. No urticaria. No petechiae. There is no fluctuance. Neuro Sensory Exam: no sensory deficits noted Extrem Other: Very mild swelling to the right lower extremity Course Vital Signs Vital signs: Vital Signs - 8 hr 09/04/22 21:22 09/04/22 21:38 09/04/22 21:55 Temperature 97.3 F L Pulse Rate 104 H 86 Pulse Rate [Right Dorsalis Pedis] 101 H Respiratory Rate 18 16 Blood Pressure 166/74 H Pulse Oximetry 100 98 Oxygen Delivery Method Room Air Room Air MDM - Extremity (Nontraumatic) MDM Narrative Medical decision making narrative: She does have redness and warmth the anterior portion of the right chiu that would be consistent with a cellulitis. There is no fluctuance indicating an underlying abscess. No vesicles. She is very reluctant to take her antibiotics because she is had reactions to them in the past. She is 2 days of her previous cephalosporin already at home. She tolerated this without any problems. The plan will be is to have her take this 2 days and that at 5 more days for total of 7 days for antibiotic to treat this cellulitis. No indication for admission to hospital. Patient is not septic. Provided reassurance. She was given return precautions. She expressed understanding and agreement. Discharge Plan Departure Patient Disposition: Home Clinical Impression: Cellulitis Instructions: DI for Cellulitis -- Adult Activity Restrictions/Additional Instructions: I recommend that you finish the antibiotics that you have at home and we are going to put you on an additional 5 days. The prescription for this additional 5 days was sent to [facility]. You can base like normal. Contact your primary doctor for follow-up. Return to the emergency department for new symptoms. Prescriptions: New cefuroxime axetil 500 mg tablet 500 mg PO BID 5 Days Qty: 10 0RF No Action albuterol sulfate [Ventolin HFA] 90 mcg/actuation HFA aerosol inhaler See Rx Instructions .ROUTE .COMPLEX Qty: 18 3RF Dose Instruction: INHALE 2 PUFFS INTO THE LUNGS EVERY 4 TO 6 HOURS NEEDED FOR ASTHMA; USE WITH SPACER Rx Instructions: INHALE 2 PUFFS INTO THE LUNGS EVERY 4 TO 6 HOURS NEEDED FOR ASTHMA; USE WITH SPACER Qvar RediHaler 40 mcg/actuation HFA aerosol breath activated 1 inh inhalation BID Qty: 10.6 3RF Rx Instructions: administer with spacer lisinopril 30 mg tablet 30 mg .ROUTE BID Qty: 180 3RF Rx Instructions: 30 mg twice a day; carbamazepine 100 mg tablet extended release 12 hr 50 mg PO Q12H PRN (Reason: Trygenamal Nerve) Qty: 60 1RF alprazolam 0.5 mg tablet See Rx Instructions .ROUTE .COMPLEX Qty: 60 0RF Dose Instruction: TAKE 1 TABLET BY MOUTH TWICE DAILY NEEDED FOR ANXIETY Rx Instructions: TAKE 1 TABLET BY MOUTH TWICE DAILY NEEDED FOR ANXIETY hydrocodone-acetaminophen 5-325 mg tablet 1 tab PO BID PRN (Reason: pain) Qty: 14 0RF multivitamin Tablet 1 tab PO DAILY Advil Dual Action 125-250 mg tablet 1 tab PO Q8H PRN (Reason: Pain (Scale Score 4-6)) ondansetron 4 mg tablet,disintegrating 4 mg PO Q8H PRN (Reason: nausea and vomiting) Qty: 30 0RF vitamin B complex Capsule 1 cap PO DAILY Referrals: Nikhil Ballard MD [Primary Care Provider] - Stand Alone Forms: Patient Portal/API
[2022-09-04 21:38] VITALS: PULSE 101
--- NOTE | 2022-09-04 21:41 | PC.NURSE ---
Right lower extremity reddened areas marked and dated. Larger area is approximately 15cm x 8cm irregularly shaped, and proximal to this is another reddened area measuring approximately 3cm x 3cm. Pitting edema noted distal to reddened areas on RLE.
[2022-09-04 21:55] VITALS: PULSE 86; RESP 16; O2SAT 98
== END 2022-09-04 21:57 | disposition home or self-care (01) ==
PROVIDERS: Emergency Provider Emergency Medicine; PCP Family Medicine
DX: L03.115 Cellulitis of right lower limb (principal)
CPT/HCPCS: 99281

== ENCOUNTER 2022-09-30 08:33 | Emergency (ER) | payer MEDICARE, OTHER, SELFPAY ==
[2022-09-30] VITALS (14 sets, daily range): BP systolic 139–158; BP diastolic 67–71; PULSE 61–88; RESP 16; TEMP 36.8; O2SAT 86–100; BMI 25.7
--- NOTE | 2022-09-30 09:03 | ED_ITS ---
HPI - Abdominal Pain General Chief Complaint: Weakness Stated Complaint: shaking, poss dehydrated, nausea Time Seen by Provider: 09/30/22 08:39 History of Present Illness HPI narrative: Patient is an 81-year-old female history of chronic neck pain, asthma, recent cellulitis of the face was taking doxycycline switched over to cefazolin finishing antibiotics. She reports that she does have constipation sometimes however yesterday she had quite a bit of constipation. She had multiple enemas at home she self disimpacted. Today she feels just weak. Last night she reports she has not palpitations she denies any severe abdominal pain she was slightly nauseous no vomiting. She had some shaking this morning but afebrile. When I am in the room her oxygen goes down to 86% with a good waveform, she does not have any conversational dyspnea obvious distress it quickly goes back up. She feels like she might be dehydrated. Related Data Home Medications Medication Instructions Recorded Confirmed vitamin B complex 1 cap PO DAILY 06/28/21 09/03/22 ibuprofen 125 mg-acetaminophen 250 1 tab PO Q8H PRN Pain (Scale Score 09/18/21 09/03/22 mg tablet (Advil Dual Action) 4-6) multivitamin 1 tab PO DAILY 02/28/22 09/03/22 Previous Rx's Medication Instructions Recorded Ventolin HFA 90 mcg/actuation See Rx Instructions .Route 03/15/22 aerosol inhaler (albuterol sulfate) .COMPLEX #18 grams beclomethasone dipropionate 40 1 inh inhalation BID #10.6 grams 03/15/22 mcg/actuation HFA breath activated aerosol (Qvar RediHaler) ondansetron 4 mg disintegrating 4 mg PO Q8H PRN nausea and 05/28/22 tablet vomiting #30 tabs carbamazepine 100 mg 50 mg PO Q12H PRN Trygenamal Nerve 07/01/22 tablet,extended release,12 hr #60 tabs lisinopril 30 mg tablet 30 mg .Route BID #180 tabs 07/01/22 hydrocodone 5 mg-acetaminophen 325 1 tab PO BID PRN pain #14 tabs 07/02/22 mg tablet alprazolam 0.5 mg tablet See Rx Instructions .Route 09/05/22 .COMPLEX #60 tabs Allergies Allergy/AdvReac Type Severity Reaction Status Date / Time meperidine Allergy Severe COULDN'T Verified 09/03/22 14:24 BREATHE OR TALK, EXTREME DIAPHORESIS fluoxetine Allergy Intermediate BROKE OUT Verified 09/03/22 14:24 INTO RASH levofloxacin Allergy Intermediate TENDON Verified 09/03/22 14:24 SORENESS penicillin G Allergy Intermediate RASH Verified 09/03/22 14:24 Sulfa (Sulfonamide Allergy Intermediate HIVES Verified 09/03/22 14:24 Antibiotics) isosulfan blue Allergy Unknown Verified 09/03/22 14:24 nitrofurantoin Allergy Unknown Verified 09/03/22 14:24 [From MACROBID] Review of Systems Review of Systems ROS Unobtainable: All systems reviewed & are unremarkable except as noted in HPI and below Patient History Medical History Abnormal chest x-ray Asthma (~1945) Breast cancer (~2015) Chicken pox (~1949) Essential hypertension Facet arthropathy, lumbar Hay fever Hearing loss (~2016) Kidney stones (~2005) Knee meniscus pain (~2014) Lumbar spinal stenosis Measles (~1949) Migraine Mononucleosis (~1960) Sciatica (~2017) Scleral icterus Scoliosis Spinal stenosis of cervical region Spondylosis of lumbar spine Tinnitus (~2016) Surgical History Anesthesia Branchial cleft cyst (~1960) History of appendectomy (~1953) History of arthroscopic knee surgery (~2014) History of cataract surgery History of section (~1975) History of section (~1982) History of lumpectomy (~01/2016) History of tonsillectomy (~1944) Family History Father Hypertension Heart disease Mother No problems noted. Brother No problems noted. Sister No problems noted. Grandfather No problems noted. Grandmother No problems noted. Grandfather No problems noted. Grandmother No problems noted. Social History Smoking Status: Former smoker Smoking Status: Former smoker alcohol intake frequency: holidays/special occasions only Substance Use Type: does not use Exam Initial Vital Signs Initial Vital Signs: Vital Signs Pulse Oximetry 96 09/30/22 08:43 GENERAL: Alert very well-appearing 81-year-old female HEENT: Head atraumatic,EOMI, pupils reactive, face symmetric, moist mucous membranes CARDIOVASCULAR: Regular rate and rhythm without murmurs, rubs or gallops. RESPIRATORY: Breath sounds equal bilaterally, no wheezes rales or rhonchi. Clear bilaterally speaks in full sentences no respiratory distress ABDOMEN: Soft, nontender. Normoactive bowel sounds all 4 quadrants. No guarding or rebound. EXTREMITIES: Normal range of motion, no clubbing or edema. Neurovascularly intact NEUROLOGICAL: Alert and oriented x4.Normal gait and speech. SKIN: Warm, dry, no laceration, no petechiae, no rashes or lesions. Scores HEART Score Heart Score history: Slightly Suspicious Heart Score EKG: Normal Heart Score Age: > or = 65 years old Heart Score risk factors: 1-2 risk factors Heart Score troponin: < or = to normal limit Heart Score Total: 3 Course Orders Ordered: ED Orders 09/30/22 11:03 Trop I [Troponin I] Stat Discontinued Medications Sodium Chloride (Normal Saline 0.9%) 1,000 mls @ 1,000 mls/hr IV BOLUS ONE Stop: 09/30/22 10:22 Last Infusion: 09/30/22 10:50 Dose: 0 mls/hr Documented By: Admin: 09/30/22 09:36 Dose: 1,000 mls/hr Documented By: CHU Ondansetron HCl (Ondansetron 4 Mg Odt) 4 mg PO NOW PRN PRN Reason: Nausea And Vomiting Ondansetron HCl (Ondansetron 4 Mg/2 Ml Inj) 4 mg IV NOW PRN PRN Reason: Nausea And Vomiting Vital Signs Vital signs: Vital Signs - 8 hr 09/30/22 10:45 09/30/22 11:00 09/30/22 11:00 Pulse Rate 64 61 Blood Pressure 157/67 H Pulse Oximetry 100 99 09/30/22 11:01 09/30/22 11:01 Pulse Rate 64 Blood Pressure 151/69 H Pulse Oximetry 100 MDM - Abdominal Pain Lab Data 09/30/22 08:41 09/30/22 08:41 Labs: Lab Results 09/30/22 09/30/22 09/30/22 Range/Units 08:41 08:41 08:41 WBC 9.5 (4.5-11.0) X10^3/uL RBC 4.27 (4.0-5.2) X10^6/uL Hgb 13.2 (12.0-16.0) g/dL Hct 38.7 (36-46) % MCV 90.7 (80-100) fL MCH 30.9 (26-34) PG MCHC 34.1 (30-36) % RDW 13.6 (11.6-14.8) % Plt Count 296 (150-400) X10^3/uL Neut % (Auto) 72.2 (50-75) % Lymph % (Auto) 24.5 L (25-40) % Wake % (Auto) 2.7 L (3-14) % Eos % (Auto) 0.0 L (2-4) % Baso % (Auto) 0.6 (0-2) % Neut # (Auto) 6900 (8612-0147) /uL Lymph # (Auto) 2300 (4455-1874) /uL Wake # (Auto) 300 (0-900) /uL Eos # (Auto) 0 (0-450) /uL Baso # (Auto) 100 (0-100) /uL PT 11.1 (10.1-12.7) SECONDS INR 1.0 (0.9-1.3) Sodium (137-145) mmol/L Potassium (3.4-5.1) mmol/L Chloride (98-107) mmol/L Carbon Dioxide (22-32) mmol/L BUN (7-17) mg/dL Creatinine (0.52-1.04) mg/dL Estimated GFR (>60) mL/min BUN/Creatinine Ratio (6-22) Glucose (80-110) mg/dL Calcium (8.4-10.2) mg/dL Total Bilirubin (0.2-1.3) mg/dL AST (14-36) IU/L ALT (<35) IU/L Alkaline Phosphatase (38-126) U/L Total Creatine Kinase (30-135) U/L Troponin I (0.01-0.034) ng/mL Total Protein (6.3-8.2) g/dL Albumin (3.5-5.0) g/dL Globulin (1.7-4.1) g/dL Albumin/Globulin Ratio (1.0-2.8) Lipase (23-300) U/L Urine RBC 0-1/hpf (0-5/HPF) Urine WBC 0-1/hpf (0-5/HPF) Ur Squamous Epith Cells 0-1 /hpf (0-5/HPF) Urine Bacteria None seen (None) Ur Culture Indicated? Cult not indicated 09/30/22 09/30/22 09/30/22 Range/Units 08:41 08:41 11:03 WBC (4.5-11.0) X10^3/uL RBC (4.0-5.2) X10^6/uL Hgb (12.0-16.0) g/dL Hct (36-46) % MCV (80-100) fL MCH (26-34) PG MCHC (30-36) % RDW (11.6-14.8) % Plt Count (150-400) X10^3/uL Neut % (Auto) (50-75) % Lymph % (Auto) (25-40) % Wake % (Auto) (3-14) % Eos % (Auto) (2-4) % Baso % (Auto) (0-2) % Neut # (Auto) (9599-8301) /uL Lymph # (Auto) (7659-3570) /uL Wake # (Auto) (0-900) /uL Eos # (Auto) (0-450) /uL Baso # (Auto) (0-100) /uL PT (10.1-12.7) SECONDS INR (0.9-1.3) Sodium 139 (137-145) mmol/L Potassium 4.2 (3.4-5.1) mmol/L Chloride 104 (98-107) mmol/L Carbon Dioxide 29 (22-32) mmol/L BUN 20 H (7-17) mg/dL Creatinine 0.76 (0.52-1.04) mg/dL Estimated GFR > 60 (>60) mL/min BUN/Creatinine Ratio 26.3 H (6-22) Glucose 129 H (80-110) mg/dL Calcium 9.6 (8.4-10.2) mg/dL Total Bilirubin 0.6 (0.2-1.3) mg/dL AST 28 (14-36) IU/L ALT 24 (<35) IU/L Alkaline Phosphatase 86 (38-126) U/L Total Creatine Kinase 46 (30-135) U/L Troponin I < 0.012 0.027 (0.01-0.034) ng/mL Total Protein 7.1 (6.3-8.2) g/dL Albumin 4.3 (3.5-5.0) g/dL Globulin 2.8 (1.7-4.1) g/dL Albumin/Globulin Ratio 1.5 (1.0-2.8) Lipase 133 (23-300) U/L Urine RBC (0-5/HPF) Urine WBC (0-5/HPF) Ur Squamous Epith Cells (0-5/HPF) Urine Bacteria (None) Ur Culture Indicated? Point of care testing: Urine Dip Bedside Urine Glucose Negative Bedside Urine Bilirubin - Negative Bedside Urine Ketone ++ 40 Urine Specific [place] 1.015 Bedside Urine Occult Blood - Negative Bedside Urine pH 6.5 Bedside Urine Protein - Negative Bedside Urine Urobilinogen - Negative Bedside Urine Nitrite - Negative Bedside Urine Leukocytes - Negative Esterase Imaging Data Chest x-ray: Radiologist's Impression: PROCEDURE:? XR CHEST 1V ? INDICATIONS:? sob ? TECHNIQUE:? One view of the chest was acquired.? ? COMPARISON:? [facility], , XR CHEST 1V, 05/20/2022, 17:11. ? FINDINGS:? ? Surgical changes and devices:? None.? ? Lungs and pleura:? Lungs are clear.? No pleural effusions or pneumothorax.? ? Mediastinum:? Mediastinal contours appear normal.? Mild cardiomegaly. ? Bones and chest wall:? No suspicious bony lesions.? Overlying soft tissues appear unremarkable.? ? IMPRESSION:? Mild cardiomegaly. No evidence acute pulmonary process. ? ? ? Dictated by: Kleber Stoddard M.D. on 09/30/2022 at 10:01 ?? ECG Data Interpretation: Sinus rhythm rate 84 OR interval 190 QRS [address] changes no T-wave inversions similar to previous EKGs [facility] Narrative Medical decision making narrative: Patient 81-year-old female presents today variety of symptoms. She reports that she was very constipated yesterday but did very well with enemas and self disimpaction. She was feeling shaky. No evidence of infection today she is no leukocytosis no UTI, she really has no evidence of dehydration or electrolyte abnormalities on blood work. She reports that she has this chronic ongoing c ervical pain somebody told her that she had a cervical angina and sometimes gets chest discomfort. She has chest discomfort now it is nonradiating not reproducible she is 2- troponins. This would be a very atypical acute coronary syndrome however I do recommend she follow up with her primary and return if needed. She overall appears very well and very comfortable. She is low risk with a low heart score. At this time no need for admission she is feeling better she got 1 L of fluid. Discharge Plan Departure Patient Disposition: Home Clinical Impression: Atypical chest pain Instructions: DI for Atypical Chest Pain Activity Restrictions/Additional Instructions: *You have been diagnosed with atypical chest pain *What to do: Increase fluid intake as tolerated. You may require further testing please talk to your primary care provider if you start feeling worse he may need to be re-evaluated *Continue to take medications as directed *Follow up with your primary care provider in 2-3 days or call [phone] *Return to ER if you should have increasing chest pain abdominal pain nausea vomiting or any new, worsening or concerning symptoms Prescriptions: No Action albuterol sulfate [Ventolin HFA] 90 mcg/actuation HFA aerosol inhaler See Rx Instructions .ROUTE .COMPLEX Qty: 18 3RF Dose Instruction: INHALE 2 PUFFS INTO THE LUNGS EVERY 4 TO 6 HOURS NEEDED FOR ASTHMA; USE WITH SPACER Rx Instructions: INHALE 2 PUFFS INTO THE LUNGS EVERY 4 TO 6 HOURS NEEDED FOR ASTHMA; USE WITH SPACER Qvar RediHaler 40 mcg/actuation HFA aerosol breath activated 1 inh inhalation BID Qty: 10.6 3RF Rx Instructions: administer with spacer lisinopril 30 mg tablet 30 mg .ROUTE BID Qty: 180 3RF Rx Instructions: 30 mg twice a day; carbamazepine 100 mg tablet extended release 12 hr 50 mg PO Q12H PRN (Reason: Trygenamal Nerve) Qty: 60 1RF hydrocodone-acetaminophen 5-325 mg tablet 1 tab PO BID PRN (Reason: pain) Qty: 14 0RF alprazolam 0.5 mg tablet See Rx Instructions .ROUTE .COMPLEX Qty: 60 0RF Dose Instruction: TAKE 1 TABLET BY MOUTH TWICE DAILY NEEDED FOR ANXIETY Rx Instructions: TAKE 1 TABLET BY MOUTH TWICE DAILY NEEDED FOR ANXIETY multivitamin Tablet 1 tab PO DAILY Advil Dual Action 125-250 mg tablet 1 tab PO Q8H PRN (Reason: Pain (Scale Score 4-6)) ondansetron 4 mg tablet,disintegrating 4 mg PO Q8H PRN (Reason: nausea and vomiting) Qty: 30 0RF vitamin B complex Capsule 1 cap PO DAILY Referrals: Nikhil Ballard MD [Primary Care Provider] - Stand Alone Forms: Patient Portal/API
[2022-09-30 09:12] LABS: Add Manual Diff / Slide Review NO; Basophils Absolute Auto 100 /uL (0-100); Basophils Percent Auto 0.6 % (0-2); Eosinophils Absolute Auto 0 /uL (0-450); Hematocrit 38.7 % (36-46); Hemoglobin 13.2 g/dL (12.0-16.0); Lymphocytes Absolute Auto 2300 /uL (1100-4500); Lymphocytes Percent Auto 24.5 % (25-40); Mean Corpuscular HGB Conc 34.1 % (30-36); Mean Corpuscular Hemoglobin 30.9 PG (26-34); Mean Corpuscular Volume 90.7 fL (80-100); Monocytes Absolute Auto 300 /uL (0-900); Monocytes Percent Auto 2.7 % (3-14); Neutrophils Absolute Auto 6900 /uL (1500-7000); Neutrophils Percent Auto 72.2 % (50-75); Platelet Count 296 X10^3/uL (150-400); Red Blood Cell Count 4.27 X10^6/uL (4.0-5.2); Red Cell Distribution Width 13.6 % (11.6-14.8); White Blood Cell Count 9.5 X10^3/uL (4.5-11.0)
[2022-09-30 09:13] LABS: Prothrombin Time 11.1 SECONDS (10.1-12.7)
[2022-09-30 09:14] LABS: Bacteria Urine None Seen; Culture Indicated Urine Cult Not Indicated; RBC Urine 0-1/HPF (0-5/HPF); Squamous Epithelial Cell Urine 0-1 /HPF (0-5/HPF); WBC Urine 0-1/HPF (0-5/HPF)
[2022-09-30 09:18] LABS: Alanine Aminotransferase 24 IU/L (<35); Albumin 4.3 g/dL (3.5-5.0); Albumin Globulin Ratio 1.5 (1.0-2.8); Alkaline Phosphatase 86 U/L (38-126); Aspartate Aminotransferase 28 IU/L (14-36); BUN Creatinine Ratio 26.3 (6-22); Bilirubin Total 0.6 mg/dL (0.2-1.3); Blood Urea Nitrogen 20 mg/dL (7-17); Calcium 9.6 mg/dL (8.4-10.2); Carbon Dioxide 29 mmol/L (22-32); Chloride 104 mmol/L (98-107); Estimated Glomerular Filt Rate > 60 mL/min (>60); Globulin 2.8 g/dL (1.7-4.1); Glucose 129 mg/dL (80-110); HEMOLYSIS < 15 (0-50); Lipase 133 U/L (23-300); Potassium 4.2 mmol/L (3.4-5.1); Sodium 139 mmol/L (137-145); Total Protein 7.1 g/dL (6.3-8.2)
--- NOTE | 2022-09-30 09:20 | DI.RAD.S_ITS ---
PROCEDURE: XR CHEST 1V INDICATIONS: sob TECHNIQUE: One view of the chest was acquired. COMPARISON: [facility], CR, XR CHEST 1V, 05/20/2022, 17:11. FINDINGS: Surgical changes and devices: None. Lungs and pleura: Lungs are clear. No pleural effusions or pneumothorax. Mediastinum: Mediastinal contours appear normal. Mild cardiomegaly. Bones and chest wall: No suspicious bony lesions. Overlying soft tissues appear unremarkable. IMPRESSION: Mild cardiomegaly. No evidence acute pulmonary process. Dictated by: Kleber Stoddard M.D. on 09/30/2022 at 10:01 Approved by: Kleber Stoddard M.D. on 09/30/2022 at 10:02
[2022-09-30] MEDS: SODIUM CHLORIDE 0.9% 1,000 ML 1000 ML IV (09:36)
--- NOTE | 2022-09-30 09:37 | PC.NURSE ---
O2 decreasing to 88% with adequate pleth. placed on 2L O2 with improvement. Pt anxious and reports she usually takes xanax when needed. Inquired to Dr Strong about anxiety medication. No new orders. Denies feeling more SOB than usual. IVF infusing. Pt states i think my chest feels a little discomfort on the R side as well. RT called for EKG. Pt with easy work of breathing. Talkative. Does not appear in any acute distress.
[2022-09-30 09:39] LABS: Creatine Kinase 46 U/L (30-135)
[2022-09-30 09:52] LABS: Troponin I < 0.012 ng/mL (0.01-0.034)
[2022-09-30 11:34] LABS: Troponin I 0.027 ng/mL (0.01-0.034)
== END 2022-09-30 11:55 | disposition home or self-care (01) ==
PROVIDERS: Emergency Provider Emergency Medicine; PCP Family Medicine
DX: R07.89 Other chest pain (principal); R06.02 Shortness of breath
CPT/HCPCS: 36415; 71045; 80053; 81003; 81015; 82550; 83690; 84484; 85025; 85610; 93005; 99284

== ENCOUNTER → 2022-10-10 14:38 | Outpatient (CLI) | payer MEDICARE, OTHER, SELFPAY ==
[2022-10-10 15:31] LABS: Add Manual Diff / Slide Review NO; Basophils Absolute Auto 100 /uL (0-100); Basophils Percent Auto 0.9 % (0-2); Eosinophils Absolute Auto 300 /uL (0-450); Eosinophils Percent Auto 2.8 % (2-4); Hemoglobin 12.6 g/dL (12.0-16.0); Lymphocytes Absolute Auto 4700 /uL (1100-4500); Mean Corpuscular HGB Conc 33.2 % (30-36); Mean Corpuscular Hemoglobin 30.8 PG (26-34); Mean Corpuscular Volume 92.8 fL (80-100); Monocytes Absolute Auto 900 /uL (0-900); Monocytes Percent Auto 9.2 % (3-14); Neutrophils Absolute Auto 4100 /uL (1500-7000); Neutrophils Percent Auto 40.1 % (50-75); Platelet Count 286 X10^3/uL (150-400); Red Cell Distribution Width 13.8 % (11.6-14.8); White Blood Cell Count 10.1 X10^3/uL (4.5-11.0)
[2022-10-10 16:08] LABS: Alanine Aminotransferase 23 IU/L (<35); Albumin 3.9 g/dL (3.5-5.0); Albumin Globulin Ratio 1.5 (1.0-2.8); Alkaline Phosphatase 67 U/L (38-126); Aspartate Aminotransferase 26 IU/L (14-36); BUN Creatinine Ratio 40.6 (6-22); Bilirubin Total 0.2 mg/dL (0.2-1.3); Blood Urea Nitrogen 28 mg/dL (7-17); Calcium 9.4 mg/dL (8.4-10.2); Carbon Dioxide 33 mmol/L (22-32); Chloride 105 mmol/L (98-107); Cholesterol 228 mg/dL (140-199); Estimated Glomerular Filt Rate > 60 mL/min (>60); Globulin 2.6 g/dL (1.7-4.1); Glucose 93 mg/dL (80-110); HDL Cholesterol 73 mg/dL (40-60); HEMOLYSIS < 15 (0-50); LDL Cholesterol Calculated 113 mg/dL (<100); Potassium 4.4 mmol/L (3.4-5.1); Sodium 141 mmol/L (137-145); Total Protein 6.5 g/dL (6.3-8.2); Triglycerides 211 mg/dL (35-150)
[2022-10-10 16:33] LABS: TSH w/ Reflex to FT4 1.14 uIU/mL (0.47-4.68)
== END ==
PROVIDERS: PCP Family Medicine; Referring Provider Family Medicine; Visit Provider Family Medicine
DX: C50.919 Malignant neoplasm of unspecified site of unspecified female breast (principal); I10 Essential (primary) hypertension; M47.816 Spondylosis without myelopathy or radiculopathy, lumbar region; M48.061 Spinal stenosis, lumbar region without neurogenic claudication; R53.83 Other fatigue
CPT/HCPCS: 36415; 80053; 80061; 84443; 85025

== ENCOUNTER → 2022-10-15 14:34 | Outpatient (CLI) | payer MEDICARE, OTHER, SELFPAY ==
[2022-10-15 16:31] LABS: Creatinine Urine Random 99.1 mg/dL
[2022-10-15 16:40] LABS: Microalbumi Creatinin Ratio Ur 23.2 ug/mg CR (<30); Microalbumin Urine Random 2.3 mg/dL (0-1.6)
== END ==
PROVIDERS: PCP Family Medicine; Referring Provider Family Medicine; Visit Provider Family Medicine
DX: C50.919 Malignant neoplasm of unspecified site of unspecified female breast (principal); I10 Essential (primary) hypertension; M47.816 Spondylosis without myelopathy or radiculopathy, lumbar region; M48.061 Spinal stenosis, lumbar region without neurogenic claudication; R53.83 Other fatigue
CPT/HCPCS: 82043; 82570

== ENCOUNTER → 2022-12-20 15:26 | Outpatient (CLI) | payer MEDICARE, OTHER, SELFPAY ==
[2022-12-20 18:03] LABS: Appearance Urine UA CLOUDY; Bilirubin Urine UA NEGATIVE (NEGATIVE); Color Urine UA YELLOW; Glucose Urine UA NEGATIVE (Negative); Ketones Urine UA NEGATIVE (NEGATIVE); Leukocyte Esterase Urine UA 1+ (NEGATIVE); Nitrite Urine UA NEGATIVE (Negative); Occult Blood Urine UA NEGATIVE (Negative); Protein Urine UA TRACE (Negative); Specific Gravity Urine UA >=1.030 (1.000-1.035)
[2022-12-20 18:04] LABS: Add Manual Diff / Slide Review NO; Basophils Absolute Auto 100 /uL (0-100); Basophils Percent Auto 1.1 % (0-2); Eosinophils Absolute Auto 100 /uL (0-450); Eosinophils Percent Auto 1.4 % (2-4); Hematocrit 38.5 % (36-46); Lymphocytes Absolute Auto 4000 /uL (1100-4500); Lymphocytes Percent Auto 47.1 % (25-40); Mean Corpuscular HGB Conc 33.8 % (30-36); Mean Corpuscular Hemoglobin 30.7 PG (26-34); Mean Corpuscular Volume 90.9 fL (80-100); Monocytes Absolute Auto 600 /uL (0-900); Monocytes Percent Auto 6.9 % (3-14); Neutrophils Absolute Auto 3700 /uL (1500-7000); Neutrophils Percent Auto 43.5 % (50-75); Platelet Count 303 X10^3/uL (150-400); Red Blood Cell Count 4.23 X10^6/uL (4.0-5.2); Red Cell Distribution Width 14.8 % (11.6-14.8); White Blood Cell Count 8.5 X10^3/uL (4.5-11.0)
[2022-12-20 18:08] LABS: pH Urine UA 5.5 (4.5-8.0)
[2022-12-20 18:18] LABS: Bacteria Urine Few (2-10); Culture Indicated Urine Specimen Cultured; RBC Urine 0-1/HPF (0-5/HPF); Squamous Epithelial Cell Urine 0-1 /HPF (0-5/HPF); Urine Comments Low Volume (<10mL); WBC Urine 10-30/HPF (0-5/HPF)
[2022-12-20 18:25] LABS: Alanine Aminotransferase 22 IU/L (<35); Albumin 4.2 g/dL (3.5-5.0); Albumin Globulin Ratio 1.6 (1.0-2.8); Alkaline Phosphatase 58 U/L (38-126); Aspartate Aminotransferase 25 IU/L (14-36); BUN Creatinine Ratio 32.5 (6-22); Bilirubin Total 0.5 mg/dL (0.2-1.3); Blood Urea Nitrogen 27 mg/dL (7-17); Calcium 9.8 mg/dL (8.4-10.2); Carbon Dioxide 30 mmol/L (22-32); Chloride 102 mmol/L (98-107); Estimated Glomerular Filt Rate > 60 mL/min (>60); Globulin 2.6 g/dL (1.7-4.1); Glucose 114 mg/dL (80-110); HEMOLYSIS < 15 (0-50); Potassium 4.3 mmol/L (3.4-5.1); Sodium 140 mmol/L (137-145); Total Protein 6.8 g/dL (6.3-8.2)
[2022-12-20 18:55] LABS: TSH w/ Reflex to FT4 0.93 uIU/mL (0.47-4.68)
[2022-12-20 19:16] LABS: Vitamin B12 > 1000 pg/mL (239-931)
== END ==
PROVIDERS: PCP Family Medicine; Referring Provider Family Medicine; Visit Provider Family Medicine
DX: I10 Essential (primary) hypertension (principal); R53.82 Chronic fatigue, unspecified
CPT/HCPCS: 36415; 80053; 81001; 82607; 84443; 85025; 87086

== ENCOUNTER 2023-05-30 11:40 | Emergency (ER) | payer MEDICARE, OTHER, SELFPAY ==
[2023-05-30 11:50] VITALS: PULSE 74; RESP 16; TEMP 37.1; O2SAT 97; BMI 26.6
--- NOTE | 2023-05-30 11:51 | DI.RAD.S_ITS ---
PROCEDURE: XR KNEE RT 3V INDICATIONS: R knee pain, swelling, pop TECHNIQUE: 3 views of the knee were acquired. COMPARISON: [facility], CR, XR KNEE RT 3V, 03/01/2022, 7:27. FINDINGS: Bones: Moderate to severe degenerative arthritis with prominent osteophytes. No standing view. No acute fracture or dislocation noted. Soft tissues: Small joint effusion. No suspicious soft tissue calcifications. IMPRESSION: Moderate to severe degenerative arthritis. No acute fractures identified. Dictated by: Kleber Stoddard M.D. on 05/30/2023 at 13:02 Approved by: Kleber Stoddard M.D. on 05/30/2023 at 13:04
[2023-05-30 11:56] VITALS: BP 109/55
--- NOTE | 2023-05-30 12:47 | ED_ITS ---
HPI - Extremity Injury (Lower) <Deirdre Olvera PA-C - Last Filed: 05/30/23 14:20> General Chief Complaint: Extremity Injury, Lower Stated Complaint: Non traumatic Rt. Knee pain. Time Seen by Provider: 05/30/23 11:45 History of Present Illness HPI Narrative: Patient is an 82-year-old female presenting for evaluation of right knee pain times 4 days. She reports her symptoms started after sitting with her legs bent against her than straightening her right leg. She felt a pop and pain in the lateral and posterior aspect of her right knee. She states that she was able to walk the next several days, but yesterday she engaged in more activity than the rest of the week by going to the grocery store and driving. She states that she was awoken last night with severe pain in her right knee. She states this pain she experienced last night was worse than the pain she experienced after the incident. She describes it as it 8/10 pain. She denies any previous knee replacement, but states she did receive arthroscopic surgery by Dr. Nielsen 10 years ago. She endorses numbness in her bilateral lower feet, but states this is a chronic issue. She endorses increased pain with knee flexion. She endorses chronic conditions of osteoarthritis. She reports her last dose of medicine was Tylenol and ibuprofen at 4 this morning. Related Data Home Medications Medication Instructions Recorded Confirmed vitamin B complex 1 cap PO DAILY 06/28/21 06/05/23 ibuprofen 125 mg-acetaminophen 250 1 tab PO Q8H PRN Pain (Scale Score 09/18/21 06/05/23 mg tablet (Advil Dual Action) 4-6) multivitamin 1 tab PO DAILY 02/28/22 06/05/23 Previous Rx's Medication Instructions Recorded beclomethasone dipropionate 40 1 inh inhalation BID #10.6 grams 03/15/22 mcg/actuation HFA breath activated aerosol (Qvar RediHaler) carbamazepine 100 mg 50 mg (1/2 x 100 mg) PO Q12H PRN 07/01/22 tablet,extended release,12 hr Trygenamal Nerve #60 tabs Ventolin HFA 90 mcg/actuation See Rx Instructions .Route 12/17/22 aerosol inhaler (albuterol sulfate) .COMPLEX #18 grams hydrocodone 5 mg-acetaminophen 325 1 tab PO BID PRN pain #14 tabs 12/20/22 mg tablet cefuroxime axetil 250 mg tablet 250 mg PO BID #14 tabs 12/21/22 lisinopril 30 mg tablet 30 mg .Route BID #180 tabs 04/08/23 ondansetron 4 mg disintegrating 4 mg PO Q8H PRN nausea and 04/08/23 tablet vomiting #30 tabs alprazolam 0.5 mg tablet See Rx Instructions .Route 04/14/23 .COMPLEX #60 tabs hydrocodone 5 mg-acetaminophen 325 1 tab PO Q8H PRN pain #7 tabs 05/30/23 mg tablet Allergies Allergy/AdvReac Type Severity Reaction Status Date / Time meperidine Allergy Severe COULDN'T Verified 06/05/23 16:06 BREATHE OR TALK, EXTREME DIAPHORESIS fluoxetine Allergy Intermediate BROKE OUT Verified 06/05/23 16:06 INTO RASH levofloxacin Allergy Intermediate TENDON Verified 06/05/23 16:06 SORENESS penicillin G Allergy Intermediate RASH Verified 06/05/23 16:06 Sulfa (Sulfonamide Allergy Intermediate HIVES Verified 06/05/23 16:06 Antibiotics) isosulfan blue Allergy Unknown Verified 06/05/23 16:06 nitrofurantoin Allergy Unknown Verified 06/05/23 16:06 [From MACROBID] Review of Systems <Deirdre Olvera PA-C - Last Filed: 05/30/23 14:20> Review of Systems Narrative: See HPI Patient History <Deirdre Olvera PA-C - Last Filed: 05/30/23 14:20> Medical History Spinal stenosis of cervical region Facet arthropathy, lumbar Scoliosis Scleral icterus Lumbar spinal stenosis Spondylosis of lumbar spine Migraine Essential hypertension Asthma (~194) Hay fever Abnormal chest x-ray Knee meniscus pain (~2014) Sciatica (~2017) Mononucleosis (~196) Measles (~1949) Chicken pox (~1949) Tinnitus (~2016) Hearing loss (~2017) Kidney stones (~2005) Breast cancer (~2015) Surgical History Anesthesia History of lumpectomy (~01/2016) History of arthroscopic knee surgery (~2014) History of section (~1982) History of section (~1975) Branchial cleft cyst (~1960) History of appendectomy (~1953) History of tonsillectomy (~1944) History of cataract surgery Family History Father Hypertension Heart disease Mother No problems noted. Brother No problems noted. Sister No problems noted. Grandfather No problems noted. Grandmother No problems noted. Grandfather No problems noted. Grandmother No problems noted. Social History Smoking Status: Former smoker Smoking Status: Former smoker alcohol intake frequency: holidays/special occasions only Substance Use Type: does not use Exam <Deirdre Olvera PA-C - Last Filed: 05/30/23 14:20> Initial Vital Signs Initial Vital Signs: Vital Signs Temperature 98.7 F 05/30/23 11:50 Pulse Rate 74 05/30/23 11:50 Respiratory Rate 16 05/30/23 11:50 Pulse Oximetry 97 05/30/23 11:50 Oxygen Delivery Method Room Air 05/30/23 11:50 GENERAL: 82 year old patient appears stated age. Well-developed patient, in no acute distress. HEAD: Atraumatic. Normocephalic. EYES: Pupils equal round No scleral icterus. No injection or drainage. NECK: Trachea midline, supple RESPIRATORY: Speaking comfortably normal tone of voice without any increased work of breathing. EXTREMITIES: Edema noted over right inferior lateral knee, knee feels stable with a evaluation of anterior and posterior drawer, valgus and varus stress test and Nikia's. Patient can not tolerate Jacqueline's because bending right knee is quite painful for her. She does demonstrates intact knee flexion and extension strength with a small range of motion., she demonstrates intact 5/5 dorsiflexion and plantar flexion strength as well in her right foot. Bilaterally, there was no lower extremity edema noted otherwise. No evidence of bruising or erythema. Right knee has warmth compared to left knee. NEURO: AOx3. SKIN: No rash or erythema of visible areas <Jyotsna Strong DO - Last Filed: 06/06/23 11:14> Initial Vital Signs Initial Vital Signs: Vital Signs Temperature 98.7 F 05/30/23 11:50 Pulse Rate 74 05/30/23 11:50 Respiratory Rate 16 05/30/23 11:50 Pulse Oximetry 97 05/30/23 11:50 Oxygen Delivery Method Room Air 05/30/23 11:50 Course <Deirdre Olvera PA-C - Last Filed: 05/30/23 14:20> Orders Ordered: ED Orders 05/30/23 11:51 XR knee RT 3V Stat Vital Signs Vital signs: Vital Signs - 8 hr 05/30/23 11:50 05/30/23 11:56 Temperature 98.7 F Pulse Rate 74 Respiratory Rate 16 Blood Pressure 109/55 L Pulse Oximetry 97 Oxygen Delivery Method Room Air <Jyotsna Strong DO - Last Filed: 06/06/23 11:14> Orders Ordered: ED Orders 05/30/23 11:51 XR knee RT 3V Stat Vital Signs Vital signs: Vital Signs - 8 hr 05/30/23 11:50 05/30/23 11:56 Temperature 98.7 F Pulse Rate 74 Respiratory Rate 16 Blood Pressure 109/55 L Pulse Oximetry 97 Oxygen Delivery Method Room Air MDM - Extremity Injury (Lower) <Deirdre Olvera PA-C - Last Filed: 05/30/23 14:20> Imaging Data X-ray right knee: Radiologist's Impression: PROCEDURE: XR KNEE RT 3V INDICATIONS: R knee pain, swelling, pop TECHNIQUE: 3 views of the knee were acquired. COMPARISON: [facility], , XR KNEE RT 3V, 03/01/2022, 7:27. FINDINGS: Bones: Moderate to severe degenerative arthritis with prominent osteophytes. No standing view. No acute fracture or dislocation noted. Soft tissues: Small joint effusion. No suspicious soft tissue calcifications. IMPRESSION: Moderate to severe degenerative arthritis. No acute fractures identified. Dictated by: Kleber Stoddard M.D. on 05/30/2023 at 13:02 Approved by: Kleber Stoddard M.D. on 05/30/2023 at 13:04 [facility] Narrative Medical decision making narrative: Patient is an 82-year-old female presenting for evaluation of right knee pain x4 days. She denies any fall, but states that after having her knee bent for some time she straightened it felt a pop and then subsequent inferior lateral pain in her right knee as well as posteriorly. She felt her pain was improving overall, then significant worsened last night after day of increased activity yesterday. Exam shows appropriate perfusion, stable knee, reduced range of motion secondary to pain in the inferior lateral aspect of right knee. Awaiting x-ray results. Patient has been bearing weight with a cane. X-ray results show arthritis present in knee with no evidence of fracture or dislocation. I am concerned for possible strain of right knee. Discussed with patient that I recommend she use a knee brace as well as a walking aid and follow up with her primary care provider for follow up. We discussed that she may need further imaging such as MRI for further evaluation. I advised her to bear weight as tolerated and otherwise elevate, rest ice and use compression. I have given her a few doses of hydrocodone/Tylenol and advised her that this may cause drowsiness and constipation. I recommend that she take a stool softener and Metamucil to help keep her stools regular. Multiple etiologies for patient's symptoms considered including, but not limited to: Right knee strain, right knee fracture Patient's symptoms improved over duration of stay with above-stated therapies. Findings and discharge diagnosis discussed with patient/family followed by verbalization of understanding Return precautions discussed with patient/family whom verbalize understanding of diagnosis and plan Discharge Plan Departure Patient Disposition: Home Clinical Impression: Strain of right knee Qualifiers: Encounter type: initial encounter Qualified Code(s): S86.911A - Strain of unspecified muscle(s) and tendon(s) at lower leg level, right leg, initial encounter Activity Restrictions/Additional Instructions: Thank you for coming in today for your care. Good news, your x-rays did not show any sign of dislocation or fracture in your right knee. It does however show evidence of arthritis in your right knee. You were diagnosed today with a strain of your right knee. I recommend that you use a knee brace to support the joint until follow up with your primary care provider. I recommend that you get further imaging such as MRI to further investigate the cause of your pain. I recommend you continue to use a walking aid such as a walker to help you decrease the weight on your right knee. You should be able to bear weight as tolerated. I recommend increased rest ice elevation and use of a knee brace. *What to do: *Please continue to take your regular medications as directed. [ x] New medication prescriptions sent to your pharmacy: [ [facility]] [ ] New medication written as a paper prescription [ ] No new medications given *Please follow up with your primary care provider in 2-3 days, call for an appointment. Let them know you were seen in the Emergency Department and that we ask that you be seen in follow up. We will electronically transmit a record of today's note if your PCP is in our system *If you do not have a primary care provider please contact the [facility] Resource line at [phone]. They will ask some questions about your medical history and help get you set up with a doctor in the community. *Return to Emergency Department if you should have any new, worsening or concerning symptoms, such as [fever greater than 101 F, shaking chills, worsening pain, persistent vomiting or other bothersome symptoms] Prescriptions: New hydrocodone-acetaminophen 5-325 mg tablet 1 tab PO Q8H PRN (Reason: pain) Qty: 7 0RF Rx Instructions: May cause drowsiness and constipation No Action Qvar RediHaler 40 mcg/actuation HFA aerosol breath activated 1 inh inhalation BID Qty: 10.6 3RF Rx Instructions: administer with spacer carbamazepine 100 mg tablet extended release 12 hr 50 mg PO Q12H PRN (Reason: Trygenamal Nerve) Qty: 60 1RF albuterol sulfate [Ventolin HFA] 90 mcg/actuation HFA aerosol inhaler See Rx Instructions .ROUTE .COMPLEX Qty: 18 2RF Dose Instruction: INHALE 2 PUFFS INTO THE LUNGS EVERY 4 TO 6 HOURS NEEDED FOR ASTHMA; USE WITH SPACER Rx Instructions: INHALE 2 PUFFS INTO THE LUNGS EVERY 4 TO 6 HOURS NEEDED FOR ASTHMA; USE WITH SPACER hydrocodone-acetaminophen 5-325 mg tablet 1 tab PO BID PRN (Reason: pain) Qty: 14 0RF cefuroxime axetil 250 mg tablet 250 mg PO BID Qty: 14 0RF lisinopril 30 mg tablet 30 mg .ROUTE BID Qty: 180 2RF Rx Instructions: 30 mg twice a day; ondansetron 4 mg tablet,disintegrating 4 mg PO Q8H PRN (Reason: nausea and vomiting) Qty: 30 1RF alprazolam 0.5 mg tablet See Rx Instructions .ROUTE .COMPLEX Qty: 60 0RF Dose Instruction: TAKE 1 TABLET BY MOUTH TWICE DAILY NEEDED FOR ANXIETY Rx Instructions: TAKE 1 TABLET BY MOUTH TWICE DAILY NEEDED FOR ANXIETY multivitamin Tablet 1 tab PO DAILY Advil Dual Action 125-250 mg tablet 1 tab PO Q8H PRN (Reason: Pain (Scale Score 4-6)) vitamin B complex Capsule 1 cap PO DAILY Referrals: Nikhil Ballard MD [Primary Care Provider] - Stand Alone Forms: Patient Portal/API ED Sign-out <Jyotsna Strong DO - Last Filed: 06/06/23 11:14> Cosign ED Attending Cosignature Attestation: I was available for consultation.
[2023-05-30 14:16] VITALS: BP 116/58; PULSE 61; RESP 18; O2SAT 98
== END 2023-05-30 14:17 | disposition home or self-care (01) ==
PROVIDERS: Emergency Provider Physician Assistant; PCP Family Medicine
DX: S86.911A Strain of unspecified muscle(s) and tendon(s) at lower leg level, right leg, initial encounter (principal)
CPT/HCPCS: 73562; 99283

== ENCOUNTER → 2024-02-13 16:33 | Outpatient (CLI) | payer MEDICARE, OTHER, SELFPAY ==
--- NOTE | 2024-02-13 16:35 | DI.MG.S_ITS ---
BILATERAL DIGITAL SCREENING MAMMOGRAM 3D/2D WITH CAD: 02/13/2024 CLINICAL: Routine screening. Personal history of left breast cancer. Comparison is made to exams dated: 02/07/2023 mammogram, 01/24/2022 mammogram, and 01/26/2021 mammogram - outside facility. There are scattered areas of fibroglandular density (category b / 25%-50% glandular tissue). Current study was also evaluated with a Computer Aided Detection (CAD) system. There are multiple round and oval masses with circumscribed margins seen in both breasts. There are stable post surgical changes in the left breast from prior lumpectomy. No other significant masses, calcifications, or other findings are seen in either breast. There has been no significant interval change. IMPRESSION: BENIGN Status post left lumpectomy. Multiple, bilateral, round and oval benign appearing masses. No mammographic evidence of malignancy. A 1 year screening mammogram is recommended. This exam was interpreted at Station ID: [id number]. NOTE: For mammograms, a report in lay terms will be sent to the patient. Approximately 15% of breast malignancies will not be visualized mammographically. In the management of a palpable breast mass, a negative mammogram must not discourage biopsy of a clinically suspicious lesion. Electronically Signed By: Kami Meneses M.D., Ph.D. eb/:02/16/2024 04:50:50 letter sent: Normal Exam ACR BI-RADS Category 2: Benign
== END ==
PROVIDERS: PCP Family Medicine; Referring Provider Internal Medicine Hematology & Oncology; Visit Provider Internal Medicine Hematology & Oncology
DX: Z12.31 Encounter for screening mammogram for malignant neoplasm of breast (principal); Z85.3 Personal history of malignant neoplasm of breast
CPT/HCPCS: 77063; 77067

== ENCOUNTER → 2024-04-06 09:38 | Outpatient (CLI) | payer MEDICARE, OTHER, SELFPAY ==
--- NOTE | 2024-04-06 14:12 | ST.SWALLOW ---
Visit Care Team Role Provider Type Morales Smith MD Primary Care Provider Physician Specialty: Family Practice Address: [facility] [place], [address] Email: 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 Pt c/o difficulty swallowing and noted foods get stuck in her throat (points at sternal notch). She noted that steak and pills are difficult to swallow. Additionally, she reported that if he eats too fast, foods get stuck in her throat. Pt has a PMH that includes generalized anxiety disorder, hypertension, depression, atypical pneumonia and breast cancer. She reported that her PCP had ordered Omneprozol for GERD, but she hasn't been consistent in taking it. Pt denied neurological diagnoses, head/neck injury, surgery or gastrointestinal diagnoses. Subjective Observations Pt was seated in the fluoroscopy chair with directions and procedures described for her. She indicated she understood and agreed to proceed. Patient Positioning Position View Lat-A/P Imaging Lateral View Textures Administered Trials Presented Thin Liquid via Spoon (IDDSI 0 ),Thin Liquid via Cup (IDDSI 0 ),Extremely Thick Liquid via Spoon (IDDSI 4),Regular (IDDSI 7) Barium Tablet Yes The IDDSI Framework Protocol: IDDSI.1 Oral Impairment Source: The Modified Barium Swallow Impairment Profile (MBSImP??) Lip Closure No labial escape Tongue Control During Bolus Hold Cohesive bolus between tongue to palatal seal Bolus Preparation/Mastication Timely & efficient chewing & mashing Bolus Transport/Lingual Motion Brisk tongue motion Oral Residue Complete oral clearance Initiation of Pharyngeal Swallow Bolus head in valleculae Additional Oral Impairment Observations *OME and DKS were observed to be WNL. *Dentition natural and in good hygiene *Mastication observed with rotary chew pattern. *Good bolus formation, control and AP transition. Oral phase of swallow observed to be WNL Pharyngeal Impairment Source: The Modified Barium Swallow Impairment Profile (MBSImP??) Soft Palate Elevation No bolus between soft palate & pharyngeal wall Laryngeal Elevation Part.sup.move.thyroid cart/ part.approx.arytenoids to epiglot.petiole Anterior Hyoid Excursion Partial anterior movement Epiglottic Movement Complete inversion Laryngeal Vestibular Closure Complete; no air/contrast in laryngeal vestibule Pharyngeal Stripping Wave Present - complete Pharyngoesophageal Segment Opening Complete distention & complete duration; no obstruction of flow Tongue Base Retraction Trace column of contrast/air betwn tongue base & post. pharyngeal wall Pharyngeal Residue Trace residue within/on pharyngeal structures Location Valleculae Additional Pharyngeal Impairment *An unusual tissue formation Observations was observed on the posterior pharyngeal wall opposing the epiglottis. *Near C5-C6, in the lateral view of the esophagus, there appeared to be a protrusion of tissue from the posterior pharyngeal wall that altered the shape of the esophagus, nearly occluding the esophagus. A pocket or small diverticulum appeared to be located superiorly to this protrusion , lower than where a CP bar would normally be seen. This can be observed at 2 minutes: 50 seconds of the MBSS video. *The flow of the bolus trials did not appear to be affected by the protrusion. Although it could interfere with foods such as steak, chicken, etc and with large pills as described by the pt. And it appears to be at a level near the sternal notch. Pharyngeal phase of swallowing appeared to be WFL A/P View Textures Administered Trials Presented Thin Liquid via Spoon (IDDSI 0 ) The IDDSI Framework Protocol: IDDSI.1 A/P View Observations Pharyngeal Contraction Incomplete (Pseudodiverticulae ) Esophageal Clearance Upright Position Esophageal retention w/ regtrograde flow below pharyngoesoph segment Vocal Fold Function Good Esophageal Function Poor Motility,Stasis Additional A-P Observations Near C5-C6, in the lateral view of the esophagus, there appeared to be a protrusion of tissue from the posterior pharyngeal wall that altered the shape of the esophagus, nearly occluding the esophagus. A pocket or small diverticulum appeared to be located superiorly to this protrusion , lower than where a CP bar would normally be seen. This can be observed at 2 minutes: 50 seconds of the MBSS video. *The flow of the bolus trials did not appear to be affected by the protrusion. Although it could interfere with foods such as steak, chicken, etc and with large pills as described by the pt. And it appears to be at a level near the sternal notch. *In addition tot he above observations, when pt position changed from lateral to AP, there contrast remained in the esophagus from the level of the sternum to the stomach. Water wash partially cleared the contrast . Retro flow of the esophageal contents was observed. The barium tablet cleared esophagus as expected. At the end of the MBSS, the pt expressed discomfort from her sternum to her stomach. Clinical Impressions Dysphagia Type Esophageal Findings Pt presented with esophageal dysphagia. Protruding bulbous tissue from the posterior wall of the esophagus at C5-C6 was noted. This tissue could potentially interfere with bolus flow through the esophagus; although the barium tablet did clear the esophagus as expected. Recommend GI consult Patient Appropriate for Therapy No Recommendations Diet Comments No diet change Aspiration Precautions Recommended Precautions Upright at 90 Degrees, Alternate Liquids/Solids Additional Precautions Remain upright after meals for gravity assist in esoph clearing Treatment Plan Recommended Referrals GI Consult
== END ==
PROVIDERS: PCP Family Medicine; Referring Provider Otolaryngology; Visit Provider Otolaryngology
DX: R13.14 Dysphagia, pharyngoesophageal phase (principal); R09.A2 Foreign body sensation, throat
CPT/HCPCS: 74230; 92611

== ENCOUNTER → 2024-06-04 15:59 | Outpatient (CLI) | payer MEDICARE, OTHER, SELFPAY ==
[2024-06-04 16:31] LABS: Estimated Glomerular Filt Rate > 60 mL/min (>60)
== END ==
LOC: LAB 16:00
PROVIDERS: PCP Family Medicine; Referring Provider Family Medicine; Visit Provider Family Medicine
DX: D48.9 Neoplasm of uncertain behavior, unspecified (principal)
CPT/HCPCS: 36415; 82565

== ENCOUNTER → 2024-06-07 11:43 | Outpatient (CLI) | payer MEDICARE, OTHER, SELFPAY ==
--- NOTE | 2024-06-07 11:47 | DI.CT.S_ITS ---
PROCEDURE: CT SOFT TISSUE NECK W CON INDICATIONS: Pharyngeal mass TECHNIQUE: After the administration of intravenous contrast, 3.0 mm axial sections acquired from the sella to the aortic arch. Additional oblique axial 3.0 mm sections acquired through the pharynx. 3 mm thick coronal and sagittal reformats were generated. For radiation dose reduction, the following was used: automated exposure control. COMPARISON: [facility], CT, CT ANGIO CHEST PE PROTOCOL, 05/20/2022, 20:20. FINDINGS: Image quality: Excellent. Lymph nodes: No enlarged lymph nodes seen throughout the neck. Vessels: Visualized vasculature appears patent. Neck spaces: The oropharynx, nasopharynx, and pharynx demonstrate no mucosal lesions. The vocal cords, false vocal cords, pyriform sinuses, epiglottis, vallecula, and tongue base all appear normal. Extramucosal spaces appear unremarkable. Glands: The parotid and submandibular glands appear normal. Thyroid gland demonstrates no significant abnormality.. Miscellaneous: Visualized brain and orbits appear normal. Lung apices appear clear. Superficial soft tissues appear normal. Bones: No suspicious bony lesions. Visualized sinuses and mastoids appear unremarkable. IMPRESSION: Provided clinical history of pharyngeal mass. No masses are identified by CT. Recommend correlation with direct visualization. No enlarged cervical lymph nodes. Dictated by: Edmond Goddard M.D. on 06/08/2024 at 9:19 Approved by: Edmond Goddard M.D. on 06/08/2024 at 9:23
== END ==
PROVIDERS: PCP Family Medicine; Referring Provider Family Medicine; Visit Provider Family Medicine
DX: M54.2 Cervicalgia (principal); J39.2 Other diseases of pharynx; M79.89 Other specified soft tissue disorders; D48.19 Other specified neoplasm of uncertain behavior of connective and other soft tissue
CPT/HCPCS: 70491; Q9967

== ENCOUNTER 2024-07-20 23:04 | Emergency (ER) | payer MEDICARE, OTHER, SELFPAY ==
[2024-07-20 23:05] VITALS: BP 135/63; PULSE 61; RESP 17; TEMP 36.3; O2SAT 97; BMI 24.0
--- NOTE | 2024-07-20 23:06 | DI.RAD.S_ITS ---
PROCEDURE: XR CHEST 1V INDICATIONS: Chest Pain TECHNIQUE: One view of the chest was acquired. COMPARISON: [facility], CR, XR CHEST 1V, 09/30/2022, 9:19. [facility], CR, XR CHEST 1V, 05/20/2022, 17:11. FINDINGS AND IMPRESSION: On this single view study, no airspace consolidation or pleural effusion is seen. Left chest wall surgical clips. Borderline cardiomegaly. Aortic calcifications. Degenerative osseous changes. Dictated by: Yoni Carolina M.D. on 07/20/2024 at 23:41 Approved by: Yoni Carolina M.D. on 07/20/2024 at 23:41
[2024-07-20 23:10] VITALS: O2SAT 98
[2024-07-20 23:11] VITALS: BP 135/63; PULSE 61; RESP 17; O2SAT 98
--- NOTE | 2024-07-20 23:14 | EKG_ITS ---
[address] [address] Test Date: 2024-07-20 Pat Name: Ana Luisa Saez Department: [facility] Room: Gender: Female Roving Winder: : 1940 Requested By: Order Number: [id number] Reading MD: Jorge Luis Rivera Measurements Intervals Telephone Rate: 58 P: 54 VT: 176 QRS: -6 QRSD: 80 T: 45 QT: 424 QTc: 416 Interpretive Statements Sinus bradycardia Electronically Signed On 07-22-2024 17:28:50 PDT by Jorge Luis Rivera
[2024-07-20 23:15] VITALS: BP 135/68; PULSE 63; RESP 18; O2SAT 97
[2024-07-20 23:19] LABS: Add Manual Diff / Slide Review NO; Basophils Absolute Auto 100 /uL (0-100); Eosinophils Absolute Auto 200 /uL (0-450); Eosinophils Percent Auto 2.4 % (2-4); Hematocrit 40.3 % (36-46); Hemoglobin 13.3 g/dL (12.0-16.0); Lymphocytes Absolute Auto 3800 /uL (1100-4500); Lymphocytes Percent Auto 45.4 % (25-40); Mean Corpuscular HGB Conc 32.8 % (30-36); Mean Corpuscular Hemoglobin 31.1 PG (26-34); Mean Corpuscular Volume 94.6 fL (80-100); Monocytes Absolute Auto 900 /uL (0-900); Monocytes Percent Auto 10.2 % (3-14); Neutrophils Absolute Auto 3400 /uL (1500-7000); Platelet Count 307 X10^3/uL (150-400); Red Blood Cell Count 4.26 X10^6/uL (4.0-5.2); Red Cell Distribution Width 14.5 % (11.6-14.8); White Blood Cell Count 8.4 X10^3/uL (4.5-11.0)
[2024-07-20 23:26] LABS: INR 0.9 (0.9-1.3); Prothrombin Time 10.2 SECONDS (9.4-12.5)
[2024-07-20 23:29] LABS: PTT Partial Thromboplastin Tim 36 SECONDS (25.1-36.5)
[2024-07-20 23:30] VITALS: PULSE 55; O2SAT 96
[2024-07-20 23:38] LABS: Alanine Aminotransferase 23 IU/L (<35); Albumin 4.5 g/dL (3.5-5.0); Albumin Globulin Ratio 1.7 (1.0-2.8); Alkaline Phosphatase 83 U/L (38-126); Aspartate Aminotransferase 42 IU/L (14-36); BUN Creatinine Ratio 38.7 (6-22); Bilirubin Total 0.4 mg/dL (0.2-1.3); Blood Urea Nitrogen 29 mg/dL (7-17); Calcium 9.5 mg/dL (8.4-10.2); Carbon Dioxide 28 mmol/L (22-32); Chloride 107 mmol/L (98-107); Creatine Kinase 58 U/L (30-135); Estimated Glomerular Filt Rate > 60 mL/min (>60); Globulin 2.6 g/dL (1.7-4.1); Glucose 95 mg/dL (70-99); HEMOLYSIS 17 (0-50); Lipase 228 U/L (23-300); Magnesium 2.1 mg/dL (1.6-2.3); Potassium 4.2 mmol/L (3.4-5.1); Sodium 142 mmol/L (137-145); Total Protein 7.1 g/dL (6.3-8.2)
[2024-07-20 23:50] LABS: NT-proBNP (BNP-Adult 18+) 75 pg/mL (<450); Troponin I < 0.012 ng/mL (0.01-0.034)
[2024-07-21] VITALS (19 sets, daily range): BP systolic 112–134; BP diastolic 53–63; PULSE 47–73; RESP 12–29; O2SAT 93–100
--- NOTE | 2024-07-21 00:21 | ED.CHESTPAIN ---
HPI - Chest Pain General Chief Complaint: Chest Pain Stated Complaint: chestpain Time Seen by Provider: 07/20/24 23:21 Source: patient and EMS Mode of arrival: EMS History of Present Illness HPI narrative: 83-year-old female with no prior history of CAD, history of cervical angina, swallowing problems awaiting EGD, tonight had been lifting heavy face overhead, complained of substernal lower chest discomfort 10:00 p.m., took around dose of evening lisinopril and also ibuprofen, called 911, was given oral aspirin during transport, had resolution of symptoms in the ambulance without specific treatment. No nitroglycerin was given. No breathing treatments given. She does not have any recent cough, fevers or chills. She has not have pain to either upper extremity. No pain radiating to the back. Related Data Home Medications ?Medication ?Instructions ?Recorded ?Confirmed vitamin B complex 1 cap PO DAILY 06/28/21 09/21/23 ibuprofen 125 mg-acetaminophen 250 1 tab PO Q8H PRN Pain (Scale Score 09/18/21 09/21/23 mg tablet (Advil Dual Action) 4-6) multivitamin 1 tab PO DAILY 02/28/22 09/21/23 Previous Rx's ?Medication ?Instructions ?Recorded beclomethasone dipropionate 40 1 inh inhalation BID #10.6 grams 03/15/22 mcg/actuation HFA breath activated aerosol (Qvar RediHaler) carbamazepine 100 mg 50 mg (1/2 x 100 mg) PO Q12H PRN 07/01/22 tablet,extended release,12 hr Trygenamal Nerve #60 tabs Ventolin HFA 90 mcg/actuation See Rx Instructions .Route 12/17/22 aerosol inhaler (albuterol sulfate) .COMPLEX #18 grams hydrocodone 5 mg-acetaminophen 325 1 tab PO BID PRN pain #14 tabs 12/20/22 mg tablet cefuroxime axetil 250 mg tablet 250 mg PO BID #14 tabs 12/21/22 lisinopril 30 mg tablet 30 mg .Route BID #180 tabs 04/08/23 ondansetron 4 mg disintegrating 4 mg PO Q8H PRN nausea and 04/08/23 tablet vomiting #30 tabs hydrocodone 5 mg-acetaminophen 325 1 tab PO Q8H PRN pain #7 tabs 05/30/23 mg tablet alprazolam 0.5 mg tablet See Rx Instructions .Route 07/28/23 .COMPLEX #60 tabs cefuroxime axetil 500 mg tablet 500 mg PO BID #14 tabs 09/21/23 Allergies Allergy/AdvReac Type Severity Reaction Status Date / Time meperidine Allergy Severe COULDN'T Verified 07/20/24 23:36 BREATHE OR TALK, EXTREME DIAPHORESIS fluoxetine Allergy Intermediate BROKE OUT Verified 07/20/24 23:36 INTO RASH isosulfan blue Allergy Intermediate Rash Verified 07/20/24 23:36 levofloxacin Allergy Intermediate TENDON Verified 07/20/24 23:36 SORENESS penicillin G Allergy Intermediate RASH Verified 07/20/24 23:36 Sulfa (Sulfonamide Allergy Intermediate HIVES Verified 07/20/24 23:36 Antibiotics) nitrofurantoin (From Allergy Unknown Verified 07/20/24 23:36 MACROBID) Patient History Medical History Spinal stenosis of cervical region Facet arthropathy, lumbar Scoliosis Scleral icterus Lumbar spinal stenosis Spondylosis of lumbar spine Migraine Essential hypertension Asthma (~1944) Hay fever Abnormal chest x-ray Knee meniscus pain (~2014) Sciatica (~2017) Mononucleosis (~1960) Measles (~1949) Chicken pox (~1949) Tinnitus (~2016) Hearing loss (~2016) Kidney stones (~2005) Breast cancer (~2015) Surgical History Anesthesia History of lumpectomy (~01/2016) History of arthroscopic knee surgery (~2014) History of section (~1982) History of section (~1975) Branchial cleft cyst (~1960) History of appendectomy (~1953) History of tonsillectomy (~1944) History of cataract surgery Family History Father Hypertension Heart disease Mother No problems noted. Brother No problems noted. Sister No problems noted. Grandfather No problems noted. Grandmother No problems noted. Grandfather No problems noted. Grandmother No problems noted. Social History Smoking Status: Never smoker Smoking Status: Never smoker alcohol intake frequency: holidays/special occasions only Exam Narrative Exam Narrative: GENERAL: Well-developed patient, in mild distress. HEAD: Atraumatic. Normocephalic. EYES: Pupils equal round and reactive. Extraocular motions intact. No scleral icterus. No injection or drainage. ENT: Nose without bleeding, purulent drainage. Throat without erythema, tonsillar hypertrophy or exudate. Airway patent. NECK: Trachea midline. Non tender CARDIOVASCULAR: Regular rate and rhythm without murmurs, gallops, or rubs. RESPIRATORY: Clear bilaterally. No wheeze rales or rhonchi. Mild left anterior parasternal chest discomfort on palpation, no crepitance, no erythema. GASTROINTESTINAL: Abdomen soft, non-tender, nondistended. EXTREMITIES: No edema or joint tenderness. BACK: Nontender without deformity or crepitance. No flank tenderness. NEURO: AOx3. Motor functions grossly nonfocal SKIN: No rash or erythema of visible areas Initial Vital Signs Initial Vital Signs: Vital Signs Temperature 97.4 F L 07/20/24 23:05 Pulse Rate 61 07/20/24 23:05 Respiratory Rate 17 07/20/24 23:05 Blood Pressure 135/63 07/20/24 23:05 Pulse Oximetry 97 07/20/24 23:05 Oxygen Delivery Method Room Air 07/20/24 23:05 Course Orders Ordered: ED Orders 07/20/24 22:22 Complete Blood Count AUTO DIFF Stat Comprehensive Metabolic Panel Stat Lipase Stat Magnesium Stat NT-proBNP (BNP-Adult 18+) Stat PTT Partial Thromboplastin Ryan Stat Prothrombin Time INR Stat Troponin & CK Cardiac Panel Stat 07/20/24 23:05 EKG-12 Lead Stat 07/20/24 23:06 XR chest 1V Stat EKG-12 Lead Stat 07/21/24 00:44 Troponin I Stat Discontinued Medications Aspirin (Aspirin 81 Mg Chew Tab) 324 mg PO NOW ONE Stop: 07/20/24 23:07 Last Admin: 07/20/24 23:25 Dose: Not Given Documented By: GLORIA Vital Signs Vital signs: Vital Signs - 8 hr 07/20/24 23:05 07/20/24 23:10 07/20/24 23:11 Temperature 97.4 F L Pulse Rate 61 Respiratory Rate 17 17 Blood Pressure 135/63 135/63 Pulse Oximetry 97 98 Oxygen Delivery Method Room Air 07/20/24 23:11 07/20/24 23:15 07/20/24 23:15 Temperature Pulse Rate 61 63 Respiratory Rate 18 Blood Pressure 135/68 Pulse Oximetry 98 97 Oxygen Delivery Method Room Air 07/20/24 23:30 07/21/24 00:00 07/21/24 00:00 Temperature Pulse Rate 55 L 52 L Respiratory Rate 17 Blood Pressure 113/55 L Pulse Oximetry 96 97 Oxygen Delivery Method Room Air Room Air 07/21/24 00:30 07/21/24 00:30 07/21/24 01:00 Temperature Pulse Rate 56 L Respiratory Rate 29 H Blood Pressure 122/58 L 132/63 Pulse Oximetry 93 Oxygen Delivery Method 07/21/24 01:00 07/21/24 01:30 07/21/24 01:31 Temperature Pulse Rate 54 L 55 L Respiratory Rate 19 18 Blood Pressure 130/57 L Pulse Oximetry 99 98 Oxygen Delivery Method Room Air 07/21/24 01:31 07/21/24 02:00 07/21/24 02:01 Temperature Pulse Rate 53 L 51 L 47 L Respiratory Rate 19 17 16 Blood Pressure Pulse Oximetry 96 94 95 Oxygen Delivery Method 07/21/24 02:01 07/21/24 02:30 07/21/24 02:31 Temperature Pulse Rate 54 L 52 L Respiratory Rate 13 20 Blood Pressure 112/53 L Pulse Oximetry 93 94 Oxygen Delivery Method 07/21/24 02:42 07/21/24 02:44 07/21/24 02:44 Temperature Pulse Rate 52 L 52 L Respiratory Rate 18 13 Blood Pressure 134/61 Pulse Oximetry 98 100 Oxygen Delivery Method Room Air MDM - Chest Pain Lab Data Attestation: I reviewed the patient's lab results. Lab results narrative: White blood cell count 8400, hemoglobin 13.3, platelets adequate. Glucose 95. BUN 29 with creatinine 0.75. Serum CO2 normal. Normal electrolytes. AST 42 slight elevation, other liver functions normal range. Lipase normal. Troponin negative/unmeasurable x2 interval draws. BNP not elevated. 07/20/24 22:22 07/20/24 22:22 Labs: Lab Results 07/20/24 07/21/24 Range/Units 22:22 00:44 WBC 8.4 (4.5-11.0) X10^3/uL RBC 4.26 (4.0-5.2) X10^6/uL Hgb 13.3 (12.0-16.0) g/dL Hct 40.3 (36-46) % MCV 94.6 (80-100) fL MCH 31.1 (26-34) PG MCHC 32.8 (30-36) % RDW 14.5 (11.6-14.8) % Plt Count 307 (150-400) X10^3/uL Neut % (Auto) 41.0 L (50-75) % Lymph % (Auto) 45.4 H (25-40) % [place] % (Auto) 10.2 (3-14) % Eos % (Auto) 2.4 (2-4) % Baso % (Auto) 1.0 (0-2) % Neut # (Auto) 3400 (8450-5401) /uL Lymph # (Auto) 3800 (6892-6040) /uL [place] # (Auto) 900 (0-900) /uL Eos # (Auto) 200 (0-450) /uL Baso # (Auto) 100 (0-100) /uL PT 10.2 (9.4-12.5) SECONDS INR 0.9 (0.9-1.3) APTT 36 (25.1-36.5) SECONDS Sodium 142 (137-145) mmol/L Potassium 4.2 (3.4-5.1) mmol/L Chloride 107 (98-107) mmol/L Carbon Dioxide 28 (22-32) mmol/L BUN 29 H (7-17) mg/dL Creatinine 0.75 (0.52-1.04) mg/dL Estimated GFR > 60 (>60) mL/min BUN/Creatinine Ratio 38.7 H (6-22) Glucose 95 (70-99) mg/dL Calcium 9.5 (8.4-10.2) mg/dL Magnesium 2.1 (1.6-2.3) mg/dL Total Bilirubin 0.4 (0.2-1.3) mg/dL AST 42 H (14-36) IU/L ALT 23 (<35) IU/L Alkaline Phosphatase 83 (38-126) U/L Total Creatine Kinase 58 (30-135) U/L Troponin I < 0.012 < 0.012 (0.01-0.034) ng/mL NT-Pro-B Natriuret Pep 75 (<450) pg/mL Total Protein 7.1 (6.3-8.2) g/dL Albumin 4.5 (3.5-5.0) g/dL Globulin 2.6 (1.7-4.1) g/dL Albumin/Globulin Ratio 1.7 (1.0-2.8) Lipase 228 (23-300) U/L Imaging Data Chest x-ray: Radiologist's Impression: [address] [address] XRay Report Signed Patient: Ana Luisa Saez MR#: [id number] : 1940 Acct:[id number] Age/Sex: 83 / F Date of Service: 07/20/24 Loc: ED Accession Number: [id number] Procedure: XR chest 1V Ordering Provider: Colby Glover MD PROCEDURE: XR CHEST 1V INDICATIONS: Chest Pain TECHNIQUE: One view of the chest was acquired. COMPARISON: [facility], CR, XR CHEST 1V, 09/30/2022, 9:19. [facility], CR, XR CHEST 1V, 05/20/2022, 17:11. FINDINGS AND IMPRESSION: On this single view study, no airspace consolidation or pleural effusion is seen. Left chest wall surgical clips. Borderline cardiomegaly. Aortic calcifications. Degenerative osseous changes. Dictated by: Yoni Carolina M.D. on 07/20/2024 at 23:41 Approved by: Yoni Carolina M.D. on 07/20/2024 at 23:41 ECG Data Attestation: I personally reviewed and interpreted this ECG as follows: Interpretation: Sinus bradycardia with ventricular rate 58, no obvious ST segment elevation or depression changes. NH 176, QRS 80, QTC 416. MDM Narrative Medical decision making narrative: 83-year-old female with no known CAD, has cervical disc disease, cervical angina diagnosis in the past, no recent cardiac stress testing recalled, also swallowing problems for which he is awaiting EGD, lifting heavy face earlier this evening, had left anterior chest discomfort, took ibuprofen, took lisinopril her own medication, EMS gave aspirin during transport, symptoms resolved during transport. On examination here in no respiratory distress, has mild tenderness left anterior chest wall palpation that seems to reproduce her symptoms. Seems most consistent with musculoskeletal cause. Screening labs, EKG, chest x-ray pending. EKG without obvious ischemic changes. Chest x-ray without obvious acute changes. See radiology report. Initial troponin negative. We will repeat interval troponin. Repeat troponin also negative. We will discharge patient home. Further evaluation as an outpatient for now. Discharge Plan Departure Patient Disposition: Home Clinical Impression: Chest wall pain Activity Restrictions/Additional Instructions: History of cervical angina, recent lifting of heavy face, anterior chest discomfort, some tenderness on palpation of the chest that seems to reproduce your symptoms. Suspected chest wall discomfort. EKG in serial blood tests not suggestive of heart attack at this time. Chest x-ray showed no acute changes. Symptoms seemed to be improved with ibuprofen and lisinopril that you would took before EMS transport, who also had administered oral aspirin. Continue taking your chronic medications as planned for now. Recheck with your regular doctor later this week for arrangement of further testing/evaluation as an outpatient for now. Return earlier to this/nearest emergency department for any change worsening symptoms or any concerns prior. Prescriptions: No Action cefuroxime axetil 500 mg tablet 500 mg PO BID Qty: 14 0RF Qvar RediHaler 40 mcg/actuation HFA aerosol breath activated 1 inh inhalation BID Qty: 10.6 3RF Rx Instructions: administer with spacer carbamazepine 100 mg tablet extended release 12 hr 50 mg PO Q12H PRN (Reason: Trygenamal Nerve) Qty: 60 1RF albuterol sulfate [Ventolin HFA] 90 mcg/actuation HFA aerosol inhaler See Rx Instructions .ROUTE .COMPLEX Qty: 18 2RF Dose Instruction: INHALE 2 PUFFS INTO THE LUNGS EVERY 4 TO 6 HOURS NEEDED FOR ASTHMA; USE WITH SPACER Rx Instructions: INHALE 2 PUFFS INTO THE LUNGS EVERY 4 TO 6 HOURS NEEDED FOR ASTHMA; USE WITH SPACER hydrocodone-acetaminophen 5-325 mg tablet 1 tab PO BID PRN (Reason: pain) Qty: 14 0RF cefuroxime axetil 250 mg tablet 250 mg PO BID Qty: 14 0RF lisinopril 30 mg tablet 30 mg .ROUTE BID Qty: 180 2RF Rx Instructions: 30 mg twice a day; ondansetron 4 mg tablet,disintegrating 4 mg PO Q8H PRN (Reason: nausea and vomiting) Qty: 30 1RF alprazolam 0.5 mg tablet See Rx Instructions .ROUTE .COMPLEX Qty: 60 0RF Dose Instruction: TAKE 1 TABLET BY MOUTH TWICE DAILY NEEDED FOR ANXIETY Rx Instructions: TAKE 1 TABLET BY MOUTH TWICE DAILY NEEDED FOR ANXIETY multivitamin Tablet 1 tab PO DAILY Advil Dual Action 125-250 mg tablet 1 tab PO Q8H PRN (Reason: Pain (Scale Score 4-6)) hydrocodone-acetaminophen 5-325 mg tablet 1 tab PO Q8H PRN (Reason: pain) Qty: 7 0RF Rx Instructions: May cause drowsiness and constipation vitamin B complex Capsule 1 cap PO DAILY Referrals: Morales Smith MD [Primary Care Provider, Family Practice] Stand Alone Forms: Patient Portal/API
[2024-07-21 01:31] LABS: Troponin I < 0.012 ng/mL (0.01-0.034)
== END 2024-07-21 06:26 | disposition home or self-care (01) ==
PROVIDERS: Emergency Provider Emergency Medicine; PCP Family Medicine
DX: R07.89 Other chest pain (principal)
CPT/HCPCS: 71045; 80053; 82550; 83690; 83735; 83880; 84484; 85025; 85610; 85730; 93005; 99283; 99284

== ENCOUNTER 2024-09-22 22:08 | Inpatient (IN) | payer MEDICARE, OTHER, SELFPAY ==
[2024-09-22] VITALS (7 sets, daily range): BP systolic 150–160; BP diastolic 66–78; PULSE 83–98; RESP 18; TEMP 37.4; O2SAT 96–100; BMI 24.9
--- NOTE | 2024-09-22 22:31 | DI.RAD.S_ITS ---
PROCEDURE: XR ABDOMEN 1V INDICATIONS: consptipation TECHNIQUE: One view of the abdomen acquired. COMPARISON: None. FINDINGS: Surgical changes and devices: None. Bowel: Bowel gas pattern is normal. Moderate stool burden. Soft tissues: No suspicious abdominal calcifications. Visualized solid organ contours appear normal in size. Bones: No suspicious bony lesions. IMPRESSION: Moderate stool burden. Nonobstructive bowel gas pattern. Dictated by: Edmond Goddard M.D. on 09/22/2024 at 23:04 Approved by: Edmond Goddard M.D. on 09/22/2024 at 23:05
--- NOTE | 2024-09-22 23:44 | DI.CT.S_ITS ---
PROCEDURE: CT ABDOMEN PELVIS W CON INDICATIONS: abd pain, eval for obst/acute changes TECHNIQUE: After the administration of intravenous contrast, axial sections acquired from the lung bases to the pubic symphysis. Coronal and sagittal reformats were performed. For radiation dose reduction, the following was used: automated exposure control, adjustment of mA and/or kV according to patient size. COMPARISON: [facility], CT, CT ABDOMEN PELVIS W CON, 06/07/2021, 9:51. FINDINGS: Image quality: Diagnostic. Lower Chest: Left lower lobe 4 mm nodule is redemonstrated. Small hiatal hernia. ABDOMEN: Liver: No solid mass. Gallbladder: Surgically absent. Biliary ducts: No biliary dilation. Pancreas: No ductal dilation. Spleen: Size is within normal limits. Adrenal Glands: No adrenal nodules. Kidneys and Ureters: No hydronephrosis. No solid mass. No complex renal cystic lesion which requires follow up. Stomach and Bowel: Wall thickening of the distal sigmoid colon/rectum with surrounding inflammation. Diverticulosis without evidence of acute diverticulitis. Peritoneum: No abnormal intraperitoneal fluid. No free air. Ventral Wall: No significant ventral hernia. Abdominal Nodes: No retroperitoneal or mesenteric adenopathy by size criteria. Vessels: Aorta and inferior vena cava are normal in size. Atherosclerotic vascular calcifications. PELVIS: Pelvic Organs: Unremarkable. Bladder: No bladder wall thickening, accounting for underdistention. Pelvic Nodes: No enlarged lymph nodes. Miscellaneous: No inguinal hernias are seen. Bones: No aggressive osseous abnormality. Degenerative changes of the spine. Decreased osseous mineralization. IMPRESSION: Wall thickening and surrounding fat stranding involving the distal sigmoid colon and rectum concerning for proctocolitis. Consider direct visualization once inflammation has resolved to exclude underlying neoplasm. Dictated by: Edmond Goddard M.D. on 09/23/2024 at 1:47 Approved by: Edmond Goddard M.D. on 09/23/2024 at 1:50
--- NOTE | 2024-09-22 23:52 | ED.ABDPAIN ---
HPI - Abdominal Pain General Chief Complaint: Abdominal Pain Stated Complaint: bowel impaction/shakey Time Seen by Provider: 09/22/24 23:37 Source: patient Mode of arrival: EMS History of Present Illness HPI narrative: 83-year-old female with prior abdominopelvic surgeries including appendectomy, cholecystectomy, bilateral C-sections, prior remote colonoscopy 10+ years ago, no known colon cancer. She has had last bowel movement 4 days ago, increasing discomfort to mnav-ugbgnfu-glmb-right lower abdominal region. No history of colitis or diverticulitis. No fevers or chills. No nausea or vomiting. No frequency or painful urination. No back pain. Denies cough shortness of breath. She does not take blood thinner medications. No injury trauma or new activities. She did try to dig out stool she said with her hand, then had subsequent small amount of bleeding perirectal earlier today. Related Data Home Medications ?Medication ?Instructions ?Recorded ?Confirmed vitamin B complex 1 cap PO DAILY 06/28/21 09/23/24 ibuprofen 125 mg-acetaminophen 250 1 tab PO Q8H PRN Pain (Scale Score 09/18/21 09/23/24 mg tablet (Advil Dual Action) 4-6) omeprazole 20 mg capsule,delayed 20 mg PO DAILY 09/23/24 09/23/24 release Previous Rx's ?Medication ?Instructions ?Recorded beclomethasone dipropionate 40 1 inh inhalation BID #10.6 grams 03/15/22 mcg/actuation HFA breath activated aerosol (Qvar RediHaler) carbamazepine 100 mg 50 mg (1/2 x 100 mg) PO Q12H PRN 07/01/22 tablet,extended release,12 hr Trygenamal Nerve #60 tabs Ventolin HFA 90 mcg/actuation See Rx Instructions .Route 12/17/22 aerosol inhaler (albuterol sulfate) .COMPLEX #18 grams hydrocodone 5 mg-acetaminophen 325 1 tab PO BID PRN pain #14 tabs 12/20/22 mg tablet lisinopril 30 mg tablet 30 mg .Route BID #180 tabs 04/08/23 ondansetron 4 mg disintegrating 4 mg PO Q8H PRN nausea and 04/08/23 tablet vomiting #30 tabs alprazolam 0.5 mg tablet See Rx Instructions .Route 07/28/23 .COMPLEX #60 tabs Allergies Allergy/AdvReac Type Severity Reaction Status Date / Time meperidine Allergy Severe COULDN'T Verified 09/22/24 22:19 BREATHE OR TALK, EXTREME DIAPHORESIS fluoxetine Allergy Intermediate BROKE OUT Verified 09/22/24 22:19 INTO RASH isosulfan blue Allergy Intermediate Rash Verified 09/22/24 22:19 levofloxacin Allergy Intermediate TENDON Verified 09/22/24 22:19 SORENESS penicillin G Allergy Intermediate RASH Verified 09/22/24 22:19 Sulfa (Sulfonamide Allergy Intermediate HIVES Verified 09/22/24 22:19 Antibiotics) nitrofurantoin (From Allergy Unknown Verified 09/22/24 22:19 MACROBID) Patient History Medical History Spinal stenosis of cervical region Facet arthropathy, lumbar Scoliosis Scleral icterus Lumbar spinal stenosis Spondylosis of lumbar spine Migraine Essential hypertension Asthma (~1944) Hay fever Abnormal chest x-ray Knee meniscus pain (~2014) Sciatica (~2017) Mononucleosis (~1960) Measles (~1949) Chicken pox (~1949) Tinnitus (~2016) Hearing loss (~2016) Kidney stones (~2005) Breast cancer (~2015) Surgical History Anesthesia History of lumpectomy (~01/2016) History of arthroscopic knee surgery (~2014) History of section (~1982) History of section (~1975) Branchial cleft cyst (~1960) History of appendectomy (~1953) History of tonsillectomy (~1944) History of cataract surgery Family History Father Hypertension Heart disease Mother No problems noted. Brother No problems noted. Sister No problems noted. Grandfather No problems noted. Grandmother No problems noted. Grandfather No problems noted. Grandmother No problems noted. Social History Smoking Status: Never smoker Smoking Status: Never smoker alcohol intake frequency: holidays/special occasions only Exam Narrative Exam Narrative: GENERAL: Well-developed patient, in mild distress. HEAD: Atraumatic. Normocephalic. EYES: Pupils equal round and reactive. Extraocular motions intact. No scleral icterus. No injection or drainage. ENT: Nose without bleeding, purulent drainage. Throat without erythema, tonsillar hypertrophy or exudate. Airway patent. NECK: Trachea midline. Non tender CARDIOVASCULAR: Regular rate and rhythm without murmurs, gallops, or rubs. RESPIRATORY: Clear to auscultation. Breath sounds equal bilaterally. No wheezes, rales, or rhonchi. GASTROINTESTINAL: Abdomen soft, mild tenderness left greater than right lower quadrant, nondistended, active bowel tones. EXTREMITIES: No edema or joint tenderness. BACK: Nontender without deformity or crepitance. No flank tenderness. NEURO: AOx3. Motor functions grossly nonfocal. SKIN: No rash or erythema of visible areas Initial Vital Signs Initial Vital Signs: Vital Signs Blood Pressure 160/78 H 09/22/24 22:11 Course Orders Ordered: ED Orders 09/22/24 22:31 XR abdomen 1V Stat 09/22/24 23:43 Complete Blood Count AUTO DIFF Stat Comprehensive Metabolic Panel Stat Lactate (Lactic Acid) Stat Lipase Stat 09/22/24 23:44 CT abdomen pelvis w con Stat 09/23/24 03:05 Urinalysis and Microscopic Stat Discontinued Medications Ceftriaxone Sodium 1,000 mg/ (Sodium Chloride) 100 mls @ 200 mls/hr IV NOW ONE Stop: 09/23/24 02:47 Last Infusion: 09/23/24 03:45 Dose: Infused Documented By: Admin: 09/23/24 02:57 Dose: 200 mls/hr Documented By: JOSIE Metronidazole (Flagyl) 500 mg in 100 mls @ 100 mls/hr IV NOW ONE Stop: 09/23/24 03:45 Last Infusion: 09/23/24 03:45 Dose: 0 mls/hr Documented By: Admin: 09/23/24 02:57 Dose: 100 mls/hr Documented By: JOSIE Vital Signs Vital signs: Vital Signs - 8 hr 09/22/24 22:11 09/22/24 22:14 09/22/24 22:19 Temperature 99.4 F Pulse Rate 86 98 H Respiratory Rate 18 Blood Pressure 160/78 H 160/78 H Pulse Oximetry 100 99 Oxygen Delivery Method Room Air 09/22/24 22:30 09/22/24 22:31 09/22/24 22:31 Temperature Pulse Rate 88 83 Respiratory Rate Blood Pressure 150/66 H Pulse Oximetry 98 99 Oxygen Delivery Method 09/22/24 23:00 09/22/24 23:30 09/23/24 00:00 Temperature Pulse Rate 86 88 88 Respiratory Rate Blood Pressure Pulse Oximetry 96 96 92 Oxygen Delivery Method 09/23/24 00:24 09/23/24 00:24 09/23/24 00:30 Temperature Pulse Rate 83 76 Respiratory Rate Blood Pressure 126/57 L Pulse Oximetry 99 99 Oxygen Delivery Method 09/23/24 01:02 09/23/24 01:02 09/23/24 01:31 Temperature Pulse Rate 78 72 Respiratory Rate Blood Pressure 120/84 Pulse Oximetry 96 95 Oxygen Delivery Method 09/23/24 02:00 09/23/24 02:30 Temperature Pulse Rate 69 67 Respiratory Rate Blood Pressure Pulse Oximetry 97 97 Oxygen Delivery Method MDM - Abdominal Pain Lab Data Attestation: I reviewed the patient's lab results. Lab results narrative: White blood cell count 66906, hemoglobin 12, platelets adequate. Glucose 96. BUN 31 the creatinine 0.66, serum CO2 30, electrolytes normal. Liver functions and lipase normal. Lactate 0.9 normal. 09/23/24 00:45 09/23/24 00:45 Labs: Lab Results 09/23/24 09/23/24 Range/Units 00:45 01:11 WBC 21.4 H (4.5-11.0) X10^3/uL RBC 3.95 L (4.0-5.2) X10^6/uL Hgb 12.0 (12.0-16.0) g/dL Hct 36.0 (36-46) % MCV 91.3 (80-100) fL MCH 30.4 (26-34) PG MCHC 33.4 (30-36) % RDW 14.3 (11.6-14.8) % Plt Count 260 (150-400) X10^3/uL Neut % (Auto) 79.2 H (50-75) % Lymph % (Auto) 14.6 L (25-40) % [place] % (Auto) 5.2 (3-14) % Eos % (Auto) 0.3 L (2-4) % Baso % (Auto) 0.7 (0-2) % Neut # (Auto) 17937 H (6357-0409) /uL Lymph # (Auto) 3100 (9674-2275) /uL [place] # (Auto) 1100 H (0-900) /uL Eos # (Auto) 100 (0-450) /uL Baso # (Auto) 100 (0-100) /uL Sodium 142 (137-145) mmol/L Potassium 4.4 (3.4-5.1) mmol/L Chloride 107 (98-107) mmol/L Carbon Dioxide 30 (22-32) mmol/L BUN 31 H (7-17) mg/dL Creatinine 0.66 (0.52-1.04) mg/dL Estimated GFR > 60 (>60) mL/min BUN/Creatinine Ratio 47.0 H (6-22) Glucose 96 (70-99) mg/dL Lactate 0.9 (0.7-2.1) mmol/L Calcium 9.2 (8.4-10.2) mg/dL Total Bilirubin 0.5 (0.2-1.3) mg/dL AST 31 (14-36) IU/L ALT 23 (<35) IU/L Alkaline Phosphatase 70 (38-126) U/L Total Protein 6.3 (6.3-8.2) g/dL Albumin 3.8 (3.5-5.0) g/dL Globulin 2.5 (1.7-4.1) g/dL Albumin/Globulin Ratio 1.5 (1.0-2.8) Lipase 125 (23-300) U/L [facility] Narrative Medical decision making narrative: 83-year-old female with lower abdominal pain, prior appy and cholecystectomy and two C-sections, remote colonoscopy, lower abdominal pain fhad-nfeyalp-ihnw-right, last bowel movement 4 days ago, tried to dig out stool with her fingers earlier today, some bright red blood per rectum after her attempt. Afebrile, sirs screen negative. DDx lower abdominal pain include colitis, diverticulitis, bowel obstruction, proctitis, constipation/obstipation, UTI, other. Labs pending, declines pain medications for now when offered. Abdominal x-ray series, moderate stool burden, nonobstructive bowel gas pattern. See tele radiology report. Lab data: White blood cell count 33369, hemoglobin 12, platelets adequate. Glucose 96. BUN 31 the creatinine 0.66, serum CO2 30, electrolytes normal. Liver functions and lipase normal. Lactate 0.9 normal. Elevated white blood cell count noted, lactate okay, renal function adequate. CT abdomen and pelvis with IV contrast ordered. CT shows proctocolitis, no perforation or obstruction or abscess. See radiology report. Elderly female with tenderness and high white count, proctocolitis, consider admission. Multiple drug allergies to penicillin, levofloxacin, Septra. She can not recall the reactions to these, but does recall taking Ceftin in the past without problems. Will give IV ceftriaxone and IV Flagyl. PCP Luis, will contact admitting physician. [phone], case discussed with cross cover physician Dr. Naranjo who accepts patient for admission Critical Care Time Critical Care Time Critical Care Time: Yes Total Critical Care Time: 35 Attestation: The high probability of a clinically significant, sudden or life threatening deterioration of the [genitourinary, gastrointestinal] system(s) required my full and direct attention, intervention and personal management. The aggregate critical care time was [35] minutes. This time is in addition to time spent performing reported procedures but includes the following: [x] Data Review and interpretation [x] Patient assessment and monitoring of vital signs [x] Documentation [x] Medication orders and management Discharge Plan Departure Patient Disposition: Admitted As Inpatient Clinical Impression: Abdominal pain, Proctocolitis Admit Date/Time: 09/23/24 02:58 Admit Provider: Zoya Naranjo
[2024-09-23] VITALS (18 sets, daily range): BP systolic 98–172; BP diastolic 49–84; PULSE 58–88; RESP 15–16; TEMP 36.3–36.8; O2SAT 92–99; BMI 24.9
[2024-09-23 00:58] LABS: Add Manual Diff / Slide Review NO; Hematocrit 36.0 % (36-46); Hemoglobin 12.0 g/dL (12.0-16.0); Lymphocytes Absolute Auto 3100 /uL (1100-4500); Mean Corpuscular HGB Conc 33.4 % (30-36); Mean Corpuscular Hemoglobin 30.4 PG (26-34); Mean Corpuscular Volume 91.3 fL (80-100); Platelet Count 260 X10^3/uL (150-400)
[2024-09-23 01:09] LABS: Alanine Aminotransferase 23 IU/L (<35); Albumin 3.8 g/dL (3.5-5.0); Albumin Globulin Ratio 1.5 (1.0-2.8); Alkaline Phosphatase 70 U/L (38-126); Blood Urea Nitrogen 31 mg/dL (7-17); Calcium 9.2 mg/dL (8.4-10.2); Carbon Dioxide 30 mmol/L (22-32); Chloride 107 mmol/L (98-107); Estimated Glomerular Filt Rate > 60 mL/min (>60); Globulin 2.5 g/dL (1.7-4.1); Glucose 96 mg/dL (70-99); HEMOLYSIS 16 (0-50); Lipase 125 U/L (23-300); Potassium 4.4 mmol/L (3.4-5.1); Sodium 142 mmol/L (137-145); Total Protein 6.3 g/dL (6.3-8.2)
[2024-09-23 01:33] LABS: Lactate (Lactic Acid) 0.9 mmol/L (0.7-2.1)
[2024-09-23] MEDS: metroNIDAZOLE 500 MG/100 ML PIGGYBACK 100 MG IV ×3 (02:57→21:16)
[2024-09-23 03:15] LABS: Appearance Urine UA CLEAR; Bilirubin Urine UA NEGATIVE (NEGATIVE); Color Urine UA YELLOW; Glucose Urine UA NEGATIVE (Negative); Ketones Urine UA NEGATIVE (NEGATIVE); Leukocyte Esterase Urine UA NEGATIVE (NEGATIVE); Nitrite Urine UA NEGATIVE (Negative); Occult Blood Urine UA NEGATIVE (Negative); Protein Urine UA NEGATIVE (Negative); Specific Gravity Urine UA <=1.005 (1.000-1.035); Urobilinogen Urine UA 0.2 E.U./dL (0.2)
[2024-09-23 03:17] LABS: pH Urine UA 5.5 (4.5-8.0)
[2024-09-23 03:20] LABS: Culture Indicated Urine Cult Not Indicated
--- NOTE | 2024-09-23 03:45 | PC.NURSE ---
FLagyl continued upon transfer to floor
--- NOTE | 2024-09-23 04:41 | PC.WOUNDPHOT ---
Right chiu Right knee Left forearm left breast
--- NOTE | 2024-09-23 08:45 | PM.HP.1 ---
History of Present Illness History of Present Illness Date Patient Seen: 09/23/24 Time Patient Seen: 09:30 Chief complaint: bowel impaction/shakey Narrative: Patient presented to ED with acute abdominal pain feeling weak and shaky found to have elevated white count possible colitis started on treatment with Rocephin and Flagyl feeling better already this morning I think we will proceed with bowel rest continue antibiotics see how she does. Reports normal appetite she is chronically constipated takes MiraLax most mornings. [facility] Medical History Spinal stenosis of cervical region Facet arthropathy, lumbar Scoliosis Scleral icterus Lumbar spinal stenosis Spondylosis of lumbar spine Migraine Essential hypertension Asthma (~1944) Hay fever Abnormal chest x-ray Knee meniscus pain (~2014) Sciatica (~2017) Mononucleosis (~1960) Measles (~1949) Chicken pox (~1949) Tinnitus (~2016) Hearing loss (~2016) Kidney stones (~2005) Breast cancer (~2015) Surgical History Anesthesia History of lumpectomy (~01/2016) History of arthroscopic knee surgery (~2014) History of section (~1982) History of section (~1975) Branchial cleft cyst (~1960) History of appendectomy (~1953) History of tonsillectomy (~1944) History of cataract surgery Family History Father Hypertension Heart disease Mother No problems noted. Brother No problems noted. Sister No problems noted. Grandfather No problems noted. Grandmother No problems noted. Grandfather No problems noted. Grandmother No problems noted. Social History household members: spouse Smoking Status: Never smoker Meds Home Medications and Allergies Home Medications ?Medication ?Instructions ?Recorded ?Confirmed ?Type vitamin B complex 1 cap PO DAILY 06/28/21 09/23/24 History ibuprofen 125 mg-acetaminophen 250 1 tab PO Q8H PRN Pain (Scale Score 09/18/21 09/23/24 History mg tablet (Advil Dual Action) 4-6) beclomethasone dipropionate 40 1 inh inhalation BID #10.6 grams 03/15/22 09/23/24 Rx mcg/actuation HFA breath activated aerosol (Qvar RediHaler) carbamazepine 100 mg 50 mg (1/2 x 100 mg) PO Q12H PRN 07/01/22 09/23/24 Rx tablet,extended release,12 hr Trygenamal Nerve #60 tabs Ventolin HFA 90 mcg/actuation See Rx Instructions .Route 12/17/22 09/23/24 Rx aerosol inhaler (albuterol sulfate) .COMPLEX #18 grams hydrocodone 5 mg-acetaminophen 325 1 tab PO BID PRN pain #14 tabs 12/20/22 09/23/24 Rx mg tablet lisinopril 30 mg tablet 30 mg .Route BID #180 tabs 04/08/23 09/23/24 Rx ondansetron 4 mg disintegrating 4 mg PO Q8H PRN nausea and 04/08/23 09/23/24 Rx tablet vomiting #30 tabs alprazolam 0.5 mg tablet See Rx Instructions .Route 07/28/23 09/23/24 Rx .COMPLEX #60 tabs omeprazole 20 mg capsule,delayed 20 mg PO DAILY 09/23/24 09/23/24 History release Allergies Allergy/AdvReac Type Severity Reaction Status Date / Time meperidine Allergy Severe COULDN'T Verified 09/22/24 22:19 BREATHE OR TALK, EXTREME DIAPHORESIS fluoxetine Allergy Intermediate BROKE OUT Verified 09/22/24 22:19 INTO RASH isosulfan blue Allergy Intermediate Rash Verified 09/22/24 22:19 levofloxacin Allergy Intermediate TENDON Verified 09/22/24 22:19 SORENESS penicillin G Allergy Intermediate RASH Verified 09/23/24 10:40 Sulfa (Sulfonamide Allergy Intermediate HIVES Verified 09/22/24 22:19 Antibiotics) nitrofurantoin (From Allergy Unknown Verified 09/22/24 22:19 MACROBID) Review of Systems Review of Systems Narrative: All systems reviewed and negative except as otherwise documented in HPI Exam Vital Signs (past 8 hours): - 09/23/24 01:02 09/23/24 01:02 09/23/24 01:31 Pulse Rate 78 72 Blood Pressure 120/84 Pulse Oximetry 96 95 09/23/24 02:00 09/23/24 02:30 09/23/24 03:00 Pulse Rate 69 67 74 Blood Pressure Pulse Oximetry 97 97 98 09/23/24 03:08 09/23/24 03:08 09/23/24 03:30 Pulse Rate 79 67 Blood Pressure 172/74 H Pulse Oximetry 98 93 09/23/24 03:31 09/23/24 03:31 Pulse Rate 68 Blood Pressure 128/60 Pulse Oximetry 93 Oxygen Delivery Method Room Air Narrative Exam Narrative: Calm elder resting in bed Resp Other: Moving air well clear to auscultation bilaterally Cardio Other: Regular rate and rhythm S1-S2 no pedal edema GI Other: Soft minimally tender in lower quadrants active bowel sounds Neuro Other: Alert awake and oriented x3 moving all limbs independently Objective Labs 09/23/24 00:45 09/23/24 00:45 Labs: Laboratory Results - last 24 hr 09/23/24 09/23/24 09/23/24 00:45 01:11 03:05 WBC 21.4 H RBC 3.95 L Hgb 12.0 Hct 36.0 MCV 91.3 MCH 30.4 MCHC 33.4 RDW 14.3 Plt Count 260 Neut % (Auto) 79.2 H Lymph % (Auto) 14.6 L [place] % (Auto) 5.2 Eos % (Auto) 0.3 L Baso % (Auto) 0.7 Neut # (Auto) 58986 H Lymph # (Auto) 3100 [place] # (Auto) 1100 H Eos # (Auto) 100 Baso # (Auto) 100 Sodium 142 Potassium 4.4 Chloride 107 Carbon Dioxide 30 BUN 31 H Creatinine 0.66 Estimated GFR > 60 BUN/Creatinine Ratio 47.0 H Glucose 96 Lactate 0.9 Calcium 9.2 Total Bilirubin 0.5 AST 31 ALT 23 Alkaline Phosphatase 70 Total Protein 6.3 Albumin 3.8 Globulin 2.5 Albumin/Globulin Ratio 1.5 Lipase 125 Urine Color Yellow Urine Appearance Clear Urine pH 5.5 Ur Specific [place] <=1.005 Urine Protein Negative Urine Glucose (UA) Negative Urine Ketones Negative Urine Occult Blood Negative Urine Nitrate Negative Urine Bilirubin Negative Urine Urobilinogen 0.2 Ur Leukocyte Esterase Negative Urine RBC None seen Urine WBC 0-1/hpf Ur Squamous Epith Cells 0-1 /hpf Urine Bacteria Occasional (0-1) Ur Culture Indicated? Cult not indicated Vol Urine Centrifuged 10ml (spun) Assessment & Plan Assessment & Plan narrative: #colitis #leukocytosis Remarkable leukocytosis with neutrophilic predominance suggestive of early sepsis Colitis suggested per imaging -she will be NPO today if she is doing okay maybe jello by evening until then IVF continue antibiotics Flagyl and Rocephin # hypertension Stable continue home meds lisinopril # GERD Stable continue home Prilosec #COPD Stable continue home inhalers breathing okay today dispo: obsv MDM: Yogesh Code: full diet: NPO until evening then jello as tolerated PCP: Luis Time-Based Coding :: [TOTAL MINUTES] spent with patient and on the chart (including review of chart, obtaining history, exam, reviewing outside data, placing orders, documenting exam and treatment plan, and counseling patient) on [DATE].
[2024-09-23] MEDS: DOCUSATE 100 MG CAPSULE PO ×2 (09:34→21:16)
[2024-09-23] MEDS: ENOXAPARIN 40 MG/0.4 ML SYRINGE SUBCUT (09:34)
[2024-09-23] MEDS: SODIUM CHLORIDE 0.9% 1,000 ML 125 ML IV ×2 (09:34→18:00)
[2024-09-23] MEDS: SODIUM CHLORIDE 0.9% FLUSH 10 ML IV ×2 (09:38→21:17)
--- NOTE | 2024-09-23 12:05 | CM.DANOTE ---
Initial DCP Assessment Note Pt is a 83 yo female, resident of [place], admitted for management of colitis and stool impaction. According to Dr Smith, patient is expected to remain here this evening for IV abx and IVF. PCP: Morales Smith Payer: VERONICA/lauren Reviewed chart, met w/patient who reports she and her spouse, retired physician, Yogesh Saez, live and take care of each other. 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 Between them, patient/spouse have 6 children, two together, adult children live throughout the country. Discussed current needs and questioned what the superintendent container terminal care (LTC) plan is? Patient denies needs currently, denies need for HH referral. Re LTC - patient knows she needs a plan but does not have one yet. Spouse can manage his own ADLs currently, however spouse's memory has changed. Spouse still drives occasionally according to patient. Encouraged patient to consider the upcoming needs of her 95 yo spouse. No barriers identified at this time to patient's safe discharge home and close outpatient f/u. Social work team will plan to follow clinical course closely in case any DC needs or concerns arise. SHAWANDA Askew Discharge Planning/Care Management CM Discharge Assessment Start: 09/23/24 03:37 Freq: Status: Active Protocol: Document 09/23/24 12:01 AMY (Rec: 09/23/24 12:05 AMY [id number]) Discharge Planning Assessment Assigned Discharge SHAWANDA Dumnot Swimming Coach Or Instructor DPOA/Assigned Yogesh Saez, spouse Designee Name Contact Information [phone] cell Advance Directives? Yes Advance Directives No on File History Provided By Patient Prior Living House Arrangements Household Members spouse Type of Drives own vehicle transporation used prior to admit Independent with ADL Yes 's Is patient alert and Yes oriented? Comment Independent Comment Home Barriers to No Discharge Discharge Plan Home Transportation Friends, spouse Arrangement Referrals Initiated None needed Whiteboard Updated Yes in Patient Room with name and ext. # of Headstart Teacher
[2024-09-23] MEDS: SENNOSIDES 8.6 MG TABLET 17.2 MG PO (21:16)
[2024-09-24] MEDS: SODIUM CHLORIDE 0.9% 1,000 ML 125 ML IV (02:05)
[2024-09-24] MEDS: PANTOPRAZOLE DR 20 MG TABLET PO (06:46)
[2024-09-24 08:00] VITALS: BP 123/51; PULSE 71; RESP 15; TEMP 36.4; O2SAT 97
[2024-09-24 08:30] LABS: Alanine Aminotransferase 15 IU/L (<35); Albumin 3.0 g/dL (3.5-5.0); Albumin Globulin Ratio 1.4 (1.0-2.8); Alkaline Phosphatase 58 U/L (38-126); Blood Urea Nitrogen 20 mg/dL (7-17); Calcium 8.5 mg/dL (8.4-10.2); Carbon Dioxide 27 mmol/L (22-32); Chloride 110 mmol/L (98-107); Estimated Glomerular Filt Rate > 60 mL/min (>60); Globulin 2.1 g/dL (1.7-4.1); Glucose 84 mg/dL (70-99); HEMOLYSIS < 15 (0-50); Potassium 4.0 mmol/L (3.4-5.1); Sodium 140 mmol/L (137-145); Total Protein 5.1 g/dL (6.3-8.2)
[2024-09-24 09:27] VITALS: BP 123/51; PULSE 70
[2024-09-24] MEDS: DOCUSATE 100 MG CAPSULE PO ×2 (09:27→20:38)
[2024-09-24] MEDS: ENOXAPARIN 40 MG/0.4 ML SYRINGE SUBCUT (09:27)
[2024-09-24] MEDS: metroNIDAZOLE 500 MG/100 ML PIGGYBACK 100 MG IV ×2 (09:28→20:36)
[2024-09-24 10:48] LABS: Add Manual Diff / Slide Review NO; Hematocrit 33.4 % (36-46); Hemoglobin 11.1 g/dL (12.0-16.0); Lymphocytes Absolute Auto 2600 /uL (1100-4500); Mean Corpuscular HGB Conc 33.3 % (30-36); Mean Corpuscular Hemoglobin 31.0 PG (26-34); Mean Corpuscular Volume 92.9 fL (80-100); Platelet Count 238 X10^3/uL (150-400)
--- NOTE | 2024-09-24 10:51 | PM.PN.1 ---
Subjective Subjective Date Patient Seen: 09/24/24 Time Patient Seen: 10:30 Interval history: Chief complaint colitis Patient was able to have a large bowel movement this morning feels much better now has been able to keep down jello we will try advancing diet today. Labs are pending seems like overall clinical picture is improving. Exam Vital Signs (past 8 hours): - 09/24/24 08:00 09/24/24 09:27 Temperature 97.5 F L Pulse Rate 71 70 Respiratory Rate 15 Blood Pressure 123/51 L 123/51 L Pulse Oximetry 97 Oxygen Flow Rate 0 Oxygen Delivery Method Room Air Oxygen Flow Rate 0 Narrative Exam Narrative: Lying comfortably in hospital bed dozing Resp Other: Clear to auscultation bilaterally Cardio Other: Regular rate and rhythm S1-S2 no pedal edema GI Other: Soft nontender active bowel sounds Neuro Other: Alert awake oriented x3 Objective Labs 09/24/24 08:12 09/24/24 08:12 Labs: Laboratory Results - last 24 hr 09/24/24 08:12 WBC 8.6 D RBC 3.59 L Hgb 11.1 L Hct 33.4 L MCV 92.9 MCH 31.0 MCHC 33.3 RDW 14.3 Plt Count 238 Neut % (Auto) 58.6 D Lymph % (Auto) 30.2 [place] % (Auto) 7.9 Eos % (Auto) 2.7 Baso % (Auto) 0.6 Neut # (Auto) 5000 Lymph # (Auto) 2600 [place] # (Auto) 700 Eos # (Auto) 200 Baso # (Auto) 0 Sodium 140 Potassium 4.0 Chloride 110 H Carbon Dioxide 27 BUN 20 H Creatinine 0.69 Estimated GFR > 60 BUN/Creatinine Ratio 29.0 H Glucose 84 Calcium 8.5 Total Bilirubin 0.5 AST 20 ALT 15 Alkaline Phosphatase 58 Total Protein 5.1 L Albumin 3.0 L Globulin 2.1 Albumin/Globulin Ratio 1.4 [facility] Medical History Spinal stenosis of cervical region Facet arthropathy, lumbar Scoliosis Scleral icterus Lumbar spinal stenosis Spondylosis of lumbar spine Migraine Essential hypertension Asthma (~1945) Hay fever Abnormal chest x-ray Knee meniscus pain (~2014) Sciatica (~2018) Mononucleosis (~196) Measles (~1950) Chicken pox (~1950) Tinnitus (~2017) Hearing loss (~2017) Kidney stones (~2006) Breast cancer (~2016) Surgical History Anesthesia History of lumpectomy (~01/2016) History of arthroscopic knee surgery (~2014) History of section (~1982) History of section (~1975) Branchial cleft cyst (~1960) History of appendectomy (~1953) History of tonsillectomy (~1944) History of cataract surgery Family History Father Hypertension Heart disease Mother No problems noted. Brother No problems noted. Sister No problems noted. Grandfather No problems noted. Grandmother No problems noted. Grandfather No problems noted. Grandmother No problems noted. Social History household members: spouse Smoking Status: Never smoker Assessment & Plan Assessment & Plan narrative: #colitis #leukocytosis Intake labs showed remarkable leukocytosis with neutrophilic predominance suggestive of early sepsis improved with bowel rest IVF and antibiotics Flagyl and Rocephin Continue with advancing diet as tolerated today - maybe home tomorrow # hypertension Stable continue home meds lisinopril # GERD Stable continue home Prilosec #COPD Stable continue home inhalers breathing okay today dispo: inpatient admission, trending WBCs maybe home on orals tomorrow she is pretty independent at baseline MDM: Yogesh Code: full diet: advance as tolerated PCP: Luis Time-Based Coding :: [TOTAL MINUTES] spent with patient and on the chart (including review of chart, obtaining history, exam, reviewing outside data, placing orders, documenting exam and treatment plan, and counseling patient) on [DATE].
[2024-09-24] MEDS: SODIUM CHLORIDE 0.9% 500 ML 21 ML IV (14:30)
[2024-09-24] MEDS: ACETAMINOPHEN 325 MG TABLET 650 MG PO (15:35)
[2024-09-24 19:00] VITALS: BP 126/50; PULSE 64; RESP 17; TEMP 36.1; O2SAT 98
[2024-09-24] MEDS: SENNOSIDES 8.6 MG TABLET 17.2 MG PO (20:38)
[2024-09-24] MEDS: SODIUM CHLORIDE 0.9% FLUSH 10 ML IV (20:39)
[2024-09-24 20:40] VITALS: BP 126/50; PULSE 64
[2024-09-25] MEDS: PANTOPRAZOLE DR 20 MG TABLET PO (06:14)
[2024-09-25 08:00] VITALS: BP 139/59; PULSE 57; RESP 18; TEMP 36.6; O2SAT 97
[2024-09-25 08:38] VITALS: BP 126/50
[2024-09-25] MEDS: ENOXAPARIN 40 MG/0.4 ML SYRINGE SUBCUT (08:38)
[2024-09-25] MEDS: metroNIDAZOLE 500 MG/100 ML PIGGYBACK 100 MG IV (08:53)
[2024-09-25 10:01] LABS: Add Manual Diff / Slide Review NO; Hematocrit 32.1 % (36-46); Hemoglobin 10.9 g/dL (12.0-16.0); Lymphocytes Absolute Auto 2500 /uL (1100-4500); Mean Corpuscular HGB Conc 33.8 % (30-36); Mean Corpuscular Hemoglobin 30.9 PG (26-34); Mean Corpuscular Volume 91.4 fL (80-100); Platelet Count 201 X10^3/uL (150-400)
[2024-09-25 10:18] LABS: Alanine Aminotransferase 18 IU/L (<35); Albumin 3.2 g/dL (3.5-5.0); Albumin Globulin Ratio 1.3 (1.0-2.8); Alkaline Phosphatase 56 U/L (38-126); Blood Urea Nitrogen 13 mg/dL (7-17); Calcium 8.8 mg/dL (8.4-10.2); Carbon Dioxide 27 mmol/L (22-32); Chloride 109 mmol/L (98-107); Estimated Glomerular Filt Rate > 60 mL/min (>60); Globulin 2.4 g/dL (1.7-4.1); Glucose 127 mg/dL (70-99); HEMOLYSIS < 15 (0-50); Potassium 3.8 mmol/L (3.4-5.1); Sodium 141 mmol/L (137-145); Total Protein 5.6 g/dL (6.3-8.2)
--- NOTE | 2024-09-25 10:22 | PM.DS.1 ---
History of Present Illness History of Present Illness Date Patient Seen: 09/25/24 Time Patient Seen: 10:22 Date of Onset of Symptoms: 09/21/24 Chief complaint: bowel impaction/shakey Narrative: 83-year-old female with prior abdominopelvic surgeries including appendectomy, cholecystectomy, bilateral C-sections, prior remote colonoscopy 10+ years ago, no known colon cancer. She has had last bowel movement 4 days ago, increasing discomfort to [id number]-right lower abdominal region. No history of colitis or diverticulitis. No fevers or chills. No nausea or vomiting. No frequency or painful urination. No back pain. Denies cough shortness of breath. She does not take blood thinner medications. No injury trauma or new activities. She did try to dig out stool she said with her hand, then had subsequent small amount of bleeding perirectal earlier today. Discharge Providers Provider Date of admission: 09/24/24 10:51 Discharge Date: 09/25/24 Primary care physician: Morales Smith MD Discharge provider: Holland Bejarano MD Summary Hospital Course Discharge Diagnosis: Colitis/impaction Leukocytosis Thickened colon wall Hypertension History of GERD History of COPD Hospital Course: Colitis/impaction. Patient with pretty impressive impaction on admission. And elevated white count. Question was whether she was infected or whether it was just the impaction. CT scan did show some wall thickness and fat stranding but white count resolved immediately. And she felt so much better the next day after a bowel movement. Question whether this is a significant abnormality with CT scan possibility of cancer will need to be followed up as an outpatient. Patient otherwise is feeling completely normal. White count stable no fever at this point we will discontinue antibiotics and follow-up as an outpatient. Unlikely a significant infection but will have to follow. Patient understands that call if any change. Leukocytosis. Possible stress reaction possible secondary to impaction. Possible colitis but certainly symptoms have completely resolved and markedly improved with very short course after 1 dose of antibiotics. Suspect this was not secondary to infection but more stress and related to her impaction. But will be followed as an outpatient. Thickened colon wall. Could be colitis. Could be potentially cancerous process although unlikely. Will need to be followed up either by endoscopy or repeat down the road after inflammation is completely resolved. Hypertension. Stable continue usual lisinopril History of GERD. No active symptoms usual meds History of COPD. Lungs sound good. Will continue usual inhalers. Follow-up with PCP Status at Discharge Cognitive/behavioral status at discharge: oriented Exam Vital Signs (past 8 hours): - 09/25/24 08:38 Blood Pressure 126/50 L Oxygen Delivery Method Room Air Oxygen Flow Rate 0 Narrative Exam Narrative: Alert interactive female smiling in no acute distress Lungs are clear heart is regular rate and rhythm abdomen is soft positive bowel sounds completely nontender extremities without cyanosis clubbing edema Objective Labs 09/25/24 09:43 09/24/24 08:12 Labs: Laboratory Results - last 24 hr 09/24/24 09/25/24 08:12 09:43 WBC 8.6 D 8.1 RBC 3.59 L 3.51 L Hgb 11.1 L 10.9 L Hct 33.4 L 32.1 L MCV 92.9 91.4 MCH 31.0 30.9 MCHC 33.3 33.8 RDW 14.3 14.0 Plt Count 238 201 Neut % (Auto) 58.6 D 57.4 Lymph % (Auto) 30.2 30.4 [place] % (Auto) 7.9 7.8 Eos % (Auto) 2.7 3.5 Baso % (Auto) 0.6 0.9 Neut # (Auto) 5000 4600 Lymph # (Auto) 2600 2500 [place] # (Auto) 700 600 Eos # (Auto) 200 300 Baso # (Auto) 0 100 PFSH Medical History Spinal stenosis of cervical region Facet arthropathy, lumbar Scoliosis Scleral icterus Lumbar spinal stenosis Spondylosis of lumbar spine Migraine Essential hypertension Asthma (~194) Hay fever Abnormal chest x-ray Knee meniscus pain (~2014) Sciatica (~2017) Mononucleosis (~1960) Measles (~1949) Chicken pox (~1949) Tinnitus (~2016) Hearing loss (~2016) Kidney stones (~2005) Breast cancer (~2015) Surgical History Anesthesia History of lumpectomy (~01/2016) History of arthroscopic knee surgery (~2014) History of section (~1982) History of section (~1975) Branchial cleft cyst (~1960) History of appendectomy (~1953) History of tonsillectomy (~1944) History of cataract surgery Family History Father Hypertension Heart disease Mother No problems noted. Brother No problems noted. Sister No problems noted. Grandfather No problems noted. Grandmother No problems noted. Grandfather No problems noted. Grandmother No problems noted. Social History household members: spouse Smoking Status: Never smoker Discharge Assessment & Plan Assessment and Plan Assessment: Improved Plan of Treatment: Discharge home Discharge Plan Discharge Plan Patient Disposition: Home Discharge orders & Medications Prescriptions: Continued Qvar RediHaler 40 mcg/actuation HFA aerosol breath activated 1 inh inhalation BID Qty: 10.6 3RF Rx Instructions: administer with spacer carbamazepine 100 mg tablet extended release 12 hr 50 mg PO Q12H PRN (Reason: Trygenamal Nerve) Qty: 60 1RF albuterol sulfate [Ventolin HFA] 90 mcg/actuation HFA aerosol inhaler See Rx Instructions .ROUTE .COMPLEX Qty: 18 2RF Dose Instruction: INHALE 2 PUFFS INTO THE LUNGS EVERY 4 TO 6 HOURS NEEDED FOR ASTHMA; USE WITH SPACER Rx Instructions: INHALE 2 PUFFS INTO THE LUNGS EVERY 4 TO 6 HOURS NEEDED FOR ASTHMA; USE WITH SPACER hydrocodone-acetaminophen 5-325 mg tablet 1 tab PO BID PRN (Reason: pain) Qty: 14 0RF lisinopril 30 mg tablet 30 mg .ROUTE BID Qty: 180 2RF Rx Instructions: 30 mg twice a day; ondansetron 4 mg tablet,disintegrating 4 mg PO Q8H PRN (Reason: nausea and vomiting) Qty: 30 1RF alprazolam 0.5 mg tablet See Rx Instructions .ROUTE .COMPLEX Qty: 60 0RF Dose Instruction: TAKE 1 TABLET BY MOUTH TWICE DAILY NEEDED FOR ANXIETY Rx Instructions: TAKE 1 TABLET BY MOUTH TWICE DAILY NEEDED FOR ANXIETY Advil Dual Action 125-250 mg tablet 1 tab PO Q8H PRN (Reason: Pain (Scale Score 4-6)) omeprazole 20 mg capsule,delayed release(DR/EC) 20 mg PO DAILY vitamin B complex Capsule 1 cap PO DAILY Follow up/Referrals: Morales Smith MD [Primary Care Provider, [facility]] - 3-5 Days Referral Note: Patient to call Friday morning for appointment or Friday this week Activity Restrictions/Additional Instructions: As tolerated Discharge Health Status Multidrug resistant organism: No MDRO Diet/Activity/Treatments Diet: Diet as Tolerated Activity: As tolerated Other treatments: Would recommend switching from Benefiber 2 psyllium based products such as Metamucil or Citrucel Skin/Wound/Dressing Care Report to your healthcare provider any signs of infection, such as:: chills, fever and increased pain Visit Report/Discharge Packet Stand Alone Forms: Patient Portal/API, Stroke Signs & Symptoms Discharge Data Primary Care Provider: Morales Smith
--- NOTE | 2024-09-25 11:02 | CM.DPC ---
DCP Discharge Home Per MD, pt with bowel movement and labs improved and pt medically stable to d/c home today with outpt f/u and no identified barriers to discharge. Per Rn, pt has been independent in room and no concerns noted. Plan: Patient to d/c home today via family POV and outpt f/u and no further SW needs at this time. SHAWANDA Hoang
== END 2024-09-25 12:00 | disposition home or self-care (01) | DRG 392 ==
LOC: ED 09-23 02:57 → AC 09-23 03:11
PROVIDERS: Admitting Provider Family Medicine; Emergency Provider Emergency Medicine; PCP Family Medicine; Referring Provider Emergency Medicine; Visit Provider Family Medicine
DX: K52.9 Noninfective gastroenteritis and colitis, unspecified (principal); K56.49 Other impaction of intestine; I10 Essential (primary) hypertension; K21.9 Gastro-esophageal reflux disease without esophagitis; J44.9 Chronic obstructive pulmonary disease, unspecified; D72.829 Elevated white blood cell count, unspecified; F41.9 Anxiety disorder, unspecified; Z90.49 Acquired absence of other specified parts of digestive tract
CPT/HCPCS: 36415; 74018; 74177; 80053; 81001; 83605; 83690; 85025; 96365; 96368; 99284; 99291; G0378; J0696; J1650; Q9967

== ENCOUNTER → 2024-10-21 08:43 | Outpatient (CLI) | payer MEDICARE, OTHER, SELFPAY ==
[2024-09-23 04:21] VITALS: BMI 24.9
[2024-10-21 10:01] LABS: Add Manual Diff / Slide Review NO; Hematocrit 39.5 % (36-46); Hemoglobin 13.1 g/dL (12.0-16.0); Lymphocytes Absolute Auto 4000 /uL (1100-4500); Mean Corpuscular HGB Conc 33.1 % (30-36); Mean Corpuscular Hemoglobin 30.4 PG (26-34); Mean Corpuscular Volume 91.7 fL (80-100); Platelet Count 295 X10^3/uL (150-400)
[2024-10-21 10:27] LABS: Alanine Aminotransferase 20 IU/L (<35); Albumin 4.2 g/dL (3.5-5.0); Albumin Globulin Ratio 1.8 (1.0-2.8); Alkaline Phosphatase 71 U/L (38-126); Blood Urea Nitrogen 26 mg/dL (7-17); Calcium 9.7 mg/dL (8.4-10.2); Carbon Dioxide 28 mmol/L (22-32); Chloride 105 mmol/L (98-107); Estimated Glomerular Filt Rate > 60 mL/min (>60); Globulin 2.3 g/dL (1.7-4.1); Glucose 86 mg/dL (70-99); HEMOLYSIS < 15 (0-50); Potassium 4.4 mmol/L (3.4-5.1); Sodium 142 mmol/L (137-145); Total Protein 6.5 g/dL (6.3-8.2)
== END ==
PROVIDERS: PCP Family Medicine; Referring Provider Family Medicine; Visit Provider Family Medicine
DX: I10 Essential (primary) hypertension (principal); R60.0 Localized edema
CPT/HCPCS: 36415; 80053; 85025

== ENCOUNTER → 2024-11-17 15:37 | Outpatient (CLI) | payer MEDICARE, OTHER, SELFPAY ==
[2024-09-23 04:21] VITALS: BMI 24.9
--- NOTE | 2024-11-17 15:39 | DI.RAD.S_ITS ---
PROCEDURE: XR CHEST 2V INDICATIONS: CHEST PRESSURE TECHNIQUE: 2 views of the chest were acquired. COMPARISON: [facility], CR, XR CHEST 1V, 07/20/2024, 23:07. [facility], CR, XR CHEST 1V, 09/30/2022, 9:19. FINDINGS: Surgical changes and devices: Surgical clips projecting over the left chest wall. Lungs and pleura: Lungs are clear. No pleural effusions or pneumothorax. Mediastinum: Mediastinal contours are normal. Heart size is normal. Bones and chest wall: No suspicious bony abnormalities. Soft tissues appear unremarkable. IMPRESSION: No acute cardiopulmonary abnormality is seen. Dictated by: Cindy Minaya M.D. on 11/17/2024 at 21:45 Approved by: Cindy Minaya M.D. on 11/17/2024 at 21:46
== END ==
LOC: RAD 15:38
PROVIDERS: PCP Family Medicine; Referring Provider Family Medicine; Visit Provider Family Medicine
DX: R07.89 Other chest pain (principal)
CPT/HCPCS: 71046